=== PATIENT | female | born 1985 | race Caucasian/White ===

== ENCOUNTER 2020-03-10 11:09 | Outpatient (REF) | payer MEDICAID, SELFPAY | END 2020-03-10 11:10 | disposition home or self-care (01) | LOC: HO.LAB 11:09 | PROVIDERS: Visit Provider Internal Medicine | DX: Z20.828 Contact with and (suspected) exposure to other viral communicable diseases (principal) | CPT/HCPCS: C9803; U0003 ==

== ENCOUNTER 2020-05-14 11:50 | Outpatient (REF) | payer MEDICAID, SELFPAY | END 2020-05-14 11:51 | disposition home or self-care (01) | LOC: HO.LAB 11:50 | PROVIDERS: Visit Provider Internal Medicine | DX: Z20.822 Contact with and (suspected) exposure to COVID-19 (principal) | CPT/HCPCS: 36415; C9803; U0003 ==

== ENCOUNTER 2020-07-25 11:51 | Outpatient (REF) | payer MEDICAID, SELFPAY ==
--- NOTE | ~2020-07-25 | XR_ITS ---
EXAMINATION: XR KNEE, LEFT CLINICAL INFORMATION: Left knee pain COMPARISON: None TECHNIQUE: Four views of the left knee. FINDINGS: There is no effusion or degenerative change. There is an area of ill-defined increased sclerosis in the distal diametaphysis of the femur. This measures 2 x 1.7 cm. This is eccentric abutting the endosteal cortex posteriorly. XR/XR knee LT 4V IMPRESSION: No abnormality of the knee joint. Sclerotic density in the distal femur indeterminate. Likely benign. This likely reflects a bone infarct, cartilage lesion or maturing nonossifying fibroma.
--- NOTE | ~2020-07-25 | XR_ITS ---
EXAMINATION: XR HIP, LEFT CLINICAL INFORMATION: Left hip pain COMPARISON: None TECHNIQUE: Two views of the left hip. FINDINGS: Bones and soft tissues are normal. No fracture. Alignment is anatomic. Hip joint space is maintained. XR/XR hip LT min 2V IMPRESSION: Normal left hip.
== END 2020-07-25 11:52 | disposition home or self-care (01) ==
LOC: HO.XRAY 11:51
PROVIDERS: PCP Student in an Organized Health Care Education/Training Program; Visit Provider Student in an Organized Health Care Education/Training Program
DX: M25.562 Pain in left knee (principal); M25.552 Pain in left hip
CPT/HCPCS: 73502; 73564

== ENCOUNTER 2020-07-31 13:32 | Outpatient (REF) | payer MEDICAID, SELFPAY ==
--- NOTE | ~2020-07-31 | US_ITS ---
EXAMINATION:US pelvic and transvaginal CLINICAL INFORMATION: Reason for Exam EXCESSIVE AND FREQ. MENSES COMPARISON: No priors available. LMP: Unknown FINDINGS: UTERUS: The uterus is anteverted. Size: 14.3 x 5.7 x 6.6 cm. Uterine mass: There is no uterine mass. Cervix: Grossly unremarkable. Endometrium: No ultrasound evidence of endometrial lesion. endometrial thickness measures 0.25 cm ADNEXA: Normal Right ovary: Normal in size. Left ovary: Normal in size. Doppler exam: Normal Doppler flow identified in both ovaries. FREE FLUID: Trace amount of free fluid. OTHER FINDINGS: None US/US pelvic and transvaginal IMPRESSION: Normal pelvic ultrasound.
== END 2020-07-31 13:33 | disposition home or self-care (01) ==
LOC: HO.US 13:32
PROVIDERS: Visit Provider Advanced Practice Midwife
DX: N92.0 Excessive and frequent menstruation with regular cycle (principal)
CPT/HCPCS: 76830; 76856

== ENCOUNTER 2022-02-18 11:48 | Outpatient (REF) | payer MEDICAID, SELFPAY ==
--- NOTE | 2022-02-18 09:00 | EMG_ITS ---
Bilateral median and ulnar motor and sensory studies were performed. Bilateral radial sensory studies were performed and paraspinal muscles were tested with a needle. IMPRESSION: 1. Mild to moderate bilateral median neuropathy across carpal tunnel. 2. Mild bilateral ulnar neuropathy across cubital tunnel. MD DENISSE Mcwilliams/ARIANA / [id number]
== END 2022-02-18 11:49 | disposition home or self-care (01) ==
LOC: HO.NEURO 11:48
PROVIDERS: PCP Student in an Organized Health Care Education/Training Program; Visit Provider Emergency Medicine
DX: R20.0 Anesthesia of skin (principal)
CPT/HCPCS: 95886; 95911

== ENCOUNTER 2022-03-10 15:17 | Emergency (ER) | payer MEDICAID, SELFPAY ==
[2022-03-10 15:21] VITALS: BP 140/70; PULSE 94; RESP 20; TEMP 36.1; O2SAT 100; BMI 43.1
--- NOTE | 2022-03-10 15:47 | ED_ITS ---
HPI - Female Genitourinary General Chief complaint: Vaginal Bleeding <Pedro Luis Pena MD - Last Filed: 03/10/22 16:41> Stated complaint: Menstrual Cycle 42 Days <Pedro Luis Pena MD - Last Filed: 03/10/22 16:41> Time Seen by Provider: 03/10/22 15:38 <Pedro Luis Pena MD - Last Filed: 03/10/22 16:41> Source: patient <Pedro Luis Pena MD - Last Filed: 03/10/22 16:41> Mode of arrival: ambulatory <Pedro Luis Pena MD - Last Filed: 03/10/22 16:41> Limitations: language barrier <Pedro Luis Pena MD - Last Filed: 03/10/22 16:41> History of Present Illness HPI Narrative: Family acting as air quality consultant. Patient has had her period for 42 days. Initially the period was heavy but now it is light. Patient with low abdominal/pelvic pain. patient has had a tubal ligation. . <Pedro Luis Pena MD - Last Filed: 03/10/22 16:41> MD elicited complaint: vaginal bleeding <Pedro Luis Pena MD - Last Filed: 03/10/22 16:41> Onset (ago): month(s) <Pedro Luis Pena MD - Last Filed: 03/10/22 16:41> Severity: moderate <Pedro Luis Pena MD - Last Filed: 03/10/22 16:41> Consistency: constant <Pedro Luis Pena MD - Last Filed: 03/10/22 16:41> Vaginal bleeding: moderate <Pedro Luis Pena MD - Last Filed: 03/10/22 16:41> Exacerbating factors: none <Pedro Luis Pena MD - Last Filed: 03/10/22 16:41> Relieving factors: none <Pedro Luis Pena MD - Last Filed: 03/10/22 16:41> Related Data Allergies/Adverse reactions: Allergies Allergy/AdvReac Type Severity Reaction Status Date / Time No Known Allergies Allergy Unverified 01/03/20 19:52 [No Known Allergies*] <Pedro Luis Pena MD - Last Filed: 03/10/22 16:41> Review of Systems Review of Systems: Yes all other systems are reviewed and are negative <Pedro Luis Pena MD - Last Filed: 03/10/22 16:41> Neurologic: Denies Sensory deficit (Neuro) <Pedro Luis Pena MD - Last Filed: 03/10/22 16:41> FORMERLY [facility], 1928–1983 Social History Social History: Social History Advance Directives: No Advance Directives Information Provided: Yes <Pedro Luis Pena MD - Last Filed: 03/10/22 16:41> Physical Exam Vital Signs: Vital Signs: Last Vital Signs Temp 98.7 F 03/10/22 19:10 Pulse 91 03/10/22 19:10 Resp 18 03/10/22 19:10 BP 135/74 03/10/22 19:10 Pulse Ox 98 03/10/22 19:10 O2 Del Method 03/10/22 19:10 BMI result Body Mass Index 43.1 <Pedro Luis Pena MD - Last Filed: 03/10/22 16:41> Vital Signs: Last Vital Signs Temp 98.7 F 03/10/22 19:10 Pulse 91 03/10/22 19:10 Resp 18 03/10/22 19:10 BP 135/74 03/10/22 19:10 Pulse Ox 98 03/10/22 19:10 O2 Del Method 03/10/22 19:10 BMI result Body Mass Index 43.1 <Colin Crawford MD - Last Filed: 03/10/22 19:36> Const: General: healthy appearing <Pedro Luis Pena MD - Last Filed: 03/10/22 16:41> Nutritional Appearance: obese <Pedro Luis Pena MD - Last Filed: 03/10/22 16:41> Orientation/consciousness: oriented to person and patient oriented x3 <Pedro Luis Pena MD - Last Filed: 03/10/22 16:41> Limitations: no limitations <Pedro Luis Pena MD - Last Filed: 03/10/22 16:41> HEENT: Head: Yes normal to inspection <Pedro Luis Pena MD - Last Filed: 03/10/22 16:41> Ears: external ears normal <Pedro Luis Pena MD - Last Filed: 03/10/22 16:41> General nose exam: Normal external nose present <Pedro Luis Pena MD - Last Filed: 03/10/22 16:41> Mouth: Normal oral and palatal mucosa present and oropharynx normal <Pedro Luis Pena MD - Last Filed: 03/10/22 16:41> Throat: Yes posterior oropharynx normal <Pedro Luis Pena MD - Last Filed: 03/10/22 16:41> Eyes: General: appearance normal, both eyes and all related structures <Pedro Lusi Pena MD - Last Filed: 03/10/22 16:41> Neck: Other: supple <Pedro Luis Pena MD - Last Filed: 03/10/22 16:41> Neck: Yes normal visual inspection <Pedro Luis Pena MD - Last Filed: 03/10/22 16:41> Chest: Chest palpation & inspection: normal inspection of the chest <Pedro Luis Pena MD - Last Filed: 03/10/22 16:41> Resp: Auscultation: clear to auscultation bilaterally <Pedro Luis Pena MD - Last Filed: 03/10/22 16:41> Cardio: Jugular venous distension: no JVD <Pedro Luis Pena MD - Last Filed: 03/10/22 16:41> Rate: regular rate <Pedro Luis Pena MD - Last Filed: 03/10/22 16:41> Rhythm: regular rhythm <Pedro Luis Pena MD - Last Filed: 03/10/22 16:41> Heart sounds: S1 normal heart sound present and S2 normal heart sound present <Pedro Luis Pena MD - Last Filed: 03/10/22 16:41> GI: Inspection: Yes normal to inspection <Pedro Luis Pena MD - Last Filed: 03/10/22 16:41> Palpation (GI): Soft to palpation, nontender and No hepatosplenomegaly present <Pedro Luis Pena MD - Last Filed: 03/10/22 16:41> Auscultation: normal bowel sounds <Pedro Luis Pena MD - Last Filed: 03/10/22 16:41> : Other: normal vagina, slight blood in vaginal canal, no hemorrhage <Pedro Luis Pena MD - Last Filed: 03/10/22 16:41> Skin: General skin exam: no rashes or lesions noted <Pedro Luis Pena MD - Last Filed: 03/10/22 16:41> Neuro: General: oriented to person and patient oriented x3 <Pedro Luis Pena MD - Last Filed: 03/10/22 16:41> Cranial nerves: Yes CN's II-XII intact bilaterally <Pedro Luis Pena MD - Last Filed: 03/10/22 16:41> Motor exam (neuro): 5/5 motor strength present throughout <Pedro Luis Pena MD - Last Filed: 03/10/22 16:41> Sensory Exam: No Sensory deficit (Neuro) <Pedro Luis Pena MD - Last Filed: 03/10/22 16:41> Extrem: General: Yes normal to inspection <Pedro Luis Pena MD - Last Filed: 03/10/22 16:41> Psych: Appearance: grossly normal <Pedro Luis Pena MD - Last Filed: 03/10/22 16:41> Course Reevaluation(s) Reevaluation #1: stable HCT, minimal bleeding will have patient follow up with Dr. Jordan <Pedro Luis Pena MD - Last Filed: 03/10/22 16:41> Time: 16:40 <Pedro Luis Pena MD - Last Filed: 03/10/22 16:41> Reevaluation #2: Signed out ready for discharge but check UA and status, patient has negative testing, UA with small LE patient is complaining of increased urinary frequency, patient was instructed to drink plenty of fluid will start the patient on 7 days of Macrobid. Patient also was instructed to follow-up with her OB. <Colin Crawford MD - Last Filed: 03/10/22 19:36> Time: 19:35 <Colin Crawford MD - Last Filed: 03/10/22 19:36> MDM - Female Genitourinary Lab Data Result diagrams: : 03/10/22 16:07 03/10/22 16:07 <Pedro Luis Pena MD - Last Filed: 03/10/22 16:41> Labs: Lab Results 03/10/22 03/10/22 03/10/22 Range/Units 16:07 16:07 18:44 WBC 11.7 H (4.8-10.8) X10*3/uL RBC 5.19 (4.20-5.50) X10*6/uL Hgb 12.6 (12.0-16.0) g/dl Hct 40.2 (37.0-47.0) % MCV 77.5 L (80.0-98.0) fL MCH 24.3 L (27.0-33.0) pg MCHC 31.3 (31.0-35.0) g/dl RDW 15.9 (11.0-16.0) % Plt Count 354 (160-400) X10*3/uL MPV 10.7 (9.4-12.3) fL Immature Gran % (Auto) 0.3 (0.0-0.4) % Neut % (Auto) 66.3 (45-73) % Lymph % (Auto) 25.3 (20-40) % [place] % (Auto) 6.9 (2-11) % Eos % (Auto) 0.8 (0-4) % Baso % (Auto) 0.4 (0-2) % Lymph # (Auto) 3.0 (1.2-4.9) X10*3/uL [place] # (Auto) 0.8 (0.1-1.2) X10*3/uL Eos # (Auto) 0.1 (0.0-0.4) X10*3/uL Baso # (Auto) 0.1 (0.0-0.2) X10*3/uL Abs Immat Gran (auto) 0.04 H (0.00-0.03) X10*3/uL Absolute Neuts (auto) 7.7 (2.0-8.3) x10*3/uL Absolute Nucleated RBC 0.000 (0.0-0.012) X10*3/uL Nucleated RBC % (auto) 0.0 (0.0-0.2) /100WBC Sodium 140 (135-145) mmol/L Potassium 3.5 (3.3-5.1) mmol/L Chloride 100 (96-108) mmol/L Carbon Dioxide 30 H (22-29) mmol/L Anion Gap 14 (12-20) BUN 11 (9-16) mg/dL Creatinine 0.97 (0.5-1.4) mg/dL Estim Creat Clear Calc 91.3 Estimated GFR > 60 Random Glucose 94 (60-115) mg/dL Calcium 9.9 (8.4-10.2) mg/dL Urine Color Yellow Urine Appearance Clear Urine pH 6.5 (5.0-9.0) Ur Specific [place] 1.015 (1.005-1.025) Urine Protein Negative (Neg-Trace) mg/dL Urine Glucose (UA) Negative (Negative) mg/dL Urine Ketones Negative (Negative) mg/dL Urine Blood Large (3+) H (Negative) Urine Nitrite Negative (Negative) Ur Leukocyte Esterase Trace H (Negative) Urine RBC >20 H (0-2) /HPF Urine WBC 0-5 (0-5) /HPF Ur Squamous Epith Cells 0-2 (0-2) /HPF Urine Bacteria None Seen (None Seen) Hyaline Casts 0-2 (0-2) /LPF Urine Test (NEGATIVE) 03/10/22 Range/Units 18:44 WBC (4.8-10.8) X10*3/uL RBC (4.20-5.50) X10*6/uL Hgb (12.0-16.0) g/dl Hct (37.0-47.0) % MCV (80.0-98.0) fL MCH (27.0-33.0) pg MCHC (31.0-35.0) g/dl RDW (11.0-16.0) % Plt Count (160-400) X10*3/uL MPV (9.4-12.3) fL Immature Gran % (Auto) (0.0-0.4) % Neut % (Auto) (45-73) % Lymph % (Auto) (20-40) % [place] % (Auto) (2-11) % Eos % (Auto) (0-4) % Baso % (Auto) (0-2) % Lymph # (Auto) (1.2-4.9) X10*3/uL [place] # (Auto) (0.1-1.2) X10*3/uL Eos # (Auto) (0.0-0.4) X10*3/uL Baso # (Auto) (0.0-0.2) X10*3/uL Abs Immat Gran (auto) (0.00-0.03) X10*3/uL Absolute Neuts (auto) (2.0-8.3) x10*3/uL Absolute Nucleated RBC (0.0-0.012) X10*3/uL Nucleated RBC % (auto) (0.0-0.2) /100WBC Sodium (135-145) mmol/L Potassium (3.3-5.1) mmol/L Chloride (96-108) mmol/L Carbon Dioxide (22-29) mmol/L Anion Gap (12-20) BUN (9-16) mg/dL Creatinine (0.5-1.4) mg/dL Estim Creat Clear Calc Estimated GFR Random Glucose (60-115) mg/dL Calcium (8.4-10.2) mg/dL Urine Color Urine Appearance Urine pH (5.0-9.0) Ur Specific [place] (1.005-1.025) Urine Protein (Neg-Trace) mg/dL Urine Glucose (UA) (Negative) mg/dL Urine Ketones (Negative) mg/dL Urine Blood (Negative) Urine Nitrite (Negative) Ur Leukocyte Esterase (Negative) Urine RBC (0-2) /HPF Urine WBC (0-5) /HPF Ur Squamous Epith Cells (0-2) /HPF Urine Bacteria (None Seen) Hyaline Casts (0-2) /LPF Urine Test NEGATIVE (NEGATIVE) <Pedro Luis Pena MD - Last Filed: 03/10/22 16:41> Lab Results 03/10/22 03/10/22 03/10/22 Range/Units 16:07 16:07 18:44 WBC 11.7 H (4.8-10.8) X10*3/uL RBC 5.19 (4.20-5.50) X10*6/uL Hgb 12.6 (12.0-16.0) g/dl Hct 40.2 (37.0-47.0) % MCV 77.5 L (80.0-98.0) fL MCH 24.3 L (27.0-33.0) pg MCHC 31.3 (31.0-35.0) g/dl RDW 15.9 (11.0-16.0) % Plt Count 354 (160-400) X10*3/uL MPV 10.7 (9.4-12.3) fL Immature Gran % (Auto) 0.3 (0.0-0.4) % Neut % (Auto) 66.3 (45-73) % Lymph % (Auto) 25.3 (20-40) % [place] % (Auto) 6.9 (2-11) % Eos % (Auto) 0.8 (0-4) % Baso % (Auto) 0.4 (0-2) % Lymph # (Auto) 3.0 (1.2-4.9) X10*3/uL [place] # (Auto) 0.8 (0.1-1.2) X10*3/uL Eos # (Auto) 0.1 (0.0-0.4) X10*3/uL Baso # (Auto) 0.1 (0.0-0.2) X10*3/uL Abs Immat Gran (auto) 0.04 H (0.00-0.03) X10*3/uL Absolute Neuts (auto) 7.7 (2.0-8.3) x10*3/uL Absolute Nucleated RBC 0.000 (0.0-0.012) X10*3/uL Nucleated RBC % (auto) 0.0 (0.0-0.2) /100WBC Sodium 140 (135-145) mmol/L Potassium 3.5 (3.3-5.1) mmol/L Chloride 100 (96-108) mmol/L Carbon Dioxide 30 H (22-29) mmol/L Anion Gap 14 (12-20) BUN 11 (9-16) mg/dL Creatinine 0.97 (0.5-1.4) mg/dL Estim Creat Clear Calc 91.3 Estimated GFR > 60 Random Glucose 94 (60-115) mg/dL Calcium 9.9 (8.4-10.2) mg/dL Urine Color Yellow Urine Appearance Clear Urine pH 6.5 (5.0-9.0) Ur Specific [place] 1.015 (1.005-1.025) Urine Protein Negative (Neg-Trace) mg/dL Urine Glucose (UA) Negative (Negative) mg/dL Urine Ketones Negative (Negative) mg/dL Urine Blood Large (3+) H (Negative) Urine Nitrite Negative (Negative) Ur Leukocyte Esterase Trace H (Negative) Urine RBC >20 H (0-2) /HPF Urine WBC 0-5 (0-5) /HPF Ur Squamous Epith Cells 0-2 (0-2) /HPF Urine Bacteria None Seen (None Seen) Hyaline Casts 0-2 (0-2) /LPF Urine Test (NEGATIVE) 03/10/22 Range/Units 18:44 WBC (4.8-10.8) X10*3/uL RBC (4.20-5.50) X10*6/uL Hgb (12.0-16.0) g/dl Hct (37.0-47.0) % MCV (80.0-98.0) fL MCH (27.0-33.0) pg MCHC (31.0-35.0) g/dl RDW (11.0-16.0) % Plt Count (160-400) X10*3/uL MPV (9.4-12.3) fL Immature Gran % (Auto) (0.0-0.4) % Neut % (Auto) (45-73) % Lymph % (Auto) (20-40) % [place] % (Auto) (2-11) % Eos % (Auto) (0-4) % Baso % (Auto) (0-2) % Lymph # (Auto) (1.2-4.9) X10*3/uL [place] # (Auto) (0.1-1.2) X10*3/uL Eos # (Auto) (0.0-0.4) X10*3/uL Baso # (Auto) (0.0-0.2) X10*3/uL Abs Immat Gran (auto) (0.00-0.03) X10*3/uL Absolute Neuts (auto) (2.0-8.3) x10*3/uL Absolute Nucleated RBC (0.0-0.012) X10*3/uL Nucleated RBC % (auto) (0.0-0.2) /100WBC Sodium (135-145) mmol/L Potassium (3.3-5.1) mmol/L Chloride (96-108) mmol/L Carbon Dioxide (22-29) mmol/L Anion Gap (12-20) BUN (9-16) mg/dL Creatinine (0.5-1.4) mg/dL Estim Creat Clear Calc Estimated GFR Random Glucose (60-115) mg/dL Calcium (8.4-10.2) mg/dL Urine Color Urine Appearance Urine pH (5.0-9.0) Ur Specific [place] (1.005-1.025) Urine Protein (Neg-Trace) mg/dL Urine Glucose (UA) (Negative) mg/dL Urine Ketones (Negative) mg/dL Urine Blood (Negative) Urine Nitrite (Negative) Ur Leukocyte Esterase (Negative) Urine RBC (0-2) /HPF Urine WBC (0-5) /HPF Ur Squamous Epith Cells (0-2) /HPF Urine Bacteria (None Seen) Hyaline Casts (0-2) /LPF Urine Test NEGATIVE (NEGATIVE) <Colin Crawford MD - Last Filed: 03/10/22 19:36> Discharge Plan Discharge Clinical Impression: Vaginal bleeding, Dysfunctional uterine bleeding <Pedro Luis Pena MD - Last Filed: 03/10/22 16:41> Patient Disposition: Home, Self-Care <Pedro Luis Pena MD - Last Filed: 03/10/22 16:41> Instructions: Dysfunctional Uterine Bleeding (ED) <Pedro Luis Pena MD - Last Filed: 03/10/22 16:41> Referrals: Evelio Jordan MD [Physician] - 5 days <Pedro Luis Pena MD - Last Filed: 03/10/22 16:41>
[2022-03-10 16:11] LABS: MANUAL DIFF FLAG NO
[2022-03-10 16:16] LABS: Basophils Absolute Auto 0.1 X10*3/uL (0.0-0.2); Basophils Percent Auto 0.4 % (0-2); Eosinophils Absolute Auto 0.1 X10*3/uL (0.0-0.4); Eosinophils Percent Auto 0.8 % (0-4); Hematocrit 40.2 % (37.0-47.0); Hemoglobin 12.6 g/dl (12.0-16.0); Imm Gran Abs Auto 0.04 X10*3/uL (0.00-0.03); Imm Gran Pct Auto 0.3 % (0.0-0.4); Lymphocytes Percent Auto 25.3 % (20-40); Mean Corpuscular HGB Conc 31.3 g/dl (31.0-35.0); Mean Corpuscular Hemoglobin 24.3 pg (27.0-33.0); Mean Corpuscular Volume 77.5 fL (80.0-98.0); Mean Platelet Volume 10.7 fL (9.4-12.3); Monocytes Absolute Auto 0.8 X10*3/uL (0.1-1.2); Monocytes Percent Auto 6.9 % (2-11); Neutrophils Absolute Auto 7.7 x10*3/uL (2.0-8.3); Neutrophils Percent Auto 66.3 % (45-73); Platelet Count 354 X10*3/uL (160-400); Red Blood Count 5.19 X10*6/uL (4.20-5.50); Red Cell Distribution Width 15.9 % (11.0-16.0); White Blood Count 11.7 X10*3/uL (4.8-10.8)
[2022-03-10 16:41] LABS: Anion Gap 14 (12-20); Blood Urea Nitrogen 11 mg/dL (9-16); Calcium 9.9 mg/dL (8.4-10.2); Carbon Dioxide 30 mmol/L (22-29); Chloride 100 mmol/L (96-108); Creatinine Clr Calc Pharmacy 91.3; Estimated Glomerular Filt Rate > 60; Glucose Random 94 mg/dL (60-115); Potassium 3.5 mmol/L (3.3-5.1); Sodium 140 mmol/L (135-145)
[2022-03-10 18:59] LABS: Appearance Urine Clear; Color Urine Yellow; Glucose Urine UA Negative (Negative); Leukocyte Esterase Urine Trace (Negative); Nitrite Urine Negative (Negative); PH 6.5 (5.0-9.0); Specific Gravity - Urine 1.015 (1.005-1.025); UMIC TRIGGER UACC YES; UPreg QC Valid YES; Urine Blood Large (3+) (Negative); Urine Ketones Negative (Negative); Urine Pregnancy NEGATIVE (NEGATIVE); Urine Protein Negative (Neg-Trace)
[2022-03-10 19:04] LABS: Bacteria Urine None Seen (None Seen); Hyaline Casts Urine 0-2 /LPF (0-2); RBC Urine >20 /HPF (0-2); Squamous Epithelial Cell Urine 0-2 /HPF (0-2); WBC Urine 0-5 /HPF (0-5)
[2022-03-10 19:10] VITALS: BP 135/74; PULSE 91; RESP 18; TEMP 37.1; O2SAT 98
== END 2022-03-10 19:58 | disposition home or self-care (01) ==
PROVIDERS: Emergency Medicine; Emergency Provider Emergency Medicine; PCP Student in an Organized Health Care Education/Training Program
DX: N93.8 Other specified abnormal uterine and vaginal bleeding (principal); Z79.899 Other long term (current) drug therapy
CPT/HCPCS: 36415; 80048; 81001; 81025; 85025; 99283

== ENCOUNTER → 2022-03-30 11:12 | Outpatient (BNVA) | payer MEDICAID, SELFPAY | PROVIDERS: PCP Student in an Organized Health Care Education/Training Program; Visit Provider Orthopaedic Surgery | DX: G56.03 Carpal tunnel syndrome, bilateral upper limbs (principal); G56.23 Lesion of ulnar nerve, bilateral upper limbs; I10 Essential (primary) hypertension; J45.909 Unspecified asthma, uncomplicated; G43.909 Migraine, unspecified, not intractable, without status migrainosus | CPT/HCPCS: 99202 ==

== ENCOUNTER → 2022-04-22 09:59 | Outpatient (BNVA) | payer MEDICAID, SELFPAY | PROVIDERS: PCP Student in an Organized Health Care Education/Training Program; Visit Provider Nurse Practitioner Family | DX: G43.109 Migraine with aura, not intractable, without status migrainosus (principal); M54.81 Occipital neuralgia; M54.2 Cervicalgia; R20.0 Anesthesia of skin | CPT/HCPCS: 99202 ==

== ENCOUNTER 2022-05-11 10:21 | Outpatient (REF) | payer MEDICAID, SELFPAY ==
--- NOTE | ~2022-05-11 | MR_ITS ---
EXAMINATION: MR BRAIN WITHOUT AND WITH CONTRAST CLINICAL INFORMATION: Migraine. COMPARISON: None available. TECHNIQUE: MRI of the brain was obtained using routine sequences without and following the administration of 10 mL of Gadavist intravenous contrast. FINDINGS: No focal restricted diffusion is demonstrated to suggest acute or subacute cerebral ischemia. No evidence of acute or chronic hemorrhagic products on heme-sensitive imaging. Normal parenchymal signal characteristics. The ventricles are normal in morphology and size. No abnormal mass effect. No midline shift. Normal appearance of the pituitary gland. Normal positioning of the cerebellar tonsils. Normal arterial and venous vascular flow voids are present. No abnormal contrast enhancement. Normal, homogeneous marrow signal. Mild mucosal thickening of the paranasal sinuses. No signal abnormalities within the mastoids. MR/MR head/brain wo/w con IMPRESSION: 1. No acute intracranial abnormalities. No abnormal intracranial enhancement. 2. No MRI abnormalities to explain the patient's symptoms.
== END 2022-05-11 10:22 | disposition home or self-care (01) ==
LOC: HO.MRI 10:21
PROVIDERS: PCP Student in an Organized Health Care Education/Training Program; Visit Provider Nurse Practitioner Family
DX: G43.109 Migraine with aura, not intractable, without status migrainosus (principal); R20.0 Anesthesia of skin
CPT/HCPCS: 70553; A9585

== ENCOUNTER 2022-05-13 11:00 | Day surgery (SDC) | payer MEDICAID, SELFPAY ==
[2022-05-13 11:55] VITALS: BP 115/58; PULSE 99; RESP 18; TEMP 36.4; O2SAT 96; BMI 50.3
--- NOTE | 2022-05-13 13:30 | MHC.SHP ---
Pre-Procedural Eval Section A Date of Service: 05/13/22 The patient is an INPATIENT: No Changes since office visit: No Cold of Flu in the past 2 weeks, No New Medical Problems, No Changes in Medication and No Patient answered all questions The History & Physical has been completed within 30 days and I have reviewed it.: Yes Section B Chief Complaint: Carpal tunnel syndrome, left upper limb Allergies: Allergies Allergy/AdvReac Type Severity Reaction Status Date / Time No Known Allergies Allergy Unverified 04/22/22 10:11 [No Known Allergies*] Plan I have reviewed the history and physical and performed a pertinent physical examination on my patient. No changes have occurred unless specified. Time Spent With Patient Time: Total time managing care of this patient today ____ minutes.
--- NOTE | 2022-05-13 13:31 | W.PM.OPN ---
Operative Note Operative Note Date of Service: 05/13/22 Narrative: Preop diagnosis: 1. Left Carpal tunnel syndrome Postop diagnosis: same Procedure: 1. Left Carpal tunnel release Surgeon: Jacquelyn Farah MD Anesthesia: local block using 1% lidocaine with epinephrine Findings: Thickened transverse carpal ligament. EBL: Less than 5 mL Specimens: None Complications: None Disposition: Brought to recovery room in stable condition Plan: Follow-up for 10-14 days for wound check and suture removal Indications: The patient is 37 years old, with left carpal tunnel syndrome that has been unresponsive to nonoperative management. The risks and benefits of operative treatment including but not limited to risk of damage to blood vessels, nerves, tendons, infection, persistent pain, persistent symptoms, or possible need for additional surgery were discussed with the patient and the patient wishes to proceed with surgery. Procedure: Once consent was obtained a local block was performed using a combination of 1% lidocaine with epinephrine. The patient was then brought back to the operating suite and placed on the operative table in supine position. The left upper extremity was prepped and draped in a standard surgical fashion. Once assured that we had a good block, a 2.0 cm longitudinal incision was made centered over the carpal tunnel. The incision was made through the skin to the subcutaneous tissues using a #15 blade. Dissection was made down to the level of the transverse carpal ligament with care being taken to protect the palmar cutaneous nerve. Once the transverse carpal ligament was clearly visualized, a longitudinal incision was made in the transverse carpal ligament 1st using a #15 blade, then using tenotomy scissors under direct visualization. Care was taken to look for and protect the motor branch of the median nerve when seen in this area. Once satisfied with our carpal tunnel release the wound was copiously irrigated with normal saline and hemostasis was obtained with a brief period of local pressure. The skin edges were reapproximated with some 5.0 nylon suture material and a sterile dressing was applied. The patient appears to have tolerated the procedure well and with no complications. All digits were well vascularized at the conclusion of the case.
[2022-05-13 13:40] VITALS: BP 145/92; PULSE 83; RESP 18; O2SAT 98
== END 2022-05-13 13:40 | disposition home or self-care (01) ==
PROVIDERS: PCP Student in an Organized Health Care Education/Training Program; Visit Provider Orthopaedic Surgery
PROC: (CPT 64721; principal; 2022-05-13 12:30)
DX: G56.02 Carpal tunnel syndrome, left upper limb (principal); G56.22 Lesion of ulnar nerve, left upper limb; J45.909 Unspecified asthma, uncomplicated; I10 Essential (primary) hypertension; G43.909 Migraine, unspecified, not intractable, without status migrainosus; Z79.899 Other long term (current) drug therapy; Z79.51 Long term (current) use of inhaled steroids; Z86.16 Personal history of COVID-19
CPT/HCPCS: 64721; J0171

== ENCOUNTER 2022-05-26 12:16 | Emergency (ER) | payer MEDICAID, SELFPAY ==
[2022-05-26 12:26] VITALS: BP 153/94; PULSE 92; RESP 18; TEMP 36.6; O2SAT 99; BMI 40.7
--- NOTE | 2022-05-26 12:27 | ED_ITS ---
HPI - General Adult General Chief complaint: General Medical Stated complaint: stitch removal Time Seen by Provider: 05/26/22 12:26 Source: patient and certified court/medical interpreter Mode of arrival: ambulatory Limitations: language barrier History of Present Illness HPI narrative: 37-year-old female here seeking suture removal. Patient had carpal tunnel surgery on May [address] Farah and is here seeking to have the sutures removed from her left hand. No complaints. Related Data Home Medications Medication Instructions Recorded Confirmed albuterol sulfate 90 mcg/actuation 2 puff inhalation Q4-6H PRN 03/30/22 05/13/22 aerosol inhaler (ProAir HFA) Shortness Of Breath amlodipine 10 mg tablet 10 mg PO DAILY 03/30/22 05/13/22 diclofenac potassium 50 mg tablet 50 mg PO BID 03/30/22 05/13/22 fluticasone propionate 110 2 puff inhalation BID 03/30/22 05/13/22 mcg/actuation HFA aerosol inhaler (Flovent HFA) hydrochlorothiazide 25 mg tablet 25 mg PO ONCE 03/30/22 05/13/22 albuterol sulfate 2.5 mg/3 mL 2.5 mg inhalation Q6H PRN 04/22/22 05/13/22 (0.083 %) solution for nebulization shortness of breath ibuprofen 600 mg tablet 600 mg PO TID PRN pain 04/22/22 05/13/22 polyethylene glycol 3350 17 17 g PO DAILY PRN constipation 04/22/22 05/13/22 gram/dose oral powder sumatriptan succinate 50 mg tablet 0 mg PO 04/22/22 04/22/22 Previous Rx's Medication Instructions Recorded magnesium oxide 400 mg (241.3 mg 400 mg PO BEDTIME 30 days #30 tabs 04/22/22 magnesium) tablet naproxen 500 mg tablet 500 mg PO BID PRN migraine 04/22/22 headache 30 days #30 tabs riboflavin (vitamin B2) 400 mg 400 mg PO DAILY 30 days #30 tabs 04/22/22 tablet sumatriptan succinate 100 mg tablet 100 mg PO .COMPLEX PRN migraine 04/22/22 headache 30 days #12 tabs topiramate 25 mg tablet 25 - 50 mg PO BEDTIME 30 days #60 04/22/22 tabs hydrocodone 5 mg-acetaminophen 325 1 tab PO Q4-6H PRN pain #5 tabs 05/13/22 mg tablet Allergies Allergy/AdvReac Type Severity Reaction Status Date / Time No Known Allergies Allergy Unverified 04/22/22 10:11 [No Known Allergies*] Review of Systems Review of Systems: Yes all other systems are reviewed and are negative Constitutional: Constitutional: Reports no additional constitutional complaints, Denies body ache(s), Denies chills, Denies fever(s), Denies headache(s) and Denies weakness Eyes: Eyes: Reports no additional eye complaints and Denies change in vision ENT: Reports system reviewed and no additional complaints, except as documented, Denies dizziness, Denies headache(s), Denies nasal congestion, Denies nasal discharge and Denies neck pain Cardiovascular: Cardiovascular: Reports no additional cardiovascular complaints, Denies chest pain, Denies leg edema and Denies dyspnea Respiratory: Respiratory: Reports no additional respiratory complaints, Denies cough and Denies dyspnea Gastrointestinal: Gastrointestinal: Reports no additional gastrointestinal complaints, Denies abdominal pain, Denies diarrhea, Denies nausea and Denies vomiting Genitourinary: Genitourinary: Reports no additional female genitourinary complaints and Denies urinary incontinence Musculoskeletal: Musculoskeletal: Reports no additional musculoskeletal complaints, Denies back pain, Denies arthralgias, Denies joint swelling, Denies neck pain, Denies numbness and Denies tingling Integumentary/Breasts: Skin/Breast: Reports system reviewed and no additional complaints, except as docu and Denies rash Neurologic: Reports system reviewed and no additional complaints, except as documented, Denies dizziness, Denies headache(s), Denies numbness, Denies tingling and Denies weakness [facility] Past Medical History Attestation statement: The following information was validated with the patient. 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 Medical Decision Making Medical Decision Making MDM Narrative: Patient seeking suture removal from orthopedic Hand surgery done on May 13 (carpal tunnel). No signs of infection Recommend patient follow-up with the surgical office. This was explained with a certified court/medical interpreter. Patient is aware. Discharge Plan Discharge Clinical Impression: Visit for wound check Patient Disposition: Home, Self-Care Instructions: Wound Healing and Your Diet (ED) Additional Instructions: Un cirujano de mano le coloc? suturas para la cirug?a del t?honorio carpiano. Debe hacer un seguimiento con el cirujano para que los extraiga. Prescriptions: No Action hydrocodone-acetaminophen 5-325 mg tablet 1 tab PO Q4-6H PRN (Reason: pain) Qty: 5 0RF Rx Instructions: Partial Fill upon patient request. polyethylene glycol 3350 17 gram/dose powder 17 g PO DAILY PRN (Reason: constipation) ibuprofen 600 mg tablet 600 mg PO TID PRN (Reason: pain) sumatriptan succinate 50 mg tablet 0 mg PO albuterol sulfate 2.5 mg /3 mL (0.083 %) solution for nebulization 2.5 mg inhalation Q6H PRN (Reason: shortness of breath) topiramate 25 mg tablet 25 - 50 mg PO BEDTIME 30 Days Qty: 60 3RF riboflavin (vitamin B2) 400 mg tablet 400 mg PO DAILY 30 Days Qty: 30 6RF magnesium oxide 400 mg (241.3 mg magnesium) tablet 400 mg PO BEDTIME 30 Days Qty: 30 6RF Rx Instructions: may hold for loose stools sumatriptan succinate 100 mg tablet 100 mg PO .COMPLEX PRN (Reason: migraine headache) 30 Days Qty: 12 6RF Rx Instructions: 50-100 mg orally at onset of headache, may repeat in 2 hrs PRN; max 2 tabs per day or 4 tabs/week (may take with Ibuprofen or Naproxen) naproxen 500 mg tablet 500 mg PO BID PRN (Reason: migraine headache) 30 Days Qty: 30 3RF Rx Instructions: take w/ food fluticasone propionate [Flovent HFA] 110 mcg/actuation HFA aerosol inhaler 2 puff inhalation BID hydrochlorothiazide 25 mg tablet 25 mg PO ONCE amlodipine 10 mg tablet 10 mg PO DAILY diclofenac potassium 50 mg tablet 50 mg PO BID albuterol sulfate [ProAir HFA] 90 mcg/actuation HFA aerosol inhaler 2 puff inhalation Q4-6H PRN (Reason: Shortness Of Breath) Referrals: Jacquelyn Farah MD [Physician] - 2 days Interventions: ED Discharge Assessment Last Done: 05/26/22 12:41 Discharge Date/Time: 05/26/22 12:41 Print Language: Yakut
== END 2022-05-26 12:41 | disposition home or self-care (01) ==
PROVIDERS: Emergency Provider Emergency Medicine; PCP Student in an Organized Health Care Education/Training Program
DX: Z48.02 Encounter for removal of sutures (principal); Z98.890 Other specified postprocedural states; G56.02 Carpal tunnel syndrome, left upper limb
CPT/HCPCS: 99282

== ENCOUNTER → 2022-05-31 13:10 | Outpatient (BNVA) | payer MEDICAID, SELFPAY | PROVIDERS: PCP Student in an Organized Health Care Education/Training Program; Visit Provider Internal Medicine | DX: M54.81 Occipital neuralgia (principal); G43.809 Other migraine, not intractable, without status migrainosus; Z79.899 Other long term (current) drug therapy | CPT/HCPCS: 64405; 64450; 99202 ==

== ENCOUNTER 2023-08-22 08:55 | Outpatient (REF) | payer MEDICAID, SELFPAY ==
[2023-08-22 14:48] LABS: Alanine Aminotransferase 22 U/L (0-31); Albumin Level 4.1 g/dL (3.5-5.0); Alkaline Phosphatase 68 U/L (39-117); Anion Gap 13 (12-20); Aspartate Amino Transferase 18 U/L (5-31); Bilirubin Direct 0.1 mg/dL (0.0-0.5); Bilirubin Total 0.4 mg/dL (0.0-1.0); Blood Urea Nitrogen 9 mg/dL (9-16); Calcium 9.5 mg/dL (8.4-10.2); Carbon Dioxide 25 mmol/L (22-29); Chloride 105 mmol/L (96-108); Cholesterol 153 mg/dL (<200); Estimated Glomerular Filt Rate > 60; Glucose Random 89 mg/dL (60-115); HDL Cholesterol 35 mg/dL (>40); LDL Cholesterol Calculated 98 mg/dL (<100); Potassium 3.6 mmol/L (3.3-5.1); Sodium 139 mmol/L (135-145); Total Protein 7.6 g/dL (6.5-8.0); Triglycerides 103 mg/dL (<150)
== END 2023-08-22 08:56 | disposition home or self-care (01) ==
LOC: HO.CHCLDS 08:55
PROVIDERS: Visit Provider Student in an Organized Health Care Education/Training Program
DX: I10 Essential (primary) hypertension (principal)
CPT/HCPCS: 36415; 80048; 80061; 80076

== ENCOUNTER 2023-08-23 11:39 | Outpatient (REF) | payer MEDICAID, SELFPAY ==
[2023-08-24 03:40] LABS: Syphilis Screen Reactive (Nonreactive)
[2023-08-24 04:32] LABS: HBS Num1 > 1000.00 mIU/mL (0-7.99); HBc Num1 0.06 S/CO (0.00-0.79); HBsAGNum1 0.25 S/CO (0.00-0.99); HIV AB/AG Nonreactive (Nonreactive); HIV Num 1 0.05 S/CO (0.00-0.99); Hepatitis B Core Antibody Nonreactive (Nonreactive); Hepatitis B Surface Antigen Negative (Negative); ~Hepatitis B Surface Antibody REACTIVE (Nonreactive)
[2023-08-24 18:07] LABS: C. trachomatis RNA TMA NOT DETECTED (NOT DETECTED); Candida glabrata RNA NOT DETECTED (NOT DETECTED); Candida species RNA NOT DETECTED (NOT DETECTED); N. gonorrhoeae RNA TMA NOT DETECTED (NOT DETECTED); Trichomonas vaginalis RNA NOT DETECTED (NOT DETECTED)
[2023-08-28 17:50] LABS: RPR Quantitative Reactive 1:32 (Nonreactive)
[2023-08-28 17:51] LABS: T.Pallidum Particle Agg Test Reactive (Nonreactive)
[2023-08-31 03:53] LABS: HPV 16 RNA NOT DETECTED (NOT DETECTED); HPV mRNA E6/E7 rflx Detected (Not Detected)
== END 2023-08-23 11:40 | disposition home or self-care (01) ==
LOC: HO.CHCLDS 11:39
PROVIDERS: Visit Provider Advanced Practice Midwife
DX: Z12.4 Encounter for screening for malignant neoplasm of cervix (principal); Z11.51 Encounter for screening for human papillomavirus (HPV); Z11.4 Encounter for screening for human immunodeficiency virus [HIV]; Z11.3 Encounter for screening for infections with a predominantly sexual mode of transmission; N89.8 Other specified noninflammatory disorders of vagina
CPT/HCPCS: 36415; 81513; 86592; 86704; 86706; 86780; 87340; 87389; 87481; 87491; 87591; 87624; 87625; 87661; 88142

== ENCOUNTER 2024-01-04 10:51 | Outpatient (REF) | payer MEDICAID, SELFPAY ==
[2024-01-05 07:41] LABS: Syphilis Screen Reactive (Nonreactive)
[2024-01-13 11:54] LABS: RPR Quantitative Reactive 1:4 (Nonreactive); T.Pallidum Particle Agg Test Reactive (Nonreactive)
== END 2024-01-04 10:52 | disposition home or self-care (01) ==
LOC: HO.CHCLDS 10:51
PROVIDERS: Visit Provider Advanced Practice Midwife
DX: A53.9 Syphilis, unspecified (principal)
CPT/HCPCS: 36415; 86592; 86780

== ENCOUNTER 2024-04-23 09:41 | Outpatient (REF) | payer MEDICAID, SELFPAY ==
[2024-04-23 11:25] LABS: Appearance Urine Clear; Color Urine Yellow; Glucose Urine UA Negative (Negative); Leukocyte Esterase Urine Small (1+) (Negative); Nitrite Urine Negative (Negative); PH 5.5 (5.0-9.0); UMIC TRIGGER UA YES; Urine Blood Small (1+) (Negative); Urine Ketones Negative (Negative); Urine Protein Negative (Neg-Trace)
[2024-04-23 11:37] LABS: Bacteria Urine None Seen (None Seen); Hyaline Casts Urine 0-2 /LPF (0-2); RBC Urine 0-2 /HPF (0-2); WBC Urine 0-5 /HPF (0-5)
[2024-04-23 12:31] LABS: Syphilis Screen Reactive (Nonreactive)
[2024-04-25 09:29] LABS: RPR Rapid Plasma Reagin REACTIVE (NON-REACTIVE)
== END 2024-04-23 09:42 | disposition home or self-care (01) ==
LOC: HO.HHCL 09:41
PROVIDERS: Visit Provider Advanced Practice Midwife
DX: Z86.19 Personal history of other infectious and parasitic diseases (principal); Z11.3 Encounter for screening for infections with a predominantly sexual mode of transmission; R35.0 Frequency of micturition
CPT/HCPCS: 36415; 81001; 86592; 86593; 86780

== ENCOUNTER 2024-08-21 14:25 | Outpatient (REF) | payer MEDICAID, SELFPAY ==
--- OUTSIDE RECORDS SUMMARY | 2024-08-21 15:42 | XMS_ITS | Encounter Summary ---
Author Organization [employer] Address [address] [place] [address] Care Team Providers Care Navy Seal Name Role Phone Monique Zaman MD Primary Care Provider [phone] Reason for Visit * Reason Comments Cervical Cancer Screening Encounter Details Date Type Department Care Team (Latest Contact Info) Description 08/21/2024 11:20 AM EDT Procedure Visit [facility] [address], [place] [phone] Rossana Mac MD [address] [place] [address] Encounter for immunization (Primary Dx); Cervical cancer screening; Cervical polyp Social History Tobacco Use Types Packs/Day Years Used Date Smoking Tobacco: Never Passive Smoke Exposure: Never Smokeless Tobacco: Never Alcohol Use Standard Drinks/Week Comments Never 0 (1 standard drink = 0.6 oz pur e alcohol) Depression Answer Date Recorded Patient Health Questionnaire-9 Score 0 10/22/2022 Housing Stability Answer Date Recorded What is your housing situation today? I have chavo trevizo 11/11/[address] you li ve. Do you have problems with any of the following? None of the above 11/11/2023 Food Insecurity Answer Date Recorded Within the past 12 months, y ou worried that your food would run out before you got money to buy more: Never True 11/11/2023 Within the past 12 months,th e food you bought just didn't last and you didn't have enough money to get more: Never True Transportation Answer Date Recorded In the past 12 months, has l ack of transportation kept you from medical appts, meetings, work or from getting things needed for daily living? No 11/11/2023 Utilities Answer Date Recorded In the past 12 months, has t he electric, gas, oil or water company threatened to shut off services in your home? No 11/11/2023 Depression Answer Date Recorded Patient Health Questionnaire-2 Score 0 10/22/2022 Internet Access Answer Date Recorded Internet Access Q1 Yes 12/19/2023 Internet Access Q2 Not on file 12/19/2023 Comments No Sex and Gender Information Value Date Recorded Sex Assigned at Female 02/15/2022 10:37 AM EDT Legal Sex Female 10:37 AM EDT Gender Identity Female 02/15/2022 10:37 AM EDT Sexual Orientation Choose not to disclose 2021 10:37 AM EDT documented as of this encounter Last Filed Vital Signs Vital Sign Reading Time Taken Comments Blood Pressure 129/74 08/21/2024 11:26 AM EDT Pulse 88 08/21/2024 11:26 AM EDT Temperature 37 ??C (98.6 ??F) 08/21/2024 11:26 AM EDT Respiratory Rate 20 08/21/2024 11:26 AM EDT Oxygen Saturation 98% 08/21/2024 11:26 AM EDT Inhaled Oxygen Concentration - - Weight 113 kg (249 lb 12.8 oz) 08/21/2024 11:26 AM EDT Height 156 cm (5' 1.42 ) 08/21/2024 11:26 AM EDT Body Mass Index 46.56 08/21/2024 11:26 AM EDT documented in this encounter Progress Notes * Rossana Mac MD - 08/21/2024 11:20 AM EDT Images from the original note were not included. Subjective Patient ID: Wale Olson is a 39 y.o. female who presents for Cervical Cancer Screening. 39 y.o. female here for annual well woman preventive exam. LMP: Patient's last menstrual period was 07/31/2024 (approximate). Sexual activity: Social History Substance and Sexual Activity Sexual activity: Yes Partners: Male control/protection: Female Sterilization intention: BC method: Smoking hx: Tobacco Use: Low Risk (08/21/2024) Tobacco Smoking Tobacco Use: Never Smokeless Tobacco Use: Never Passive Exposure: Never Alcohol use hx: Social History Substance and Sexual Activity Alcohol use: Never OBHx: # 1 - Date: None, Sex: None, Weight: None, GA: None, Type: None, Apgar1: None, Apgar5: None, Living: None, Comments: None # 2 - Date: None, Sex: None, Weight: None, GA: None, Type: None, Apgar1: None, Apgar5: None, Living: None, Comments: None IPV: Denies IPV Reviewed family hx Review of patient's family history indicates: Problem: Breast cancer Relation: Mother Name: Age of Onset: (Not Specified) Problem: Ovarian cancer Relation: Mother's Sister Name: Age of Onset: 45 Problem: Colon cancer Relation: Mother's Brother Name: Age of Onset: (Not Specified) Problem: Breast cancer Relation: Other Name: Age of Onset: (Not Specified) Comment: maternal great aunt Health Maintenance: No results found for: HMPAP , HMMAMMO , HMCOLON Review of Systems Constitutional: Negative for appetite change, fatigue and fever. HENT: Negative for congestion, postnasal drip and rhinorrhea. Eyes: Negative for discharge and redness. Respiratory: Negative for apnea, cough, chest tightness and shortness of breath. Cardiovascular: Negative for chest pain. Gastrointestinal: Negative for abdominal pain. Endocrine: Negative for polyphagia. Genitourinary: Negative for difficulty urinating, dysuria and urgency. Musculoskeletal: Negative for arthralgias. Neurological: Negative for dizziness, light-headedness, numbness and headaches. Hematological: Negative for adenopathy. Does not bruise/bleed easily. Objective Visit Vitals BP 129/74 (BP Location: Right arm, Patient Position: Sitting, BP Cuff Size: Large adult) Pulse 88 Temp 98.6 ??F (37 ??C) (Oral) Resp 20 Ht 5' 1.42 (1.56 m) Wt 249 lb 12.8 oz (113 kg) LMP 07/31/2024 (Approximate) SpO2 98% BMI 46.56 kg/m?? OB Status Having periods Smoking Status Never BSA 2.21 m?? Physical Exam Vitals reviewed. Exam conducted with a sales service rep present. Constitutional: Appearance: She is obese. HENT: Head: Normocephalic and atraumatic. Pulmonary: Effort: Pulmonary effort is normal. Chest: Chest wall: No deformity, tenderness or crepitus. Breasts: Breasts are symmetrical. Right: Normal. No inverted nipple, mass, nipple discharge, skin change or tenderness. Left: Normal. No inverted nipple, mass, nipple discharge, skin change or tenderness. Genitourinary: Urethra: No prolapse. Vagina: Normal. Cervix: Normal. Rectum: Normal. Comments: Polyp Musculoskeletal: Cervical back: Normal range of motion. Lymphadenopathy: Upper Body: Right upper body: No supraclavicular, axillary or pectoral adenopathy. Left upper body: No supraclavicular, axillary or pectoral adenopathy. Psychiatric: Mood and Affect: Mood normal. Assessment/Plan Problem List Items Addressed This Visit Cervical cancer screening 39 y.o. here for cervical cancer screening. Will continue monitoring following ASCCP guidelines. Relevant Orders Pap Smear HPV High Risk with Reflex to Subtypes Cervical polyp Patient aware reports she has followed with [facility] for this but unclear why it has not been bx'ed or removed. Has f/up w/ PCP Future Appointments Date Time Provider Department Center 09/11/2024 9:15 AM Monique Zaman MD [facility] Other Visit Diagnoses Encounter for immunization - Primary Relevant Orders PCV-20 VACCINE 6 wks + documented in this encounter Miscellaneous Notes * Assessment & Plan Note - Rossana Mac MD - 08/21/2024 11:54 AM EDT Associated Problem(s): Cervical cancer screening 39 y.o. here for cervical cancer screening. Will continue monitoring following ASCCP guidelines. * Assessment & Plan Note - Rossana Mac MD - 08/21/2024 11:54 AM EDT Associated Problem(s): Cervical polyp Patient aware reports she has followed with [facility] for this but unclear why it has not been bx'ed or removed. Has f/up w/ PCP Future Appointments Date Time Provider Department Center 09/11/2024 9:15 AM Monique Zaman MD [facility] documented in this encounter Plan of Treatment Upcoming Encounters Date Type Department Care Team (Late st Contact Info) Description 09/11/2024 9:15 AM EDT Office Visit [facility] [address] [place] [address] Monique Zaman MD [address] [place] [address] Scheduled Orders Name Type Priority Associated Diagnoses Orde r Schedule Pap Smear Pathology and Cytology Routine Cervical cancer screening Ordered: 08/21/2024 HPV High Risk with Reflex to Subtypes Lab Routine Cervical cancer screening Ordered: 08/21/2024 documented as of this encounter Visit Diagnoses Diagnosis Encounter for immunization- Primary Cervical cancer screening Screening for malignant neoplasm of the cervix Cervical polyp Mucous polyp of cervix documented in this encounter Additional Health Concerns Assessment Noted Time PHQ-9 Depression Total Score: 0 10/23/19 23 10:29 AM EDT documented as of this encounter Care Teams [employer] Seal Relationship Specialty Start Date End Date Monique Zaman MD [address] [place] [id number] PCP - General Family Medicine 04/07/20 documented as of this encounter
--- OUTSIDE RECORDS SUMMARY | 2024-08-21 15:42 | XMS_ITS | Encounter Summary ---
Author Organization [employer] Address [address] [place] [address] Care Team Providers Care Athletics Teacher Name Role Phone Monique Zaman MD Primary Care Provider Encounter Details Date Type Department Care Team (Late st Contact Info) Description 08/15/2024 Orders Only [facility] CHC MED & PEDS [address] [place], [place] [id number] Arlette Ghosh Social History Tobacco Use Types Packs/Day Years [...] AM EDT documented as of this encounter Plan of Treatment Upcoming Encounters Date Type Department Care Team (Late st Contact Info) Description 09/11/2024 9:15 AM EDT Office Visit [facility] CHC MED & PEDS [address] [place] [address] Monique Zaman MD [address] [place] [address] documented as of this encounter Procedures Procedure Name Priority Date/Time Associated Diagnosis Comments HM PAP/HPV Routine 04/30/2024 12:00 AM EST documented in this encounter Results * HM PAP/HPV (04/30/2024 12:00 AM EST) us Historical Provider HEALTH MAINTENANCE Final Result documented in this encounter Visit Diagnoses Not on filedocumented in this encounter Additional Health Concerns Assessment Noted Time PHQ-9 Depression Total Score: 0 10/23/19 23 10:29 AM EDT documented as of this encounter Care Teams Athletics Teacher Relationship Specialty Start Date End Date Monique Zaman MD [address] [place] [phone] PCP - General Family Medicine 04/07/20 documented as of this encounter
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
--- OUTSIDE RECORDS SUMMARY | 2024-08-21 15:42 | XMS_ITS | Encounter Summary ---
Author Organization [employer] Address [address] [facility] [address] [place] [address] Care Team Providers Care Curriculum Developer Name Role Phone Monique Zaman MD Primary Care Provider [phone] Reason for Visit * Reason Onset Date Comments Referral 02/06/2024 Encounter Details Date Type Department Care Team ([facility] st Contact Info) Description 02/06/2024 Telephone [facility] MEDICINE [address] [place] [address] Monique Zaman MD [address] [place] [address] Referral Social History Tobacco Use Types Packs/Day Years [...] encounter Miscellaneous Notes * Telephone Encounter - Mane Oseguera - 02/06/2024 10:55 AM EDT TC from pt requesting new referral : DATE: 02/08/24 TIME: 1:00 PM Address: [address] [place] [address] Facility Name: [facility] Type of Specialist: Car Salter documented in this encounter Plan of Treatment Upcoming Encounters Date Type Department Care Team ([facility] st Contact Info) Description 09/11/2024 9:15 AM EDT Office Visit [facility] MED & PEDS [address] [place] [address] Monique Zaman MD [address] [place] [address] documented as of this encounter Visit Diagnoses Not on filedocumented in this encounter Additional Health Concerns Assessment Noted Time PHQ-9 Depression Total Score: 0 10/23/19 23 10:29 AM EDT documented as of this encounter Care Teams Curriculum Developer Relationship Specialty Start Date End Date Monique Zaman MD [address] [place] [phone] PCP - General Family Medicine 04/07/20 documented as of this encounter
--- OUTSIDE RECORDS SUMMARY | 2024-08-21 15:42 | XMS_ITS | Encounter Summary ---
Author Organization [employer] Address [address] [facility] [address] [place] [address] Care Team Providers Care Pressure Supervisor Name Role Phone Monique Zaman MD Primary Care Provider [phone] Encounter Details Date Type Department Care Team (Latest Contact Info) Description 08/21/2024 Travel Social History Tobacco Use Types Packs/Day Years [...] Description 09/11/2024 9:15 AM EDT Office Visit [facility] MED & PEDS [address] [place] [address] Monique Zaman MD [address] [place] [address] documented as of this encounter Visit Diagnoses Not on filedocumented in this encounter Additional Health Concerns Assessment Noted Time PHQ-9 Depression Total Score: 0 10/23/19 23 10:29 AM EDT documented as of this encounter Care Teams Pressure Supervisor Relationship Specialty Start Date End Date Monique Zaman MD [address] [place] [phone] PCP - General Family Medicine 04/07/20 documented as of this encounter
--- OUTSIDE RECORDS SUMMARY | 2024-08-21 15:42 | XMS_ITS | Encounter Summary ---
Author Organization [employer] Address [address] 7[address] [place] [address] Care Team Providers Care Meter Shop Supervisor Name Role Phone Monique Zaman MD Primary Care Provider [phone] Encounter Details Date Type Department Care Team (Late st Contact Info) Description 08/23/2023 Orders Only [facility] CHC MED & PEDS [address] [place] [address] ProviderBatsheva MD Social History Tobacco Use Types Packs/Day Years Used Date Smoking Tobacco: Never Smokeless Tobacco: Never Alcohol Use Standard Drinks/Week Comments Never 0 (1 standard drink = 0.6 oz pur e alcohol) Depression Answer Date Recorded Patient Health Questionnaire-9 Score 0 10/22/2022 Housing Stability Answer Date Recorded What is your housing situation today? I have chavo trevizo 01/23/[address] you li ve. Do you have problems with any of the following? Pests such as bugs, ants, or mice 01/23/2023 Food Insecurity Answer Date Recorded Within the past 12 months, y ou worried that your food would run out before you got money to buy more: Never True 02/14/2023 Within the past 12 months,th e food you bought just didn't last and you didn't have enough money to get more: Never True Transportation Answer Date Recorded In the past 12 months, has l ack of transportation kept you from medical appts, meetings, work or from getting things needed for daily living? No 02/14/2023 Utilities Answer Date Recorded In the past 12 months, has t he electric, gas, oil or water company threatened to shut off services in your home? No 02/14/2023 Depression Answer Date Recorded Patient Health Questionnaire-2 Score 0 10/22/2022 Comments No Sex and Gender Information Value Date Recorded Sex Assigned at Female 02/15/2022 10:37 AM EDT Legal Sex Female 10:37 AM EDT Gender Identity Female 02/15/2022 10:37 AM EDT Sexual Orientation Choose not to disclose 2021 10:37 AM EDT documented as of this encounter Miscellaneous Notes * Result Encounter Note - Rashmi Espino CNM - 08/23/2023 4:08 PM EDT Please call Wale and let her know her test for syphilis was positive. Syphilis is a bacterial infection passed through sex. It can be cured with antibiotics. Based on results and no previous testing in [facility], 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 I can't say how long she has had this. Please confirm with Sharri or Ashley at [facility]. Depending on [facility] findings, she will need an appointment for Bicillin 2.4 million units once or weekly x 3 weeks. Any partners in the past 60 days should be evaluated and may need treatment. They should abstain from sex until 7 days after treatment for everyone. They will need repeat testing in 3 months. Please offerHIV PrEP. documented in this encounter Plan of Treatment Upcoming Encounters Date Type Department Care Team (Late st Contact Info) Description 09/11/2024 9:15 AM EDT Office Visit [facility] MED & PEDS [address] [place] [address] Monique Zaman MD [address] [place] [address] documented as of this encounter Procedures Procedure Name Priority Date/Time Associated Diagnosis Comments CONFIRMATORY SYPHILIS PROFILE Routine 08/23/2023 11:41 AM EDT HPV MRNA E6/E7 REFLEX TO HPV 16, 18/45 Routine 08/23/2023 11:36 AM EDT BI MAMMOGRAM DIAGNOSTIC RIGHT Routine 08/11/2023 4:08 PM EDT documented in this encounter Results * (ABNORMAL) Confirmatory Syphilis Profile (08/23/2023 11:41 AM EDT) Rapid Plasma Reagin, Quant Reactive 1:32(A) Nonreactive [facility] Treponema pallidum Antibody, Particle Agglutination Reactive(A) Nonreactive [facility] Comment:These results must b e reported by the ordering clinician orclinical facility to the [facility] required by state law.Testing performed at: [address] [id number] 08/23/2023 11:4 1 AM EDT 08/24/2023 3:39 AM EDT us Rashmi Espino [facility] BLOOD ORDERABLES Irene taylor Result [facility] [address] [place] [phone] * (ABNORMAL) HPV mRNA E6/E7 w/Reflex to HPV Genotypes 16, 18/45 (08/23/2023 11:36 AM EDT) Pathologist [facility] HPV nRNA E6/E7 Detected(A ) Not Detected [facility] Comment:Methodology: Transcr iption-Mediated AmplificationThis assay detects E6/E7 viral messenger RNA (mRNA) from 14high-risk HPV types (16,18,31,33,35,39,45,51,52,56,58,59,66,68).Cervical sources are required for HPV testing.If a vaginal source from a patient who has had atotal hysterectomy with removal of cervix wassubmitted, please contact the testing laboratoryfor alternative testing options.For additional information, please refer tohttp://education.medidametrics/faq/UZK030l5(This link if provided for information/educational purposes only.)THIS TEST WAS PERFORMED AT:[facility] [place] [phone] MEADE MD HPV 16 RNA NOT DETECTED NOT DETECTED [facility] HPV 18/45 RNA NOT DETECTED NOT DETECTED [facility] Comment:Methodology: Transcr iption Mediated AmplificationCervical sources are required for HPV testing.If a vaginal source from a patient who has had atotal hysterectomy with removal of cervix wassubmitted, please contact the testing laboratoryfor alternative testing options.THIS TEST WAS PERFORMED AT:[facility] [place] [phone] MEADE MD 08/23/2023 11:3 6 AM EDT 08/24/2023 8:20 AM EDT Rashmi Espino [facility] CYTOLOGY ORDERABLES F inal Result [facility] [address] [place] [phone] * Mammogram Diagnostic Right (08/11/2023 4:08 PM EDT) Anatomical Region Laterality Modality Breast Right Mammography Historical Provider MD CEDENO BI PROCEDURES Final R esult documented in this encounter Visit Diagnoses Not on filedocumented in this encounter Additional Health Concerns Assessment Noted Time PHQ-9 Depression Total Score: 0 10/23/19 23 10:29 AM EDT documented as of this encounter Care Teams Meter Shop Supervisor Relationship Specialty Start Date End Date Monique Zaman MD [address] [place] [phone] PCP - General Family Medicine 04/07/20 documented as of this encounter
--- OUTSIDE RECORDS SUMMARY | 2024-08-21 15:42 | XMS_ITS | Encounter Summary ---
Author Organization [employer] Address [address] [place] [address] Care Team Providers Care Manager Metrology Name Role Phone Monique Zaman MD Primary Care Provider [phone] Reason for Visit * Reason Onset Date Comments Medication Question 01/20/2024 Encounter Details Date Type Department Care Team ([facility] Contact Info) Description 01/20/2024 Telephone [facility] CHC MED & PEDS [address] [place] [address] Monique Zaman MD [address] [place] [address] Medication Question Social History Tobacco Use Types Packs/Day Years [...] encounter Miscellaneous Notes * Telephone Encounter - Monique Zaman MD - 01/24/2024 11:46 AM EDT Meloxicam sent to the pharmacy * Telephone Encounter - Sharmin Gerard RN - 01/23/2024 1:55 PM EDT TC placed to pt [phone] via [employer] in regards to below message. Pt reports she had carpal tunnel surgery on 01/20/24 and was advised for pain control to use tylenol and ibuprofen. Pt reports the medication is not effective as her pain is 8/10 during the day and 9-10/10 at nighttime. Pt reports she is taking tylenol q4-6 hours however does not want to take too many because it upsets her stomach. Pt reports she spoke to the surgical provider on Saturday 01/20 over the phone andinformed the doctor of the pain she is experiencing. Pt reports the surgeon advised her that they cannot prescribe anything stronger and she would need to discuss w/ PCP. RN advised pt, a message would be sent to the provider however RN cannot guarantee provide will send stronger medication. Pt verbalized understanding. Please review and advise regarding medication for pain control s/p carpal tunnel surgery. Thank you! * Telephone Encounter - Diamond Hernandez - 01/20/2024 12:07 PM EDT Tc from pt calling to inform had surgery today at [facility] for Carpal Tunnel on right wrist. Pt stateswas prescribed tylenol and ibuprofen but informs that those medication does not help with the pain and would like a stronger medication. Please call pt to clarify. documented in this encounter Plan of Treatment Upcoming Encounters Date Type Department Care Team (Late st Contact Info) Description 09/11/2024 9:15 AM EDT Office Visit [facility] MED & PEDS [address] [place] [address] Monique Zaman MD [address] [place] [address] documented as of this encounter Visit Diagnoses Not on filedocumented in this encounter Additional Health Concerns Assessment Noted Time PHQ-9 Depression Total Score: 0 10/23/19 23 10:29 AM EDT documented as of this encounter Care Teams Manager Metrology Relationship Specialty Start Date End Date Monique Zaman MD [address] [place] [phone] PCP - General Family Medicine 04/07/20 documented as of this encounter
--- OUTSIDE RECORDS SUMMARY | 2024-08-21 15:42 | XMS_ITS | Encounter Summary ---
Author Organization [employer] Address [address] [facility] 7t [place] [address] Care Team Providers Care Certified Travel Counselor Name Role Phone Monique Zaman MD Primary Care Provider [phone] Encounter Details Date Type Department Care Team (Late st Contact Info) Description 06/19/2024 Orders Only [facility] [address] [place] [address] Provider, MD Batsheva Social History Tobacco Use Types Packs/Day Years [...] Description 09/11/2024 9:15 AM EDT Office Visit [facility] CHC MED & PEDS [address] [place] [address] Monique Zaman MD [address] [place] [address] documented as of this encounter Procedures Procedure Name Priority Date/Time Associated Diagnosis Comments ECG 12-LEAD Routine 06/18/2024 9:34 AM EST ECG 12-LEAD Routine 06/18/2024 9:[address] ABDOMEN PELVIS W CONTRAST Routine 06/18/2024 9:28 AM EST documented in this encounter Results * ECG 12 lead (06/18/2024 9:34 AM EST) Historical Provider ECG ORDERABLES Final Res ult * ECG 12 lead (06/18/2024 9:32 AM EST) Historical Provider ECG ORDERABLES Final Res ult * CT Abdomen Pelvis w/ Contrast (06/18/2024 9:28 AM EST) Anatomical Region Laterality Modality Body, Pelvis, Abdomen Computed T omography Historical Provider IMG CT PROCEDURES Final R esult documented in this encounter Visit Diagnoses Not on filedocumented in this encounter Additional Health Concerns Assessment Noted Time PHQ-9 Depression Total Score: 0 10/23/19 23 10:29 AM EDT documented as of this encounter Care Teams Certified Travel Counselor Relationship Specialty Start Date End Date Monique Zaman MD [address] [place] [address] PCP - General Family Medicine 04/07/20 documented as of this encounter
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
--- OUTSIDE RECORDS SUMMARY | 2024-08-21 15:42 | XMS_ITS | Encounter Summary ---
Author Organization [facility] Address [id number] [place] [phone] Care Team Providers Care Resident Care Provider Name Role Phone Lyudmila Holbrook MD Primary Care Provider [phone] Encounter Details Date Type Department Care Team (Late st Contact Info) Description 01/20/2024 9:19 AM EDT Hospital Encounter TH HISTORIC ENCOUNTERS EASTERN CONVERSION ONLY Kinza Schaefer MD [address] [id number] Social History Tobacco Use Types Packs/Day Years [...] Diagnosis: Right open carpal tunnel release CPT 79323 PRIMARY SURGEON: Kinza Schaefer MD FORK TRUCK DRIVER SURGEON: none FORK TRUCK DRIVER(S): Don Laws RN circulating, Yuridia Godwin RN [...] risks and wished to proceed. Operative Note Hobbing Press Operator Charly #[id number] used through the case. Operative Details Position: [...] on filedocumented in this encounter Care Teams Resident Care Provider Relationship Specialty Start Date End Date Lyudmila Holbrook MD [address] [place] [phone] PCP - General 09/13/23 documented as of this encounter
--- OUTSIDE RECORDS SUMMARY | 2024-08-21 15:42 | XMS_ITS | Encounter Summary ---
Author Organization [facility] Address [address] [place] [address] Care Team Providers Care Wrecker Operator Name Role Phone Lyudmila Holbrook MD Primary Care Provider [phone] Encounter Details Date Type Department Care Team (Late st Contact Info) Description 05/01/2024 Lab Requisition [facility] - [facility] Lab [address] [facility] [place] [phone] Javier Powell MD 299 [facility] [address] [place] [phone] Other specified abnormal uterine and vaginal bleeding Social History Tobacco Use Types Packs/Day Years Used Date Smoking Tobacco: Never Smokeless Tobacco: Never Alcohol Use Standard Drinks/Week Comments Never 0 (1 standard drink = 0.6 oz pur e alcohol) Comments Unknown Sex and Gender Information Value Date Recorded Sex Assigned at Female 06/18/2024 9:39 PM EST Legal Sex Female 11:03 PM EST Gender Identity Female 06/18/2024 9:39 PM EST Sexual Orientation Straight 06/18/2024 9: 39 PM EST documented as of this encounter Plan of Treatment Not on file documented as of this encounter Procedures Procedure Name Priority Date/Time Associated Diagnosis Comments TISSUE EXAM Routine 04/30/2024 Other specified abnormal uterine and vaginal bleeding documented in this encounter Results * Tissue Exam (04/30/2024) Final Diagnosis Endometrial biopsy: Secretory endometrium No endometrial polyp, hyperplasia or neoplasm identified 05/02/2024 11:13 AM [facility] Clinical Information Dysfunctional uterine bleeding 05/02/2024 11:13 AM [facility] Gross Description A. Endometrium, biopsy: Labeled with the patient's name and information. Received in formalin is a 1.2 cm aggregate of irregular manzano-red soft tissue fragments which is submitted in toto in a mesh bag in one cassette, multiple pieces, x 2. [place] 05/02/2024 11:13 AM [facility] Disclaimer Unless otherwise specified, all tissue is 10% NB formalin fixed and paraffin embedded. 05/02/2024 11:13 AM [facility] Tissue Endometrial structure / Unknown 04/30/2024 05/01/2024 8:05 AM EST us Javier Powell MD LAB PATHOLOGY ORDERABLES Final Result [facility] [address] [place] [address], documented in this encounter Visit Diagnoses Diagnosis Other specified abnormal uterine and vaginal bleeding documented in this encounter Care Teams Wrecker Operator Relationship Specialty Start Date End Date Lyudmila Holbrook MD [address] [place] [phone] PCP - General 09/13/23 documented as of this encounter
--- OUTSIDE RECORDS SUMMARY | 2024-08-21 15:42 | XMS_ITS | Encounter Summary ---
Author Organization [facility] Address [address] [place] [address] Care Team Providers Care Rock Duster Name Role Phone Lyudmila Holbrook MD Primary Care Provider [phone] Encounter Details Date Type Department Care Team (Late st Contact Info) Description 04/30/[address] [facility] - Main Lab [address] [facility] [place] [phone] Javier Powell MD [address] [phone] Unspecified abnormal cytological findings in specimens from cervix uteri Social History Tobacco Use Types Packs/Day Years [...] Procedure Name Priority Date/Time Associated Diagnosis Comments PAP SMEAR Routine 04/30/2024 12:00 PM EST Unspecified abnormal cytological findings in specimens from cervix uteri documented in this encounter Results * Pap smear (04/30/2024 12:00 PM EST) Interpretation Negative for intraepithelial lesion or malignancy 05/03/2024 3:[address] [facility] General Categorization Negative 05/03/2024 3:[address] [facility] Specimen Adequacy Satisfactory for evaluation, endocervical/avalos sformation zone component present 05/03/2024 3:[address] [facility] Pap Methodology Liquid Based Pap Test 05/03/2024 3:[address] [facility] Disclaimer The Pap test is a screening test which carries an inherent false negative rate. These test results should be correlated with the patient's clinical findings and history. This Pap test was processed using an automated screening system. Technical cytopathology services provided by [facility], at [address] [place] [address] (CLIA # [id number]/Grace Ospina MD, Manager System.) 05/03/2024 3:[address] [facility] Console Pap Interpretation Reported 05/03/2024 3:[address] [facility] Brushing/Spatula Cervix uteri structure / Unknown 04/30/2024 12:00 PM EST 04/30/2024 2:55 PM EST us Javier Powell MD LAB CYTOLOGY ORDERABLES Final Result [facility] [address] [place] [address], documented in this encounter Visit Diagnoses Diagnosis Unspecified abnormal cytological findings in specimens from cervix uteri documented in this encounter Care Teams Rock Duster Relationship Specialty Start Date End Date Lyudmila Holbrook MD [address] [place] [phone] PCP - General 09/13/23 documented as of this encounter
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
== END 2024-08-21 14:26 | disposition home or self-care (01) ==
LOC: HO.CHCLNP 14:25
PROVIDERS: Visit Provider Family Medicine
DX: Z12.4 Encounter for screening for malignant neoplasm of cervix (principal)
CPT/HCPCS: 87626; 88175

== ENCOUNTER 2024-11-13 10:43 | Outpatient (AMB) | payer MEDICAID, SELFPAY ==
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
[2024-11-13 10:56] VITALS: BMI 46.8
--- OUTSIDE RECORDS SUMMARY | 2024-11-13 11:51 | XMS_ITS | Clinical Summary ---
Author Organization [address] [facility] Address [address] [place] [address] Phone Care Team Providers Care Lawyer Name Role Phone Lyudmila Holbrook MD Primary Care Provider [phone] Allergies No known active allergies Medical History Medical History Date Comments Hypertension [...] 85 06/19/2024 2:31 AM EST Temperature 36.7 C (98 F) 06/18/2024 9:47 PM EST Respiratory Rate 17 [...] 5 Years) and At-Risk Patients (6 to 49 Years) (1 of 2 - PCV) 2003 Social Influencers of Health Screening 03/21/2022 COVID-19 Vaccine (3 - 2023-2 5 season) 2023 08/20/2020, 07/30/2020 Depression Screening 04/18/2024 Influenza Vaccine (#1) 2024 2, 03/25/2020 Hypertension/CHF/CAD Annual BMP Blood Test 06/18/2025 [...] Procedure Name Priority Date/Time Associated Diagnosis Comments COMPREHENSIVE METABOLIC PANEL STAT 06/18/2024 3:35 PM EST PAP SMEAR Routine 04/30/2024 12:00 PM EST Unspecified abnormal cytological findings in specimens from cervix uteri from Last 3 Months or Most Recently Relevant to Health Maintenance Results * (ABNORMAL) Comprehensive metabolic panel (06/18/2024 3:35 PM EST) Sodium 140 133 - 145 mmol/L LAB CHEMISTRY METHOD 06/18/2024 4:22 PM [facility] Potassium 3.8 3.5 - 5.5 mmol/L LAB CHEMISTRY METHOD 06/18/2024 4:22 PM [facility] Chloride 105 96 - 110 mmol/L LAB CHEMISTRY METHOD 06/18/2024 4:22 PM [facility] CO2 30 21 - 32 mmol/L LAB CHEMISTRY METHOD 06/18/2024 4:22 PM [facility] Anion Gap 5 3 - 11 LAB CHEMISTRY METHOD 06/18/2024 4:22 PM [facility] Glucose 119(H) 70 - 100 mg/dL LAB CHEMISTRY METHOD 06/18/2024 4:22 PM [facility] BUN 7 5 - 25 mg/dL LAB CHEMISTRY METHOD 06/18/2024 4:22 PM [facility] Creatinine 0.85 0.50 - 1.10 mg/dL LAB CHEMISTRY METHOD 06/18/2024 4:22 PM [facility] eGFR 89 >=60 mL/min/1. 73m2 LAB CHEMISTRY METHOD 06/18/2024 4:22 PM [facility] Comment:Calculation based on the Chronic Kidney Disease Epidemiology Collaboration (CKD-EPI) equation refit without adjustment for race. BUN/Creatinine Ratio 8.2 LAB CHEMISTRY METHOD 06/18/2024 4:22 PM [facility] Calcium 9.4 8.5 - 10.5 mg/dL LAB CHEMISTRY METHOD 06/18/2024 4:22 PM [facility] AST (SGOT) 25 10 - 42 unit/L LAB CHEMISTRY METHOD 06/18/2024 4:22 PM [facility] ALT (SGPT) 38 10 - 60 unit/L LAB CHEMISTRY METHOD 06/18/2024 4:22 PM EST [facility] Alkaline Phosphatase 80 42 - 121 unit/L LAB CHEMISTRY METHOD 06/18/2024 4:22 PM [facility] Total Protein 7.3 6.0 - 8.0 g/dL LAB CHEMISTRY METHOD 06/18/2024 4:22 PM [facility] Albumin 3.6 3.2 - 5.0 g/dL LAB CHEMISTRY METHOD 06/18/2024 4:22 PM [facility] Total Bilirubin 0.2 0.0 - 1.4 mg/dL LAB CHEMISTRY METHOD 06/18/2024 4:22 PM [facility] Blood Venous blood specimen / Unknown Venipuncture / Unknown 06/18/2024 3:35 PM EST 06/18/2024 3:50 PM EST us [facility] Ryan Rosas DO LAB BLOOD ORDERABLES Irene l Result [facility] [address] [place] [address], * Pap smear (04/30/2024 12:00 PM EST) Interpretation Negative for intraepithelial lesion or malignancy 05/03/2024 3:15 PM [facility] General Categorization Negative 05/03/2024 3:15 PM [facility] Specimen Adequacy Satisfactory for evaluation, endocervical/avalos sformation zone component present 05/03/2024 3:15 PM [facility] Pap Methodology Liquid Based Pap Test 05/03/2024 3:15 PM [facility] Disclaimer The Pap test is a screening test which carries an inherent false negative rate. These test results should be correlated with the patient's clinical findings and history. This Pap test was processed using an automated screening system. Technical cytopathology services provided by [facility], at [address] [place] [address] ([facility] # [id number]/Grace Ospina MD, Sider Mechanic.) 05/03/2024 3:15 PM EST [facility] Console Pap Interpretation Reported 05/03/2024 3:15 PM EST [facility] Brushing/Spatula Cervix uteri structure / Unknown 04/30/2024 12:00 PM EST 04/30/2024 2:55 PM EST us Javier Powell MD LAB CYTOLOGY ORDERABLES Final Result [facility] ([facility] [address] [place] [address], [place] [phone] from Last 3 Months or Most Recently Relevant to Health Maintenance Insurance [place] - [place] [employer] Care Teams Lawyer Relationship Specialty Start Date End Date Lyudmila Holbrook MD [address] [place], [place] [address] [id number] PCP - General 09/13/23
--- OUTSIDE RECORDS SUMMARY | 2024-11-13 11:51 | XMS_ITS | Encounter Summary ---
Author Organization [employer] Address [address] [facility] [address] [place] [address] Care Team Providers Care Office Helper Name Role Phone Monique Zaman MD Primary Care Provider [phone] Reason for Visit * Reason Comments Med Change Request Encounter Details Date Type Department Care Team ([facility] st Contact Info) Description 09/12/2024 Refill [facility] [address] [place] [address] Monique Zaman MD [address] [place] [address] Hypertension, unspecified type Social History Tobacco Use Types Packs/Day Years [...] from getting things needed for daily living? Yes, it has kept me from medical appointments or getting medications. 08/30/2024 Utilities Answer Date Recorded In the past 12 months, has t he electric, gas, oil or water company threatened to shut off services in your home? Yes 08/30/2024 Depression Answer Date Recorded Patient Health Questionnaire-2 [...] as of this encounter Visit Diagnoses Diagnosis Hypertension, unspecified type documented in this encounter Additional Health Concerns Assessment Noted Time PHQ-9 Depression Total Score: 0 10/23/19 23 10:29 AM EDT documented as of this encounter Care Teams Office Helper Relationship Specialty Start Date End Date Monique Zaman MD [address] [place] [id number] PCP - General Family Medicine 04/07/20 documented as of this encounter
== END 2024-11-13 11:30 | disposition home or self-care (01) ==
LOC: HO.HOS 10:44
PROVIDERS: PCP Student in an Organized Health Care Education/Training Program; Visit Provider Orthopaedic Surgery
DX: M65.311 Trigger thumb, right thumb (principal); M65.312 Trigger thumb, left thumb; G56.01 Carpal tunnel syndrome, right upper limb; G56.23 Lesion of ulnar nerve, bilateral upper limbs
CPT/HCPCS: 20550; 99214

== ENCOUNTER → 2024-11-13 10:43 | Outpatient (BNVA) | payer MEDICAID, SELFPAY | PROVIDERS: PCP Student in an Organized Health Care Education/Training Program; Visit Provider Orthopaedic Surgery | DX: M65.312 Trigger thumb, left thumb (principal); M65.311 Trigger thumb, right thumb; G56.01 Carpal tunnel syndrome, right upper limb; G56.21 Lesion of ulnar nerve, right upper limb; G56.22 Lesion of ulnar nerve, left upper limb | CPT/HCPCS: 20550; 99212; J1100; J2003 ==

== ENCOUNTER 2024-12-24 10:30 | Outpatient (REF) | payer MEDICAID, SELFPAY ==
--- OUTSIDE RECORDS SUMMARY | 2024-01-20 09:19 | XMS_ITS | Encounter Summary ---
Author Organization [facility] Address [address] [place] [phone] Care Team Providers Care Inventory And Pricing Associate Name Role Phone Lyudmila Holbrook MD Primary Care Provider [phone] Encounter Details Date Type Department Care Team (Late st Contact Info) Description 01/20/2024 9:19 AM EDT Hospital Encounter TH HISTORIC ENCOUNTERS EASTERN CONVERSION ONLY Kinza Schaefer MD [address] [place] [id number] Social History Tobacco Use Types Packs/Day Years [...] PM EST documented as of this encounter Procedure Notes * Kinza Schaefer MD - 01/20/2024 10:38 AM EDT Operative Note Encounter Date & Time 01/20/24 10:32 Operative Note Operative Details PATIENT NAME: Wale Lyons Patient Date of Procedure: 01/21/24 PRE-OP DIAGNOSIS: Right carpal tunnel syndrome POST-OP DIAGNOSIS: right carpal tunnel syndrome Procedure and Diagnosis: Right open carpal tunnel release CPT 08055 PRIMARY SURGEON: Kinza Schaefer MD MICA WASHER GLUER SURGEON: none MICA WASHER GLUER(S): Don Laws RN circulating, Yuridia Godwin RN [...] risks and wished to proceed. Operative Note Process Control Technician Charly #[id number] used through the case. Operative Details Position: [...] on filedocumented in this encounter Care Teams Inventory And Pricing Associate Relationship Specialty Start Date End Date Lyudmila Holbrook MD [address] [place] [phone] PCP - General 09/13/23 documented as of this encounter
--- OUTSIDE RECORDS SUMMARY | 2024-12-24 10:00 | XMS_ITS | Encounter Summary ---
Author Organization [employer] Address [address] [facility] [address] [place] [address] Care Team Providers Care District Or District Office Director Name Role Phone Monique Zaman MD Primary Care Provider [phone] Reason for Visit * Reason Comments Hypertension Weight Check Encounter Details Date Type Department Care Team ([facility] st Contact Info) Description 12/24/2024 10:00 AM EDT Office Visit [facility] [address] [place] [address] Monique Zaman MD [address] [place] [address] Primary hypertension (Primary Dx); Sleep apnea, unspecified type; Class 3 severe obesity with serious comorbidity and body mass index (BMI) of 40.0 to 44.9 in adult, unspecified obesity type Social History Tobacco Use Types Packs/Day Years Used Date Smoking Tobacco: Never Passive Smoke Exposure: Never Smokeless Tobacco: Never Tobacco Cessation:Counseling Given: Not Answered Alcohol Use Standard Drinks/Week Comments Never 0 (1 standard drink = 0.6 oz pur e alcohol) Depression Answer Date Recorded Patient Health Questionnaire-9 Score 2 12/24/2024 Patient Health Questionnaire-9 Score 2 12/24/2024 Last PHQ-9: Questionnaire Data Not on file 0 12/24/2024 Housing Stability Answer Date Recorded What is [...] Answer Date Recorded Patient Health Questionnaire-2 Score 1 12/24/2024 Internet Access Answer Date Recorded Internet Access [...] Sign Reading Time Taken Comments Blood Pressure 137/82 12/24/2024 10:07 AM EDT Pulse 87 12/24/2024 10:07 AM EDT Temperature 36.4 C (97.5 F) 12/24/2024 10:07 AM EDT Respiratory Rate 18 12/24/2024 10:07 AM EDT Oxygen Saturation - - Inhaled Oxygen Concentration - - Weight 107 kg (236 lb) 12/24/2024 10:07 AM EDT Height 155.6 cm (5' 1.25 ) 12/24/2024 10:07 AM E DT Body Mass Index 44.23 12/24/2024 10:07 AM EDT documented in this encounter Functional Status * Over the past 2 weeks, how often have you been bothered by any of the following problems? Question Answer Date of Assessment Author Patient Health Questionnaire -2 Score 1 12/24/2024 10:08 AM EDT Della Carlin MA * Little interest or pleasure in doing things Answer Date of Assessment Author Several days 12/24/2024 10:08 AM Emy Wall [place] * Feeling down, depressed, or hopeless Answer Date of Assessment Author Not at all 12/24/2024 10:08 AM Emy Wall [place] * Trouble falling or staying asleep, or sleeping too much Answer Date of Assessment Author Not at all 12/24/2024 10:08 AM Emy Wall [place] * Feeling tired or having little energy Answer Date of Assessment Author Several days 12/24/2024 10:08 AM Emy Wall [place] * Poor appetite or overeating Answer Date of Assessment Author Not at all 12/24/2024 10:08 AM Emy Wall [place] * Feeling bad about yourself - or that you are a failure or have let yourself or your family down Answer Date of Assessment Author Not at all 12/24/2024 10:08 AM Emy Wall [place] * Trouble concentrating on things, such as reading the newspaper or watching television Answer Date of Assessment Author Not at all 12/24/2024 10:08 AM Emy Wall MA * Moving or speaking so slowly that other people could have noticed? Or the opposite - being so fidgety or restless that you have been moving around a lot more than usual. Answer Date of Assessment Author Not at all 12/24/2024 10:08 AM Emy Wall MA * Thoughts that you would be better off or hurting yourself in some way Answer Date of Assessment Author Not at all 12/24/2024 10:08 AM Emy Wall [place] * Patient Health Questionnaire-9 Score Answer Date of Assessment Author 2 12/24/2024 10:08 AM Emy Wall MA * How difficult have these problems made it for you to do your work, take care of things at home, or get along with other people? Answer Date of Assessment Author Not difficult at all 12/24/2024 10:08 AM Della Nicole MA documented as of this encounter Progress Notes * Monique Zaman MD - 12/24/2024 10:00 AM EDT Subjective Patient ID: Wale Olson is a 39 y.o. female who presents for No chief complaint on file.. Hypertension This is a chronic problem. The current episode started more than 1 year ago. The problem is unchanged. The problem is controlled. Pertinent negatives include no chest pain, headaches, neck pain, palpitations or shortness of breath. Risk factors for coronary artery disease include family history, obesity and sedentary lifestyle. Review of Systems Constitutional: Negative. Respiratory: Negative. Negative for shortness of breath. Cardiovascular: Negative for chest pain and palpitations. Gastrointestinal: Negative. Genitourinary: Negative. Musculoskeletal: Negative for neck pain. Neurological: Negative for headaches. Objective Physical Exam Constitutional: Appearance: Normal appearance. Cardiovascular: Rate and Rhythm: Normal rate and regular rhythm. Pulses: Normal pulses. Heart sounds: Normal heart sounds. Pulmonary: Effort: Pulmonary effort is normal. Abdominal: General: Abdomen is flat. Neurological: Mental Status: She is alert. Assessment/Plan Diagnoses and all orders for this visit: Primary hypertension Comments: Much improved with weight loss Cont Same meds Maintain a low-sodium diet (less than 2 grams per day). Maintain a regular cardiovascular exercise program. Advised to maintain a low-fat, low-cholesterol diet. Counseled regarding importance of weight loss. Counseled re: potential co-morbidities including cardiovascular disease. Orders: - Basic Metabolic Panel; Future - Lipid Panel, Standard; Future - Hepatic Function Panel; Future Sleep apnea, unspecified type Comments: Cont CPAP Zepbound increased to 5mg Class 3 severe obesity with serious comorbidity and body mass index (BMI) of 40.0 to 44.9 in adult,unspecified obesity type Other orders Patient currently on pharmacotherapy to assist with management of her weight. Starting weight:246 lb Current weight: 236lb Review continue lifestyle modifications. Patient was titrated up to treatment dose. Tolerated titration well. Patient was transitioned to Zepbound given change in preferred agent by patient???s insurance and medication efficacy. Reviewed mechanism of action with patient. Discussed side effects with patient: nausea, vomiting, diarrhea & risk of pancreatitis. No contraindications identified: , hx of pancreatitis, hx of medullary thyroid cancer or MEN 2. Discussed calorie deficit, recommended reduction of 20-30% of maintenance calories; transmissions systems operator referral offered. Recommended to decrease soda and sugary beverage consumption. Recommended at least 20 g per meal of protein to assist with satiety. Recommended at least 150 min/week of moderate intensity exercise. - Tirzepatide-Weight Management (Zepbound) 5 MG/0.5ML solution auto-injector; Inject 0.5 mL (5 mg) under the skin 1 (one) time per week. documented in this encounter Plan of Treatment Upcoming Encounters Date Type Department Care Team (Late st Contact Info) Description 04/01/2025 2:30 PM EST Office Visit [facility] [address] [place], [place] [id number] TarCorry haley, OD [address] [place] [address] Scheduled Orders Name Type Priority Associated Diagnoses Orde r Schedule Basic Metabolic Panel Lab Routine Primary hypertension Expected: 12/24/2024 (Approximate), Expires: 12/24/2025 Lipid Panel, Standard Lab Routine Primary hypertension Expected: 12/24/2024 (Approximate), Expires: 12/24/2025 Hepatic Function Panel Lab Routine Primary hypertension Expected: 12/24/2024 (Approximate), Expires: 12/24/2025 documented as of this encounter Visit Diagnoses Diagnosis Primary hypertension- Primary Unspecified essential hypertension Sleep apnea, unspecified type Class 3 severe obesity with serious comorbidity and body mass index (BMI) of 40.0 to 44.9 in adult, unspecified obesity type documented in this encounter Additional Health Concerns Assessment Noted Time PHQ-9 Depression Total Score: 2 12/25/19 25 10:08 AM EDT documented as of this encounter Care Teams District Or District Office Director Relationship Specialty Start Date End Date Monique Zaman MD [address] [place] [id number] PCP - General Family Medicine 04/07/20 documented as of this encounter
--- OUTSIDE RECORDS SUMMARY | 2024-12-24 12:40 | XMS_ITS | Clinical Summary ---
Author Organization [address] [facility] Address [address] [place] [address] Phone Care Team Providers Care Humid System Operator Name Role Phone Lyudmila Holbrook MD Primary Care Provider Allergies No known active allergies Medical History [...] Influencers of Health Screening 03/21/2022 Depression Screening 04/18/2024 COVID-19 Vaccine (3 - 2024-2 6 season) 2024 08/20/2020, 07/30/2020 Influenza Vaccine (#1) 2024 2, 03/25/2020 Hypertension/CHF/CAD [...] mmol/L LAB CHEMISTRY METHOD 06/18/2024 4:22 PM [facility] Potassium 3.8 3.5 - 5.5 mmol/L LAB CHEMISTRY METHOD 06/18/2024 4:22 PM [facility] Chloride 105 96 - 110 mmol/L LAB CHEMISTRY METHOD 06/18/2024 4:22 PM [facility] CO2 30 21 - 32 mmol/L LAB CHEMISTRY METHOD 06/18/2024 4:22 PM [facility] Anion Gap 5 3 - 11 LAB CHEMISTRY METHOD 06/18/2024 4:22 PM [facility] Glucose 119(H) 70 - 100 mg/dL LAB CHEMISTRY METHOD 06/18/2024 4:22 PM [facility] BUN 7 5 - 25 mg/dL LAB CHEMISTRY METHOD 06/18/2024 4:22 PM [facility] Creatinine 0.85 0.50 - 1.10 mg/dL LAB CHEMISTRY METHOD 06/18/2024 4:22 PM [facility] eGFR 89 >=60 mL/min/1. 73m2 LAB CHEMISTRY METHOD 06/18/2024 4:22 PM [facility] Comment:Calculation based on the Chronic Kidney Disease Epidemiology Collaboration (CKD-EPI) equation refit without adjustment for race. BUN/Creatinine Ratio 8.2 LAB CHEMISTRY METHOD 06/18/2024 4:22 PM [facility] Calcium 9.4 8.5 - 10.5 mg/dL LAB CHEMISTRY METHOD 06/18/2024 4:22 PM [facility] AST (SGOT) 25 10 - 42 unit/L LAB CHEMISTRY METHOD 06/18/2024 4:22 PM [facility] ALT (SGPT) 38 10 - 60 unit/L LAB CHEMISTRY METHOD 06/18/2024 4:22 PM EST [facility] Alkaline Phosphatase 80 42 - 121 unit/L LAB CHEMISTRY METHOD 06/18/2024 4:22 PM [facility] Total Protein 7.3 6.0 - 8.0 g/dL LAB CHEMISTRY METHOD 06/18/2024 4:22 PM [facility] Albumin 3.6 3.2 - 5.0 g/dL LAB CHEMISTRY METHOD 06/18/2024 4:22 PM [facility] Total Bilirubin 0.2 0.0 - 1.4 mg/dL LAB CHEMISTRY METHOD 06/18/2024 4:22 PM [facility] Blood Venous blood specimen / Unknown Venipuncture / Unknown 06/18/2024 3:35 PM EST 06/18/2024 3:50 PM EST us [facility] Ryan Rosas DO LAB BLOOD ORDERABLES Irene l Result [facility] [address] [place] [address], * Pap smear (04/30/2024 12:00 PM EST) Interpretation Negative for intraepithelial lesion or malignancy 05/03/2024 3:15 PM [facility] General Categorization Negative 05/03/2024 3:15 PM [facility] Specimen Adequacy Satisfactory for evaluation, endocervical/avalos sformation zone component present 05/03/2024 3:15 PM [facility] Pap Methodology Liquid Based Pap Test 05/03/2024 3:15 PM [facility] Disclaimer The Pap test is a screening test which carries an inherent false negative rate. These test results should be correlated with the patient's clinical findings and history. This Pap test was processed using an automated screening system. Technical cytopathology services provided by [facility], at [address] [place] [address] ([facility] # [id number]/Grace Ospina MD, Mason Liner.) 05/03/2024 3:15 PM EST [facility] Console Pap Interpretation Reported 05/03/2024 3:15 PM EST [facility] Brushing/Spatula Cervix uteri structure / Unknown 04/30/2024 12:00 PM EST 04/30/2024 2:55 PM EST us Javier Powell MD LAB CYTOLOGY ORDERABLES Final Result [facility] [address] [place] [address], [place] [phone] from Last 3 Months or Most Recently Relevant to Health Maintenance Insurance [place] - [place] [employer] GENER[place] [employer] Care Teams Humid System Operator Relationship Specialty Start Date End Date Lyudmila Holbrook MD [address] [place] [phone] PCP - General 09/13/23
--- OUTSIDE RECORDS SUMMARY | 2024-12-24 12:40 | XMS_ITS | Encounter Summary ---
Author Organization [employer] Address [address] [place] [address] Care Team Providers Care Engine Lathe Operator Name Role Phone Monique Zaman MD Primary Care Provider [phone] Encounter Details Date Type Department Care Team (Latest Contact Info) Description 12/24/2024 Travel Social History Tobacco Use Types Packs/Day [...] is your housing situation today? I have chavobritni trevizo 11/11/[address] you [...] t he electric, gas, oil or water [employer] threatened to shut off services in your [...] AM EDT documented as of this encounter Functional Status * Over the past 2 weeks, how often have you been bothered by any of the following problems? Question Answer Date of Assessment Author Patient Health Questionnaire -2 Score 1 12/24/2024 10:08 AM Della Wall MA * Little interest or pleasure in [...] Author Not at all 12/24/2024 10:08 AM ANGELOT Emy Carlin MA * Thoughts that you would be better off or hurting yourself in some way Answer Date of Assessment Author Not at all 12/24/2024 10:08 AM EDT Emy Carlin MA * Patient Health Questionnaire-9 Score Answer Date of Assessment Author 2 12/24/2024 10:08 AM EDT Emy Carlin MA * How difficult have these problems made it for you to do your work, take care of things at home, or get along with other people? Answer Date of Assessment Author Not difficult at all 12/24/2024 10:08 AM EDT Della Awad MA documented as of this encounter Plan of Treatment Upcoming Encounters Date Type Department Care Team (Late st Contact Info) Description 04/01/2025 2:30 PM EST Office Visit [facility] [address] [place] [address] TarCorry haley, OD [address] [place] [address] documented as of this encounter Visit Diagnoses Not on filedocumented in this encounter Additional Health Concerns Assessment Noted Time PHQ-9 Depression Total Score: 2 12/25/19 25 10:08 AM EDT documented as of this encounter Care Teams Engine Lathe Operator Relationship Specialty Start Date End Date Monique Zaman MD [address] [place] [address] PCP - General Family Medicine 04/07/20 documented as of this encounter
--- OUTSIDE RECORDS SUMMARY | 2024-12-24 12:40 | XMS_ITS | Encounter Summary ---
Author Organization [employer] Address [address] [facility] 7 [place] [address] Care Team Providers Care Primary School Teacher Librarian Name Role Phone Monique Zaman MD Primary Care Provider [phone] Reason for Visit * Reason Onset Date Comments Appointment Request 12/06/2024 Encounter Details Date Type Department Care Team ([facility] st Contact Info) Description 12/06/2024 Telephone [facility] [address] [place] [address] Monique Zaman MD [address] [place] [address] Appointment Request Social History Tobacco Use Types Packs/Day Years [...] encounter Miscellaneous Notes * Telephone Encounter - Kelly Dupree - 12/06/2024 8:20 AM EDT Tc from pt requesting to reschedule appt from 12/06 Contact pt at [phone] documented in this encounter Plan of Treatment Upcoming Encounters Date Type Department Care Team (Late st Contact Info) Description 04/01/2025 2:30 PM EST Office Visit [facility] [address] [place] [address] Corry Page, OD [address] [place] [address] documented as of this encounter Visit Diagnoses Not on filedocumented in this encounter Additional Health Concerns Assessment Noted Time PHQ-9 Depression Total Score: 0 10/23/19 23 10:29 AM EDT documented as of this encounter Care Teams Primary School Teacher Librarian Relationship Specialty Start Date End Date Monique Zaman MD [address] [place] [address] PCP - General Family Medicine 04/07/20 documented as of this encounter
--- OUTSIDE RECORDS SUMMARY | 2024-12-24 12:40 | XMS_ITS | Encounter Summary ---
Author Organization [employer] Address [address] [facility] 7t [place] [address] Care Team Providers Care Backer Up Name Role Phone Monique Zaman MD Primary Care Provider [phone] Reason for Visit * Reason Onset Date Comments Referral 02/06/2024 Encounter Details Date Type Department Care Team ([facility] st Contact Info) Description 02/06/2024 Telephone [facility] [address] [place] [address] Monique Zaman MD [address] [place] [address] Referral Social History Tobacco Use Types Packs/Day [...] : DATE: 02/08/24 TIME: 1:00 PM Address: [address] [place] [address] Facility Name: [facility] Type of Specialist: Business Administrator documented in this encounter Plan of Treatment Upcoming Encounters Date Type Department Care Team (Late st Contact Info) Description 04/01/2025 2:30 PM EST Office Visit [facility] [address] [place] [address] Corry Page, OD [address] [place] [address] documented as of this encounter Visit Diagnoses Not on filedocumented in this encounter Additional Health Concerns Assessment Noted Time PHQ-9 Depression Total Score: 0 10/23/19 23 10:29 AM EDT documented as of this encounter Care Teams Backer Up Relationship Specialty Start Date End Date Monique Zaman MD [address] [place] [address] PCP - General Family Medicine 04/07/20 documented as of this encounter
--- OUTSIDE RECORDS SUMMARY | 2024-12-24 12:40 | XMS_ITS | Clinical Summary ---
Author Organization [employer] Address [address] [facility] 7[address] [place] [address] Care Team Providers Care Certified Substance Abuse Counselor Name Role Phone Monique Zaman MD Primary Care Provider [phone] Allergies No known active allergies Medications SUMAtriptan [...] MORNING 90 tablet 1 03/16/20 23 Active fluticasone (Flonase) 50 MCG/ACT nasal spray Administer 1 spray into each nostril Once per day. 16 g 2 07/24/19 25 Active Acetaminophen 500 MG capsule Take 1 capsule orally tid prn pain 90 capsule 07/24/19 25 Active ibuprofen 400 MG tablet Take 1 tablet (400 mg) by mouth every 8 (eight) hours if needed for moderate pain, mild pain, fever or headaches. 60 tablet 07/24/19 25 Active hydrALAZINE (Apresoline) 10 MG tablet Take 1 tablet (10 mg) by mouth Once per day. 30 tablet 09/12/19 25 Active ferrous gluconate (Fergon) 324 (38 Fe) MG tablet Take 1 tablet (324 mg) by mouth with breakfast. 30 tablet 11 09/12/19 25 026 Active Tirzepatide-We ight Management (Zepbound) 2.5 MG/0.5ML solution auto-injector Inject 0.5 mL (2.5 mg) under the skin 1 (one) time per week. 2 mL 09/12/19 25 Active meloxicam (Mobic) 7.5 MG tablet TAKE 1 TABLET BY MOUTH 2 TIMES DAILY. 60 tablet 3 11/15/19 25 Active omeprazole (PriLOSEC) [address] capsule TAKE 1 CAPSULE (20 MG) BY MOUTH BEFORE BREAKFAST 90 capsule 3 12/08/19 25 Active amLODIPine (Norvasc) 5 MG tabletIndicati ons:Hypertensi on, unspecified type TAKE 1 TABLET BY MOUTH EVERY DAY 90 tablet 12/12/19 25 Active Tirzepatide-We ight Management (Zepbound) 5 MG/0.5ML solution auto-injector Inject 0.5 mL (5 mg) under the skin 1 (one) time per week. 2 mL 12/25/19 25 025 Active omeprazole (PriLOSEC) [address] capsule TAKE 1 CAPSULE (20 MG) BY MOUTH BEFORE BREAKFAST 90 capsule 3 10/19/19 24 025 Discontinued cyclobenzaprin e (Flexeril) 10 MG tablet Take 1 tablet (10 mg) by mouth at bedtime for 10 days. 10 tablet 07/12/19 25 025 Discontinued amLODIPine (Norvasc) 5 MG tabletIndicati ons:Hypertensi on, unspecified type TAKE 1 TABLET BY MOUTH EVERY DAY 30 tablet 2 09/12/19 25 025 Discontinued Active Problems Problem Noted Date Diagnosed Date Cervical cancer screening 08/21/2024 Assessment & Plan (08/21/2024 11:54 AM EDT): 39 y.o. here for cervical cancer screening. Will continue monitoring following ASCCP guidelines. Cervical polyp 08/21/2024 Assessment & Plan (08/21/2024 11:54 AM EDT): Patient aware reports she has followed with [facility] for this but unclear why it has not been bx'ed or removed. Has f/up w/ PCP Future Appointments Date Time Provider Department Center 09/11/2024 9:15 AM Monique Zaman MD [facility] Sleep apnea 09/20/2023 Intractable migraine with aura [...] loosen mucus + Flonase nasal Take Acetaminophen (Tylenol )/Ibuprofen as needed to reduce fever, headache, body [...] 72 hours (temperature should be less than 100 F without medication). Encounters Date Type Department Care Team Description 12/24/2024 10:00 AM EDT Office Visit [facility] [address] [place] [address] Monique Zaman MD Primary hypertension (Primary Dx); Sleep apnea, unspecified type; Class 3 severe obesity with serious comorbidity and body mass index (BMI) of 40.0 to 44.9 in adult, unspecified obesity type 12/24/2024 Travel 12/21/2024 Telephone [facility] [address] [facility] [place] [address] Monique Zaman MD chart prep 12/13/2024 Telephone [facility] [address] [place] [address] Monique Zaman MD Appointment Confirmation 12/10/2024 Refill [facility] [address] [facility] [place] [address] Monique Zaman MD Hypertension, unspecified type 12/06/2024 Telephone [facility] [address] [place] [address] Monique Zaman MD Appointment Request 12/05/2024 Refill [facility] [address] [place] [address] Elieser Vieira MD 11/29/2024 2:30 PM EDT Clinical Support [facility] [address] [place] [address] Class 3 severe obesity with serious comorbidity and body mass index (BMI) of 45.0 to 49.9 in adult (Primary Dx) 11/29/2024 Travel 11/27/2024 Telephone [facility] [address] [place] [address] Monique Zaman MD Referral 11/19/2024 Telephone [facility] [address] [facility] [place] [address] Monique Zaman MD Appointment Request 11/13/2024 Refill [facility] [address] [facility] [place] [address] Monique Zaman MD 10/16/2024 Telephone [facility] [address] [place] [address] Monique Zaman MD No Show 09/27/2024 1:00 PM EDT Nutrition [facility] [address] [facility] [place] [address] Class 3 severe obesity with serious comorbidity and body mass index (BMI) of 45.0 to 49.9 in adult, unspecified obesity type 09/27/2024 Travel 09/24/2024 Telephone [facility] [address] [place], [place] [phone] Monique Zaman MD Referral from Last 3 Months Immunizations Immunization Administration Dates Next Due Influenza injectable quadrivalent preservative f ree 02/23/2022,03/25/2020 Influenza, IIV3, injectable 02/23/2022 Pfizer Covid-19 Vaccine 12+ 08/20/2020, 1 Pneumococcal Conjugate PCV 20 08/21/2024 Tdap 10/22/2022 [...] 18 12/24/2024 10:07 AM EDT Oxygen Saturation 98% 08/21/2024 11:26 AM EDT Inhaled Oxygen Concentration - - Weight 107 kg (236 lb) 12/24/2024 10:07 AM EDT Height 155.6 cm (5' 1.25 ) 12/24/2024 10:07 AM E DT Body Mass Index 44.23 12/24/2024 10:07 AM EDT Plan of Treatment Upcoming Encounters Date Type Department Care Team (Late st Contact Info) Description 04/01/2025 2:30 PM EST Office Visit [facility] [address] [place] [address] Corry Page, OD [address] [place] [address] Health Maintenance Due Date Last Done Comments Dental Oral Exam 1985 Dental Prophylaxis 1985 Dental X-Ray: Bitewings 1985 Dental X-Ray: Full Mouth 1985 Family Planning (PISQ) 1999 HPV Vaccines (1 - 3-dose series) 1999 Hepatitis B Vaccines (1 of 3 - 19+ 3-dose series) 2003 COVID-19 Vaccine ( season) 2024 08/20/2020, 07/30/2020 Influenza Vaccine (#1) 2024 2, 02/23/2022, 03/25/2020 Mammogram 08/10/2025 08/11/2023 SDOH Screening 08/30/2025 08/30/2024 Alcohol/Substance Use Screening 12/24/2025 12/24/2024 Depression Screening 12/24/2025 12/24/2024, 12/25/19 Disability Screening 12/24/2025 12/24/2024 Tobacco Screening 12/24/2025 12/24/2024 Cervical Cancer Screening 08/22/2027 HPV/Cotest 08/22/2027 08/21/2024, 05/10/2023, 08/23/2023, Additional history exists Pap Smear 08/22/2027 08/21/2024, 04/18, 08/23/2023, Additional history exists Lipid Panel 08/21/2028 [...] Years) and At-Risk Patients (6 to 49) Years Completed 08/21/2024 HIB Vaccines Aged Out No [...] Procedure Name Priority Date/Time Associated Diagnosis Comments HPV DNA, LOW/HIGH RISK Routine 08/21/2024 11:55 AM EDT Cervical cancer screening PAP SMEAR Routine 08/21/2024 11:55 AM EDT Cervical cancer screening HIV 1/2 ANTIGEN/ANTIBODY, FOURTH GENERATION W/RFL Routine 08/23/2023 11:41 AM EDT Screening examination for venereal disease LIPID PANEL, STANDARD Routine 08/22/2023 8:56 AM EDT Primary hypertension BI MAMMOGRAM DIAGNOSTIC RIGHT Routine 08/11/2023 4:08 PM EDT HEPATITIS C AB W/REFL TO HCV RNA, QN, PCR Routine 10/22/2022 11:13 AM EDT PE (physical exam), annual from Last 3 Months or Most Recently Relevant to Health Maintenance Results * HPV High Risk with Reflex to Subtypes (08/21/2024 11:55 AM EDT) HPV High Risk Negative Negative [facility] HPV Genotype 16 Negative Negative [facility] HPV Genotype 18 Negative Negative [facility] Comment:HPV testing performe d at [facility] (CLIA#[id number]), [address] [place] [address].Testing for HPV was performed using the Isabel CHINMAY 6800system. The presence of HPV in the female genital tract isassociated with a number of diseases, including cervicalcarcinoma. The HPV DNA high risk pool tests for HPV 31, 33,35, 39, 45, 51, 52, 56, 58, 59, 66 and 68. The testing forHPV 16 and 18 genotypes has also been performed. A positiveresult indicates detection of nucleic acid sequences fromone or more subtypes, whereas a negative result indicatessuch sequences were not detected. Pap Vial 08/21/2024 11:5 5 AM EDT 08/22/2024 6:00 AM EDT us Rossana Mac MD LAB BLOOD ORDERABLES Final Re sult [facility] [address] [place] [phone] * Pap Smear (08/21/2024 11:55 AM EDT) Swab 08/21/2024 11:5 5 AM EDT 08/22/2024 6:00 AM EDT Narrative [facility] - 09/12/2024 6:35 AM EDT ----- ------- Name: Wale Montague Age/Sex: 39/F : 1985 Unit#: [id number] Attend Dr: Rossana Mac MD Re08/21/24 Status: DEP REF Location: HO.CHCLNP Disch: ----- ------- SPEC : [id number] RECD: 08/22/24 STATUS: SOUT REQ NUM: [id number] AMY: 08/21/24-11[address] [facility] [address]: Rossana Mac MD ENTERED: 08/22/24 SP TYPE: Pap Smr OTHR DR: ORDERED: Pap Smear Addendum Addendum 1 Entered: 09/12/24 HPV High Risk: Negative HPV Genotyping 16: Negative HPV Genotyping 18: Negative Addendum Signed (signature on file) Bo Philippe CT ([facility]) 09/12/24 0635 ----- ------- Interpretation Satisfactory for evaluation. Negative for intraepithelial lesion or malignancy. Moderate inflammation. Clinical Information LMP:07/31/24 Previous PAP test:Unknown date/findings Material Received ThinPrep-Cervical ----- ------- Signed (signature on file) Bo Philippe CT ([facility]) 08/24/24 1234 ----- ------- END OF REPORT us Rossana Mac MD LAB CYTOLOGY ORDERABLES Final Result [facility] [address] [place] [phone] * HIV-1/2 Antigen and Antibodies, Fourth Generation, with Reflexes (08/23/2023 11:41 AM EDT) HIV AB/AG Nonreactive Nonreactive [facility] Comment:HIV-1 p24 Ag and/or HIV-1/HIV-2 Ab not detected.A test result that is nonreactive does not exclude thepossibility of exposure to or infection with HIV-1 and/orHIV-2. Nonreactive results in this assay for individualswith prior exposure to HIV-1 and/or HIV-2 may be due toantigen and antibody levels that are below the limit ofdetection of this assay.The [employer] HIV Ag/Ab Combo assay result andsupplemental assay results should be interpreted inconjunction with the patient's clinical presentation,history and other laboratory results. If the results areinconsistent with clinical evidence, additional testing issuggested to confirm the result. Blood Venous blood specimen / Unknown 08/23/2023 11:41 AM EDT 08/23/2023 2:19 PM EDT us Rashmi Espino [facility] BLOOD ORDERABLES Irene vazquez Result [facility] [address] [place] [phone] * (ABNORMAL) Lipid Panel, Standard (08/22/2023 8:56 AM EDT) Triglycerides 103 <150 mg/dL [facility] Comment:Desirable Triglyceri de: less than 150 mg/dLBorderline High Triglyceride 150-199 mg/dLHigh Triglyceride: 200-499 mg/dLVery High Triglyceride: greater than or equal to 5OO mg/dL Cholesterol 153 <200 mg/dL [facility] Comment:Desirable Cholestero l: less than 200 mg/dLBorderline High Cholesterol: 200-239 mg/dLHigh Cholesterol: greater than 239 mg/dL LDL Cholesterol Calculated 98 <100 mg/dL [facility] Comment:Desirable LDL: less than 100 mg/dLNear Optimal/Above Optimal LDL: 110- 129 mg/dLBorderline High LDL: 130-159 mg/dLHigh LDL: 160-189 mg/dLVery High LDL: greater than or equal to 190 mg/dL HDL Cholesterol 35(L) >40 mg/dL [facility] Comment:Desirable HDL: great er than 40 mg/dL Note: This HDL assay may give artificially low results in patients with liver disease. Blood Venous blood specimen / Unknown 08/22/2023 8:56 AM EDT 08/22/2023 2:07 PM EDT Monique Zaman MD LAB BLOOD ORDERABLES Final Resul t [facility] [address] [place] [phone] * Mammogram Diagnostic Right (08/11/2023 4:08 PM EDT) Anatomical Region Laterality Modality Breast Right Mammography Historical Provider IMG BI PROCEDURES Final R esult * Hepatitis C Antibody with Reflex to HCV, RNA, Quantitative, Real-Time PCR (10/22/2022 11:13 AM EDT) Hepatitis C Antibody NON-REACT ARACELY NON-REACT ARACELY [facility] Comment: HCV antibody was non-reactive. There is no laboratory evidence of HCV infection. In most cases, no further action is required. However, if recent HCV exposure is suspected, a test for HCV RNA (test code 12162) is suggested. For additional information please refer to http://education.[employer]/faq/DYC16i1 (This link is being provided for informational/ educational purposes only.) Blood Venous blood specimen / Unknown 10/22/2022 11:13 AM EDT 10/22/2022 11:13 AM EDT Monique Zaman MD LAB BLOOD ORDERABLES Final Resul t [facility] [address] [place] [address] [facility] [address] [place] [phone] from Last 3 Months or Most Recently Relevant to Health Maintenance Insurance [facility] [address] [place] [id number] [facility] MEDICAID STAND ADULT PROGRESSIVE [employer] INSURANCE Care Teams Certified Substance Abuse Counselor Relationship Specialty Start Date End Date Monique Zaman MD [address] [place] [phone] PCP - General Family Medicine 04/07/20
--- OUTSIDE RECORDS SUMMARY | 2024-12-24 12:40 | XMS_ITS | Encounter Summary ---
Author Organization [employer] Address 75 [facility] 7 [place] [address] Care Team Providers Care Riverine Assault Craft Crewman Name Role Phone Monique Zaman MD Primary Care Provider [phone] Reason for Visit * Reason Onset Date Comments Appointment Request 11/19/2024 Encounter Details Date Type Department Care Team ([facility] st Contact Info) Description 11/19/2024 Telephone [facility] MED & PEDS [address] [place] [address] Monique Zaman MD [address] [place] [address] Appointment Request Social History Tobacco Use Types [...] encounter Miscellaneous Notes * Telephone Encounter - Jordan Villalta - 11/19/2024 9:59 AM EDT Tc from pt requesting a call back to book an apt with intravenous therapy nurse. Contact pt at [phone] documented in this encounter Plan of Treatment Upcoming Encounters Date Type Department Care Team (Late st Contact Info) Description 04/01/2025 2:30 PM EST Office Visit [facility] OPTOMETRY [address] [place] [address] Corry Page, OD [address] [place] [address] documented as of this encounter Visit Diagnoses Not on filedocumented in this encounter Additional Health Concerns Assessment Noted Time PHQ-9 Depression Total Score: 0 10/23/19 23 10:29 AM EDT documented as of this encounter Care Teams Riverine Assault Craft Crewman Relationship Specialty Start Date End Date Monique Zaman MD [address] [place] [address] PCP - General Family Medicine 04/07/20 documented as of this encounter
--- OUTSIDE RECORDS SUMMARY | 2024-12-24 12:40 | XMS_ITS | Encounter Summary ---
Author Organization [employer] Address 75 [facility] 7 [place] [address] Care Team Providers Care Cook Fishing Vessel Name Role Phone Monique Zaman MD Primary Care Provider [phone] Reason for Visit * Reason Onset Date Comments chart prep 12/21/2024 Encounter Details Date Type Department Care Team ([facility] st Contact Info) Description 12/21/2024 Telephone [facility] MED & PEDS [address] [place] [address] Monique Zaman MD [address] [place] [address] chart prep Social History Tobacco Use Types Packs/Day Years [...] encounter Miscellaneous Notes * Telephone Encounter - Belgica Cutler [place] - 12/21/2024 2:14 PM EDT Chart Prep Labs: done Images: done Referrals: complete Vaccines due: Covid, Flu, Hep B, and HPV Screenings: not applicable Overdue care gaps: SBIRT, PHQ-9, and Disability screen documented in this encounter Plan of Treatment Upcoming Encounters Date Type Department Care Team (Late st Contact Info) Description 04/01/2025 2:30 PM EST Office Visit [facility] OPTOMETRY [address] [place] [address] Corry Page, OD [address] [place] [address] documented as of this encounter Visit Diagnoses Not on filedocumented in this encounter Additional Health Concerns Assessment Noted Time PHQ-9 Depression Total Score: 0 10/23/19 23 10:29 AM EDT documented as of this encounter Care Teams Cook Fishing Vessel Relationship Specialty Start Date End Date Monique Zaman MD [address] [place] [address] PCP - General Family Medicine 04/07/20 documented as of this encounter
--- OUTSIDE RECORDS SUMMARY | 2024-12-24 12:40 | XMS_ITS | Encounter Summary ---
Author Organization [employer] Address 75 [facility] 7t [place] [address] Care Team Providers Care Senior Account Director Name Role Phone Monique Zaman MD Primary Care Provider Reason for Visit * Reason Onset Date Comments Medication Question 01/20/2024 Encounter Details Date Type Department Care Team ([facility] st Contact Info) Description 01/20/2024 Telephone [facility] MED & PEDS [address] [place] [address] Monique Zaman MD [address] [place] [address] Medication Question Social History Tobacco Use Types [...] 1:55 PM EDT TC placed to pt [phone] via [employer] in regards to below message. Pt reports [...] calling to inform had surgery today at [facility] for Carpal Tunnel on right wrist. Pt stateswas prescribed tylenol and ibuprofen but informs that those medication does not help with the pain and would like a stronger medication. Please call pt to clarify. documented in this encounter Plan of Treatment Upcoming Encounters Date Type Department Care Team (Late st Contact Info) Description 04/01/2025 2:30 PM EST Office Visit [facility] OPTOMETRY [address] [place], [place] [phone] Corry Page, OD [address] [place] [address] documented as of this encounter Visit Diagnoses Not on filedocumented in this encounter Additional Health Concerns Assessment Noted Time PHQ-9 Depression Total Score: 0 10/23/19 23 10:29 AM EDT documented as of this encounter Care Teams Senior Account Director Relationship Specialty Start Date End Date Monique Zaman MD [address] [place], [place] [phone] PCP - General Family Medicine 04/07/20 documented as of this encounter
--- OUTSIDE RECORDS SUMMARY | 2024-12-24 12:40 | XMS_ITS | Encounter Summary ---
Author Organization [employer] Address [address] [facility] [address] 7[address] [place] [address] Care Team Providers Care Posting Specialist Name Role Phone Monique Zaman MD Primary Care Provider [phone] Encounter Details Date Type Department Care Team ([facility] st Contact Info) Description 08/15/[address] [facility] MED & PEDS [address] [place] [address] Arlette Ghohs Social History Tobacco Use Types Packs/Day Years [...] Description 04/01/2025 2:30 PM EST Office Visit [facility] OPTOMETRY [address] [place], [place] [phone] TarCorry haley, OD [address] [place] [address] documented as of this encounter Procedures Procedure [...] documented as of this encounter Care Teams Posting Specialist Relationship Specialty Start Date End Date Monique Zaman MD [address] [place] [address] PCP - General Family Medicine 04/07/20 documented as of this encounter
--- OUTSIDE RECORDS SUMMARY | 2024-12-24 12:40 | XMS_ITS | Encounter Summary ---
Author Organization [employer] Address 75 [facility] 7t [place] [address] Care Team Providers Care Wire Weaver Cloth Name Role Phone Monique Zaman MD Primary Care Provider [phone] Reason for Visit * Reason Comments Med Change Request Encounter Details Date Type Department Care Team ([facility] st Contact Info) Description 09/12/2024 Refill [facility] MED & PEDS [address] [place] [address] Monique Zaman MD [address] [place] [address] Hypertension, unspecified type Social History Tobacco Use [...] Description 04/01/2025 2:30 PM EST Office Visit [facility] OPTOMETRY [address] [place] [address] Corry Page, OD [address] [place] [address] documented as of this encounter Visit Diagnoses Diagnosis Hypertension, unspecified type documented in this encounter Additional Health Concerns Assessment Noted Time PHQ-9 Depression Total Score: 0 10/23/19 23 10:29 AM EDT documented as of this encounter Care Teams Wire Weaver Cloth Relationship Specialty Start Date End Date Monique Zaman MD [address] [place] [address] PCP - General Family Medicine 04/07/20 documented as of this encounter
--- OUTSIDE RECORDS SUMMARY | 2024-12-24 12:40 | XMS_ITS | Encounter Summary ---
Author Organization [email or web address] Address 75 [facility] 7 [place] [address] Care Team Providers Care Flat Drier Name Role Phone Monique Zaman MD Primary Care Provider [phone] Encounter Details Date Type Department Care Team (Late st Contact Info) Description 06/19/2024 Orders Only [facility] [address] [place] [address] Provider, MD Batsheva Social History Tobacco Use [...] Description 04/01/2025 2:30 PM EST Office Visit [facility] OPTOMETRY [address] [place], [place] [phone] TarCorry haley, OD [address] [place] [address] documented as of this encounter Procedures Procedure [...] documented as of this encounter Care Teams Flat Drier Relationship Specialty Start Date End Date Monique Zaman MD [address] [place] [address] PCP - General Family Medicine 04/07/20 documented as of this encounter
--- OUTSIDE RECORDS SUMMARY | 2024-12-24 12:41 | XMS_ITS | Encounter Summary ---
Author Organization [employer] Address [address] [facility] [address] 7t [place] [address] Care Team Providers Care Passenger Service Manager Name Role Phone Monique Zaman MD Primary Care Provider Encounter Details Date Type Department Care Team ([facility] st Contact Info) Description 08/23/2023 Orders Only [facility] MED & PEDS [address] [place] [address] ProviderBatsheva MD Social History Tobacco Use Types Packs/Day Years Used Date Smoking Tobacco: Never Smokeless Tobacco: Never Alcohol Use Standard Drinks/Week Comments Never 0 (1 standard drink = 0.6 oz pur e alcohol) Depression Answer Date Recorded Patient Health Questionnaire-9 Score 0 10/22/2022 Housing Stability Answer Date Recorded What is your housing situation today? 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 I can't say how long she has had this. Please confirm with Sharri or Ashley at [facility]. Depending on [facility] findings, she will need an appointment for [...] Description 04/01/2025 2:30 PM EST Office Visit [facility] OPTOMETRY [address] [place] [address] Tarka [place], OD [address] [place] [address] documented as of this encounter Procedures Procedure Name Priority Date/Time Associated Diagnosis Comments CONFIRMATORY SYPHILIS PROFILE Routine 08/23/2023 11:41 AM EDT HPV MRNA E6/E7 REFLEX TO HPV 16, 18/45 Routine 08/23/2023 11:36 AM EDT BI MAMMOGRAM DIAGNOSTIC RIGHT Routine 08/11/2023 4:08 PM EDT documented in this encounter Results * (ABNORMAL) Confirmatory Syphilis Profile (08/23/2023 11:41 AM EDT) Pathologist [facility] Rapid Plasma Reagin, Quant Reactive 1:32(A) Nonreactive [facility] Treponema pallidum Antibody, Particle Agglutination Reactive(A) Nonreactive [facility] Comment:These results must b e reported by the ordering clinician orclinical facility to the [facility] required by state law.Testing performed at: [address] [address] 08/23/2023 11:4 1 AM EDT 08/24/2023 3:39 AM EDT Rashmi Espino [facility] BLOOD ORDERABLES Irene l Result [facility] [address] [place] [phone] * (ABNORMAL) HPV mRNA E6/E7 w/Reflex to HPV Genotypes 16, 18/45 (08/23/2023 11:36 AM EDT) [facility] HPV nRNA E6/E7 Detected(A ) Not Detected [facility] Comment:Methodology: Transcr iption-Mediated AmplificationThis assay detects E6/E7 viral messenger RNA (mRNA) from 14high-risk HPV types (16,18,31,33,35,39,45,51,52,56,58,59,66,68).Cervical sources are required for HPV testing.If a vaginal source from a patient who has had atotal hysterectomy with removal of cervix wassubmitted, please contact the testing laboratoryfor alternative testing options.For additional information, please refer [email or web address]/faq/[email or web address](This link if provided for information/educational purposes only.)THIS TEST WAS PERFORMED AT:[facility] [place] [phone] MEADE MD HPV 16 RNA NOT DETECTED NOT DETECTED [facility] HPV 18/45 RNA NOT DETECTED NOT DETECTED [facility] Comment:Methodology: Transcr iption Mediated AmplificationCervical sources are required for HPV testing.If a vaginal source from a patient who has had atotal hysterectomy with removal of cervix wassubmitted, please contact the testing laboratoryfor alternative testing options.THIS TEST WAS PERFORMED AT:[facility] [place] [phone] MEADE MD 08/23/2023 11:3 6 AM EDT 08/24/2023 8:20 AM EDT Rashmi [facility] CYTOLOGY ORDERABLES F inal Result [facility] [address] [place] [phone] [phone] * Mammogram Diagnostic Right (08/11/2023 4:08 PM EDT) Anatomical Region Laterality Modality Breast Right Mammography Historical Provider MD CEDENO BI PROCEDURES Final R esult documented in this encounter Visit Diagnoses Not on filedocumented in this encounter Additional Health Concerns Assessment Noted Time PHQ-9 Depression Total Score: 0 10/23/19 23 10:29 AM EDT documented as of this encounter Care Teams Passenger Service Manager Relationship Specialty Start Date End Date Monique Zaman MD [address] [place] [address] PCP - General Family Medicine 04/07/20 documented as of this encounter
--- OUTSIDE RECORDS SUMMARY | 2024-12-24 12:41 | XMS_ITS | Encounter Summary ---
Author Organization [facility] Address [address] [place] [address] Care Team Providers Care Database Designer Name Role Phone Lyudmila Holbrook MD Primary Care Provider [phone] Encounter Details Date Type Department Care Team (Late st Contact Info) Description 05/01/2024 Lab Requisition [facility] - Main Lab 299 [facility] [place] [phone] Javier Powell MD 299 [facility] [address] [place] [phone] Other specified abnormal uterine and vaginal bleeding [...] hyperplasia or neoplasm identified 05/02/2024 11:13 AM [facility] Clinical Information Dysfunctional uterine bleeding 05/02/2024 11:13 AM [facility] Gross Description A. Endometrium, biopsy: Labeled with the patient's name and information. Received in formalin is a 1.2 cm aggregate of irregular manzano-red soft tissue fragments which is submitted in toto in a mesh bag in one cassette, multiple pieces, x 2. MAYCOL 05/02/2024 11:13 AM [facility] Disclaimer Unless otherwise specified, all tissue is 10% NB formalin fixed and paraffin embedded. 05/02/2024 11:13 AM [facility] Tissue Endometrial structure / Unknown 04/30/2024 05/01/2024 8:05 AM EST us Javier Powell MD LAB PATHOLOGY ORDERABLES Final Result [facility] [address] [place] [address], documented in this encounter Visit Diagnoses Diagnosis Other specified abnormal uterine and vaginal bleeding documented in this encounter Care Teams Database Designer Relationship Specialty Start Date End Date Lyudmila Holbrook MD [address] [place] [phone] PCP - General 09/13/23 documented as of this encounter
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
--- OUTSIDE RECORDS SUMMARY | 2024-12-24 12:41 | XMS_ITS | Encounter Summary ---
Author Organization [facility] Address [address] [place] [address] Care Team Providers Care Motorcycle Delivery Driver Name Role Phone Lyudmila Holbrook MD Primary Care Provider [phone] Encounter Details Date Type Department Care Team (Late st Contact Info) Description 04/30/[address] [facility] - Main Lab 299 [facility] [place] [phone] Javier Powell MD [address] [phone] Unspecified abnormal cytological findings in specimens from [...] intraepithelial lesion or malignancy 05/03/2024 3:15 PM [facility] General Categorization Negative 05/03/2024 3:15 PM [facility] Specimen Adequacy Satisfactory for evaluation, endocervical/avalos sformation zone component present 05/03/2024 3:15 PM [facility] Pap Methodology Liquid Based Pap Test 05/03/2024 3:15 PM [facility] Disclaimer The Pap test is a screening test which carries an inherent false negative rate. These test results should be correlated with the patient's clinical findings and history. This Pap test was processed using an automated screening system. Technical cytopathology services provided by [facility], at [address] [place] [address] (CLIA # [id number]/Grace Ospina MD, Immunochemist.) 05/03/2024 3:15 PM [facility] Console Pap Interpretation Reported 05/03/2024 3:15 PM [facility] Brushing/Spatula Cervix uteri structure / Unknown 04/30/2024 12:00 PM EST 04/30/2024 2:55 PM EST us Javier Powell MD LAB CYTOLOGY ORDERABLES Final Result [facility] [address] [place] [address], documented in this encounter Visit Diagnoses Diagnosis Unspecified abnormal cytological findings in specimens from cervix uteri documented in this encounter Care Teams Motorcycle Delivery Driver Relationship Specialty Start Date End Date Lyudmila Holbrook MD [address] [place] [phone] PCP - General 09/13/23 documented as of this encounter
[2024-12-24 15:53] LABS: Alanine Aminotransferase 28 U/L (0-31); Albumin Level 4.4 g/dL (3.5-5.0); Alkaline Phosphatase 73 U/L (39-117); Anion Gap 10 (12-20); Aspartate Amino Transferase 31 U/L (5-31); Blood Urea Nitrogen 11 mg/dL (9-16); Calcium 9.2 mg/dL (8.4-10.2); Carbon Dioxide 28 mmol/L (22-29); Chloride 107 mmol/L (96-108); Cholesterol 153 mg/dL (<200); Estimated Glomerular Filt Rate > 60; HDL Cholesterol 31 mg/dL (>40); Potassium 3.8 mmol/L (3.3-5.1); Sodium 141 mmol/L (135-145); Total Protein 7.3 g/dL (6.5-8.0); Triglycerides 147 mg/dL (<150)
== END 2024-12-24 10:31 | disposition home or self-care (01) ==
LOC: HO.CHCLDS 10:30
PROVIDERS: Visit Provider Student in an Organized Health Care Education/Training Program
DX: I10 Essential (primary) hypertension (principal)
CPT/HCPCS: 36415; 80048; 80061; 80076

== ENCOUNTER 2025-01-03 07:43 | Day surgery (SDC) | payer MEDICAID, SELFPAY ==
[2025-01-03 08:28] VITALS: BP 146/94; PULSE 83; RESP 15; TEMP 36.5; O2SAT 96; BMI 44.6
--- NOTE | 2025-01-03 08:29 | MHC.SHP ---
Pre-Procedural Eval Section A - 24 Hr Update-Section A only Date of Service: 01/03/25 The patient is an INPATIENT: No Changes since office visit: No Cold of Flu in the past 2 weeks, No New Medical Problems, No Changes in Medication and No Patient answered all questions The patient has been examined within 24 hours of the surgical procedure. The History & Physical has been completed within 30 days and I have reviewed it.: Yes Section B - Complete if H&P > 30 days Chief Complaint: Trigger thumb, right thumb Allergies: Allergies Allergy/AdvReac Type Severity Reaction Status Date / Time No Known Allergies (No Known Allergy Verified 11/13/24 10:56 Allergies*) Plan Diagnosis/Plan: Unchanged I have reviewed the history and physical and performed a pertinent physical examination on my patient. No changes have occurred unless specified. Time Spent With Patient Time: Total time managing care of this patient today ____ minutes.
--- NOTE | 2025-01-03 08:29 | W.PM.OPN ---
Operative Note Operative Note Date of Service: 01/03/25 Narrative: Operative Note Preop diagnosis: 1. Right thumb Trigger finger Postop diagnosis: Same Procedure: 1. Right thumb A1 hector release Surgeon: Jacquelyn Farah MD Genetic Engineer: Don PATEL Anesthesia: local block using 1% lidocaine with epinephrine Findings: No locking or catching after A1 hector release EBL: Less than 5 mL Tourniquet time: None Specimens: None Complications: None Disposition: Brought to recovery room in stable condition Plan: Follow-up for 10-14 days for wound check and suture removal Indications: The patient is 39 years old, with a right thumb trigger finger that has been unresponsive to nonoperative management. The risks and benefits of operative treatment including but not limited to risk of damage to blood vessels, nerves, tendons, infection, persistent pain, persistent symptoms, recurrence or possible need for additional surgery were discussed with the patient and the patient wishes to proceed with surgery. Procedure: Once consent was obtained a local block was performed in the preop area using a combination of 1% lidocaine with epinephrine. The patient was then brought back to the operating suite and placed on the operative table in supine position. The right upper extremity was prepped and draped in a standard surgical fashion. Once assured that we had a good block, a 1.5 cm oblique incision was made centered over the A1 hector of the right thumb . The incision was made through the skin to the subcutaneous tissues using a #15 blade. Careful dissection was made down to the level of the A1 hector using tenotomy scissors, with care being taken to protect the nearby neurovascular structures. A longitudinal incision was made in the A1 hector 1st using a #15 blade, then using tenotomy scissors under direct visualization. The A1 hector was noted to be thickened. Following our A1 hector release, we no longer saw any locking or catching of the digit with flexion and extension. Once satisfied with our A1 hector release the wound was copiously irrigated with normal saline and hemostasis was obtained with a brief period of local pressure. The skin edges were reapproximated with some 5.0 nylon suture material and a sterile dressing was applied. The patient appears to have tolerated the procedure well and with no complications. All digits were well vascularized at the conclusion of the case.
[2025-01-03 10:42] VITALS: BP 134/81; PULSE 78; RESP 15; O2SAT 99
== END 2025-01-03 10:44 | disposition home or self-care (01) ==
PROVIDERS: PCP Student in an Organized Health Care Education/Training Program; Visit Provider Orthopaedic Surgery
PROC: (CPT 26055; principal; 2025-01-03 09:30)
DX: M65.311 Trigger thumb, right thumb (principal); R20.0 Anesthesia of skin; M79.644 Pain in right finger(s); M25.541 Pain in joints of right hand; Z87.828 Personal history of other (healed) physical injury and trauma; Z98.890 Other specified postprocedural states
CPT/HCPCS: 26055; J0165; J2003

== ENCOUNTER → 2025-01-03 07:43 | Outpatient (BNV) | payer MEDICAID, SELFPAY | PROVIDERS: PCP Student in an Organized Health Care Education/Training Program; Visit Provider Orthopaedic Surgery | DX: M65.311 Trigger thumb, right thumb (principal) | CPT/HCPCS: 26055 ==

== ENCOUNTER 2025-01-16 10:46 | Outpatient (AMB) | payer MEDICAID, SELFPAY ==
--- OUTSIDE RECORDS SUMMARY | 2024-01-20 09:19 | XMS_ITS | Encounter Summary ---
Author Organization [facility] Address [address] [place] [address] Care Team Providers Care Registered Public Health Nurse Name Role Phone Lyudmila Holbrook MD Primary Care Provider [phone] Encounter Details Date Type Department Care Team (Late st Contact Info) Description 01/20/2024 9:19 AM EDT Hospital Encounter TH HISTORIC ENCOUNTERS EASTERN CONVERSION ONLY Kinza Schaefer MD [address] [place] [address] Social History Tobacco Use Types Packs/Day Years Used Date Smoking Tobacco: Never Smokeless Tobacco: Never Alcohol Use Standard Drinks/Week Comments Never 0 (1 standard drink = 0.6 oz pur e alcohol) Comments No Sex and Gender Information Value Date Recorded Sex Assigned at Female 06/18/2024 9:39 PM EST Legal Sex Female 11:03 PM EST Gender Identity Female 06/18/2024 9:39 PM EST Sexual Orientation Straight 06/18/2024 9: 39 PM EST documented as of this encounter Functional Status * Calculated C-SSRS Risk Score (Lifetime/Recent) Answer Date of Assessment Author No Risk Indicated 06/18/2024 3:27 PM Isabelle Blackwood RN * [place] Suicide Severity Rating Scale (Screener/Recent Self-Report) Question Answer Date of Assessment Author 1. Wish to be (Past 1 Month) No 025 3:27 PM Isabelle Blackwood RN 2. Non-Specific Active Suici varun Thoughts (Past 1 Month) No 06/18/2024 3:27 PM Greta Blackwood RN 6. Suicidal Behavior (Lifetime) No 3:27 PM Isabelle Blackwood RN documented as of this encounter Procedure Notes * Kinza Schaefer MD - 01/20/2024 10:38 AM EDT Operative Note Encounter Date & Time 01/20/24 10:32 Operative Note Operative Details PATIENT NAME: Wale Lyons Patient Date of Procedure: 01/21/24 PRE-OP DIAGNOSIS: Right carpal tunnel syndrome POST-OP DIAGNOSIS: right carpal tunnel syndrome Procedure and Diagnosis: Right open carpal tunnel release CPT 18912 PRIMARY SURGEON: Kinza Schaefer MD SWITCH CLEANER SURGEON: none SWITCH CLEANER(S): Don Laws RN circulating, Yuridia Godwin RN scrub PROCEDURE: right open carpal tunnel release ANESTHESIA: Lidocaine 1% with 1:100,000 Epi buffered with 1 cc bicarb per 10 cc lidocaine, 15 mL administered SPECIMENS: none TUBES AND DRAINS: None TOURNIQUET TIME: n/a Implants: none Preoperative Information and Indication: 38-year-old female seen in clinic and was diagnosed with carpal tunnel syndrome. She has failed nonoperative treatment including use of a brace. Her symptoms have persisted for over 6 months. It affects her sleep. She was counseled on the treatment options and the risk and benefits of operative treatment as well as continued nonoperative treatment. After worse understanding with use of inte rpreter she would like to undergo a right carpal tunnel release with local anesthesia. Intraoperative Findings: Consistent with carpal tunnel syndrome Consent:I explained the procedure and postoperative protocol. I discussed the recovery period. I explained to the patient the risks and benefits of operative intervention to include but not be limited to the risk of anesthesia, bleeding, infection, damage to arteries tendons and nerves, persistent symptoms, recurrent symptoms, scar sensitivity, need for further surgery, and need for extensive postoperative therapy and immobilization, or even . We also talked about the possible need of other surgery. The patient understood these risks and wished to proceed. Operative Note Transformation Specialist Charly #[id number] used through the case. Operative Details Position: Supine Findings: Consistent with carpal tunnel syndrome Description of Procedure: Patient was brought to the operating room and positioned supine. right upper extremity was prepped and draped in routine sterile fashion. Surgical timeout was performed. Patient was anesthetized using 1% lidocaine with 100,000 epinephrine. A 4 cm incision longitudinal incision was made in line with the radial aspect of the ring finger distal to the wrist crease and proximal to kaplans cardinal line. Sharp dissection was carried down through the superficial palmar fascia until the transverse fibers of the transvese carpal ligament was identified and visualized. The transverse carpal ligament was divided sharply using a 15 blade, the nerve was identified and protected. The ligament was released completely to the level of the fat pad. Scissors were then used to spread above and below the ligament proximally before it was completely released. The median nerve was protected throughout the case. There was no site of compression proximally or distally and a complete release was confirmed by direct visual inspection. The wound was well irrigated and closed using 4-0 nylon. Dry sterile dressing was applied. The patient tolerated the procedure well and was taken to the recovery room Postoperative Information Closure: 4-0 Nylon Estimated Blood Loss: 2 mL Complications: none Post-Operative Condition: Good condition Sponge/Needle Count: Correct Postoperative plan: Dressing: dry sterile of xeroform, 4x4 gauze, cling and severino wrap dressing to remain in place Wound care: maintain dressing until follow Immobilization: active finger flexion extension Weight Bearing Status: no lifting with operative hand Follow-up 01/29 Imaging at follow-up none Professional Services Attending Attestation: I was present for the peña portions and immediately available for the non-peña portions. Credentials and Title of Author Kinza Schaefer Credentials: . Title: Attending. KINZA SCHAEFER MD Jan 20, 2024 10:38 documented in this encounter Plan of Treatment Not on file documented as of this encounter Visit Diagnoses Not on filedocumented in this encounter Care Teams Registered Public Health Nurse Relationship Specialty Start Date End Date Lyudmila Holbrook MD [address] [place] [address] PCP - General 09/13/23 documented as of this encounter
[2025-01-16 11:00] VITALS: BMI 44.4
--- NOTE | 2025-01-16 11:00 | A.OFFVIS_ITS ---
Vital Signs 01/16/25 11:00 Height 5 ft 2 in Weight 243 lb BMI 44.4 Intake Visit Reasons: PO RT trigger thumb 01/03/25 AR Intake Note: Wale is a 39 year old right hand dominant female who presents today for her post operative appointment s/p Right Trigger Thumb release 01/03/25. STates locking has resolved and is doing well. States she has mild discomfort. Allergies No Known Allergies (No Known Allergies*) Allergy (Verified 01/16/25 11:14) HPI HPI PO RT trigger thumb 01/03/25 AR: Details: Wlae is a 39 year old right hand dominant Sami speaking woman who returns S/P right trigger thumb release, DOS: 01/03/25 She says she is doing better, with some mild pain, but her thumb is no longer locked in flexion which she is happy about. She received a left trigger thumb injection on 11/13/24, with limited relief. She still has locking & catching of that thumb and would like to discuss surgery. She has a Hx of bilateral carpal & cubital tunnel syndrome. She has a Hx of a left carpal tunnel release, DOS: 05/13/22. She says she is doing well in regards to her sensation. 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 Sutures removed and Steri-Strips applied Good active flexion and extension of the right thumb with no locking or catching She can make a fist and extend all her digits Visible & palpable locking & catching of the Left thumb Tender over the left thumb a1 pulleys Sensation is intact Cap refill is brisk Psych Appearance: grossly normal Affect: normal affect Attitude: cooperative Assessment & Plan Assessment & Plan (1) Trigger thumb, left thumb: Code(s): M65.312 - Trigger thumb, left thumb Category: Medical (2) Trigger thumb, right thumb: Code(s): M65.311 - Trigger thumb, right thumb Category: Medical (3) Carpal tunnel syndrome of right wrist: Code(s): G56.01 - Carpal tunnel syndrome, right upper limb Category: Medical (4) Cubital tunnel syndrome on right: Code(s): G56.21 - Lesion of ulnar nerve, right upper limb Category: Medical (5) Cubital tunnel syndrome on left: Code(s): G56.22 - Lesion of ulnar nerve, left upper limb Category: Medical Plan Assessment & Plan: 1. Right trigger thumb, S/P release DOS; 01/02/25 The patient appears to be doing well post-operatively I educated her about the post-operative course I explained the signs and symptoms of infection, if the patient develops any new or worsening erythema, drainage, pain, or warmth they should contact the clinic or attend the ED. I discussed activity modifications, she is to lift nothing heavier than a cellphone for the next 2 weeks. She will perform gentle ROM exercises at home She should avoid any underwater activities for the next 5 days She should gently massage about the incision site to reduce the risk of hypersensitivity 2. Left trigger thumb, S/P injection Date of injection: 11/13/24 I educated her about this condition I discussed operative and non-operative treatment options The patient would like to proceed with surgery & an injection The risks and benefits of operative treatment were discussed with the patient and the patient wishes to proceed with surgery. These risks include, but are not limited to risk of damage to blood vessels, nerves, tendons, infection, recurrence, incomplete relief of preoperative symptoms, persistent pain, possible need for further surgery and the risks associated with regional blocks and anesthesia. The plan is to take the patient to the operating room sometime in the next few weeks for the following procedures: 1. Left trigger thumb release, under local All of the preoperative paperwork including the consent was reviewed today. All the patient's questions were answered. The patient understands that they will be contacted by our medical office scheduler soon to schedule this procedure She denies Diabetes, blood thinners, heart, lung, kidney issues She has asthma 3. Left Carpal tunnel syndrome, S/P release DOS: 05/13/22 Doing well, no complaints 4. Right Carpal tunnel syndrome, mild-moderate Symptoms intermittent, but daily, worse at night 5. Left Cubital tunnel syndrome, mild 6. Right Cubital tunnel syndrome, mild No complaints of numbness today in clinic I educated her on the symptoms of carpal & Cubital tunnel syndrome, and the risks of delaying treatment We will manage this conservatively Scribed for Jacquelyn Farah MD by Miguel A Sherman, pesticide use medical coordinator, on 01/16/25 at 11:05 AM, EST. Scribe Plan - Not visible on output: Scribed for Jacquelyn Farah MD by Miguel A Sherman, pesticide use medical coordinator, on [ ] at [ ], EST. Coding Level of Care Code Est Pt Level 4 (78386) Diagnoses Trigger thumb, left thumb M65.312 Trigger thumb, right thumb M65.311 Carpal tunnel syndrome of right wrist G56.01 Cubital tunnel syndrome on right G56.21 Cubital tunnel syndrome on left G56.22
--- OUTSIDE RECORDS SUMMARY | 2025-01-16 12:21 | XMS_ITS | Encounter Summary ---
Author Organization [employer] Address 75 [facility] 7 [place] [address] Care Team Providers Care Poultry Scientist Name Role Phone Monique Zaamn MD Primary Care Provider [phone] Encounter Details Date Type Department Care Team (Late st Contact Info) Description 06/19/2024 Orders Only [facility] [address] [place] [address] Provider, MD Batsheva Social History Tobacco Use [...] Office Visit [facility] OPTOM[facility]RY [address] [place], [place] [id number] TarCorry haley, OD [address] [place] [address] documented as of this encounter Procedures Procedure [...] documented as of this encounter Care Teams Poultry Scientist Relationship Specialty Start Date End Date Monique Zaman MD [address] [place] [address] PCP - General Family Medicine 04/07/20 documented as of this encounter
--- OUTSIDE RECORDS SUMMARY | 2025-01-16 12:21 | XMS_ITS | Encounter Summary ---
Author Organization [facility] Address [address] [place] [address] Care Team Providers Care Pole Peeling Machine Operator Name Role Phone Lyudmila Holbrook MD Primary Care Provider [phone] Encounter Details Date Type Department Care Team (Late st Contact Info) Description 04/30/2024 Lab Requisition [facility] - Main Lab [address] [facility] [place] [phone] Javier Powell MD [address] [phone] Unspecified abnormal cytological findings in specimens from [...] intraepithelial lesion or malignancy 05/03/2024 3:15 PM [facility] General Categorization Negative 05/03/2024 3:15 PM [facility] Specimen Adequacy Satisfactory for evaluation, endocervical/avalos sformation zone component present 05/03/2024 3:15 PM [facility] Pap Methodology Liquid Based Pap Test 05/03/2024 3:15 PM [facility] Disclaimer The Pap test is a screening test which carries an inherent false negative rate. These test results should be correlated with the patient's clinical findings and history. This Pap test was processed using an automated screening system. Technical cytopathology services provided by [facility], at [address] [place] [address] (CLIA # [id number]/Grace Ospina MD, Enterprise Resource Analyst.) 05/03/2024 3:15 PM [facility] Console Pap Interpretation Reported 05/03/2024 3:15 PM [facility] Brushing/Spatula Cervix uteri structure / Unknown 04/30/2024 12:00 PM EST 04/30/2024 2:55 PM EST us Javier Powell MD LAB CYTOLOGY ORDERABLES Final Result [facility] [address] [place] [address], documented in this encounter Visit Diagnoses Diagnosis Unspecified abnormal cytological findings in specimens from cervix uteri documented in this encounter Care Teams Pole Peeling Machine Operator Relationship Specialty Start Date End Date Lyudmila Holbrook MD [address] [place] [phone] PCP - General 09/13/23 documented as of this encounter
--- OUTSIDE RECORDS SUMMARY | 2025-01-16 12:21 | XMS_ITS | Encounter Summary ---
Author Organization [employer] Address [address] [facility] [address] 7[address] [place] [address] Care Team Providers Care Small Animal Veterinarian Name Role Phone Monique Zaman MD Primary Care Provider [phone] Encounter Details Date Type Department Care Team ([facility] st Contact Info) Description 01/04/2025 Orders Only [facility] CHC MED & PEDS [address] [place] [address] Provider, MD Batsheva Social History Tobacco Use [...] Description 04/01/2025 2:30 PM EST Office Visit [facility] OPTOMETRY [address] [place] [address] Corry Page, OD [address] [place] [address] documented as of this encounter Procedures Procedure Name Priority Date/Time Associated Diagnosis Comments HM MAMMOGRAPHY Routine 01/02/2025 1:11 PM EDT documented in this encounter Results * Hm Mammography (01/02/2025 1:11 PM EDT) Anatomical Region Laterality Modality Other us Historical Provider HEALTH MAINTENANCE Final Result documented in this encounter Visit Diagnoses Not on filedocumented in this encounter Additional Health Concerns Assessment Noted Time PHQ-9 Depression Total Score: 2 12/25/19 25 10:08 AM EDT documented as of this encounter Care Teams Small Animal Veterinarian Relationship Specialty Start Date End Date Monique Zaman MD [address] [place] [address] PCP - General Family Medicine 04/07/20 documented as of this encounter
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
--- OUTSIDE RECORDS SUMMARY | 2025-01-16 12:21 | XMS_ITS | Encounter Summary ---
Author Organization [employer] Address 75 [facility] 7 [place] [address] Care Team Providers Care Social Worker Palliative Care Name Role Phone Monique Zaman MD Primary Care Provider [phone] Reason for Visit * Reason Onset Date Comments Appointment Request 11/19/2024 Encounter Details Date Type Department Care Team ([facility] st Contact Info) Description 11/19/2024 Telephone [facility] MED & PEDS [address] [place] [address] Monique Zaman MD [address] [place] [address] Appointment Request Social History Tobacco Use Types [...] call back to book an apt with packing machine feeder. Contact pt at [phone] documented in this encounter Plan of Treatment Upcoming Encounters Date Type Department Care Team (Late st Contact Info) Description 04/01/2025 2:30 PM EST Office Visit [facility] OPTOMETRY [address] [place] [address] Corry Page, OD [address] [place] [address] documented as of this encounter Visit Diagnoses Not on filedocumented in this encounter Additional Health Concerns Assessment Noted Time PHQ-9 Depression Total Score: 0 10/23/19 23 10:29 AM EDT documented as of this encounter Care Teams Social Worker Palliative Care Relationship Specialty Start Date End Date Monique Zaman MD [address] [place] [address] PCP - General Family Medicine 04/07/20 documented as of this encounter
--- OUTSIDE RECORDS SUMMARY | 2025-01-16 12:21 | XMS_ITS | Encounter Summary ---
Author Organization [employer] Address 75 [facility] 7t [place] [address] Care Team Providers Care Textile Scrap Salvager Name Role Phone Monique Zaman MD Primary Care Provider [phone] Reason for Visit * Reason Comments Med Refill Encounter Details Date Type Department Care Team ([facility] st Contact Info) Description 01/13/2025 Refill [facility] CHC MED & PEDS [address] [place] [address] Monique Zaman MD [address] [place] [address] Social History Tobacco Use Types Packs/Day Years [...] Description 04/01/2025 2:30 PM EST Office Visit [facility] OPTOMETRY [address] [place] [address] Corry Paeg, OD [address] [place] [address] documented as of this encounter Visit Diagnoses Not on filedocumented in this encounter Additional Health Concerns Assessment Noted Time PHQ-9 Depression Total Score: 2 12/25/19 25 10:08 AM EDT documented as of this encounter Care Teams Textile Scrap Salvager Relationship Specialty Start Date End Date Monique Zaman MD [address] [place] [address] PCP - General Family Medicine 04/07/20 documented as of this encounter
--- OUTSIDE RECORDS SUMMARY | 2025-01-16 12:21 | XMS_ITS | Clinical Summary ---
Author Organization 299 [facility] Address [address] [place] [address] Phone Care Team Providers Care Attendant Child Activity Name Role Phone Lyudmila Holbrook MD Primary Care Provider [phone] Allergies No known active allergies Medical History [...] Years) (1 of 2 - PCV) 2003 HPV Vaccines (1 - 3-dose SCD M series) 2011 Social Influencers of Health Screening 03/21/2022 Depression Screening 04/18/2024 COVID-19 Vaccine (3 - 2024-2 6 season) 2024 08/20/2020, 07/30/2020 Influenza Vaccine (#1) 2024 2, 03/25/2020 Hypertension/CHF/CAD Annual BMP Blood Test 06/18/2025 06/18/2024 Cervical Cancer Screening: P ap Smear 04/30/2027 04/30/2024 Cholesterol Screening (Lipid Panel) 08/21/2028 08/22/2023 DTaP,Tdap,and Td Vaccines (2 - Td or Tdap) 10/22/2032 10/22/2022 RSV Immunization Adult Patients (1 - 1-dose 75+ series) 2059 Hepatitis [...] mmol/L LAB CHEMISTRY METHOD 06/18/2024 4:[address] [facility] Potassium 3.8 3.5 - 5.5 mmol/L LAB CHEMISTRY METHOD 06/18/2024 4:[address] [facility] Chloride 105 96 - 110 mmol/L LAB CHEMISTRY METHOD 06/18/2024 4:[address] [facility] CO2 30 21 - 32 mmol/L LAB CHEMISTRY METHOD 06/18/2024 4:[address] [facility] Anion Gap 5 3 - 11 LAB CHEMISTRY METHOD 06/18/2024 4:[address] [facility] Glucose 119(H) 70 - 100 mg/dL LAB CHEMISTRY METHOD 06/18/2024 4:[address] [facility] BUN 7 5 - 25 mg/dL LAB CHEMISTRY METHOD 06/18/2024 4:[address] [facility] Creatinine 0.85 0.50 - 1.10 mg/dL LAB CHEMISTRY METHOD 06/18/2024 4:[address] [facility] eGFR 89 >=60 mL/min/1. 73m2 LAB CHEMISTRY METHOD 06/18/2024 4:[address] [facility] Comment:Calculation based on the Chronic Kidney Disease Epidemiology Collaboration (CKD-EPI) equation refit without adjustment for race. BUN/Creatinine Ratio 8.2 LAB CHEMISTRY METHOD 06/18/2024 4:[address] [facility] Calcium 9.4 8.5 - 10.5 mg/dL LAB CHEMISTRY METHOD 06/18/2024 4:[address] [facility] AST (SGOT) 25 10 - 42 unit/L LAB CHEMISTRY METHOD 06/18/2024 4:[address] [facility] ALT (SGPT) 38 10 - 60 unit/L LAB CHEMISTRY METHOD 06/18/2024 4:[address] [facility] Alkaline Phosphatase 80 42 - 121 unit/L LAB CHEMISTRY METHOD 06/18/2024 4:[address] [facility] Total Protein 7.3 6.0 - 8.0 g/dL LAB CHEMISTRY METHOD 06/18/2024 4:[address] [facility] Albumin 3.6 3.2 - 5.0 g/dL LAB CHEMISTRY METHOD 06/18/2024 4:[address] [facility] Total Bilirubin 0.2 0.0 - 1.4 mg/dL LAB CHEMISTRY METHOD 06/18/2024 4:[address] [facility] Blood Venous blood specimen / Unknown Venipuncture / Unknown 06/18/2024 3:35 PM EST 06/18/2024 3:50 PM EST us Reagan Ryan Rosas DO LAB BLOOD ORDERABLES Irene l Result [facility] [address] [place] [address], * Pap smear (04/30/2024 12:00 PM EST) Interpretation Negative for intraepithelial lesion or malignancy 05/03/2024 3:[address] [facility] General Categorization Negative 05/03/2024 3:[address] [facility] Specimen Adequacy Satisfactory for evaluation, endocervical/avalos sformation zone component present 05/03/2024 3:[address] [facility] Pap Methodology Liquid Based Pap Test 05/03/2024 3:[address] [facility] Disclaimer The Pap test is a screening test which carries an inherent false negative rate. These test results should be correlated with the patient's clinical findings and history. This Pap test was processed using an automated screening system. Technical cytopathology services provided by [facility], at [address] [place] [address] ([facility] # [id number]/Grace Ospina MD, Brazing Machine Operator Helper.) 05/03/2024 3:15 PM EST [facility] Console Pap Interpretation Reported 05/03/2024 3:15 PM EST [facility] Brushing/Spatula Cervix uteri structure / Unknown 04/30/2024 12:00 PM EST 04/30/2024 2:55 PM EST Jvaier Powell MD LAB CYTOLOGY ORDERABLES Final Result [facility] [address] [place] [address], from Last 3 Months or Most Recently Relevant to Health Maintenance Insurance MEDICAID - [place] AUT[place] GENERIC [employer] GENERIC [place] Care Teams Attendant Child Activity Relationship Specialty Start Date End Date Lyudmila Holbrook MD [address] [place] [phone] PCP - General 09/13/23
--- OUTSIDE RECORDS SUMMARY | 2025-01-16 12:21 | XMS_ITS | Encounter Summary ---
Author Organization [employer] Address [address] [facility] [address] [place] [address] Care Team Providers Care Waiter/Waitress Cafeteria Name Role Phone Monique Zaman MD Primary Care Provider [phone] Encounter Details Date Type Department Care Team ([facility] st Contact Info) Description 08/15/2024 Orders Only [facility] CHC MED & PEDS [address] [place] [address] Arlette Ghosh Social History Tobacco Use Types [...] Description 04/01/2025 2:30 PM EST Office Visit [facility] OPTOMETRY [address] [place], [place] [phone] TarCorry haley, OD [address] [place] [address] documented as of this encounter Procedures Procedure [...] documented as of this encounter Care Teams Waiter/Waitress Cafeteria Relationship Specialty Start Date End Date Monique Zaman MD [address] [place] [address] PCP - General Family Medicine 04/07/20 documented as of this encounter
--- OUTSIDE RECORDS SUMMARY | 2025-01-16 12:21 | XMS_ITS | Encounter Summary ---
Author Organization [employer] Address 75 [facility] 7 [place] [address] Care Team Providers Care Point Of Care Specialist Name Role Phone Monique Zaman MD Primary Care Provider [phone] Reason for Visit * Reason Onset Date Comments Referral 02/06/2024 Encounter Details Date Type Department Care Team ([facility] st Contact Info) Description 02/06/2024 Telephone [facility] [address] [place] [address] Monique Zaman MD [address] [place] [address] Referral Social History Tobacco Use Types Packs/Day [...] : DATE: 02/08/24 TIME: 1:00 PM Address: [address] [place] [address] Facility Name: [facility] Type of Specialist: Invoice Clerk documented in this encounter Plan of Treatment Upcoming Encounters Date Type Department Care Team (Late st Contact Info) Description 04/01/2025 2:30 PM EST Office Visit [facility] [address] [place] [address] Corry Page, OD [address] [place] [address] documented as of this encounter Visit Diagnoses Not on filedocumented in this encounter Additional Health Concerns Assessment Noted Time PHQ-9 Depression Total Score: 0 10/23/19 23 10:29 AM EDT documented as of this encounter Care Teams Point Of Care Specialist Relationship Specialty Start Date End Date Monique Zaman MD [address] [place] [address] PCP - General Family Medicine 04/07/20 documented as of this encounter
--- OUTSIDE RECORDS SUMMARY | 2025-01-16 12:21 | XMS_ITS | Encounter Summary ---
Author Organization [employer] Address 75 [facility] 7 [place] [address] Care Team Providers Care Sawing And Assembly Supervisor Name Role Phone Monique Zaman MD Primary Care Provider [phone] Reason for Visit * Reason Onset Date Comments Appointment Request 12/06/2024 Encounter Details Date Type Department Care Team ([facility] st Contact Info) Description 12/06/2024 Telephone [facility] MED[facility] [address] [place] [address] Monique Zaman MD [address] [place] [address] Appointment Request Social History Tobacco Use Types [...] reschedule appt from 12/06 Contact pt at [phone] documented in this encounter Plan of Treatment Upcoming Encounters Date Type Department Care Team (Late st Contact Info) Description 04/01/2025 2:30 PM EST Office Visit [facility] [address] [place] [address] Corry Page, OD [address] [place] [address] documented as of this encounter Visit Diagnoses Not on filedocumented in this encounter Additional Health Concerns Assessment Noted Time PHQ-9 Depression Total Score: 0 10/23/19 23 10:29 AM EDT documented as of this encounter Care Teams Sawing And Assembly Supervisor Relationship Specialty Start Date End Date Monique Zaman MD [address] [place] [address] PCP - General Family Medicine 04/07/20 documented as of this encounter
--- OUTSIDE RECORDS SUMMARY | 2025-01-16 12:21 | XMS_ITS | Encounter Summary ---
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 I can't say how long she has had this. Please confirm with Sharri or Ashley at [facility]. Depending on [facility] findings, she will need an appointment for [...] Visit [facility] OPTOMETRY [address] [place] [address] Tarka Corry, OD [address] [place] [address] documented as of this encounter Procedures Procedure Name Priority Date/Time Associated Diagnosis Comments CONFIRMATORY SYPHILIS PROFILE Routine 08/23/2023 11:41 AM EDT HPV MRNA E6/E7 REFLEX TO HPV 16, 18/45 Routine 08/23/2023 11:36 AM EDT BI MAMMOGRAM DIAGNOSTIC RIGHT Routine 08/11/2023 4:08 PM EDT documented in this encounter Results * (ABNORMAL) Confirmatory Syphilis Profile (08/23/2023 11:41 AM EDT) Pathologist [facility] Rapid Plasma Reagin, Quant Reactive 1:32(A) Nonreactive [facility] Treponema pallidum Antibody, Particle Agglutination Reactive(A) Nonreactive [facility] Comment:These results must b e reported by the ordering clinician orclinical facility to the [facility] required by state law.Testing performed at: [address] [address] 08/23/2023 11:4 1 AM EDT 08/24/2023 3:39 AM EDT Rashmi Espino [facility] LAB BLOOD ORDERABLES Irene l Result [facility] [address] [place] [phone] * (ABNORMAL) HPV mRNA E6/E7 w/Reflex to HPV Genotypes 16, 18/45 (08/23/2023 11:36 AM EDT) [facility] HPV nRNA E6/E7 Detected(A ) Not Detected [facility] Comment:Methodology: Transcr iption-Mediated AmplificationThis assay detects E6/E7 viral messenger RNA (mRNA) from 14high-risk HPV types (16,18,31,33,35,39,45,51,52,56,58,59,66,68).Cervical sources are required for HPV testing.If a vaginal source from a patient who has had atotal hysterectomy with removal of cervix wassubmitted, please contact the testing laboratoryfor alternative testing options.For additional information, please refer tohttp://education.Qwilt/faq/ZRV479x9(This link if provided for information/educational purposes only.)THIS TEST WAS PERFORMED AT:[employer] [place] [phone] MEADE MD HPV 16 RNA NOT DETECTED NOT DETECTED [facility] HPV 18/45 RNA NOT DETECTED NOT DETECTED [facility] Comment:Methodology: Transcr iption Mediated AmplificationCervical sources are required for HPV testing.If a vaginal source from a patient who has had atotal hysterectomy with removal of cervix wassubmitted, please contact the testing laboratoryfor alternative testing options.THIS TEST WAS PERFORMED AT:[employer] [place] [phone] MEADE MD 08/23/2023 11:3 6 AM EDT 08/24/2023 8:20 AM EDT Rashmi MCCR[facility] LAB CYTOLOGY ORDERABLES F inal Result [facility] [address] [place] [address] [phone] * Mammogram Diagnostic Right (08/11/2023 4:08 PM EDT) Anatomical Region Laterality Modality Breast Right Mammography Historical Provider MD CEDENO BI PROCEDURES Final R esult documented in this encounter Visit Diagnoses Not on filedocumented in this encounter Additional Health Concerns Assessment Noted Time PHQ-9 Depression Total Score: 0 10/23/19 23 10:29 AM EDT documented as of this encounter Care Teams Diamond Sizer And Grader Relationship Specialty Start Date End Date Monique Zaman MD [address] [place] [phone] PCP - General Family Medicine 04/07/20 documented as of this encounter
--- OUTSIDE RECORDS SUMMARY | 2025-01-16 12:21 | XMS_ITS | Clinical Summary ---
Author Organization [employer] Address 75 [facility] 7t [place] [address] Care Team Providers Care Extension Professor Name Role Phone Monique Zaman MD Primary Care Provider [phone] Allergies No known active allergies Medications SUMAtriptan [...] mouth Once per day. 30 tablet 11 09/12/19 25 026 Active ferrous gluconate (Fergon) 324 (38 Fe) MG tablet Take 1 tablet (324 mg) by mouth with breakfast. 30 tablet 11 09/12/19 25 026 Active Tirzepatide-We ight Management (Zepbound) 2.5 MG/0.5ML solution auto-injector Inject 0.5 mL (2.5 mg) under the skin 1 (one) time per week. 2 mL 3 09/12/19 25 Active meloxicam (Mobic) 7.5 MG [...] week. 2 mL 12/25/19 25 025 Active cyclobenzaprin e (Flexeril) 10 MG tablet Take 1 tablet (10 mg) by mouth at bedtime for 10 days. 10 tablet 07/12/19 25 025 Discontinued Active Problems Problem Noted Date Diagnosed Date Cervical cancer screening 08/21/2024 Assessment & Plan (08/21/2024 11:54 AM EDT): 39 y.o. here for cervical cancer screening. Will continue monitoring following ASCCP guidelines. Cervical polyp 08/21/2024 Assessment & Plan (08/21/2024 11:54 AM EDT): Patient aware reports she has followed with [employer] for this but unclear why it has not been bx'ed or removed. Has f/up w/ PCP Future Appointments Date Time Provider Department Center 09/11/2024 9:15 AM Monique Zaman MD [facility] MED [facility] Sleep apnea 09/20/2023 Intractable migraine with [...] Encounters Date Type Department Care Team Description 01/13/2025 Refill [facility] MED & PEDS [address] [facility] NASIR Garcia13 Monique Zaman MD 01/04/2025 Orders Only [facility] MED & PEDS [address] [facility] NAS[place] Garcia13 ProviderBatsheva MD 12/24/2024 10:00 AM EDT Office Visit [facility] MED & PEDS 505 [facility] [place] Garcia13 Monique Zaman MD Primary hypertension (Primary Dx); Sleep apnea, unspecified type; Class 3 severe obesity with serious comorbidity and body mass index (BMI) of 40.0 to 44.9 in adult, unspecified obesity type 12/24/2024 Travel 12/21/2024 Telephone [facility] MED & PEDS 505 [place] [address] Monique Zaman MD chart prep 12/13/2024 Telephone [facility] MEDICINE [address] [place] [phone] Monique Zaman MD Appointment Confirmation 12/10/2024 Refill [facility] MED & PEDS 505 [place] [address] Monique Zaman MD Hypertension, unspecified type 12/06/2024 Telephone [facility] MEDICINE [address] [place] [address] Monique Zaman MD Appointment Request 12/05/2024 Refill [facility] MED & PEDS [address] [place] [address] Elieser Vieira MD 11/29/2024 2:30 PM EDT Clinical Support [facility] DIABETES/NTRN [address] [place] [address] Class 3 severe obesity with serious comorbidity and body mass index (BMI) of 45.0 to 49.9 in adult (Primary Dx) 11/29/2024 Travel 11/27/2024 Telephone [facility] MEDICINE [address] [place] [address] Monique Zaman MD Referral 11/19/2024 Telephone [facility] MED & PEDS [address] [place] [address] Monique Zaman MD Appointment Request 11/13/2024 Refill [facility] MED & PEDS [address] [place] [address] Monique Zaman MD 10/16/2024 Telephone [facility] MEDICINE [address] [place] [phone] Monique Zaman MD No Show from Last 3 Months Immunizations Immunization Administration [...] Description 04/01/2025 2:30 PM EST Office Visit [facility] OPTOMETRY [address] [place], [place] [phone] Corry Page, OD [address] [place] [address] Health Maintenance Due Date Last Done Comments Dental Oral Exam 1985 Dental Prophylaxis 1985 Dental X-Ray: Bitewings 1985 Dental X-Ray: Full Mouth 1985 Family Planning (PISQ) 1999 HPV Vaccines (1 - 3-dose series) 1999 Hepatitis B Vaccines (1 of 3 - 19+ 3-dose series) 2003 COVID-19 Vaccine ( season) 2024 08/20/2020, 07/30/2020 Influenza Vaccine (#1) 2024 2, 02/23/2022, 03/25/2020 SDOH Screening 08/30/2025 08/30/2024 Alcohol/Substance Use Screening 12/24/2025 12/24/2024 Depression Screening 12/24/2025 12/24/2024, 12/25/19 Disability Screening 12/24/2025 12/24/2024 Tobacco Screening 12/24/2025 12/24/2024 Mammogram 01/02/2027 01/02/2025, 08/11/2023 Cervical Cancer Screening 08/22/2027 HPV/Cotest 08/22/2027 08/21/2024, 05/0 10/2023, 08/23/2023, Additional history exists Pap Smear 08/22/2027 08/21/2024, 04/18, 08/23/2023, Additional history exists Lipid Panel 12/24/2029 12/24/2024, 05/0 09/2023, 12/29/2022, Additional history exists DTaP/Tdap/Td Vaccines (2 - [...] HM MAMMOGRAPHY Routine 01/02/2025 1:11 PM EDT HEPATIC FUNCTION PANEL Routine 12/24/2024 10:32 AM EDT Primary hypertension LIPID PANEL, STANDARD Routine 12/24/2024 10:32 AM EDT Primary hypertension BASIC METABOLIC PANEL Routine 12/24/2024 10:32 AM EDT Primary hypertension HPV DNA, LOW/HIGH RISK Routine 08/21/2024 11:55 AM EDT Cervical cancer screening PAP SMEAR Routine 08/21/2024 11:55 AM EDT Cervical cancer screening HIV 1/2 ANTIGEN/ANTIBODY, FOURTH GENERATION W/RFL Routine 08/23/2023 11:41 AM EDT Screening examination for venereal disease HEPATITIS C AB W/REFL TO HCV RNA, QN, PCR Routine 10/22/2022 11:13 AM EDT PE (physical exam), annual from Last 3 Months or Most Recently Relevant to Health Maintenance Results * Hm Mammography (01/02/2025 1:11 PM EDT) Anatomical Region Laterality Modality Other Batsheva Provider HEALTH MAINTENANCE Final Result * Hepatic Function Panel (12/24/2024 10:32 AM EDT) Bilirubin, Total 0.2 0.0 - 1.0 mg/dL [facility] Bilirubin, Direct <0.2 0.0 - 0.5 mg/dL [facility] Aspartate Amino Transferase 31 5 - 31 U/L [facility] Alanine Aminotransferase 28 0 - 31 U/L [facility] Total Protein 7.3 6.5 - 8.0 g/dL [facility] Albumin Level 4.4 3.5 - 5.0 g/dL [facility] Alkaline Phosphatase 73 39 - 117 U/L [facility] Blood Venous blood specimen / Unknown 12/24/2024 10:32 AM EDT 12/24/2024 2:52 PM EDT Monique Zaman MD LAB BLOOD ORDERABLES Final Resul t [facility] [address] [place] [address] [phone] * (ABNORMAL) Lipid Panel, Standard (12/24/2024 10:32 AM EDT) Triglycerides 147 <150 mg/dL [facility] Comment:Desirable Triglyceri de: less than 150 mg/dLBorderline High Triglyceride 150-199 mg/dLHigh Triglyceride: 200-499 mg/dLVery High Triglyceride: greater than or equal to 5OO mg/dL Cholesterol 153 <200 mg/dL [facility] Comment:Desirable Cholestero l: less than 200 mg/dLBorderline High Cholesterol: 200-239 mg/dLHigh Cholesterol: greater than 239 mg/dL LDL Cholesterol Calculated 93 <100 mg/dL [facility] Comment:Desirable LDL: less than 100 mg/dLNear Optimal/Above Optimal LDL: 110- 129 mg/dLBorderline High LDL: 130-159 mg/dLHigh LDL: 160-189 mg/dLVery High LDL: greater than or equal to 190 mg/dL HDL Cholesterol 31(L) >40 mg/dL [facility] Comment:Desirable HDL: great er than 40 mg/dL Note: This HDL assay may give artificially low results in patients with liver disease. Blood Venous blood specimen / Unknown 12/24/2024 10:32 AM EDT 12/24/2024 2:52 PM EDT us Monique Zaman MD LAB BLOOD ORDERABLES Final Resul t [facility] [address] [place] [phone] * (ABNORMAL) Basic Metabolic Panel (12/24/2024 10:32 AM EDT) Sodium 141 135 - 145 mmol/L [facility] Potassium 3.8 3.3 - 5.1 mmol/L [facility] Chloride 107 96 - 108 mmol/L [facility] Carbon Dioxide 28 22 - 29 mmol/L [facility] Anion Gap 10(L) 12 - 20 [facility] Urea Nitrogen (BUN) 11 9 - 16 mg/dL [facility] Creatinine, Serum 1.00 0.5 - 1.4 mg/dL [facility] Estimated Glomerular Filt Rate >60 [facility] Comment:Chronic Kidney Disea se: Estimated GFR < 60 mL/min/1.32k1Mkykmd Kidney Disease: Estimated GFR < 15 mL/min/1.73m2 Glucose 102 60 - 115 mg/dL [facility] Calcium 9.2 8.4 - 10.2 mg/dL [facility] Blood Venous blood specimen / Unknown 12/24/2024 10:32 AM EDT 12/24/2024 2:52 PM EDT us Monique Zaman MD LAB BLOOD ORDERABLES Final Resul t Performing Organization Address [facility] Co de Phone Number [facility] [address] [place] [phone] * HPV High Risk with Reflex to Subtypes (08/21/2024 11:55 AM EDT) HPV High Risk Negative Negative [facility] HPV Genotype 16 Negative Negative [facility] HPV Genotype 18 Negative Negative [facility] Comment:HPV testing performe d at [facility] (CLIA#[id number]), [address] [place] [address].Testing for HPV was performed using the Isabel [...] MD LAB BLOOD ORDERABLES Final Re sult Performing Organization Address [facility]/ZIP Co de Phone Number [facility] [address] [place] [phone] * Pap Smear (08/21/2024 11:55 AM EDT) Swab 08/21/2024 11:5 5 AM EDT 08/22/2024 6:00 AM EDT [facility] - 09/12/2024 6:35 AM EDT ----- ------- Name: CourtneyWale Guzman Age/Sex: 39/F : 1985 Unit#: [id number] Attend Dr: Rossana Mac MD Re08/21/24 Status: DEP REF Location: HO.CHCLNP Disch: ----- ------- SPEC : [id number] RECD: 08/22/24 STATUS: DESMOND LAURA NUM: [id number] AMY: 08/21/24-[address] [facility] [address]: Rossana Mac MD ENTERED: 08/22/24 SP TYPE: Pap Smr OTHR : ORDERED: Pap Smear Addendum Addendum 1 Entered: 09/12/24 HPV High Risk: Negative HPV Genotyping 16: Negative HPV Genotyping 18: Negative Addendum Signed (signature on file) ALE Polanco (ASCP) 09/12/24 0635 ----- ------- Interpretation Satisfactory for evaluation. Negative for intraepithelial lesion or malignancy. Moderate inflammation. Clinical Information LMP:07/31/24 Previous PAP test:Unknown date/findings Material Received ThinPrep-Cervical ----- ------- Signed (signature on file) ALE Polanco (ASCP) 08/24/24 1234 ----- ------- END OF REPORT us Rossana Mac MD LAB CYTOLOGY ORDERABLES Final Result [facility] [address] [place] [phone] [phone] * HIV-1/2 Antigen and Antibodies, Fourth Generation, with Reflexes (08/23/2023 11:41 AM EDT) HIV AB/AG Nonreactive Nonreactive [facility] Comment:HIV-1 p24 Ag and/or HIV-1/HIV-2 Ab not detected.A test result that is nonreactive does not exclude thepossibility of exposure to or infection with HIV-1 and/orHIV-2. Nonreactive results in this assay for individualswith prior exposure to HIV-1 and/or HIV-2 may be due toantigen and antibody levels that are below the limit ofdetection of this assay.The [employer]. HIV Ag/Ab Combo assay result andsupplemental assay results should be interpreted inconjunction with the patient's clinical presentation,history and other laboratory results. If the results areinconsistent with clinical evidence, additional testing issuggested to confirm the result. Blood Venous blood specimen / Unknown 08/23/2023 11:41 AM EDT 08/23/2023 2:19 PM EDT Rashmi Espino CNM LAB BLOOD ORDERABLES Irene vazquez Result Performing Organization Address [facility] Co de Phone Number [facility] [address] [place] [phone] * Hepatitis C Antibody with Reflex to HCV, RNA, Quantitative, Real-Time PCR (10/22/2022 11:13 AM EDT) Hepatitis C Antibody NON-REACT ARACELY NON-REACT ARACELY [employer] Comment: HCV antibody was non-reactive. There is no laboratory evidence of HCV infection. In most cases, no further action is required. However, if recent HCV exposure is suspected, a test for HCV RNA (test code 14908) is suggested. For additional information please refer to http://education.Inaaya/faq/XOX10o5 (This link is being provided for informational/ educational purposes only.) Blood Venous blood specimen / Unknown 10/22/2022 11:13 AM EDT 10/22/2022 11:13 AM EDT Monique Zaman MD LAB BLOOD ORDERABLES Final Resul t Performing Organization Address City/[facility] Co de Phone Number [employer] [address] [place] [address], [place] [address] [employer] [address] [place] [phone] from Last 3 Months or Most Recently Relevant to Health Maintenance Insurance [place] [facility] MEDICAID STAND ADULT [employer] Care Teams Extension Professor Relationship Specialty Start Date End Date Monique Zaman MD [address] [place] [phone] PCP - General Family Medicine 04/07/20
--- OUTSIDE RECORDS SUMMARY | 2025-01-16 12:21 | XMS_ITS | Encounter Summary ---
Author Organization [facility] Address [address] [place] [address] Care Team Providers Care Asphalt Roller Operator Name Role Phone Lyudmila Holbrook MD Primary Care Provider [phone] Encounter Details Date Type Department Care Team (Late st Contact Info) Description 05/01/2024 Lab Requisition [facility] Main Lab [address] [facility] [place] [phone] Javier Powell MD [address] [facility] [address] [place] [phone] Other specified abnormal uterine and vaginal bleeding [...] hyperplasia or neoplasm identified 05/02/2024 11:13 AM [facility] Clinical Information Dysfunctional uterine bleeding 05/02/2024 11:13 AM [facility] Gross Description A. Endometrium, biopsy: Labeled with the patient's name and information. Received in formalin is a 1.2 cm aggregate of irregular manzano-red soft tissue fragments which is submitted in toto in a mesh bag in one cassette, multiple pieces, x 2. MAYCOL 05/02/2024 11:13 AM [facility] Disclaimer Unless otherwise specified, all tissue is 10% NB formalin fixed and paraffin embedded. 05/02/2024 11:13 AM [facility] Tissue Endometrial structure / Unknown 04/30/2024 05/01/2024 8:05 AM EST us Javier Powell MD LAB PATHOLOGY ORDERABLES Final Result [facility] [address] [place] [address], documented in this encounter Visit Diagnoses Diagnosis Other specified abnormal uterine and vaginal bleeding documented in this encounter Care Teams Asphalt Roller Operator Relationship Specialty Start Date End Date Lyudmila Holbrook MD [address] [place] [phone] PCP - General 09/13/23 documented as of this encounter
--- OUTSIDE RECORDS SUMMARY | 2025-01-16 12:21 | XMS_ITS | Encounter Summary ---
Author Organization [employer] Address 75 [facility] 7t [place] [address] Care Team Providers Care Corn Press Operator Name Role Phone Monique Zaman MD Primary Care Provider [phone] Reason for Visit * Reason Comments Med Change Request Encounter Details Date Type Department Care Team ([facility] st Contact Info) Description 09/12/2024 Refill [facility] MED & PEDS [address] [place] [address] Monique Zaman MD [address] [place] [address] Hypertension, unspecified type Social History Tobacco Use [...] [facility] OPT[facility]RY [address] [place] [address] Corry Page, OD [address] [place] [address] documented as of this encounter Visit Diagnoses Diagnosis Hypertension, unspecified type documented in this encounter Additional Health Concerns Assessment Noted Time PHQ-9 Depression Total Score: 0 10/23/19 23 10:29 AM EDT documented as of this encounter Care Teams Corn Press Operator Relationship Specialty Start Date End Date Monique Zaman MD [address] [place] [phone] PCP - General Family Medicine 04/07/20 documented as of this encounter
--- OUTSIDE RECORDS SUMMARY | 2025-01-16 12:21 | XMS_ITS | Encounter Summary ---
Author Organization [employer] Address 75 [facility] 7 [place] [address] Care Team Providers Care Advertising Representative Name Role Phone Monique Zaman MD Primary Care Provider [phone] Reason for Visit * Reason Onset Date Comments Medication Question 01/20/2024 Encounter Details Date Type Department Care Team ([facility] st Contact Info) Description 01/20/2024 Telephone [facility] MED & PEDS [address] [place] [address] Monique Zaman MD [address] [place] [address] Medication Question Social History Tobacco Use Types [...] 1:55 PM EDT TC placed to pt [phone] via [employer] in regards to below message. Pt [...] calling to inform had surgery today at [facility] for Carpal Tunnel on right wrist. Pt stateswas prescribed tylenol and ibuprofen but informs that those medication does not help with the pain and would like a stronger medication. Please call pt to clarify. documented in this encounter Plan of Treatment Upcoming Encounters Date Type Department Care Team (Late st Contact Info) Description 04/01/2025 2:30 PM EST Office Visit [facility] OPTOMETRY [address] [place], [place] [phone] Corry Page, OD [address] [place] [address] documented as of this encounter Visit Diagnoses Not on filedocumented in this encounter Additional Health Concerns Assessment Noted Time PHQ-9 Depression Total Score: 0 10/23/19 23 10:29 AM EDT documented as of this encounter Care Teams Advertising Representative Relationship Specialty Start Date End Date Monique Zaman MD [address] [place], [place] [phone] PCP - General Family Medicine 04/07/20 documented as of this encounter
== END 2025-01-16 11:15 | disposition home or self-care (01) ==
LOC: HO.HOS 10:46
PROVIDERS: PCP Student in an Organized Health Care Education/Training Program; Visit Provider Orthopaedic Surgery
DX: M65.311 Trigger thumb, right thumb (principal); M65.312 Trigger thumb, left thumb; G56.01 Carpal tunnel syndrome, right upper limb; G56.23 Lesion of ulnar nerve, bilateral upper limbs
CPT/HCPCS: 99214

== ENCOUNTER → 2025-01-16 10:46 | Outpatient (BNVA) | payer MEDICAID, SELFPAY | PROVIDERS: PCP Student in an Organized Health Care Education/Training Program; Visit Provider Orthopaedic Surgery | DX: M65.311 Trigger thumb, right thumb (principal); M65.312 Trigger thumb, left thumb; G56.01 Carpal tunnel syndrome, right upper limb; G56.21 Lesion of ulnar nerve, right upper limb; G56.22 Lesion of ulnar nerve, left upper limb | CPT/HCPCS: 99212 ==

== ENCOUNTER 2025-02-18 09:08 | Day surgery (SDC) | payer MEDICAID, SELFPAY ==
--- OUTSIDE RECORDS SUMMARY | 2024-01-20 09:19 | XMS_ITS | Encounter Summary ---
Author Organization [facility] Address [address] [place] [address] Care Team Providers Care Film Sound Coordinator Name Role Phone Lyudmila Holbrook MD Primary Care Provider [phone] Encounter Details Date Type Department Care Team (Late st Contact Info) Description 01/20/2024 9:19 AM EDT Hospital Encounter TH HISTORIC ENCOUNTERS EASTERN CONVERSION ONLY Kinza Schaefer MD [address] [place] [address] Social History Tobacco Use Types Packs/Day Years [...] 06/18/2024 3:27 PM Isabelle Blackwood RN * [place] Suicide Severity Rating Scale (Screener/Recent Self-Report) Question [...] Diagnosis: Right open carpal tunnel release CPT 78322 PRIMARY SURGEON: Kinza Schaefer MD MEDICAL CODING INSTRUCTOR SURGEON: none MEDICAL CODING INSTRUCTOR(S): Don Laws RN circulating, Yuridia Godwin RN [...] risks and wished to proceed. Operative Note Research Quality Assurance Analyst Charly #[id number] used through the case. Operative Details Position: [...] on filedocumented in this encounter Care Teams Film Sound Coordinator Relationship Specialty Start Date End Date Lyudmila Holbrook MD [address] [place] [address] PCP - General 09/13/23 documented as of this encounter
--- OUTSIDE RECORDS SUMMARY | 2025-01-17 15:22 | XMS_ITS | Encounter Summary ---
Author Organization [employer] Address [address] [facility] [address] [place] [address] Care Team Providers Care Manager Poker Name Role Phone Monique Zaman MD Primary Care Provider [phone] Encounter Details Date Type Department Care Team ([facility] st Contact Info) Description 08/15/2024 Orders Only [facility] MED & PEDS [address] [place] [address] Arlette Ghosh Social History Tobacco Use Types [...] Description 04/01/2025 2:30 PM EST Office Visit [facility] OPTOMETRY [address] [place], [place] [phone] TarCorry haley, OD [address] [place] [address] documented as of this encounter Procedures Procedure [...] as of this encounter Care Teams Manager Poker Relationship Specialty Start Date End Date Monique Zaman MD [address] [place] [address] PCP - General Family Medicine 04/07/20 documented as of this encounter
--- OUTSIDE RECORDS SUMMARY | 2025-01-17 15:22 | XMS_ITS | Encounter Summary ---
Author Organization [employer] Address 75 [facility] 7t [place] [address] Care Team Providers Care Varnish Thinner Name Role Phone Monique Zaman MD Primary Care Provider [phone] Reason for Visit * Reason Comments Med Refill Encounter Details Date Type Department Care Team ([facility] st Contact Info) Description 01/13/2025 Refill [facility]C MED & PEDS [address] [place] [address] Monique Zaman MD 505 [place] [address] Social History Tobacco Use Types Packs/Day Years [...] Description 04/01/2025 2:30 PM EST Office Visit [facility] OPTOMETRY [address] [place] [address] Corry Page, OD [address] [place] [address] documented as of this encounter Visit Diagnoses Not on filedocumented in this encounter Additional Health Concerns Assessment Noted Time PHQ-9 Depression Total Score: 2 12/25/19 25 10:08 AM EDT documented as of this encounter Care Teams Varnish Thinner Relationship Specialty Start Date End Date Monique Zaman MD [address] [place] [address] PCP - General Family Medicine 04/07/20 documented as of this encounter
--- OUTSIDE RECORDS SUMMARY | 2025-01-17 15:22 | XMS_ITS | Encounter Summary ---
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 I can't say how long she has had this. Please confirm with Sharri or Ashley at [facility]. Depending on [facility] findings, she will need an appointment for [...] Description 04/01/2025 2:30 PM EST Office Visit [facility] OPTOMETRY [address] [place] [address] Tarka Corry, OD [address] [place] [address] documented as of this encounter Procedures Procedure Name Priority Date/Time Associated Diagnosis Comments CONFIRMATORY SYPHILIS PROFILE Routine 08/23/2023 11:41 AM EDT HPV MRNA E6/E7 REFLEX TO HPV 16, 18/45 Routine 08/23/2023 11:36 AM EDT BI MAMMOGRAM DIAGNOSTIC RIGHT Routine 08/11/2023 4:08 PM EDT documented in this encounter Results * (ABNORMAL) Confirmatory Syphilis Profile (08/23/2023 11:41 AM EDT) Pathologist [facility] Rapid Plasma Reagin, Quant Reactive 1:32(A) Nonreactive [facility] Treponema pallidum Antibody, Particle Agglutination Reactive(A) Nonreactive [facility] Comment:These results must b e reported by the ordering clinician orclinical facility to the [facility] required by state law.Testing performed at: [address] [address] 08/23/2023 11:4 1 AM EDT 08/24/2023 3:39 AM EDT Rashmi Espino [facility] BLOOD ORDERABLES Irene l Result [facility] [address] [place] [phone] * (ABNORMAL) HPV mRNA E6/E7 w/Reflex to HPV Genotypes 16, 18/45 (08/23/2023 11:36 AM EDT) [facility] HPV nRNA E6/E7 Detected(A ) Not Detected [facility] Comment:Methodology: Transcr iption-Mediated AmplificationThis assay detects E6/E7 viral messenger RNA (mRNA) from 14high-risk HPV types (16,18,31,33,35,39,45,51,52,56,58,59,66,68).Cervical sources are required for HPV testing.If a vaginal source from a patient who has had atotal hysterectomy with removal of cervix wassubmitted, please contact the testing laboratoryfor alternative testing options.For additional information, please refer tohttp://education.USMD/faq/OCU961r7(This link if provided for information/educational purposes only.)THIS TEST WAS PERFORMED AT:[facility] [place] [phone] MEADE MD HPV 16 RNA NOT DETECTED NOT DETECTED [facility] HPV 18/45 RNA NOT DETECTED NOT DETECTED [facility] Comment:Methodology: Transcr iption Mediated AmplificationCervical sources are required for HPV testing.If a vaginal source from a patient who has had atotal hysterectomy with removal of cervix wassubmitted, please contact the testing laboratoryfor alternative testing options.THIS TEST WAS PERFORMED AT:[facility] [place] [phone] MEADE MD 08/23/2023 11:3 6 AM EDT 08/24/2023 8:20 AM EDT Rashmi [facility] LAB CYTOLOGY ORDERABLES F inal Result [facility] [address] [place] [phone] [phone] * Mammogram Diagnostic Right (08/11/2023 4:08 PM EDT) Anatomical Region Laterality Modality Breast Right Mammography Historical Provider MD CED[facility] BI PROCEDURES Final R esult documented in this encounter Visit Diagnoses Not on filedocumented in this encounter Additional Health Concerns Assessment Noted Time PHQ-9 Depression Total Score: 0 10/23/19 23 10:29 AM EDT documented as of this encounter Care Teams Male Impersonator Relationship Specialty Start Date End Date Monique Zaman MD [address] [place] [address] PCP - General Family Medicine 04/07/20 documented as of this encounter
--- OUTSIDE RECORDS SUMMARY | 2025-01-17 15:22 | XMS_ITS | Encounter Summary ---
Author Organization [employer] Address 75 [facility] 7 [place] [address] Care Team Providers Care Fork Assembler Name Role Phone Monique Zaman MD Primary Care Provider Encounter Details Date Type Department Care Team (Late st Contact Info) Description 06/19/2024 Orders Only [facility] [address] [place] [address] Provider, MD Batsheva Social History Tobacco Use [...] Description 04/01/2025 2:30 PM EST Office Visit [facility] OPTOMETRY [address] [place], [place] [phone] TarCorry haley, OD [address] [place] [address] documented as of this encounter Procedures Procedure [...] documented as of this encounter Care Teams Fork Assembler Relationship Specialty Start Date End Date Monique Zaman MD [address] [place] [address] PCP - General Family Medicine 04/07/20 documented as of this encounter
--- OUTSIDE RECORDS SUMMARY | 2025-01-17 15:22 | XMS_ITS | Encounter Summary ---
Author Organization [facility] Address [address] [place] [address] Care Team Providers Care Process Safety Management Engineer Name Role Phone Lyudmila Holbrook MD Primary Care Provider [phone] Encounter Details Date Type Department Care Team (Late st Contact Info) Description 04/30/2024 Lab Requisition [facility] - Main Lab 299 [facility] [place] [place] [phone] Javier Powell MD [address] [phone] Unspecified abnormal cytological findings in specimens from [...] intraepithelial lesion or malignancy 05/03/2024 3:15 PM [facility] General Categorization Negative 05/03/2024 3:15 PM [facility] Specimen Adequacy Satisfactory for evaluation, endocervical/avalos sformation zone component present 05/03/2024 3:15 PM [facility] Pap Methodology Liquid Based Pap Test 05/03/2024 3:15 PM [facility] Disclaimer The Pap test is a screening test which carries an inherent false negative rate. These test results should be correlated with the patient's clinical findings and history. This Pap test was processed using an automated screening system. Technical cytopathology services provided by [facility], at [address] [place] [address] (CLIA # [id number]/Grace Ospina MD, Nuclear Operations Specialist.) 05/03/2024 3:15 PM [facility] Console Pap Interpretation Reported 05/03/2024 3:15 PM [facility] Brushing/Spatula Cervix uteri structure / Unknown 04/30/2024 12:00 PM EST 04/30/2024 2:55 PM EST us Javier Powell MD LAB CYTOLOGY ORDERABLES Final Result [facility] [address] [place] [address], documented in this encounter Visit Diagnoses Diagnosis Unspecified abnormal cytological findings in specimens from cervix uteri documented in this encounter Care Teams Process Safety Management Engineer Relationship Specialty Start Date End Date Lyudmila Holbrook MD [address] [place] [phone] PCP - General 09/13/23 documented as of this encounter
--- OUTSIDE RECORDS SUMMARY | 2025-01-17 15:22 | XMS_ITS | Encounter Summary ---
Author Organization [facility] Address [address] [place] [address] Care Team Providers Care Leaf Sorter Name Role Phone Lyudmila Holbrook MD Primary Care Provider [phone] Encounter Details Date Type Department Care Team (Late st Contact Info) Description 05/01/[address] [facility] - Main Lab 299 [facility] [place] [phone] Javier Powell MD 299 [facility] [address] [place] [phone] Other specified abnormal uterine and vaginal bleeding [...] hyperplasia or neoplasm identified 05/02/2024 11:[address] [facility] Clinical Information Dysfunctional uterine bleeding 05/02/2024 11:[address] [facility] Gross Description A. Endometrium, biopsy: Labeled with the patient's name and information. Received in formalin is a 1.2 cm aggregate of irregular manzano-red soft tissue fragments which is submitted in toto in a mesh bag in one cassette, multiple pieces, x 2. [place] 05/02/2024 11:[address] [facility] Disclaimer Unless otherwise specified, all tissue is 10% NB formalin fixed and paraffin embedded. 05/02/2024 11:[address] [facility] Tissue Endometrial structure / Unknown 04/30/2024 05/01/2024 8:05 AM EST us Javier Powell MD LAB PATHOLOGY ORDERABLES Final Result [facility] [address] [place] [address], documented in this encounter Visit Diagnoses Diagnosis Other specified abnormal uterine and vaginal bleeding documented in this encounter Care Teams Leaf Sorter Relationship Specialty Start Date End Date Lyudmila Holbrook MD [address] [place] [phone] PCP - General 09/13/23 documented as of this encounter
--- OUTSIDE RECORDS SUMMARY | 2025-01-17 15:22 | XMS_ITS | Encounter Summary ---
Author Organization [employer] Address 75 [facility] 7 [place] [address] Care Team Providers Care Tread Tuber Machine Operator Name Role Phone Monique Zaman MD Primary Care Provider [phone] Reason for Visit * Reason Onset Date Comments Appointment Request 12/06/2024 Encounter Details Date Type Department Care Team ([facility] st Contact Info) Description 12/06/2024 Telephone [facility] MEDICINE [address] [place] [address] Monique Zaman MD [address] [place] [address] Appointment Request Social History Tobacco Use Types [...] reschedule appt from 12/06 Contact pt at [phone] documented in this encounter Plan of Treatment Upcoming Encounters Date Type Department Care Team (Late st Contact Info) Description 04/01/2025 2:30 PM EST Office Visit [facility] OPTOMETRY [address] [place] [address] Corry Page, OD [address] [place] [address] documented as of this encounter Visit Diagnoses Not on filedocumented in this encounter Additional Health Concerns Assessment Noted Time PHQ-9 Depression Total Score: 0 10/23/19 23 10:29 AM EDT documented as of this encounter Care Teams Tread Tuber Machine Operator Relationship Specialty Start Date End Date Monique Zaman MD [address] [place] [address] PCP - General Family Medicine 04/07/20 documented as of this encounter
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
--- OUTSIDE RECORDS SUMMARY | 2025-01-17 15:22 | XMS_ITS | Encounter Summary ---
Author Organization [employer] Address 75 [facility] 7 [place] [address] Care Team Providers Care Tax Manager Cpa Name Role Phone Monique Zaman MD Primary Care Provider [phone] Reason for Visit * Reason Onset Date Comments Referral 02/06/2024 Encounter Details Date Type Department Care Team ([facility] st Contact Info) Description 02/06/2024 Telephone [facility] [address] [place] [address] Monique Zaman MD [address] [place] [address] Referral Social History Tobacco Use Types Packs/Day [...] : DATE: 02/08/24 TIME: 1:00 PM Address: [address] [place] [address] Facility Name: [facility] Type of Specialist: Care Trainer documented in this encounter Plan of Treatment Upcoming Encounters Date Type Department Care Team (Late st Contact Info) Description 04/01/2025 2:30 PM EST Office Visit [facility] OPTOMETRY [address] [place] [address] Coryr Page, OD [address] [place] [address] documented as of this encounter Visit Diagnoses Not on filedocumented in this encounter Additional Health Concerns Assessment Noted Time PHQ-9 Depression Total Score: 0 10/23/19 23 10:29 AM EDT documented as of this encounter Care Teams Tax Manager Cpa Relationship Specialty Start Date End Date Monique Zaman MD [address] [place] [address] PCP - General Family Medicine 04/07/20 documented as of this encounter
--- OUTSIDE RECORDS SUMMARY | 2025-01-17 15:22 | XMS_ITS | Encounter Summary ---
Author Organization [employer] Address 75 [facility] 7 [place] [address] Care Team Providers Care New Home Sales Consultant Name Role Phone Monique Zaman MD Primary Care Provider [phone] Reason for Visit * Reason Onset Date Comments Medication Question 01/20/2024 Encounter Details Date Type Department Care Team ([facility] st Contact Info) Description 01/20/2024 Telephone [facility] MED & PEDS [address] [place] [address] Monique Zaman MD [address] [place] [address] Medication Question Social History Tobacco Use Types [...] 1:55 PM EDT TC placed to pt [phone] via [employer] interpreters in regards to below message. Pt [...] calling to inform had surgery today at [facility] for Carpal Tunnel on right wrist. Pt stateswas prescribed tylenol and ibuprofen but informs that those medication does not help with the pain and would like a stronger medication. Please call pt to clarify. documented in this encounter Plan of Treatment Upcoming Encounters Date Type Department Care Team (Late st Contact Info) Description 04/01/2025 2:30 PM EST Office Visit [facility] OPTOMETRY [address] [place], [place] [phone] Corry aPge, OD [address] [place] [address] documented as of this encounter Visit Diagnoses Not on filedocumented in this encounter Additional Health Concerns Assessment Noted Time PHQ-9 Depression Total Score: 0 10/23/19 23 10:29 AM EDT documented as of this encounter Care Teams New Home Sales Consultant Relationship Specialty Start Date End Date Monique Zaman MD 230 [place], [place] [phone] PCP - General Family Medicine 04/07/20 documented as of this encounter
--- OUTSIDE RECORDS SUMMARY | 2025-01-17 15:22 | XMS_ITS | Clinical Summary ---
Author Organization 299 [facility] Address [address] [place] [address] Phone Care Team Providers Care Stull Installer Name Role Phone Lyudmila Holbrook MD Primary Care Provider [phone] Allergies No known active allergies Medical History [...] mmol/L LAB CHEMISTRY METHOD 06/18/2024 4:22 PM [facility] Potassium 3.8 3.5 - 5.5 mmol/L LAB CHEMISTRY METHOD 06/18/2024 4:22 PM [facility] Chloride 105 96 - 110 mmol/L LAB CHEMISTRY METHOD 06/18/2024 4:22 PM [facility] CO2 30 21 - 32 mmol/L LAB CHEMISTRY METHOD 06/18/2024 4:22 PM [facility] Anion Gap 5 3 - 11 LAB CHEMISTRY METHOD 06/18/2024 4:22 PM [facility] Glucose 119(H) 70 - 100 mg/dL LAB CHEMISTRY METHOD 06/18/2024 4:22 PM [facility] BUN 7 5 - 25 mg/dL LAB CHEMISTRY METHOD 06/18/2024 4:22 PM [facility] Creatinine 0.85 0.50 - 1.10 mg/dL LAB CHEMISTRY METHOD 06/18/2024 4:22 PM [facility] eGFR 89 >=60 mL/min/1. 73m2 LAB CHEMISTRY METHOD 06/18/2024 4:22 PM [facility] Comment:Calculation based on the Chronic Kidney Disease Epidemiology Collaboration (CKD-EPI) equation refit without adjustment for race. BUN/Creatinine Ratio 8.2 LAB CHEMISTRY METHOD 06/18/2024 4:22 PM [facility] Calcium 9.4 8.5 - 10.5 mg/dL LAB CHEMISTRY METHOD 06/18/2024 4:22 PM [facility] AST (SGOT) 25 10 - 42 unit/L LAB CHEMISTRY METHOD 06/18/2024 4:22 PM [facility] ALT (SGPT) 38 10 - 60 unit/L LAB CHEMISTRY METHOD 06/18/2024 4:22 PM [facility] Alkaline Phosphatase 80 42 - 121 unit/L LAB CHEMISTRY METHOD 06/18/2024 4:22 PM [facility] Total Protein 7.3 6.0 - 8.0 g/dL LAB CHEMISTRY METHOD 06/18/2024 4:22 PM [facility] Albumin 3.6 3.2 - 5.0 g/dL LAB CHEMISTRY METHOD 06/18/2024 4:22 PM [facility] Total Bilirubin 0.2 0.0 - 1.4 mg/dL LAB CHEMISTRY METHOD 06/18/2024 4:22 PM [facility] Blood Venous blood specimen / Unknown Venipuncture / Unknown 06/18/2024 3:35 PM EST 06/18/2024 3:50 PM EST us Reagan Ryan Rosas DO LAB BLOOD ORDERABLES Irene l Result [facility] [address] [place] [address], * Pap smear (04/30/2024 12:00 PM EST) Interpretation Negative for intraepithelial lesion or malignancy 05/03/2024 3:15 PM [facility] General Categorization Negative 05/03/2024 3:15 PM [facility] Specimen Adequacy Satisfactory for evaluation, endocervical/avalos sformation zone component present 05/03/2024 3:15 PM [facility] Pap Methodology Liquid Based Pap Test 05/03/2024 3:15 PM [facility] Disclaimer The Pap test is a screening test which carries an inherent false negative rate. These test results should be correlated with the patient's clinical findings and history. This Pap test was processed using an automated screening system. Technical cytopathology services provided by [facility], at [address] [place] [address] ([facility] # [id number]/Grace Ospina MD, Power Mule Operator.) 05/03/2024 3:15 PM EST [facility] Console Pap Interpretation Reported 05/03/2024 3:15 PM EST [facility] Brushing/Spatula Cervix uteri structure / Unknown 04/30/2024 12:00 PM EST 04/30/2024 2:55 PM EST Javier Powell MD LAB CYTOLOGY ORDERABLES Final Result [facility] [address] [place] [address], from Last 3 Months or Most Recently Relevant to Health Maintenance Insurance MEDICAID - [place] AUT[place] GENERIC [place] GENERIC MEDICA[place] - [place] Care Teams Stull Installer Relationship Specialty Start Date End Date Lyudmila Holbrook MD [address] [place] [phone] PCP - General 09/13/23
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
--- OUTSIDE RECORDS SUMMARY | 2025-01-17 15:22 | XMS_ITS | Encounter Summary ---
Author Organization [employer] Address 75 [facility] 7 [place] [address] Care Team Providers Care Head Of Biology Name Role Phone Monique Zaman MD Primary Care Provider [phone] Reason for Visit * Reason Onset Date Comments Appointment Request 11/19/2024 Encounter Details Date Type Department Care Team ([facility] st Contact Info) Description 11/19/2024 Telephone [facility] PEDS [address] [place] [address] Monique Zaman MD [address] [place] [address] Appointment Request Social History Tobacco Use Types [...] call back to book an apt with civil clerk. Contact pt at [phone] documented in this encounter Plan of Treatment Upcoming Encounters Date Type Department Care Team (Late st Contact Info) Description 04/01/2025 2:30 PM EST Office Visit [facility] OPTOMETRY [address] [place] [address] Corry Page, OD [address] [place] [address] documented as of this encounter Visit Diagnoses Not on filedocumented in this encounter Additional Health Concerns Assessment Noted Time PHQ-9 Depression Total Score: 0 10/23/19 23 10:29 AM EDT documented as of this encounter Care Teams Head Of Biology Relationship Specialty Start Date End Date Monique Zaman MD [address] [place] [phone] PCP - General Family Medicine 04/07/20 documented as of this encounter
--- OUTSIDE RECORDS SUMMARY | 2025-01-17 15:22 | XMS_ITS | Encounter Summary ---
Author Organization [employer] Address [address] [facility] [address] 7[address] [place] [address] Care Team Providers Care Paralegal Legal Secretary Name Role Phone Monique Zaman MD Primary Care Provider [phone] Encounter Details Date Type Department Care Team ([facility] st Contact Info) Description 01/04/2025 Orders Only [facility] MED & PEDS [address] [place] [address] Provider, MD Batsheva Social History Tobacco Use [...] 04/01/2025 2:30 PM EST Office Visit [facility] OPTOMETRY [address] [place] [address] Corry Page, OD [address] [place] [address] documented as of this encounter Procedures Procedure [...] documented as of this encounter Care Teams Paralegal Legal Secretary Relationship Specialty Start Date End Date Monique Zaman MD [address] [place] [phone] PCP - General Family Medicine 04/07/20 documented as of this encounter
--- OUTSIDE RECORDS SUMMARY | 2025-01-17 15:22 | XMS_ITS | Encounter Summary ---
Author Organization [employer] Address 75 [facility] 7t [place] [address] Care Team Providers Care Food Service Helper Name Role Phone Monique Zaman MD Primary Care Provider [phone] Reason for Visit * Reason Comments Med Change Request Encounter Details Date Type Department Care Team ([facility] st Contact Info) Description 09/12/2024 Refill [facility] MED & PEDS [address] [place] [address] Monique Zaman MD 505 [place] [address] Hypertension, unspecified type Social History Tobacco Use [...] 04/01/2025 2:30 PM EST Office Visit [facility] OPTOMETRY [address] [place] [address] Corry Page, OD [address] [place] [address] documented as of this encounter Visit Diagnoses Diagnosis Hypertension, unspecified type documented in this encounter Additional Health Concerns Assessment Noted Time PHQ-9 Depression Total Score: 0 10/23/19 23 10:29 AM EDT documented as of this encounter Care Teams Food Service Helper Relationship Specialty Start Date End Date Monique Zaman MD [address] [place] [phone] PCP - General Family Medicine 04/07/20 documented as of this encounter
[2025-02-18 10:07] VITALS: BMI 44.4
--- NOTE | 2025-02-18 10:39 | MHC.SHP ---
Pre-Procedural Eval Section A - 24 Hr Update-Section A only Date of Service: 02/18/25 The patient is an INPATIENT: No Changes since office visit: No Cold of Flu in the past 2 weeks, No New Medical Problems, No Changes in Medication and No Patient answered all questions The patient has been examined within 24 hours of the surgical procedure. The History & Physical has been completed within 30 days and I have reviewed it.: Yes Section B - Complete if H&P > 30 days Chief Complaint: Trigger thumb, left thumb Allergies: Allergies Allergy/AdvReac Type Severity Reaction Status Date / Time No Known Allergies (No Known Allergy Verified 02/18/25 10:08 Allergies*) Plan Diagnosis/Plan: Unchanged I have reviewed the history and physical and performed a pertinent physical examination on my patient. No changes have occurred unless specified. Time Spent With Patient Time: Total time managing care of this patient today ____ minutes.
--- NOTE | 2025-02-18 10:40 | P.OP_ITS ---
Operative Note Operative Note Date of Service: 02/18/25 Narrative: Operative Note Preop diagnosis: 1. Left thumb Trigger finger Postop diagnosis: Same Procedure: 1. Left thumb A1 hector release Surgeon: Jacquelyn Farah MD Inorganic Chemistry Professor: None Anesthesia: local block using 1% lidocaine with epinephrine Findings: No locking or catching after A1 hector release EBL: Less than 5 mL Tourniquet time: None Specimens: None Complications: None Disposition: Brought to recovery room in stable condition Plan: Follow-up for 10-14 days for wound check and suture removal Indications: The patient is 39 years old, with a left thumb trigger finger that has been unresponsive to nonoperative management. The risks and benefits of operative treatment including but not limited to risk of damage to blood vessels, nerves, tendons, infection, persistent pain, persistent symptoms, recurrence or possible need for additional surgery were discussed with the patient and the patient wishes to proceed with surgery. Procedure: Once consent was obtained a local block was performed in the preop area using a combination of 1% lidocaine with epinephrine. The patient was then brought back to the operating suite and placed on the operative table in supine position. The left upper extremity was prepped and draped in a standard surgical fashion. Once assured that we had a good block, a 1.5 cm oblique incision was made centered over the A1 hector of the left thumb . The incision was made through the skin to the subcutaneous tissues using a #15 blade. Careful dissection was made down to the level of the A1 hector using tenotomy scissors, with care being taken to protect the nearby neurovascular structures. A longitudinal incision was made in the A1 hector 1st using a #15 blade, then using tenotomy scissors under direct visualization. The A1 hector was noted to be thickened. Following our A1 hector release, we no longer saw any locking or catching of the digit with flexion and extension. Once satisfied with our A1 hector release the wound was copiously irrigated with normal saline and hemostasis was obtained with a brief period of local pressure. The skin edges were reapproximated with some 5.0 nylon suture material and a sterile dressing was applied. The patient appears to have tolerated the procedure well and with no complications. All digits were well vascularized at the conclusion of the case.
[2025-02-18 12:01] VITALS: BP 146/83; PULSE 77; RESP 18; O2SAT 98
== END 2025-02-18 12:12 | disposition home or self-care (01) ==
PROVIDERS: PCP Student in an Organized Health Care Education/Training Program; Visit Provider Orthopaedic Surgery
PROC: (CPT 26055; principal; 2025-02-18 12:10)
DX: M65.312 Trigger thumb, left thumb (principal); I10 Essential (primary) hypertension; K59.00 Constipation, unspecified; J45.909 Unspecified asthma, uncomplicated; Z98.890 Other specified postprocedural states; Z56.0 Unemployment, unspecified
CPT/HCPCS: 26055; J0165; J2003

== ENCOUNTER → 2025-02-18 09:08 | Outpatient (BNV) | payer MEDICAID, SELFPAY | PROVIDERS: PCP Student in an Organized Health Care Education/Training Program; Visit Provider Orthopaedic Surgery | DX: M65.312 Trigger thumb, left thumb (principal) | CPT/HCPCS: 26055 ==

== ENCOUNTER 2025-03-03 02:54 | Emergency (ER) | payer MEDICAID, SELFPAY ==
--- NOTE | 2025-03-03 | ECG_ITS ---
Test Reason : CHEST PAIN Blood Pressure : */* mmHG Vent. Rate : 100 BPM Atrial Rate : 100 BPM P-R Int : 174 ms QRS Dur : 88 ms QT Int : 362 ms P-R-T Axes : 41 32 3 degrees QTcB Int : 466 ms Normal sinus rhythm Cannot rule out Anterior infarct , age undetermined Abnormal ECG No previous ECGs available Referred By: Generic ED Physician Electronically Signed By: MYLES NORTON MD
--- NOTE | ~2025-03-03 | XR_ITS ---
CLINICAL HISTORY: sob 1 view chest x-ray Comparison: None provided Findings: No consolidation or effusion. Heart size is normal. No acute fracture. IMPRESSION: 1. No acute findings. This document has been electronically signed by: Marni Hayes MD on 03/03/2025 05:10:25
--- NOTE | ~2025-03-03 | XR_ITS ---
CLINICAL HISTORY: pain, constipation 1 view abdomen Comparison: None provided Findings: No pneumoperitoneum or pneumatosis. No abnormal calcifications. No acute fractures. IMPRESSION: The bowel gas pattern is normal This document has been electronically signed by: Marni Hayes MD on 03/03/2025 05:10:33
[2025-03-03 03:08] VITALS: BP 146/92; PULSE 109; RESP 18; TEMP 37; O2SAT 98; BMI 36.5
--- OUTSIDE RECORDS SUMMARY | 2025-03-03 04:00 | XMS_ITS | Encounter Summary ---
Author Organization [employer] Address 75 [facility] 7 [place] [address] Care Team Providers Care Ruffler Name Role Phone Arnel York CNP Primary Care Provider [phone] Reason for Visit * Reason Onset Date Comments Med Refill 03/01/2025 Encounter Details Date Type Department Care Team (Late st Contact Info) Description 03/01/2025 Telephone [facility] MEDICINE [address] [place] [address] Arnel York CNP [address] [place] [address] Med Refill Social History Tobacco Use Types Packs/Day Years [...] encounter Miscellaneous Notes * Telephone Encounter - Susan Braun LPN - 03/01/2025 9:21 AM EST Medication pended to PCP. * Telephone Encounter - Michelle Shepard - 03/01/2025 9:10 AM EST Tc from pt requesting med refill: Tirzepatide-Weight Management (Zepbound) 2.5 MG/0.5ML solution auto-injector PCP SIDDHARTH York To be sent to [facility] documented in this encounter Plan of Treatment Upcoming Encounters Date Type Department Care Team (Late st Contact Info) Description 04/01/2025 2:30 PM EST Office Visit [facility] OPTOMETRY [address] [place], [place] [phone] Corry Page, OD [address] [place] [address] documented as of this encounter Visit Diagnoses Not on filedocumented in this encounter Additional Health Concerns Assessment Noted Time PHQ-9 Depression Total Score: 2 12/25/19 25 10:08 AM EDT documented as of this encounter Care Teams Ruffler Relationship Specialty Start Date End Date Arnel York CNP 505 [facility] [place] [address] PCP - General Family Medicine 02/12/25 documented as of this encounter
--- OUTSIDE RECORDS SUMMARY | 2025-03-03 04:00 | XMS_ITS | Encounter Summary ---
Author Organization [employer] Address 75 [facility] 7t [place] [address] Care Team Providers Care Roller Mill Tender Name Role Phone Monique Zaman MD Primary Care Provider [phone] Arnel York CNP Primary Care Provider [phone] Reason for Visit * Reason Comments Med Change Request Encounter Details Date Type Department Care Team ([facility] st Contact Info) Description 09/12/[address] [facility] MED & PEDS 505 [place], [place] [phone] Monique Zaman MD 505 [place] [address] Hypertension, unspecified type Social History Tobacco Use [...] PM EST Office Visit [facility] OPTOMETRY [address] [place] [address] Corry Page, OD [address] [place] [address] documented as of this encounter Visit Diagnoses Diagnosis Hypertension, unspecified type documented in this encounter Additional Health Concerns Assessment Noted Time PHQ-9 Depression Total Score: 0 10/23/19 23 10:29 AM EDT documented as of this encounter Care Teams Roller Mill Tender Relationship Specialty Start Date End Date Monique Zaman MD [address] [place] [address] PCP - General Family Medicine 04/07/20 02/11/25 Arnel York CNP [address] [place] [address] PCP - General Family Medicine 02/12/25 documented as of this encounter
--- OUTSIDE RECORDS SUMMARY | 2025-03-03 04:00 | XMS_ITS | Encounter Summary ---
Author Organization [employer] Address 75 [facility] 7t [place] [address] Care Team Providers Care Counseling Services Director Name Role Phone Monique Zaman MD Primary Care Provider [phone] Arnel York CNP Primary Care Provider [phone] Reason for Visit * Reason Onset Date Comments Medication Question 01/20/2024 Encounter Details Date Type Department Care Team ([facility] Contact Info) Description 01/20/2024 Telephone [facility] MED [facility]EDS [address] [place] [address] Monique Zaman MD [address] [place] [address] Medication Question Social History Tobacco Use Types [...] 1:55 PM EDT TC placed to pt [phone] via [id number] interpre[employer] in regards to below message. Pt [...] surgery. Thank you! * Telephone Encounter - Daimond Hernandez - 01/20/2024 12:07 PM EDT Tc from pt calling to inform had surgery today at [facility] for Carpal Tunnel on right wrist. Pt stateswas prescribed tylenol and ibuprofen but informs that those medication does not help with the pain and would like a stronger medication. Please call pt to clarify. documented in this encounter Plan of Treatment Upcoming Encounters Date Type Department Care Team (Late st Contact Info) Description 04/01/2025 2:30 PM EST Office Visit [facility] OPTOMETRY [address] [place] [address] TarCorry haley, OD [address] [place] [address] documented as of this encounter Visit Diagnoses Not on filedocumented in this encounter Additional Health Concerns Assessment Noted Time PHQ-9 Depression Total Score: 0 10/23/19 23 10:29 AM EDT documented as of this encounter Care Teams Counseling Services Director Relationship Specialty Start Date End Date Monique Zaman MD [address] [place] [address] PCP - General Family Medicine 04/07/20 02/11/25 Arnel York CNP [address] [place] [address] PCP - General Family Medicine 02/12/25 documented as of this encounter
--- OUTSIDE RECORDS SUMMARY | 2025-03-03 04:00 | XMS_ITS | Encounter Summary ---
Author Organization [employer] Address [address] 7[address] [place] [address] Care Team Providers Care Or Nurse Manager Name Role Phone Monique Zaman MD Primary Care Provider [phone] Arnel York CNP Primary Care Provider [phone] Encounter Details Date Type Department Care Team ([facility] st Contact Info) Description 01/04/2025 Orders Only [facility] CHC MED & PEDS [address] [place] [address] Provider, MD Batsheva Social History Tobacco Use [...] Description 04/01/2025 2:30 PM EST Office Visit [facility] OPTOMETRY [address] [place] [address] Corry Page, OD [address] [place] [address] documented as of this encounter Procedures Procedure Name Priority Date/Time Associated Diagnosis Comments HM MAMMOGRAPHY Routine 01/02/2025 1:11 PM EDT documented in this encounter Results * Hm Mammography (01/02/2025 1:11 PM EDT) Anatomical Region Laterality Modality Other Historical Provider HEALTH MAINTENANCE Final Result documented in this encounter Visit Diagnoses Not on filedocumented in this encounter Additional Health Concerns Assessment Noted Time PHQ-9 Depression Total Score: 2 12/25/19 25 10:08 AM EDT documented as of this encounter Care Teams Or Nurse Manager Relationship Specialty Start Date End Date Monique Zaman MD [address] [place] [address] PCP - General Family Medicine 04/07/20 02/11/25 Arnel York CNP [address] [place] [address] PCP - General Family Medicine 02/12/25 documented as of this encounter
--- OUTSIDE RECORDS SUMMARY | 2025-03-03 04:00 | XMS_ITS | Encounter Summary ---
Author Organization [employer] Address [address] [facility] 7 [place] [address] Care Team Providers Care Ase Certified Technician Name Role Phone Monique Zaman MD Primary Care Provider [phone] Arnel York CNP Primary Care Provider [phone] Encounter Details Date Type Department Care Team (Late st Contact Info) Description 06/19/2024 Orders Only [facility] [address] [place] [address] Provider, MD Batsheva Social History Tobacco Use [...] Description 04/01/2025 2:30 PM EST Office Visit [facility] OPTOMETRY [address] [place], [place] [phone] TarCorry haley, OD [address] [place] [address] documented as of this encounter Procedures Procedure [...] documented as of this encounter Care Teams Ase Certified Technician Relationship Specialty Start Date End Date Monique Zaman MD [address] [place] [address] PCP - General Family Medicine 04/07/20 02/11/25 Arnel York CNP [address] [place] [address] PCP - General Family Medicine 02/12/25 documented as of this encounter
--- OUTSIDE RECORDS SUMMARY | 2025-03-03 04:00 | XMS_ITS | Encounter Summary ---
Author Organization [employer] Address [address] [facility] 7t [place] [address] Care Team Providers Care Tilt Wall Supervisor Name Role Phone Monique Zaman MD Primary Care Provider [phone] Arnel York CNP Primary Care Provider [phone] Reason for Visit * Reason Comments Med Refill Encounter Details Date Type Department Care Team ([facility] st Contact Info) Description 01/13/2025 Refill [facility] [place] [facility] CHC MED & PEDS [address] [place] [address] Monique Zaman MD [address] [place] [address] Social History Tobacco Use Types Packs/Day Years [...] PM EST Office Visit [facility] [address] [place], [place] [phone] Corry Page, OD [address] [place] [address] documented as of this encounter Visit Diagnoses Not on filedocumented in this encounter Additional Health Concerns Assessment Noted Time PHQ-9 Depression Total Score: 2 12/25/19 25 10:08 AM EDT documented as of this encounter Care Teams Tilt Wall Supervisor Relationship Specialty Start Date End Date Monique Zaman MD [address] [place] [address] PCP - General Family Medicine 04/07/20 02/11/25 Arnel York CNP [address] [place] [address] PCP - General Family Medicine 02/12/25 documented as of this encounter
--- OUTSIDE RECORDS SUMMARY | 2025-03-03 04:00 | XMS_ITS | Clinical Summary ---
Author Organization [employer] Address [address] [facility] 7t [place] [address] Care Team Providers Care Community Life Director Name Role Phone Jaylen Aravindkristidemi PACHECO Primary Care Provider [phone] Allergies No known active allergies Medications SUMAtriptan (Imitrex) 50 MG tablet Take 1 tablet by mouth. 2 Active polyethylene glycol, PEG, 3350 (MiraLax) 17 GM/SCOOP powder take (17G) by oral route every day mixed with 8 oz. water, juice, soda, coffee or tea as needed for constipation 2 Active fluticasone (Flovent HFA) 110 MCG/ACT inhaler Inhale 2 puffs every 12 (twelve) hours. 2 Active diclofenac (Cataflam) 50 MG tablet Take 1 tablet by mouth every 12 (twelve) hours. 2 Active albuterol 108 (90 Base) MCG/ACT inhaler Inhale 2 puffs every 4 (four) hours if needed. 2 Active albuterol (2.5 MG/3ML) 0.083% nebulizer solution Inhale 3 mL every 6 (six) hours. 2 Active hydroCHLOROthia zide (HYDRODiuril) 25 MG tablet TAKE 1 TABLET(25 MG) BY MOUTH IN THE MORNING 90 tablet 1 3 Active fluticasone (Flonase) 50 MCG/ACT nasal spray Administer 1 spray into each nostril Once per day. 16 g 2 5 Active Acetaminophen 500 MG capsule Take 1 capsule orally tid prn pain 90 capsule 5 Active ibuprofen 400 MG tablet Take 1 tablet (400 mg) by mouth every 8 (eight) hours if needed for moderate pain, mild pain, fever or headaches. 60 tablet 5 Active hydrALAZINE (Apresoline) 10 MG tablet Take 1 tablet (10 mg) by mouth Once per day. 30 tablet 11 5 09/12/19 26 Active ferrous gluconate (Fergon) 324 (38 Fe) MG tablet Take 1 tablet (324 mg) by mouth with breakfast. 30 tablet 11 5 09/12/19 26 Active Tirzepatide-Antonio ght Management (Zepbound) 2.5 MG/0.5ML solution auto-injector Inject 0.5 mL (2.5 mg) under the skin 1 (one) time per week. 2 mL 3 5 Active meloxicam (Mobic) 7.5 MG tablet TAKE 1 TABLET BY MOUTH 2 TIMES DAILY. 60 tablet 3 5 Active omeprazole (PriLOSEC) [address] capsule TAKE 1 CAPSULE (20 MG) BY MOUTH BEFORE BREAKFAST 90 capsule 3 5 Active amLODIPine (Norvasc) 5 MG tabletIndicatio ns:Hypertension , unspecified type TAKE 1 TABLET BY MOUTH EVERY DAY 90 tablet 5 Active Active Problems Problem Noted Date Diagnosed Date Cervical cancer screening 08/21/2024 Assessment & Plan (08/21/2024 11:54 AM EDT): 39 y.o. here for cervical cancer screening. Will continue monitoring following ASCCP guidelines. Cervical polyp 08/21/2024 Assessment & Plan (08/21/2024 11:54 AM EDT): Patient aware reports she has followed with [facility] [employer] for this but unclear why it has not been bx'ed or removed. Has f/up w/ PCP Future Appointments Date Time Provider Department Center 09/11/2024 9:15 AM Monique Zaman MD [facility] Sleep apnea 09/20/2023 Intractable migraine with [...] Encounters Date Type Department Care Team Description 03/01/2025 Telephone [facility] MEDICINE [address] [place] [address] Arnel York CNP Med Refill 02/28/2025 Refill [facility] MED & PEDS [address] [place] [address] Monique Zaman MD 01/13/2025 Refill [facility] CHC MED & PEDS [address] [place] [address] Monique Zaman MD 01/04/2025 Orders Only [facility] CHC MED & PEDS [address] [place] [address] ProviderBatsheva MD 12/24/2024 10:00 AM EDT Office Visit [facility] CHC MED & PEDS [address] [place] [address] Monique Zaman MD Primary hypertension (Primary Dx); Sleep apnea, unspecified type; Class 3 severe obesity with serious comorbidity and body mass index (BMI) of 40.0 to 44.9 in adult, unspecified obesity type 12/24/2024 Travel 12/21/2024 Telephone [facility] CHC MED & PEDS [address] [place] [address] Monique Zaman MD chart prep 12/13/2024 Telephone [facility] MEDICINE [address] [place] [address] Monique Zaman MD Appointment Confirmation 12/10/2024 Refill [facility] MED & PEDS [address] [place] [address] Monique Zaman MD Hypertension, unspecified type 12/06/2024 Telephone [facility] MEDICINE [address] [place] [address] Monique Zaman MD Appointment Request 12/05/2024 Refill [facility] CHC MED & PEDS [address] [place] [address] Elieser Vieira MD from Last 3 Months Immunizations Immunization [...] Description 04/01/2025 2:30 PM EST Office Visit [facility] OPTOMETRY [address] [place] [address] Corry Page, OD [address] [place] [address] Health Maintenance Due Date Last Done Comments Dental Oral Exam 1985 Dental Prophylaxis 1985 Dental X-Ray: Bitewings 1985 Dental X-Ray: Full Mouth 1985 Family Planning (PISQ) 1999 HPV Vaccines (1 - 3-dose series) 1999 Hepatitis B Vaccines (1 of 3 - 19+ 3-dose series) 2003 COVID-19 Vaccine ( - season) 2024 08/20/2020, 07/30/2020 Influenza Vaccine (#1) [...] Bilirubin, Total 0.2 0.0 - 1.0 mg/dL [facility] Bilirubin, Direct <0.2 0.0 - 0.5 mg/dL [facility] Aspartate Amino Transferase 31 5 - 31 U/L [facility] Alanine Aminotransferase 28 0 - 31 U/L [facility] Total Protein 7.3 6.5 - 8.0 g/dL [facility] Albumin Level 4.4 3.5 - 5.0 g/dL [facility] Alkaline Phosphatase 73 39 - 117 U/L [facility] Blood Venous blood specimen / Unknown 12/24/2024 10:32 AM EDT 12/24/2024 2:52 PM EDT us Monique Zaman MD LAB BLOOD ORDERABLES Final Resul t [facility] [address] [place] [address] [phone] * (ABNORMAL) Lipid Panel, Standard (12/24/2024 10:32 AM EDT) Triglycerides 147 <150 mg/dL [facility] Comment:Desirable Triglyceri de: less than 150 mg/dLBorderline High Triglyceride 150-199 mg/dLHigh Triglyceride: 200-499 mg/dLVery High Triglyceride: greater than or equal to 5OO mg/dL Cholesterol 153 <200 mg/dL [facility] Comment:Desirable Cholestero l: less than 200 mg/dLBorderline High Cholesterol: 200-239 mg/dLHigh Cholesterol: greater than 239 mg/dL LDL Cholesterol Calculated 93 <100 mg/dL [facility] Comment:Desirable LDL: less than 100 mg/dLNear Optimal/Above Optimal LDL: 110- 129 mg/dLBorderline High LDL: 130-159 mg/dLHigh LDL: 160-189 mg/dLVery High LDL: greater than or equal to 190 mg/dL HDL Cholesterol 31(L) >40 mg/dL [facility] Comment:Desirable HDL: great er than 40 mg/dL Note: This HDL assay may give artificially low results in patients with liver disease. Blood Venous blood specimen / Unknown 12/24/2024 10:32 AM EDT 12/24/2024 2:52 PM EDT Monique Zaman MD LAB BLOOD ORDERABLES Final Resul t Performing Organization Address [facility] de Phone Number [facility] [address] [place] [address] [phone] * (ABNORMAL) Basic Metabolic Panel (12/24/2024 10:32 AM EDT) Sodium 141 135 - 145 mmol/L [facility] Potassium 3.8 3.3 - 5.1 mmol/L [facility] Chloride 107 96 - 108 mmol/L [facility] Carbon Dioxide 28 22 - 29 mmol/L [facility] Anion Gap 10(L) 12 - 20 [facility] Urea Nitrogen (BUN) 11 9 - 16 mg/dL [facility] Creatinine, Serum 1.00 0.5 - 1.4 mg/dL [facility] Estimated Glomerular Filt Rate >60 [facility] Comment:Chronic Kidney Disea se: Estimated GFR < 60 mL/min/1.98k2Tjvpuv Kidney Disease: Estimated GFR < 15 mL/min/1.73m2 Glucose 102 60 - 115 mg/dL [facility] Calcium 9.2 8.4 - 10.2 mg/dL [facility] Blood Venous blood specimen / Unknown 12/24/2024 10:32 AM EDT 12/24/2024 2:52 PM EDT Monique Zaman MD LAB BLOOD ORDERABLES Final Resul t Performing Organization Address [facility] Co de Phone Number [facility] [address] [place] [address] [phone] * HPV High Risk with Reflex to Subtypes (08/21/2024 11:55 AM EDT) HPV High Risk Negative Negative [facility] HPV Genotype 16 Negative Negative [facility] HPV Genotype 18 Negative Negative [facility] Comment:HPV testing performe d at [facility] (CLIA#[id number]), [address] [place] [phone].Testing for HPV was performed using the Isabel [...] MD LAB BLOOD ORDERABLES Final Re sult [facility] [address] [place] [phone] * Pap Smear (08/21/2024 11:55 AM EDT) Swab 08/21/2024 11:5 5 AM EDT 08/22/2024 6:00 AM EDT [facility] - 09/12/2024 6:35 AM EDT ----- ------- Name: Courtney MachWale huston Age/Sex: 39/F : 1985 Unit#: [id number] Attend Dr: Rossana Mac MD Re08/21/24 Status: DEP REF Location: [facility] Disch: ----- ------- SPEC : [id number] RECD: 08/22/24 STATUS: DESMOND LAURA NUM: [id number] AMY: 08/21/24-[address] [facility] [address]: Rossana Mac MD ENTERED: 08/22/24 [...] 08/24/24 1234 ----- ------- END OF REPORT Rossana Mac MD LAB CYTOLOGY ORDERABLES Final Result Performing Organization Address [facility] Co de Phone Number [facility] [address] [place] [phone] * HIV-1/2 Antigen and Antibodies, Fourth Generation, with Reflexes (08/23/2023 11:41 AM EDT) [facility] HIV AB/AG Nonreactive Nonreactive [facility] Comment:HIV-1 p24 Ag and/or HIV-1/HIV-2 Ab not detected.A test result that is nonreactive does not exclude thepossibility of exposure to or infection with HIV-1 and/orHIV-2. Nonreactive results in this assay for individualswith prior exposure to HIV-1 and/or HIV-2 may be due toantigen and antibody levels that are below the limit ofdetection of this assay.The [employer] HIV Ag/Ab Combo assay result andsupplemental assay results should be interpreted inconjunction with the patient's clinical presentation,history and other laboratory results. If the results areinconsistent with clinical evidence, additional testing issuggested to confirm the result. Blood Venous blood specimen / Unknown 08/23/2023 11:41 AM EDT 08/23/2023 2:19 PM EDT Rashmi MCCRARY LAB BLOOD ORDERABLES Irene l Result Performing Organization Address [facility] [place] [facility] Co de Phone Number [facility] [address] [place] [address] [phone] * Hepatitis C Antibody with Reflex to HCV, RNA, Quantitative, Real-Time PCR (10/22/2022 11:13 AM EDT) Hepatitis C Antibody NON-REACT ARACELY NON-REACT ARACELY [facility] [place] [employer] [facility] Comment: HCV antibody was non-reactive. There is no laboratory evidence of HCV infection. In most cases, no further action is required. However, if recent HCV exposure is suspected, a test for HCV RNA (test code 43973) is suggested. For additional information please refer to http://education.BAC ON TRAC/faq/GAY02y3 (This link is being provided for informational/ educational purposes only.) Blood Venous blood specimen / Unknown 10/22/2022 11:13 AM EDT 10/22/2022 11:13 AM EDT Monique Zaman MD LAB BLOOD ORDERABLES Final Resul t [facility] [address] [place] [address] [employer] [place] [employer] [address] [place] [address] from Last 3 Months or Most Recently Relevant to Health Maintenance [place] [address] [place] [address] [employer] [employer] [employer] Care Teams Community Life Director Relationship Specialty Start Date End Date Arnel York CNP [address] [place] [address] PCP - General Family Medicine 02/12/25
--- OUTSIDE RECORDS SUMMARY | 2025-03-03 04:00 | XMS_ITS | Encounter Summary ---
Author Organization [employer] Address [address] [facility] 7 [place] [address] Care Team Providers Care Senior Climate Advisor Name Role Phone Monique Zaman MD Primary Care Provider [phone] Arnel York CNP Primary Care Provider [phone] Reason for Visit * Reason Onset Date Comments Appointment Request 11/19/2024 Encounter Details Date Type Department Care Team ([facility] Contact Info) Description 11/19/2024 Telephone [facility] CHC MED & PEDS [address] [place] [address] Monique Zaman MD [address] [place] [address] Appointment Request Social History Tobacco Use Types [...] call back to book an apt with chain maker. Contact pt at [phone] documented in this encounter Plan of Treatment Upcoming Encounters Date Type Department Care Team (Late st Contact Info) Description 04/01/2025 2:30 PM EST Office Visit [facility] OPTOMETRY [address] [place] [address] Corry Page, OD [address] [place] [address] documented as of this encounter Visit Diagnoses Not on filedocumented in this encounter Additional Health Concerns Assessment Noted Time PHQ-9 Depression Total Score: 0 10/23/19 23 10:29 AM EDT documented as of this encounter Care Teams Senior Climate Advisor Relationship Specialty Start Date End Date Monique Zaman MD [address] [place] [address] PCP - General Family Medicine 04/07/20 02/11/25 Arnel York CNP [address] [place] [address] PCP - General Family Medicine 02/12/25 documented as of this encounter
--- OUTSIDE RECORDS SUMMARY | 2025-03-03 04:00 | XMS_ITS | Encounter Summary ---
Author Organization [employer] Address [address] [facility] 7t [place] [address] Care Team Providers Care Electrical Instrumentation Technician Name Role Phone Jaylen Aravindkrissy BERGMAN Primary Care Provider [phone] Reason for Visit * Reason Comments Med Refill Encounter Details Date Type Department Care Team ([facility] st Contact Info) Description 02/28/2025 Refill [facility] MED & PEDS [address] [place] [address] Monique Zaman MD [address] [place] [address] Social History Tobacco Use Types Packs/Day Years [...] Description 04/01/2025 2:30 PM EST Office Visit [facility] [address] [place] [address] TarCorry haley, OD [address] [place] [address] documented as of this encounter Visit Diagnoses Not on filedocumented in this encounter Additional Health Concerns Assessment Noted Time PHQ-9 Depression Total Score: 2 12/25/19 25 10:08 AM EDT documented as of this encounter Care Teams Electrical Instrumentation Technician Relationship Specialty Start Date End Date Arnel York CNP [address] [place] [address] PCP - General Family Medicine 02/12/25 documented as of this encounter
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
--- OUTSIDE RECORDS SUMMARY | 2025-03-03 04:00 | XMS_ITS | Encounter Summary ---
Author Organization [employer] Address [address] [facility] [address] 7[address] [place] [address] Care Team Providers Care Director Of Procurement Name Role Phone Monique Zaman MD Primary Care Provider [phone] Arnel York CNP Primary Care Provider [phone] Encounter Details Date Type Department Care Team ([facility] st Contact Info) Description 08/15/2024 Orders Only [facility] CHC MED & PEDS [address] [place] [address] Arlette Ghosh Social History Tobacco Use Types [...] 2:30 PM EST Office Visit [facility] OPTOMETRY [address] [place], [place] [phone] Corry Page, OD [address] [place] [address] documented as of this encounter Procedures Procedure Name Priority Date/Time Associated Diagnosis Comments HM PAP/HPV Routine 04/30/2024 12:00 AM EST documented in this encounter Results * HM PAP/HPV (04/30/2024 12:00 AM EST) Historical Provider HEALTH MAINTENANCE Final Result documented in this encounter Visit Diagnoses Not on filedocumented in this encounter Additional Health Concerns Assessment Noted Time PHQ-9 Depression Total Score: 0 10/23/19 23 10:29 AM EDT documented as of this encounter Care Teams Director Of Procurement Relationship Specialty Start Date End Date Monique Zaman MD [address] [place] [address] PCP - General Family Medicine 04/07/20 02/11/25 Arnel York CNP [address] [place] [address] PCP - General Family Medicine 02/12/25 documented as of this encounter
--- OUTSIDE RECORDS SUMMARY | 2025-03-03 04:00 | XMS_ITS | Encounter Summary ---
Author Organization [employer] Address [address] [place] [address] Care Team Providers Care Drafter Electrical Name Role Phone Monique Zaman MD Primary Care Provider [phone] Arnel York CNP Primary Care Provider [phone] Encounter Details Date Type Department Care Team ([facility] st Contact Info) Description 08/23/2023 Orders Only [facility] [address] [place] [address] ProviderBatsheva MD Social History Tobacco Use Types Packs/Day Years Used Date Smoking Tobacco: Never Smokeless Tobacco: Never Alcohol Use Standard Drinks/Week Comments Never 0 (1 standard drink = 0.6 oz pur e alcohol) Depression Answer Date Recorded Patient Health Questionnaire-9 Score 0 10/22/2022 Housing Stability Answer Date Recorded What is your housing situation today? I have chavo tervizo 01/23/[address] you li [...] Please confirm with Sharri or Ashley at [facility]. Depending on DPH findings, she will need an appointment for [...] 2:30 PM EST Office Visit [facility] OPTOMETRY [address] [place] [address] Corry Page, OD [address] [place] [address] documented as of this encounter Procedures Procedure [...] Rapid Plasma Reagin, Quant Reactive 1:32(A) Nonreactive [facility] Treponema pallidum Antibody, Particle Agglutination Reactive(A) Nonreactive [facility] Comment:These results must b e reported by the ordering clinician orclinical facility to the [facility] required by state law.Testing performed at: [address] [address] 08/23/2023 11:4 1 AM EDT 08/24/2023 3:39 AM EDT Rashmi Espino [facility] LAB BLOOD ORDERABLES Irene vazquez Result [facility] [address] [place] [phone] * (ABNORMAL) HPV mRNA E6/E7 w/Reflex to HPV Genotypes 16, 18/45 (08/23/2023 11:36 AM EDT) HPV nRNA E6/E7 Detected(A ) Not Detected [facility] Comment:Methodology: Transcr iption-Mediated AmplificationThis assay detects E6/E7 viral messenger RNA (mRNA) from 14high-risk HPV types (16,18,31,33,35,39,45,51,52,56,58,59,66,68).Cervical sources are required for HPV testing.If a vaginal source from a patient who has had atotal hysterectomy with removal of cervix wassubmitted, please contact the testing laboratoryfor alternative testing options.For additional information, please refer [email or web address](This link if provided for information/educational purposes only.)THIS TEST WAS PERFORMED AT:[facility] [place] [phone] MEADE MD HPV 16 RNA NOT DETECTED NOT DETECTED [facility] HPV 18/45 RNA NOT DETECTED NOT DETECTED [facility] Comment:Methodology: Transcr iption Mediated AmplificationCervical sources are required for HPV testing.If a vaginal source from a patient who has had atotal hysterectomy with removal of cervix wassubmitted, please contact the testing laboratoryfor alternative testing options.THIS TEST WAS PERFORMED AT:[facility] [place] [phone] MEADE MD 08/23/2023 11:3 6 AM EDT 08/24/2023 8:20 AM EDT Rashmi Espino CNM LAB CYTOLOGY ORDERABLES F inal Result [facility] [address] [place] [phone] * Mammogram Diagnostic Right (08/11/2023 4:08 PM EDT) Anatomical Region Laterality Modality Breast Right Mammography Historical Provider IMCruz BI PROCEDURES Final R esult documented in this encounter Visit Diagnoses Not on filedocumented in this encounter Additional Health Concerns Assessment Noted Time PHQ-9 Depression Total Score: 0 10/23/19 23 10:29 AM EDT documented as of this encounter Care Teams Drafter Electrical Relationship Specialty Start Date End Date Monique Zaman MD [address] [place] [id number] PCP - General Family Medicine 04/07/20 02/11/25 Arnel York CNP [address] [place] [id number] PCP - General Family Medicine 02/12/25 documented as of this encounter
--- OUTSIDE RECORDS SUMMARY | 2025-03-03 04:00 | XMS_ITS | Encounter Summary ---
Author Organization [employer] Address [address] [place] [address] Care Team Providers Care Lens Blank Gauger Name Role Phone Monique Zaman MD Primary Care Provider [phone] Arnel York CNP Primary Care Provider [phone] Reason for Visit * Reason Onset Date Comments Referral 02/06/2024 Encounter Details Date Type Department Care Team (Late st Contact Info) Description 02/06/2024 Telephone [facility] MEDICINE [address] [place] [address] Monique Zaman MD [address] [place] [address] Referral Social History Tobacco Use Types Packs/Day [...] : DATE: 02/08/24 TIME: 1:00 PM Address: [address] [place] [address] Facility Name: [facility] Type of Specialist: Welder Gun documented in this encounter Plan of Treatment Upcoming Encounters Date Type Department Care Team (Late st Contact Info) Description 04/01/2025 2:30 PM EST Office Visit [facility] OPTOMETRY [address] [place] [address] Corry Page, OD [address] [place] [address] documented as of this encounter Visit Diagnoses Not on filedocumented in this encounter Additional Health Concerns Assessment Noted Time PHQ-9 Depression Total Score: 0 10/23/19 23 10:29 AM EDT documented as of this encounter Care Teams Lens Blank Gauger Relationship Specialty Start Date End Date Monique Zaman MD [address] [place] [address] PCP - General Family Medicine 04/07/20 02/11/25 Arnel York CNP [address] [place] [id number] PCP - General Family Medicine 02/12/25 documented as of this encounter
[2025-03-03] MEDS: Sucralfate Oral Suspension 1 GM/10 ML ORAL.SUSP PO (04:06)
[2025-03-03 04:33] LABS: Hematocrit 36.5 % (37.0-47.0); Hemoglobin 11.5 g/dl (12.0-16.0); Imm Gran Abs Auto 0.07 X10*3/uL (0.00-0.03); Imm Gran Pct Auto 0.5 % (0.0-0.4); Lymphocytes Absolute Auto 3.8 X10*3/uL (1.2-4.9); MANUAL DIFF FLAG NO; Mean Corpuscular HGB Conc 31.5 g/dl (31.0-35.0); Mean Corpuscular Hemoglobin 23.8 pg (27.0-33.0); Mean Corpuscular Volume 75.4 fL (80.0-98.0); NRBC Abs Auto 0.000 X10*3/uL (0.0-0.012); NRBC Pct Auto 0.0 /100WBC (0.0-0.2); Platelet Count 325 X10*3/uL (160-400); Red Blood Count 4.84 X10*6/uL (4.20-5.50); White Blood Count 14.9 X10*3/uL (4.8-10.8)
[2025-03-03 04:48] LABS: Alanine Aminotransferase 116 U/L (0-31); Albumin Level 4.2 g/dL (3.5-5.0); Alkaline Phosphatase 92 U/L (39-117); Anion Gap 11 (12-20); Aspartate Amino Transferase 165 U/L (5-31); Blood Urea Nitrogen 12 mg/dL (9-16); Calcium 9.1 mg/dL (8.4-10.2); Carbon Dioxide 24 mmol/L (22-29); Chloride 107 mmol/L (96-108); Creatinine Clr Calc Pharmacy 123.9; Estimated Glomerular Filt Rate > 60; Lipase 62 U/L (8-78); Magnesium 1.8 mg/dL (1.6-2.6); Potassium 3.7 mmol/L (3.3-5.1); Sodium 138 mmol/L (135-145); Total Protein 7.2 g/dL (6.5-8.0)
[2025-03-03 05:10] LABS: Resp Syncy Virus RNA Qual PCR NEGATIVE (Negative); SARS COV2 PCR INHOUSE NEGATIVE (Negative)
--- NOTE | 2025-03-03 05:38 | ED.GENADULT ---
HPI - General Adult General Chief complaint: General Medical Stated complaint: CP Time Seen by Provider: 03/03/25 03:23 Source: patient Limitations: language barrier History of Present Illness ED Provider: Elena Hinds PA-C HPI narrative: 39-year-old female with a history of obesity, hypertension, asthma, pre-diabetes presents with upper abdominal pain. Associated abdominal distention, passing small amounts of flatus from below. Denies active vomiting. Associated nausea, excessive eructation and indigestion. Patient states she is currently taking Zepbound, they recently increased her dose, she has had these symptoms for the past 2 weeks. Patient states she feels short of breath secondary to her abdominal pain. Patient states her primary care is monitoring her liver function. Related Data Home Medications ?Medication ?Instructions ?Recorded ?Confirmed albuterol sulfate 90 mcg/actuation 2 puff inhalation Q4-6H PRN 03/30/22 05/31/22 aerosol inhaler (ProAir HFA) Shortness Of Breath amlodipine 10 mg tablet 10 mg PO DAILY 03/30/22 05/31/22 diclofenac potassium 50 mg tablet 50 mg PO BID 03/30/22 05/31/22 fluticasone propionate 110 2 puff inhalation BID 03/30/22 05/31/22 mcg/actuation HFA aerosol inhaler (Flovent HFA) hydrochlorothiazide 25 mg tablet 25 mg PO ONCE 03/30/22 05/31/22 albuterol sulfate 2.5 mg/3 mL 2.5 mg inhalation Q6H PRN 04/22/22 05/31/22 (0.083 %) solution for nebulization shortness of breath ibuprofen 600 mg tablet 600 mg PO TID PRN pain 04/22/22 05/31/22 polyethylene glycol 3350 17 17 g PO DAILY PRN constipation 04/22/22 05/31/22 gram/dose oral powder Previous Rx's ?Medication ?Instructions ?Recorded magnesium oxide 400 mg (241.3 mg 400 mg PO BEDTIME 30 days #30 tabs 04/22/22 magnesium) tablet naproxen 500 mg tablet 500 mg PO BID PRN migraine 04/22/22 headache 30 days #30 tabs riboflavin (vitamin B2) 400 mg 400 mg PO DAILY 30 days #30 tabs 04/22/22 tablet sumatriptan succinate 100 mg tablet 100 mg PO .COMPLEX PRN migraine 04/22/22 headache 30 days #12 tabs topiramate 25 mg tablet 25 - 50 mg (1 - 2 x 25 mg) PO 04/22/22 BEDTIME 30 days #60 tabs hydrocodone 5 mg-acetaminophen 325 1 tab PO Q4-6H PRN pain #5 tabs 02/18/25 mg tablet metoclopramide HCl 10 mg tablet 10 mg PO Q6H PRN nausea and 03/03/25 (Reglan) vomiting #12 tabs sucralfate 100 mg/mL oral 10 ml PO QID PRN indigestion #300 03/03/25 suspension (Carafate) mL Allergies Allergy/AdvReac Type Severity Reaction Status Date / Time No Known Allergies (No Known Allergy Verified 03/03/25 03:15 Allergies*) Review of Systems Review of Systems: Yes all other systems are reviewed and are negative Constitutional: Constitutional: Denies fatigue and Denies fever(s) Cardiovascular: Cardiovascular: Denies chest pain and Reports dyspnea Respiratory: Respiratory: Denies cough and Reports dyspnea Gastrointestinal: Gastrointestinal: Reports abdominal pain, Reports constipation, Reports nausea and Denies vomiting Endocrine: Endocrine: Denies fatigue [facility] Past Medical History Attestation statement: The following information was validated with the patient. 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 Physical Exam ED Vital Signs: Vital Signs - 24 hr 03/03/25 03:08 Temperature 98.6 F Pulse Rate 109 H Respiratory Rate 18 Blood Pressure 146/92 H Pulse Oximetry 98 Oxygen Delivery Method Room Air BMI result Body Mass Index 36.5 Const Other: Alert Orientation/consciousness: patient oriented x3 Resp Effort & Inspection: normal respiratory effort Cardio Other: Normal peripheral perfusion GI Other: Abdomen is distended, obese abdomen, soft, overall generalized tenderness to palpation without any guarding, nonfocal exam Skin Other: Warm dry no rash Neuro General: patient oriented x3, gait normal, no focal motor deficits and CN's II-XI intact bilaterally Psych Other: Cooperative Course Reevaluation(s) Reevaluation #1: Patient's symptoms are much improved after the famotidine, Carafate and Reglan Medications Administered Discontinued Medications Generic Name Dose Route Start Last Admin Trade Name Ladi PRN Reason Stop Dose Admin Famotidine 20 mg 03/03/25 03:47 03/03/25 04:26 Famotidine/Pf 20 Mg/2 Ml Vial IVPUSH 03/03/25 03:48 20 mg ONCE ONE Administration Sodium Chloride 500 mls @ 500 mls/hr 03/03/25 03:47 03/03/25 04:26 Ns IV 03/03/25 04:46 500 mls/hr .Q1H ONE Administration Metoclopramide HCl 10 mg 03/03/25 03:47 03/03/25 04:26 Metoclopramide Hcl 10 Mg/2 Ml Vial IVPUSH 03/03/25 03:48 10 mg ONCE ONE Administration Sucralfate 1 gm 03/03/25 03:47 03/03/25 04:06 Sucralfate Oral Suspension 1 Gm/10 Ml Oral.Susp PO 03/03/25 03:48 1 gm ONCE ONE Administration Medical Decision Making Medical Decision Making MDM Narrative: 39-year-old female with a history of obesity, hypertension, asthma, pre-diabetes presents with upper abdominal pain. Associated abdominal distention, passing small amounts of flatus from below. Denies active vomiting. Associated nausea, excessive eructation and indigestion. Patient states she is currently taking Zepbound, they recently increased her dose, she has had these symptoms for the past 2 weeks. Patient states she feels short of breath secondary to her abdominal pain. Patient states her primary care is monitoring her liver function. Problem: Obesity, prediabetes, on Zepbound History: Per patient I have considered the following differential diagnoses: Side-effects from Zepbound, poorly controlled GERD, gastritis, biliary colic, cholecystitis, pancreatitis, constipation, bowel obstruction , atypical presentation for ACS Plan: Screening labs including LFTs and lipase were obtained from triage, the patient's LFTs are elevated to some degree, they are being tracked and monitored by primary care, I attribute this to the use of the Zepbound. I did discuss this with the patient. Given distribution of discomfort, I have considered underlying biliary versus gastric versus pancreatic etiology as cause for symptoms. The patient is having generalized pain on exam, there was no focal right upper or left upper pain, no guarding. She is having numerous side-effects that are consistent with a uses Zepbound, and they just increased her medication dosage. Obtaining a KUB, she is likely constipated, she has no obstructive symptoms at this time. Giving Reglan, IV fluid, famotidine and Carafate. I do not feel the patient requires advanced imaging at this time. Atypical presentation for ACS was also considered, she does have some risk factors for coronary artery disease, EKG obtained, adding on troponin. I do not feel that her presentation is consistent with a ACS I have independently reviewed the following tests: Labs: Slight leukocytosis, no left shift, not anemic, no electrolyte abnormality, LFTs 165, ALT 116, lipase 62, viral panel negative, troponin less than 2.7 EKG: Sinus rhythm, rate of 100, no active ischemic changes no ectopy QTC 466 Chest x-ray:Findings: No consolidation or effusion. Heart size is normal. No acute fracture. IMPRESSION: 1. No acute findings. KUB:Findings: No pneumoperitoneum or pneumatosis. No abnormal calcifications. No acute fractures. IMPRESSION: The bowel gas pattern is normal Lab Data 03/03/25 04:28 03/03/25 04:28 Labs: Lab Results 03/03/25 Range/Units 04:28 WBC 14.9 H (4.8-10.8) X10*3/uL RBC 4.84 (4.20-5.50) X10*6/uL Hgb 11.5 L (12.0-16.0) g/dl Hct 36.5 L (37.0-47.0) % MCV 75.4 L (80.0-98.0) fL MCH 23.8 L (27.0-33.0) pg MCHC 31.5 (31.0-35.0) g/dl RDW 15.8 (11.0-16.0) % Plt Count 325 (160-400) X10*3/uL MPV 10.1 (9.4-12.3) fL Immature Gran % (Auto) 0.5 H (0.0-0.4) % Neut % (Auto) 66.6 (45-73) % Lymph % (Auto) 25.5 (20-40) % [place] % (Auto) 6.0 (2-11) % Eos % (Auto) 1.1 (0-4) % Baso % (Auto) 0.3 (0-2) % Lymph # (Auto) 3.8 (1.2-4.9) X10*3/uL [place] # (Auto) 0.9 (0.1-1.2) X10*3/uL Eos # (Auto) 0.2 (0.0-0.4) X10*3/uL Baso # (Auto) 0.0 (0.0-0.2) X10*3/uL Abs Immat Gran (auto) 0.07 H (0.00-0.03) X10*3/uL Absolute Neuts (auto) 9.9 H (2.0-8.3) x10*3/uL Absolute Nucleated RBC 0.000 (0.0-0.012) X10*3/uL Nucleated RBC % (auto) 0.0 (0.0-0.2) /100WBC Sodium 138 (135-145) mmol/L Potassium 3.7 (3.3-5.1) mmol/L Chloride 107 (96-108) mmol/L Carbon Dioxide 24 (22-29) mmol/L Anion Gap 11 L (12-20) BUN 12 (9-16) mg/dL Creatinine 0.78 (0.5-1.4) mg/dL Estim Creat Clear Calc 123.9 Estimated GFR > 60 Random Glucose 99 (60-115) mg/dL Calcium 9.1 (8.4-10.2) mg/dL Magnesium 1.8 (1.6-2.6) mg/dL Total Bilirubin 0.2 (0.0-1.0) mg/dL AST 165 H (5-31) U/L ALT 116 H (0-31) U/L Alkaline Phosphatase 92 (39-117) U/L Troponin I High Sens < 2.7 (<3.5-17.0) ng/L Total Protein 7.2 (6.5-8.0) g/dL Albumin 4.2 (3.5-5.0) g/dL Lipase 62 (8-78) U/L Influenza Type A (PCR) NEGATIVE (Negative) Influenza Type B (PCR) NEGATIVE (Negative) RSV RNA Qual (PCR) NEGATIVE (Negative) SARS-CoV-2 RNA (RT-PCR) NEGATIVE (Negative) Discharge Plan Discharge Clinical Impression: Indigestion, Excessive flatus, Acute epigastric pain Patient Disposition: Home, Self-Care Instructions: Indigestion (ED), Gas and Bloating (ED) Additional Instructions: Overall, your screening labs were within normal limits. You do have a slight elevation in your some of your liver function tests, be sure to follow up with your primary care provider, given they are tracking and following your progress related to your liver function. There were no concerning changes on the EKG in the chest x-ray is clear. The abdominal film did not reveal excessive constipation, you were noted to have some gas and stool. I do believe your symptoms are secondary to the increase in the Zepbound that you take. See home care instructions. Use the Carafate as needed for upper abdominal discomfort. You can also purchase [id number]-[id number] Gas-X, this will help with excessive bloating. Use the Reglan as needed for nausea. You should also be sure to maintain regularity with your bowel habits, constipation can contribute to indigestion related symptoms. Use rhqd-ezs-myzlhvs Colace 1 to 2 times a day as needed, this is a stool softener. Use bwho-lhb-bcukmar MiraLax, 1 to 2 times a day, as needed to prevent constipation. Be sure to make an appointment to follow up with your primary care provider. Prescriptions: New sucralfate [Carafate] 100 mg/mL suspension 10 ml PO QID PRN (Reason: indigestion) Qty: 300 0RF Rx Instructions: swish in mouth and swallow; use after food/drink metoclopramide HCl [Reglan] 10 mg tablet 10 mg PO Q6H PRN (Reason: nausea and vomiting) Qty: 12 0RF No Action hydrocodone-acetaminophen 5-325 mg tablet 1 tab PO Q4-6H PRN (Reason: pain) Qty: 5 0RF Rx Instructions: Partial Fill upon patient request. polyethylene glycol 3350 17 gram/dose powder 17 g PO DAILY PRN (Reason: constipation) ibuprofen 600 mg tablet 600 mg PO TID PRN (Reason: pain) albuterol sulfate 2.5 mg /3 mL (0.083 %) solution for nebulization 2.5 mg inhalation Q6H PRN (Reason: shortness of breath) topiramate 25 mg tablet 25 - 50 mg PO BEDTIME 30 Days Qty: 60 3RF riboflavin (vitamin B2) 400 mg tablet 400 mg PO DAILY 30 Days Qty: 30 6RF magnesium oxide 400 mg (241.3 mg magnesium) tablet 400 mg PO BEDTIME 30 Days Qty: 30 6RF Rx Instructions: may hold for loose stools sumatriptan succinate 100 mg tablet 100 mg PO .COMPLEX PRN (Reason: migraine headache) 30 Days Qty: 12 6RF Rx Instructions: 50-100 mg orally at onset of headache, may repeat in 2 hrs PRN; max 2 tabs per day or 4 tabs/week (may take with Ibuprofen or Naproxen) naproxen 500 mg tablet 500 mg PO BID PRN (Reason: migraine headache) 30 Days Qty: 30 3RF Rx Instructions: take w/ food fluticasone propionate [Flovent HFA] 110 mcg/actuation HFA aerosol inhaler 2 puff inhalation BID hydrochlorothiazide 25 mg tablet 25 mg PO ONCE amlodipine 10 mg tablet 10 mg PO DAILY diclofenac potassium 50 mg tablet 50 mg PO BID albuterol sulfate [ProAir HFA] 90 mcg/actuation HFA aerosol inhaler 2 puff inhalation Q4-6H PRN (Reason: Shortness Of Breath) Print Language: Italian
[2025-03-03 06:08] LABS: Troponin-I High Sensitivity < 2.7 ng/L (<3.5-17.0)
[2025-03-03 06:31] VITALS: BP 133/75; PULSE 89; RESP 18; TEMP 37; O2SAT 97
[2025-03-03 06:39] VITALS: BP 133/75; PULSE 89; RESP 18; TEMP 37; O2SAT 97
== END 2025-03-03 06:39 | disposition home or self-care (01) ==
PROVIDERS: Physician Assistant Medical; Emergency Provider Emergency Medicine; PCP Student in an Organized Health Care Education/Training Program
DX: K30 Functional dyspepsia (principal); R14.3 Flatulence; I10 Essential (primary) hypertension; E66.9 Obesity, unspecified; Z79.899 Other long term (current) drug therapy
CPT/HCPCS: 71045; 74018; 80053; 83690; 83735; 84484; 85025; 87637; 93005; 96361; 96374; 96375; 99284; J1308; J2765

== ENCOUNTER → 2025-03-03 02:58 | Outpatient (BNV) | payer MEDICAID, SELFPAY | PROVIDERS: Emergency Provider Emergency Medicine; PCP Student in an Organized Health Care Education/Training Program; Visit Provider Internal Medicine Cardiovascular Disease | DX: R94.31 Abnormal electrocardiogram [ECG] [EKG] (principal); R07.9 Chest pain, unspecified | CPT/HCPCS: 93010 ==

== ENCOUNTER → 2025-03-03 03:23 | Outpatient (BNV) | payer MEDICAID, SELFPAY | PROVIDERS: Emergency Provider Emergency Medicine; PCP Student in an Organized Health Care Education/Training Program; Visit Provider Radiology Diagnostic Radiology | DX: K59.00 Constipation, unspecified (principal); R10.9 Unspecified abdominal pain; R06.02 Shortness of breath | CPT/HCPCS: 71045; 74018 ==

== ENCOUNTER 2025-03-05 08:50 | Outpatient (AMB) | payer MEDICAID, SELFPAY ==
[2025-03-05 09:15] VITALS: BMI 36.5
--- NOTE | 2025-03-05 09:15 | A.OFFVIS_ITS ---
Vital Signs 03/05/25 09:15 Height 5 ft 8 in Weight 240 lb BMI 36.5 Intake Visit Reasons: PO-Lt Thumb Trigger 02/18/25 Intake Note: Wale 39 yr old female presents today for her post op visit for her left thumb trigger release done with Dr Farah on 02/18/25. States she has been keeping her incision clean. Patient reports swelling and limited ROM. Sutures removed in office and steri strips applied. States locking has resolved. Allergies No Known Allergies (No Known Allergies*) Allergy (Verified 03/05/25 09:23) HPI HPI PO-Lt Thumb Trigger 02/18/25: Details: Wale is a 39 year old right hand dominant Portuguese speaking woman who returns S/P left trigger thumb release, DOS: 02/18/25. She states she is doing better, and her thumb is no longer locked in flexion which she is happy about. She states locking has resolved. She is also status post a right trigger thumb release on 01/02/2025 which is doing well. 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 Sutures removed and Steri-Strips applied Good active flexion and extension of the right thumb with no locking or catching She can make a fist and extend all her digits Visible & palpable locking & catching of the Left thumb Tender over the left thumb a1 pulleys Sensation is intact Cap refill is brisk Psych Appearance: grossly normal Affect: normal affect Attitude: cooperative Assessment & Plan Assessment & Plan (1) Trigger thumb, right thumb: Code(s): M65.311 - Trigger thumb, right thumb Category: Medical (2) Trigger thumb, left thumb: Code(s): M65.312 - Trigger thumb, left thumb Category: Medical (3) Cubital tunnel syndrome on right: Code(s): G56.21 - Lesion of ulnar nerve, right upper limb Category: Medical (4) Cubital tunnel syndrome on left: Code(s): G56.22 - Lesion of ulnar nerve, left upper limb Category: Medical Plan 1. Left trigger thumb, S/P release DOS; 02/18/25 The patient appears to be doing well post-operatively I educated her about the post-operative course I explained the signs and symptoms of infection, if the patient develops any new or worsening erythema, drainage, pain, or warmth they should contact the clinic or attend the ED. I discussed activity modifications, she is to lift nothing heavier than a cellphone for the next 2 weeks. She will perform gentle ROM exercises at home She should avoid any underwater activities for the next 5 days She should gently massage about the incision site to reduce the risk of hypersensitivity Follow up PRN 2. Right trigger thumb, S/P release DOS; 01/02/25 The patient appears to be doing well and well healed Scribed for Jacquelyn Farah MD by Mavis Oro medical office assistant, on 03/05/2025 at 9:52 AM, EST. Coding Level of Care Code Global (59517) Diagnoses Trigger thumb, right thumb M65.311 Trigger thumb, left thumb M65.312 Cubital tunnel syndrome on right G56.21 Cubital tunnel syndrome on left G56.22
== END 2025-03-05 09:49 | disposition home or self-care (01) ==
LOC: HO.HOS 08:50
PROVIDERS: PCP Student in an Organized Health Care Education/Training Program; Visit Provider Orthopaedic Surgery
DX: M65.311 Trigger thumb, right thumb (principal); M65.312 Trigger thumb, left thumb; G56.21 Lesion of ulnar nerve, right upper limb; G56.22 Lesion of ulnar nerve, left upper limb
CPT/HCPCS: 99024

== ENCOUNTER → 2025-03-05 08:50 | Outpatient (BNVA) | payer MEDICAID, SELFPAY | PROVIDERS: PCP Student in an Organized Health Care Education/Training Program; Visit Provider Orthopaedic Surgery | DX: M65.311 Trigger thumb, right thumb (principal); M65.312 Trigger thumb, left thumb; G56.21 Lesion of ulnar nerve, right upper limb; G56.22 Lesion of ulnar nerve, left upper limb | CPT/HCPCS: 99212 ==

== ENCOUNTER 2025-04-01 15:15 | Emergency (ER) | payer MEDICAID, SELFPAY ==
--- NOTE | ~2025-04-01 | US_ITS ---
CLINICAL HISTORY: RUQ pain, elevated LFTs --- Additional Notes or Special Instructions: Looking at CBD + liver + GB US abdomen limited Comparison: None provided Findings: The visualized pancreas is normal. The aorta and inferior vena cava are normal caliber. The liver is normal in size and echotexture. There is no intrahepatic bile duct dilatation. The common duct is 2 mm in diameter. The gallbladder demonstrates a meniscus a hyperechoic foci with posterior acoustic shadowing. There is no sonographic Astorga sign. The main portal vein is antegrade. The right kidney is 10.3 cm in length. No ascites. IMPRESSION: Cholelithiasis. This document has been electronically signed by: Bradley Head MD on 04/01/2025 21:51:46
[2025-04-01 15:47] VITALS: BP 162/70; PULSE 77; RESP 18; TEMP 36.6; O2SAT 98; BMI 43.2
--- NOTE | 2025-04-01 15:47 | ED_ITS ---
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 She underwent rapid medical evaluation and triage. Initial laboratory studies showed elevated AST/ALT and total bilirubin, raising concern for hepatobiliary disease; CBC revealed baseline microcytic anemia without leukocytosis or left shift; electrolytes and kidney function were normal. Cardiac markers (troponin) were negative and albumin was normal. , COVID-19, influenza, and RSV tests were negative. Chest X-ray showed no acute findings; KUB demonstrated a normal gas pattern. A bedside right upper quadrant ultrasound demonstrated gallstones without dilation of the common bile duct, consistent with symptomatic cholelithiasis. The general surgery service was consulted and felt the patient was not an operative candidate during this ED visit; they recommended outpatient follow-up for cholecystectomy evaluation. Gastroenterology was also consulted for transaminitis and recommended additional laboratory work-up (hepatitis panel, monospot, PT/INR, Tylenol level, RUBIO, CRP, ESR, anti-mitochondrial antibody, smooth-muscle antibody) to evaluate for autoimmune or viral hepatitis; PT/INR was reported normal. GI advised repeat LFTs and PT/INR in 3 days, coinciding with the patient?s primary-care appointment on 04/05. The patient received discharge counseling to avoid alcohol, NSAIDs, and acetaminophen, and was provided ondansetron (Zofran) as needed for nausea. She verbalized understanding of the plan with assistance of an in-person senior functional analyst and agreed to outpatient follow-up. Patient denies EtOH use. Has PCP appt in 3 days. No diarrhea, fevers, chills, coughing, sxs or back ache. No falls or trauma. Related Data Home Medications ?Medication ?Instructions ?Recorded ?Confirmed albuterol sulfate 90 mcg/actuation 2 puff inhalation Q 4-6H PRN 03/30/22 05/31/22 aerosol inhaler (ProAir HFA) Shortness Of Breath amlodipine 10 mg tablet 10 mg PO DAILY 03/30/2205/19 diclofenac potassium 50 mg tablet 50 mg PO BID 2 05/31/22 fluticasone propionate 110 2 puff inhalation BID 03/3005/31/22 mcg/actuation HFA aerosol inhaler (Flovent HFA) hydrochlorothiazide 25 mg tablet 25 mg PO ONCE 2 05/31/22 albuterol sulfate 2.5 mg/3 mL 2.5 mg inhalation Q6H OK N 04/22/22 05/31/22 (0.083 %) solution for nebulization shortness of breat h ibuprofen 600 mg tablet 600 mg PO TID PRN pain 04/2205/31/22 polyethylene glycol 3350 17 17 g PO DAILY PRN constipa tion 04/22/22 05/31/22 gram/dose oral powder Previous Rx's ?Medication ?Instructions ?Recorded magnesium oxide 400 mg (241.3 mg 400 mg PO BEDTIME 30 days #30 tabs 04/22/22 magnesium) tablet naproxen 500 mg tablet 500 mg PO BID PRN migraine 0 04/22/22 headache 30 days #30 tabs riboflavin (vitamin B2) 400 mg 400 mg PO DAILY 30 days #30 tabs 04/22/22 tablet sumatriptan succinate 100 mg tablet 100 mg PO .COMPLEX PRN migraine 04/22/22 headache 30 days #12 tabs topiramate 25 mg tablet 25 - 50 mg (1 - 2 x 25 mg) P O 04/22/22 BEDTIME 30 days #60 tabs hydrocodone 5 mg-acetaminophen 325 1 tab PO Q4-6H PRN pain #5 tabs 02/18/ mg tablet metoclopramide HCl 10 mg tablet 10 mg PO Q6H PRN nause a and 03/03/25 (Reglan) vomiting #12 tabs sucralfate 100 mg/mL oral 10 ml PO QID PRN indigestion #300 03/03/25 suspension (Carafate) mL ondansetron HCl 4 mg tablet 4 mg PO Q8H PRN nausea and 04/02/25 vomiting #10 tabs Allergies Allergy/AdvReac Type Severity Reaction Status Date / Time No Known Allergies (No Known Allergy Verified 04/01/25 15:49 Allergies*) Review of Systems 2 Review of Systems: Yes all other systems are reviewed and are negative PMFSH Past Medical History Attestation statement: The following information was validated with the patient. 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 No septic or ill-appearing. Vitals reviewed normal, PMH/Social and Surgical hx reviewed including allergies and current medications. Head: Normocephalic, no obvious trauma or skin lesions noted. Eyes: EOMI, no pallor, PERRLA ENMT: moist oral mucosa, uvula is midline no trismus Neck: trachea midline, no lymphadenopathy or JVD Cardiovascular: peripheral perfusion normal, Regular heart rate, regular rhythm Respiratory: no respiratory distress Abdomen: nondistended Extremities: warm and moving without difficulty. Psych: Cooperative Neuro: Alert and oriented. Vital Signs: Vital Signs - 24 hr 04/01/25 15:47 04/01/25 19:50 04/01/25 22:43 Temperature 98 F 98.4 F 98.6 F Pulse Rate 77 84 85 Respiratory Rate 18 18 18 Blood Pressure 162/70 H 138/71 129/71 Pulse Oximetry 98 98 95 Oxygen Delivery Method Room Air Room Air Room Air 04/02/25 00:39 Temperature 98.8 F Pulse Rate 82 Respiratory Rate 20 Blood Pressure 127/71 Pulse Oximetry 97 Oxygen Delivery Method Room Air BMI result Body Mass Index 43.2 Course Course Course Narrative: Rapid medical examination performed in triage by Maritza Garcia PA-C: Patient is a 40 year old female presenting to the emergency department with abdominal pain. Detailed physical exam and review of systems are deferred to the certified hearing instrument dispenser. Labs and swabs ordered. Patient placed back in the waiting room pending room availability and results. Medications Administered Discontinued Medications Generic Name Dose Route Start Last Admin Trade Name Freq PRN Reason Stop Dose Admin Al Hydroxide/Mg Hydroxide 15 ml 04/01/25 22:58 04/01/25 23:03 Magnesium Hydrox/Alum Hydrox 30 Ml Oral.Susp PO 04/01/25 22:59 15 ml ONCE ONE Administration Lidocaine HCl 15 ml 04/01/25 22:58 04/01/25 23:03 Lidocaine Hcl Viscous 2 % 15 Ml Solution MUCOUS MEM 04/01/25 22:59 15 ml ONCE ONE Administration Ondansetron HCl 4 mg 04/01/25 22:58 04/01/25 23:03 Ondansetron Odt 4 Mg Tab.Rapdis TRANSLINGU 04/01/25 22:59 4 mg ONCE ONE Administration Medical Decision Making Medical Decision Making MDM Narrative: 1000: consulting with gen surg based on labs and gb stones, would likely benefit from MRCP. No leukocytosis but labs high suggestive along with imaging of hepatobiliary disease. Dr. Enriquez does not feel this is surgical. GIvne transamnitis, will consult with gastroenterology for dispo recommendations 1034: SPoke to Dr. Womack, he has requested hep panel, mono, and INR, will also check tylenol level. Will update with labs. He would also like RUBIO, CRP, SED rate, antimichondrial ab, and smooth muscle ab done as well with concern for potential autoimmune hepatitis vs viral 1058: patient reports nausea and reflux, will give GI cocktail and zofran - 40-year-old female presenting to the ED with abdominal pain and bilateral leg tension. Past medical history includes hypertension, asthma, and congestive heart failure. Initial evaluation revealed symptomatic cholelithiasis, transaminitis, and chronic microcytic anemia. Differential Diagnosis Considered: * Biliary colic secondary to cholelithiasis * Hepatitis (viral or autoimmune) * Other hepatobiliary disease * Musculoskeletal or vascular causes for leg tension * Anemia-related symptoms Diagnostic Workup: * CBC to assess for infection and anemia * LFTs to evaluate hepatobiliary function * RUQ ultrasound to assess for gallstones and biliary obstruction * Chest X-ray and KUB to rule out other causes of abdominal pain * Expanded hepatitis and autoimmune panel per gastroenterology consult to further evaluate transaminitis Risk Assessment: * Stable vital signs throughout ED stay * No evidence of acute infection or sepsis * No signs of biliary obstruction (no CBD dilation on ultrasound) * No acute CHF exacerbation * Chronic microcytic anemia without acute decompensation * Specialty consults (general surgery and gastroenterology) support outpatient management Disposition and Follow-Up: * Outpatient general surgery evaluation for cholecystectomy * Repeat LFTs and PT/INR in 3 days at scheduled PCP visit * Return precautions provided for worsening symptoms * Plasterer Spot services utilized; patient demonstrated understanding and agreement with plan 40-year-old female with abdominal pain and bilateral leg tension. ED work-up notable for symptomatic cholelithiasis with transaminitis. General surgery and gastroenterology consulted; patient stable for outpatient management. Problem #1: Symptomatic Cholelithiasis Assessment: RUQ ultrasound showed gallstones without CBD dilation; abdominal pain likely biliary in origin. Plan: * Await finalized radiology report. * General surgery consulted?recommend outpatient cholecystectomy evaluation; patient to arrange follow-up. * Avoid alcohol, NSAIDs, and acetaminophen until further evaluation. * Return to ED for worsening abdominal pain, fever, jaundice, or new concerns. Problem #2: Transaminitis Assessment: Elevated AST/ALT and total bilirubin. Expanded laboratory work-up recommended by gastroenterology due to concern for autoimmune hepatitis versus viral hepatitis. Plan: * Gastroenterology consulted?additional labs ordered (hepatitis panel, monospot, Tylenol level, RUBIO, CRP, ESR, AMA, SMA). * Repeat LFTs and PT/INR in 3 days; to be drawn at PCP visit on 04/05. Problem #3: Leg Tension Assessment: Etiology unclear; no acute findings. Plan: * Symptomatic monitoring; reassess once primary abdominal etiology addressed. Problem #4: Baseline Microcytic Anemia Assessment: Stable chronic finding. Plan: * Refer to PCP for ongoing evaluation and management. Problem #5: Chronic Medical Conditions (Hypertension, Asthma, CHF) Assessment: Chronic conditions, stable today. Plan: * Continue routine management with PCP. Medications / Orders * Ondansetron (Zofran) as needed for nausea. Follow-Up * Primary-care appointment on 04/05/25 (in 3 days) for repeat labs and review of today?s results. * Outpatient general surgery consultation for cholecystectomy evaluation. * Return to ED for worsening pain, fever, jaundice, uncontrolled nausea/vomiting, or any new/worrisome symptoms. * PCP is associated with [facility] and will have direct access to today's workup and plan. Communication In-person senior functional analyst utilized throughout the encounter. Patient demonstrated verbal understanding of diagnosis, treatment plan, follow-up, and return precautions, and agreed to discharge home in stable condition. Differential Diagnosis Differential Diagnoses: The differential diagnosis associated with the presentation includes hepatobiliary disease pancreatitis gastritis gastroenteritis Admission/Observation Consideration of admission/observation: Escalation of care including admission/observation considered Consult Healthcare Provider Management of the patient was discussed with: Unit Aide Tech Lab Data MDM Lab Attestation statement: I reviewed the patient's lab results. ? CBC: Baseline microcytic anemia; no leukocytosis; no left shift. ? CMP/Electrolytes: No electrolyte abnormalities; no CARTER. ? LFTs: Elevated AST/ALT and total bilirubin. ? Troponin: Negative. ? Albumin: Normal. ? PT/INR: Within normal limits. ? Additional GI-recommended labs ordered: hepatitis panel, monospot, Tylenol level, RUBIO, CRP, ESR, anti-mitochondrial antibody, smooth-muscle antibody (results pending). ? test: Negative. ? COVID-19, Influenza, RSV PCR: All negative. 04/01/25 16:19 04/01/25 16:19 Labs: Lab Results 04/01/25 04/01/25 04/01/25 Range/Units 16:19 22:40 23:05 WBC 8.7 (4.8-10.8) X10*3/uL RBC 4.77 (4.20-5.50) X10*6/uL Hgb 11.3 L (12.0-16.0) g/dl Hct 36.3 L (37.0-47.0) % MCV 76.1 L (80.0-98.0) fL MCH 23.7 L (27.0-33.0) pg MCHC 31.1 (31.0-35.0) g/dl RDW 17.2 H (11.0-16.0) % Plt Count 346 (160-400) X10*3/uL MPV 10.6 (9.4-12.3) fL Immature Gran % (Auto) 0.5 H (0.0-0.4) % Neut % (Auto) 56.4 (45-73) % Lymph % (Auto) 34.1 (20-40) % [place] % (Auto) 7.5 (2-11) % Eos % (Auto) 1.2 (0-4) % Baso % (Auto) 0.3 (0-2) % Lymph # (Auto) 3.0 (1.2-4.9) X10*3/uL [place] # (Auto) 0.7 (0.1-1.2) X10*3/uL Eos # (Auto) 0.1 (0.0-0.4) X10*3/uL Baso # (Auto) 0.0 (0.0-0.2) X10*3/uL Abs Immat Gran (auto) 0.04 H (0.00-0.03) X10*3/uL Absolute Neuts (auto) 4.9 (2.0-8.3) x10*3/uL Absolute Nucleated RBC 0.000 (0.0-0.012) X10*3/uL Nucleated RBC % (auto) 0.0 (0.0-0.2) /100WBC ESR 71 H (1-20) MM/HR PT 12.8 (11.2-13.5) SEC INR 1.0 (0.9-1.1) Sodium 138 (135-145) mmol/L Potassium 3.7 (3.3-5.1) mmol/L Chloride 104 (96-108) mmol/L Carbon Dioxide 28 (22-29) mmol/L Anion Gap 10 L (12-20) BUN 8 L (9-16) mg/dL Creatinine 0.82 (0.5-1.4) mg/dL Estim Creat Clear Calc 107.9 Estimated GFR > 60 Random Glucose 96 (60-115) mg/dL Calcium 9.5 (8.4-10.2) mg/dL Magnesium 1.9 (1.6-2.6) mg/dL Total Bilirubin 1.2 H (0.0-1.0) mg/dL AST 1051 H (5-31) U/L ALT 815 H (0-31) U/L Alkaline Phosphatase 124 H (39-117) U/L Total Creatine Kinase 75 (26-140) U/L Troponin I High Sens < 2.7 (<3.5-17.0) ng/L C-Reactive Protein 1.98 H (< or = 0.50) mg/dL Total Protein 7.5 (6.5-8.0) g/dL Albumin 4.4 (3.5-5.0) g/dL Lipase 41 (8-78) U/L Mitochondrial AB Titer TNP Beta HCG, Quant < 2 mIU/mL Urine Color Dark Yellow Urine Appearance Cloudy Urine pH 6.5 (5.0-9.0) Ur Specific [place] 1.015 (1.005-1.025) Urine Protein Negative (Neg-Trace) mg/dL Urine Glucose (UA) Negative (Negative) mg/dL Urine Ketones Negative (Negative) mg/dL Urine Blood Trace H (Negative) Urine Nitrite Negative (Negative) Ur Leukocyte Esterase Moderate (2+) H (Negative) Urine RBC 3-5 H (0-2) /HPF Urine WBC 6-10 H (0-5) /HPF Ur Squamous Epith Cells 3-5 (0-2) /HPF Urine Bacteria Trace (None Seen) Hyaline Casts 0-2 (0-2) /LPF Acetaminophen < 3 (<30) mcg/mL RUBIO Screen NEGATIVE (NEGATIVE) RUBIO Titer TNP RUBIO Titer 2 TNP RUBIO Titer 3 TNP RUBIO Pattern TNP RUBIO Pattern 2 TNP RUBIO Pattern 3 TNP Anti-Mitochondrial Ab NEGATIVE (NEGATIVE) Anti-Smooth Muscle Ab <20 (<20) U Hepatitis A IgM Ab Nonreactive (Nonreactive) Hep Bs Antigen Negative (Negative) Hep Bs Antibody REACTIVE (Nonreactive) Hep B Core Total Ab Nonreactive (Nonreactive) Hepatitis C Ab (EIA) Nonreactive (Nonreactive) Monoscreen Negative (Negative) Influenza Type A (PCR) NEGATIVE (Negative) Influenza Type B (PCR) NEGATIVE (Negative) RSV RNA Qual (PCR) NEGATIVE (Negative) SARS-CoV-2 RNA (RT-PCR) NEGATIVE (Negative) Independent Interpretation I performed an independent interpretation of an: Ultrasound Interpretation: gallstones with inflammation Radiology Impression Discussion of test interpretation with radiology: I have reviewed the radiologist's reading. Radiologist Impression: Findings: The visualized pancreas is normal. The aorta and inferior vena cava are normal caliber. The liver is normal in size and echotexture. There is no intrahepatic bile duct dilatation. The common duct is 2 mm in diameter. The gallbladder demonstrates a meniscus a hyperechoic foci with posterior acoustic shadowing. There is no sonographic [place] sign. The main portal vein is antegrade. The right kidney is 10.3 cm in length. No ascites. IMPRESSION: Cholelithiasis. Independent Historian Clinical information obtained from an independent historian. 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 Due to the fact that the patient required a significant amount of one on one physician ? patient contact time, ordering and review of studies, arranging urgent treatment with development of a management plan, evaluation of patient?s response to treatment with frequent reassessments, and discussions with other providers this patient required critical care time in excess of 30 minutes. Critical care time was indicated due to the inherent instability and/or potential for instability in this patient. The critical care time that is allocated to this patient is above and beyond any time spent on any other billable procedures performed on this patient. Discharge Plan Discharge Clinical Impression: Transaminitis, Cholelithiasis, Nausea Patient Disposition: Home, Self-Care Instructions: Gallstones (ED), Transaminitis (ED) Additional Instructions: DIAGN?STICO AL CLAUDIA: 1. Colelitiasis sintom?tawanna 2. Anemia microc?tawanna (de base) 3. Transaminitis [facility]ITAL[facility]: Yonairy es fina apollo de 40 a?os de habla hispana con antecedentes de hipertensi?n que acudi? al servicio de urgencias el 16 iembre 2024, con dolor abdominal gabo s?ntoma principal. Evaluaci?n en el servicio de urgencias: Los signos vitales iniciales fueron: presi?n arterial 162/70 mmHg; frecuencia card?ronnie 77 lpm; frecuencia respiratoria 18 respiraciones/min; temperatura 98.0 ?F; saturaci?n de ox?ludivina 98% con aire ambiente. La paciente fue sometida a fina evaluaci?n m?dica y triaje r?pidos, con estudios de laboratorio e imagenolog?a completos. Hallazgos de laboratorio:. El hemograma completo revel? anemia microc?tawanna basal sin leucocitosis o desplazamiento a la izquierda. El panel metab?joselito completo mostr? electrolitos normales y funci?n renal. Las pruebas de funci?n hep?tawanna mostraron niveles elevados de AST/ALT y bilirrubina total, lo que aument? la preocupaci?n por la enfermedad hepatobiliar.Los marcadores card?acos (troponina) fueron negativos. La alb?jorge estaba dentro de los l?mites normales. PT/INR era normal. La prueba de embarazo fue negativa. COVID-19, influenza y pruebas de RSV fueron todas negativas.. Estudios de imagen:. La radiograf?a de t?rax no mostr? hallazgos agudos. La radiograf?a de ri?ones, ur?teres y vejiga (KUB) demostr? un patr?n de gases normal. El ultrasonido del cuadrante superior derecho de la cabecera mostr? c?lculos biliares sin dilataci?n del conducto com?n, consistente con colelitiasis sintom?tawanna.. Consultas:. Se consult? a cirug?a general y se recomend? el seguimiento ambulatorio para la evaluaci?n de la colecistectom?a, ya que no se consider? al paciente gabo candidato operatorio chris esta visita de ED.. Se consult? a gastroenterolog?a para fina evaluaci?n adicional de la transaminitis. Jose la presentaci?n de c?lculos biliares sintom?ticos con enzimas hep?chantel elevadas meghan sin dilataci?n del conducto biliar com?n, el paciente fue clasificado gabo riesgo intermedio para coledocoliliasis.GI recomendado trabajo de laboratorio adicional incluyendo hepatitis panel, monospot, nivel de paracetamol, RUBIO, CRP, ESR, anticuerpo antimitocondrial y anticuerpo de m?sculo liso para evaluar la hepatitis autoinmune o viral gabo posibles etiolog?as contribuyentes. La gastroenterolog?a tambi?n recomienda repetir las LFT y el PT/INR en 3 d?as. Tratamiento en DE: El paciente recibi? ondansetr?n (Zofran) para el tratamiento de las n?useas y se le aconsej? que evitara el alcohol, los REYNALDO y el acetaminofeno hasta la evaluaci?n hep?tawanna posterior. Todas las instrucciones de claudia se proporcionaron con la asistencia de un int?rprete en espa?ol, y el paciente verbaliz? garcia comprensi?n y acuerdo con el plan de manejo ambulatorio. MEDICAMENTOS DE CLAUDIA: - Ondansetr?n (Zofran) seg?n sea necesario para las n?useas - Continuar los medicamentos para la hipertensi?n, el asma y la insuficiencia card?ronnie congestiva INSTRUCCIONES DE DESCARGA: Dieta y actividad: - Reanudar la dieta normal gabo se tolera; evitar los alimentos grasos si desencadenan s?ntomas - Evitar el alcohol por completo hasta que se elimine por gastroenterolog?a - Sin restricciones de actividad Medicamentos a evitar: - Evite estrictamente los REYNALDO (ibuprofeno, naproxeno, aspirina) hasta que se aclaren por gastroenterolog?a - Evite estrictamente el acetaminofeno (Tylenol) hasta que se elimine por gastroenterolog?a - Evitar estrictamente el alcohol CITAS DE SEGUIMIENTO: M?dico de atenci?n primaria: 19 de diciembre 2024 (3 d?as) - Repetir las pruebas de funci?n hep?tawanna (AST, ALT, bilirrubina total, fosfatasa alcalina) y PT/INR - Revisi?n de los resultados de laboratorio pendientes del trabajo ED-up - Controlar la presi?n arterial Cirug?a general: Se programar? gabo ambulatorio - Evaluaci?n de la colecistectom?a laparosc?pica electiva - El seguimiento quir?rgico oportuno es esencial, ya que los pacientes dados de claudia del ED con c?lculos biliares sintom?ticos que no reciben fina evaluaci?n quir?rgica inmediata tienen un riesgo del 37% de visitas adicionales al ED por complicaciones relacionadas con c?lculos biliares, la mayor?a en 1-3 meses. La falta de seguimiento quir?rgico oportuno se asocia con un mayor riesgo de colecistectom?a de emergencia y complicaciones biliares. Gastroenterolog?a: seg?n lo recomendado por PCP basado en resultados de laboratorio PRECAUCIONES DE RETORNO - BUSCAR ATENCI?N M?DICA INMEDIATA SI: - Dolor abdominal jadyn o que empeora, particularmente en el cuadrante superior derecho o epigastrio - Fiebre (temperatura >100,4 ?F o 38 ?C) o escalofr?os - Ictericia (color amarillento de la piel o los ojos) - N?useas o v?mitos incontrolados que le impiden contener l?quidos - Orina oscura o heces de color arcilla - Empeoramiento del dolor de piernas, hinchaz?n, enrojecimiento o calor - Cualquier otro s?ntoma pertinente Estos signos de advertencia pueden indicar complicaciones gabo colecistitis aguda, colangitis u otras emergencias biliares que requieren fina evaluaci?n inmediata EDUCACI?N DEL PACIENTE: El paciente fue diagnosticado con c?lculos biliares sintom?ticos con enzimas hep?chantel elevadas. Los c?lculos biliares pueden causar dolor abdominal e inflamaci?n del h?gado. Si ricky el paciente est? estable para el manejo ambulatorio en renetta momento, es cr?lynda hacer un seguimiento tanto con la atenci?n primaria gabo con la cirug?a general seg?n lo recomendado. Los pacientes con c?lculos biliares sintom?ticos tienen un mayor riesgo de presentar s?ntomas recurrentes y complicaciones si se retrasa el tratamiento definitivo. El an?lisis de kel adicional ordenado ayudar? a determinar si hay otras causas que contribuyan a las pruebas hep?chantel elevadas. La comunicaci?n a lo rufino de renetta encuentro fue facilitada por un int?rprete en espa?ol. El paciente demostr? fina comprensi?n gustavo del diagn?stico, plan de tratamiento, instrucciones de medicaci?n, requisitos de seguimiento y precauciones de retorno. ESTADO DE DESCARGA: Estable DISPOSICI?N: Claudia domiciliaria con seguimiento ambulatorio cercano RESULTADOS PENDIENTES DE APROBACI?N DE LA GESTI?N: - Panel de hepatitis - RUBIO, anticuerpo antimitocondrial, anticuerpo de m?sculo liso El m?dico de atenci?n primaria del paciente en el [facility] tendr? acceso directo a toda la documentaci?n de ED y los resultados de las pruebas para facilitar fina atenci?n coordinada. DISCHARGE DIAGNOSIS: 1. Symptomatic cholelithiasis 2. Microcytic anemia (baseline) 3. Transaminitis HOSPITAL COURSE: Wale is a 40-year-old Indonesian-speaking female with a history of hypertension who presented to the emergency department on April 02, 2025, with chief complaints of abdominal pain. Emergency Department Evaluation: Initial vital signs were notable for blood pressure 162/70 mmHg; heart rate 77 bpm; respiratory rate 18 breaths/min; temperature 98.0?F; oxygen saturation 98% on room air. The patient underwent rapid medical evaluation and triage with comprehensive laboratory and imaging studies. Laboratory Findings: Complete blood count revealed baseline microcytic anemia without leukocytosis or left shift. Comprehensive metabolic panel showed normal electrolytes and kidney function. Liver function tests demonstrated elevated AST/ALT and total bilirubin , raising concern for hepatobiliary disease.Cardiac markers (troponin) were negative. Albumin was within normal limits. PT/INR was normal. test was negative. COVID-19, influenza, and RSV testing were all negative. Imaging Studies: Chest X-ray showed no acute findings. Kidneys, ureters, and bladder (KUB) radiograph demonstrated a normal gas pattern. Bedside right upper quadrant ultrasound demonstrated gallstones without dilation of the common bile duct, consistent with symptomatic cholelithiasis. Consultations: General surgery was consulted and recommended outpatient follow-up for cholecystectomy evaluation, as the patient was not deemed an operative candidate during this ED visit. Gastroenterology was consulted for further evaluation of transaminitis. Given the presentation of symptomatic gallstones with elevated liver enzymes but no common bile duct dilation, the patient was classified as intermediate risk for choledocholithiasis.GI recommended additional laboratory work-up including hepatitis panel, monospot, acetaminophen level, RUBIO, CRP, ESR, anti- mitochondrial antibody, and smooth-muscle antibody to evaluate for autoimmune or viral hepatitis as potential contributing etiologies. Gastroenterology also recommended repeat LFTs and PT/INR in 3 days. Treatment in ED: The patient received ondansetron (Zofran) for nausea management and was counseled to avoid alcohol, NSAIDs, and acetaminophen pending further hepatic evaluation. All discharge instructions were provided with assistance from an in- person senior functional analyst, and the patient verbalized understanding and agreement with the outpatient management plan. DISCHARGE MEDICATIONS: - Ondansetron (Zofran) as needed for nausea - Continue home medications for hypertension, asthma, and congestive heart failure DISCHARGE INSTRUCTIONS: Diet and Activity: - Resume normal diet as tolerated; avoid fatty foods if they trigger symptoms - Avoid alcohol completely until cleared by gastroenterology - No restrictions on activity Medications to Avoid: - Strictly avoid NSAIDs (ibuprofen, naproxen, aspirin) until cleared by gastroenterology - Strictly avoid acetaminophen (Tylenol) until cleared by gastroenterology - Strictly avoid alcohol FOLLOW-UP APPOINTMENTS: Primary Care Physician: April 05, 2025 (3 days) - Repeat liver function tests (AST, ALT, total bilirubin, alkaline phosphatase) and PT/INR - Review pending laboratory results from ED work-up - Monitor blood pressure General Surgery: To be scheduled as outpatient - Evaluation for elective laparoscopic cholecystectomy - Timely surgical follow-up is essential, as patients discharged from the ED with symptomatic gallstones who do not receive prompt surgical evaluation have a 37% risk of additional ED visits for gallstone-related complications, with most occurring within 1-3 months. Failure to achieve timely surgical follow-up is associated with increased risk of emergency cholecystectomy and biliary complications. Gastroenterology: As recommended by PCP based on lab results RETURN PRECAUTIONS - SEEK IMMEDIATE MEDICAL ATTENTION IF: - Severe or worsening abdominal pain, particularly in the right upper quadrant or epigastrium - Fever (temperature >100.4?F or 38?C) or chills - Jaundice (yellowing of skin or eyes) - Uncontrolled nausea or vomiting that prevents you from keeping down liquids - Dark urine or tomeka-colored stools - Worsening leg pain, swelling, redness, or warmth - Any other concerning symptoms These warning signs may indicate complications such as acute cholecystitis, cholangitis, or other biliary emergencies requiring immediate evaluation PATIENT EDUCATION: The patient was diagnosed with symptomatic gallstones with elevated liver enzymes. Gallstones can cause abdominal pain and liver inflammation. While the patient is stable for outpatient management at this time, it is critical to follow up with both primary care and general surgery as recommended. Patients with symptomatic gallstones have an increased risk of recurrent symptoms and complications if definitive treatment is delayed. The additional blood work ordered will help determine if there are other causes contributing to the elevated liver tests. Communication throughout this encounter was facilitated by an in-person senior functional analyst. The patient demonstrated clear understanding of the diagnosis, treatment plan, medication instructions, follow-up requirements, and return precautions. CONDITION AT DISCHARGE: Stable DISPOSITION: Discharged home with close outpatient follow-up PENDING RESULTS AT DISCHARGE: - Hepatitis panel - RUBIO, anti-mitochondrial antibody, smooth-muscle antibody The patient's primary care physician at [facility] will have direct access to all ED documentation and test results to facilitate coordinated care. Prescriptions: New ondansetron HCl 4 mg tablet 4 mg PO Q8H PRN (Reason: nausea and vomiting) Qty: 10 0RF No Action sucralfate [Carafate] 100 mg/mL suspension 10 ml PO QID PRN (Reason: indigestion) Qty: 300 0RF Rx Instructions: swish in mouth and swallow; use after food/drink metoclopramide HCl [Reglan] 10 mg tablet 10 mg PO Q6H PRN (Reason: nausea and vomiting) Qty: 12 0RF hydrocodone-acetaminophen 5-325 mg tablet 1 tab PO Q4-6H PRN (Reason: pain) Qty: 5 0RF Rx Instructions: Partial Fill upon patient request. polyethylene glycol 3350 17 gram/dose powder 17 g PO DAILY PRN (Reason: constipation) ibuprofen 600 mg tablet 600 mg PO TID PRN (Reason: pain) albuterol sulfate 2.5 mg /3 mL (0.083 %) solution for nebulization 2.5 mg inhalation Q6H PRN (Reason: shortness of breath) topiramate 25 mg tablet 25 - 50 mg PO BEDTIME 30 Days Qty: 60 3RF riboflavin (vitamin B2) 400 mg tablet 400 mg PO DAILY 30 Days Qty: 30 6RF magnesium oxide 400 mg (241.3 mg magnesium) tablet 400 mg PO BEDTIME 30 Days Qty: 30 6RF Rx Instructions: may hold for loose stools sumatriptan succinate 100 mg tablet 100 mg PO .COMPLEX PRN (Reason: migraine headache) 30 Days Qty: 12 6RF Rx Instructions: 50-100 mg orally at onset of headache, may repeat in 2 hrs PRN; max 2 tabs per day or 4 tabs/week (may take with Ibuprofen or Naproxen) naproxen 500 mg tablet 500 mg PO BID PRN (Reason: migraine headache) 30 Days Qty: 30 3RF Rx Instructions: take w/ food fluticasone propionate [Flovent HFA] 110 mcg/actuation HFA aerosol inhaler 2 puff inhalation BID hydrochlorothiazide 25 mg tablet 25 mg PO ONCE amlodipine 10 mg tablet 10 mg PO DAILY diclofenac potassium 50 mg tablet 50 mg PO BID albuterol sulfate [ProAir HFA] 90 mcg/actuation HFA aerosol inhaler 2 puff inhalation Q4-6H PRN (Reason: Shortness Of Breath) Referrals: [facility] Gastroenterology Services [Provider Group, Gastroenterology] Clinical Impression: Transaminitis [facility] General Surgeons [Provider Group, General Surgery] Clinical Impression: Cholelithiasis Monique Zaman MD [Primary Care Provider, Internal Medicine] Referral Note: recheck LFTs and INR on Tuesday Clinical Impression: Transaminitis Interventions: ED Discharge Assessment Last Done: 04/02/25 01:25 Discharge Date/Time: 04/02/25 01:25 Print Language: Indonesian
--- NOTE | 2025-04-01 15:48 | ECG_ITS ---
Test Reason : neaseA Blood Pressure : */* mmHG Vent. Rate : 80 BPM Atrial Rate : 80 BPM P-R Int : 152 ms QRS Dur : 86 ms QT Int : 382 ms P-R-T Axes : 18 28 9 degrees QTcB Int : 440 ms Normal sinus rhythm Cannot rule out Anterior infarct (cited on or before 03-Mar-2025) Abnormal ECG When compared with ECG of 03-Mar-2025 02:58, Nonspecific T wave abnormality no longer evident in Anterior leads Referred By: Maritza Garcia Electronically Signed By: Andrea Castro
[2025-04-01 16:24] LABS: MANUAL DIFF FLAG NO
[2025-04-01 16:25] LABS: Hematocrit 36.3 % (37.0-47.0); Hemoglobin 11.3 g/dl (12.0-16.0); Imm Gran Abs Auto 0.04 X10*3/uL (0.00-0.03); Imm Gran Pct Auto 0.5 % (0.0-0.4); Lymphocytes Absolute Auto 3.0 X10*3/uL (1.2-4.9); Mean Corpuscular HGB Conc 31.1 g/dl (31.0-35.0); Mean Corpuscular Hemoglobin 23.7 pg (27.0-33.0); Mean Corpuscular Volume 76.1 fL (80.0-98.0); NRBC Abs Auto 0.000 X10*3/uL (0.0-0.012); NRBC Pct Auto 0.0 /100WBC (0.0-0.2); Platelet Count 346 X10*3/uL (160-400); Red Blood Count 4.77 X10*6/uL (4.20-5.50); White Blood Count 8.7 X10*3/uL (4.8-10.8)
[2025-04-01 16:50] LABS: Alanine Aminotransferase 815 U/L (0-31); Albumin Level 4.4 g/dL (3.5-5.0); Alkaline Phosphatase 124 U/L (39-117); Anion Gap 10 (12-20); Aspartate Amino Transferase 1051 U/L (5-31); Blood Urea Nitrogen 8 mg/dL (9-16); Calcium 9.5 mg/dL (8.4-10.2); Carbon Dioxide 28 mmol/L (22-29); Chloride 104 mmol/L (96-108); Creatinine Clr Calc Pharmacy 107.9; Estimated Glomerular Filt Rate > 60; Magnesium 1.9 mg/dL (1.6-2.6); Potassium 3.7 mmol/L (3.3-5.1); Sodium 138 mmol/L (135-145); Total Protein 7.5 g/dL (6.5-8.0)
[2025-04-01 16:54] LABS: Troponin-I High Sensitivity < 2.7 ng/L (<3.5-17.0)
[2025-04-01 17:17] LABS: Resp Syncy Virus RNA Qual PCR NEGATIVE (Negative); SARS COV2 PCR INHOUSE NEGATIVE (Negative)
[2025-04-01 19:50] VITALS: BP 138/71; PULSE 84; RESP 18; TEMP 36.9; O2SAT 98
--- NOTE | 2025-04-01 20:03 | PC.NURSE ---
pt reporting frequent RUQ abd pain that comes and goes since 0400. did have a large BM last night after taking laxative and enema d/t feeling constipated and flatulent. still has appendix and gallbladder only thing to relieve pain is to put pressure on abd. 20g IV placed to LAC. U/S at bedside
[2025-04-01 22:23] LABS: Lipase 41 U/L (8-78)
[2025-04-01 22:43] VITALS: BP 129/71; PULSE 85; RESP 18; TEMP 37; O2SAT 95
--- OUTSIDE RECORDS SUMMARY | 2025-04-01 22:50 | XMS_ITS | Encounter Summary ---
Author Organization [employer] Address 75 [facility] 7 [place] [address] Care Team Providers Care Manager Medical Device Name Role Phone Monique Zamna MD Primary Care Provider [phone] Arnel York CNP Primary Care Provider [phone] Encounter Details Date Type Department Care Team (Late st Contact Info) Description 06/19/2024 Orders Only [facility] [address] [place] [address] Provider, MD Batsheva Social History Tobacco Use [...] Care Team (Late st Contact Info) Description 04/05/2025 9:15 AM EST Office Visit [facility] CHC MED & PEDS [address] [place], [place] [address] rAnel York, AVIONICS INTEGRATION ENGINEER [address] [place], [place] [phone] 07/19/2025 9:30 AM EDT Office Visit [facility] OPTOMETRY [address] [place] [address] TarkaCorry, OD [address] [place] [address] documented as of this encounter Procedures Procedure Name Priority Date/Time Associated Diagnosis Comments ECG 12-LEAD Routine 06/18/2024 9:34 AM EST ECG 12-LEAD Routine 06/18/2024 9:[address] ABDOMEN PELVIS W CONTRAST Routine 06/18/2024 9:28 AM EST documented in this encounter Results * ECG 12 lead (06/18/2024 9:34 AM EST) us Historical Provider MD ECG ORDERABLES Final Res ult * ECG 12 lead (06/18/2024 9:32 AM EST) us Historical Provider MD ECG ORDERABLES Final Res ult * CT Abdomen Pelvis w/ Contrast (06/18/2024 9:28 AM EST) Anatomical Region Laterality Modality Body, Pelvis, Abdomen Computed T omography us Historical Provider MD CEDENO CT PROCEDURES Final R esult documented in this encounter Visit Diagnoses Not on filedocumented in this encounter Additional Health Concerns Assessment Noted Time PHQ-9 Depression Total Score: 0 10/23/19 23 10:29 AM EDT documented as of this encounter Care Teams Manager Medical Device Relationship Specialty Start Date End Date Monique Zaman MD [address] [place] [address] PCP - General Family Medicine 04/07/20 02/11/25 Arnel York CNP [address] [place] [address] PCP - General Family Medicine 02/12/25 documented as of this encounter
--- OUTSIDE RECORDS SUMMARY | 2025-04-01 22:50 | XMS_ITS | Encounter Summary ---
Author Organization [employer] Address [address] [facility] [address] 7[address] [place] [address] Care Team Providers Care Dining Room Helper Name Role Phone Monique Zaman MD Primary Care Provider [phone] Arnel York CNP Primary Care Provider [phone] Encounter Details Date Type Department Care Team ([facility] st Contact Info) Description 08/23/2023 Orders Only [facility] CHC MED & PEDS [address] [place] [address] ProviderBatsheva MD Social History Tobacco Use Types [...] on results and no previous testing in [facility], 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 I can't say how long she has had this. Please confirm with Sharri or Ashley at [facility]. Depending on [facility] findings, she will need an appointment for [...] Description 04/05/2025 9:15 AM EST Office Visit [facility] CHC MED & PEDS [address] [place] [address] Arnel York, PACHECO [address] [place] [address] 07/19/2025 9:30 AM EDT Office Visit [facility] OPTOMETRY [address] [place] [address] Corry Page, OD [address] [place] [address] documented as of this encounter Procedures Procedure [...] Rapid Plasma Reagin, Quant Reactive 1:32(A) Nonreactive [facility] Treponema pallidum Antibody, Particle Agglutination Reactive(A) Nonreactive [facility] Comment:These results must b e reported by the ordering clinician orclinical facility to the [facility] required by state law.Testing performed at: [address] [address] 08/23/2023 11:4 1 AM EDT 08/24/2023 3:39 AM EDT Rashmi [facility] LAB BLOOD ORDERABLES Irene vazquez Result [facility] [address] [place] [address] [phone] * (ABNORMAL) HPV mRNA E6/E7 w/Reflex to HPV Genotypes 16, 18/45 (08/23/2023 11:36 AM EDT) HPV nRNA E6/E7 Detected(A ) Not Detected [facility] Comment:Methodology: Transcr iption-Mediated AmplificationThis assay detects E6/E7 viral messenger RNA (mRNA) from 14high-risk HPV types (16,18,31,33,35,39,45,51,52,56,58,59,66,68).Cervical sources are required for HPV testing.If a vaginal source from a patient who has had atotal hysterectomy with removal of cervix wassubmitted, please contact the testing laboratoryfor alternative testing options.For additional information, please refer [email or web address](This link if provided for information/educational purposes only.)THIS TEST WAS PERFORMED AT:[employer] [address] [id number] MEADE MD HPV 16 RNA NOT DETECTED NOT DETECTED [facility] HPV 18/45 RNA NOT DETECTED NOT DETECTED [facility] Comment:Methodology: Transcr iption Mediated AmplificationCervical sources are required for HPV testing.If a vaginal source from a patient who has had atotal hysterectomy with removal of cervix wassubmitted, please contact the testing laboratoryfor alternative testing options.THIS TEST WAS PERFORMED AT:[employer] [facility] [address] [address]HKOGEALIVIA MEADE MD 08/23/2023 11:3 6 AM EDT 08/24/2023 8:20 AM EDT Rashmi Espino [facility] CYTOLOGY ORDERABLES F inal Result [facility] [address] [place] [address] [phone] * Mammogram Diagnostic Right (08/11/2023 4:08 PM EDT) Anatomical Region Laterality Modality Breast Right Mammography Historical Provider MD CEDENO BI PROCEDURES Final R esult documented in this encounter Visit Diagnoses Not on filedocumented in this encounter Additional Health Concerns Assessment Noted Time PHQ-9 Depression Total Score: 0 10/23/19 23 10:29 AM EDT documented as of this encounter Care Teams Dining Room Helper Relationship Specialty Start Date End Date Monique Zaman MD [address] [place] [address] PCP - General Family Medicine 04/07/20 02/11/25 Arnel York CNP [address] [place] [address] PCP - General Family Medicine 02/12/25 documented as of this encounter
--- OUTSIDE RECORDS SUMMARY | 2025-04-01 22:50 | XMS_ITS | Encounter Summary ---
Author Organization [employer] Address 75 [facility] 7t [place] [address] Care Team Providers Care Stonecutter Name Role Phone Monique Zaman MD Primary Care Provider [phone] Arnel York CNP Primary Care Provider [phone] Reason for Visit * Reason Onset Date Comments Medication Question 01/20/2024 Encounter Details Date Type Department Care Team ([facility] Contact Info) Description 01/20/2024 Telephone [facility] CHC MED & PEDS [address] [place] [address] Monique Zaman MD [address] [place] [address] Medication Question Social History Tobacco Use Types [...] 1:55 PM EDT TC placed to pt [phone] via [employer] in regards to below message. Pt [...] had surgery today at [facility] for Carpal Tunnel on right wrist. Pt stateswas prescribed tylenol and ibuprofen but informs that those medication does not help with the pain and would like a stronger medication. Please call pt to clarify. documented in this encounter Plan of Treatment Upcoming Encounters Date Type Department Care Team (Late st Contact Info) Description 04/05/2025 9:15 AM EST Office Visit [facility] CHC MED & PEDS [address] [place], [place] [phone] Arnel York CNP [address] [place], [place] [phone] 07/19/2025 9:30 AM EDT Office Visit [facility] OPTOMETRY [address] [place], [place] [phone] TarCorry haley, OD [address] [place] [address] documented as of this encounter Visit Diagnoses Not on filedocumented in this encounter Additional Health Concerns Assessment Noted Time PHQ-9 Depression Total Score: 0 10/23/19 23 10:29 AM EDT documented as of this encounter Care Teams Stonecutter Relationship Specialty Start Date End Date Monique Zaman MD [address] [place] [address] PCP - General Family Medicine 04/07/20 02/11/25 Arnel York CNP [address] [place] [address] PCP - General Family Medicine 02/12/25 documented as of this encounter
--- OUTSIDE RECORDS SUMMARY | 2025-04-01 22:50 | XMS_ITS | Encounter Summary ---
Author Organization [employer] Address [address] [facility] [address] 7[address] [place] [address] Care Team Providers Care Blood Bank Calendar Control Clerk Name Role Phone Monique Zaman MD Primary Care Provider [phone] Arnel York CNP Primary Care Provider [phone] Reason for Visit * Reason Onset Date Comments Referral 02/06/2024 Encounter Details Date Type Department Care Team ([facility] st Contact Info) Description 02/06/2024 Telephone [facility] MEDICINE [address] [place] [address] Monique Zaman MD [address] [place] [address] Referral Social History Tobacco Use Types Packs/Day [...] : DATE: 02/08/24 TIME: 1:00 PM Address: [address] [place] [address] Facility Name: [facility] Type of Specialist: Piano And Organ Refinisher documented in this encounter Plan of Treatment Upcoming Encounters Date Type Department Care Team (Late st Contact Info) Description 04/05/2025 9:15 AM EST Office Visit [facility] CHC MED & PEDS [address] [place] [address] Arnel York, MIGRATION SPECIALIST [address] [place] [address] 07/19/2025 9:30 AM EDT Office Visit [facility] OPTOMETRY [address] [place], [place] [phone] TarCorry haley, OD [address] [place] [address] documented as of this encounter Visit Diagnoses Not on filedocumented in this encounter Additional Health Concerns Assessment Noted Time PHQ-9 Depression Total Score: 0 10/23/19 23 10:29 AM EDT documented as of this encounter Care Teams Blood Bank Calendar Control Clerk Relationship Specialty Start Date End Date Monique Zaman MD [address] [place] [address] PCP - General Family Medicine 04/07/20 02/11/25 Arnel York CNP [address] [place] [address] PCP - General Family Medicine 02/12/25 documented as of this encounter
--- OUTSIDE RECORDS SUMMARY | 2025-04-01 22:50 | XMS_ITS | Encounter Summary ---
Author Organization [employer] Address 75 [facility] 7 [place] [address] Care Team Providers Care Wiring Technician Name Role Phone Arnel York CNP Primary Care Provider [phone] Reason for Visit * Reason Onset Date Comments Med Refill 03/01/2025 Encounter Details Date Type Department Care Team (Late st Contact Info) Description 03/01/2025 Telephone [facility] MEDICINE [address] [place] [address] Arnel York CNP [address] [place] [address] Med Refill Social History Tobacco Use Types [...] PCP SIDDHARTH York To be sent to [facility] documented in this encounter Plan of Treatment Upcoming Encounters Date Type Department Care Team ([facility] st Contact Info) Description 04/05/2025 9:15 AM EST Office Visit [facility] MED & PEDS [address] [place] [address] Arnel York, PACHECO [address] [place] [address] 07/19/2025 9:30 AM EDT Office Visit [facility] OPTOMETRY [address] [place] [address] Taysudha Corry, OD [address] [place] [address] documented as of this encounter Visit Diagnoses Not on filedocumented in this encounter Additional Health Concerns Assessment Noted Time PHQ-9 Depression Total Score: 2 12/25/19 25 10:08 AM EDT documented as of this encounter Care Teams Wiring Technician Relationship Specialty Start Date End Date Arnel York CNP [address] [place] [address] PCP - General Family Medicine 02/12/25 documented as of this encounter
--- OUTSIDE RECORDS SUMMARY | 2025-04-01 22:50 | XMS_ITS | Encounter Summary ---
Author Organization [employer] Address 75 [facility] 7t [place] [address] Care Team Providers Care Tool Repair Technician Name Role Phone Monique Zaman MD Primary Care Provider [phone] Arnel York CNP Primary Care Provider [phone] Reason for Visit * Reason Comments Med Change Request Encounter Details Date Type Department Care Team ([facility] st Contact Info) Description 09/12/2024 Refill [facility] CHC MED & PEDS [address] [place], [place] [phone] Monique Zaman MD [address] [place] [address] Hypertension, unspecified type Social History Tobacco Use [...] Description 04/05/2025 9:15 AM EST Office Visit [facility] CHC MED & PEDS [address] [place] [address] Arnel York CNP [address] [place] [address] 07/19/2025 9:30 AM EDT Office Visit [facility] OPTOMETRY [address] [place] [address] TarCorry haley, OD [address] [place] [address] documented as of this encounter Visit Diagnoses Diagnosis Hypertension, unspecified type documented in this encounter Additional Health Concerns Assessment Noted Time PHQ-9 Depression Total Score: 0 10/23/19 23 10:29 AM EDT documented as of this encounter Care Teams Tool Repair Technician Relationship Specialty Start Date End Date Monique Zaman MD [address] [place] [address] PCP - General Family Medicine 04/07/20 02/11/25 Arnel York CNP [address] [place] [address] PCP - General Family Medicine 02/12/25 documented as of this encounter
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
--- OUTSIDE RECORDS SUMMARY | 2025-04-01 22:50 | XMS_ITS | Clinical Summary ---
Author Organization [employer] Address [address] [facility] 7[address] [place] [address] Care Team Providers Care Dry Lumber Grader Name Role Phone Jaylen Aravindkrissy BERGMAN Primary Care Provider [phone] Allergies No known active allergies Medications SUMAtriptan [...] MORNING 90 tablet 1 03/16/20 23 Active ibuprofen 400 MG tablet Take 1 tablet (400 mg) by mouth every 8 (eight) hours if needed for moderate pain, mild pain, fever or headaches. 60 tablet 07/24/19 25 Active hydrALAZINE (Apresoline) 10 MG tablet Take 1 tablet (10 mg) by mouth Once per day. 30 tablet 09/12/19 25 2025 Active ferrous gluconate (Fergon) 324 (38 Fe) MG tablet Take 1 tablet (324 mg) by mouth with breakfast. 30 tablet 09/12/19 25 2025 Active Tirzepatide-We ight Management (Zepbound) 2.5 MG/0.5ML solution auto-injector Inject 0.5 mL (2.5 mg) under the skin 1 (one) time per week. 2 mL 09/12/19 Active meloxicam (Mobic) 7.5 MG tablet TAKE 1 TABLET BY MOUTH 2 TIMES DAILY. 60 tablet 3 11/15/19 25 Active omeprazole (PriLOSEC) [address] capsule TAKE 1 CAPSULE (20 MG) BY MOUTH BEFORE BREAKFAST 90 capsule 3 12/08/19 25 Active amLODIPine (Norvasc) 5 MG tabletIndicati ons:Hypertensi on, unspecified type TAKE 1 TABLET BY MOUTH EVERY DAY 90 tablet 03/08/20 25 Active Acetaminophen 500 MG capsule Take 1 capsule orally tid prn pain 90 capsule 03/18/20 25 Active fluticasone (Flonase) 50 MCG/ACT nasal spray INSTILL 1 SRAY INTO BOTH NOSTRILS ONCE DAILY 48 mL 03/19/20 25 Active fluticasone (Flonase) 50 MCG/ACT nasal spray Administer 1 spray into each nostril Once per day. 16 g 2 07/24/19 25 2024 Discontinued(R eorder (will not trigger notification to Pharmacy)) Acetaminophen 500 MG capsule Take 1 capsule orally tid prn pain 90 capsule 07/24/19 25 2024 Discontinued(R eorder (will not trigger notification to Pharmacy)) amLODIPine (Norvasc) 5 MG tabletIndicati ons:Hypertensi on, unspecified type TAKE 1 TABLET BY MOUTH EVERY DAY 90 tablet 12/12/19 25 2024 Discontinued ondansetron (Zofran) 4 MG tablet Take 1 tablet (4 mg) by mouth every 8 (eight) hours if needed for nausea or vomiting for up to 5 days. 20 tablet 03/18/20 25 2024 fluticasone (Flonase) 50 MCG/ACT nasal spray Administer 1 spray into each nostril Once per day. 16 g 03/18/20 25 2024 Discontinued Active Problems Problem Noted Date Diagnosed Date Viral upper respiratory tract infection 03/18/20 Assessment & Plan (03/18/2025 4:14 PM EST): Has Influenza A Influenza A 03/18/2025 Assessment & Plan (03/18/2025 2:09 PM EST): Today's 4th day with s/s and patient is afebrile x 3d, slowly improving. I gave her reassurance and instructed symptomatic prescription, I explained that antiviral will have little impact on sxs. Rest (sleep at least 8 hours a night). Hydrate with plenty of water (avoid caffeine and alcohol). Use saline nose drops to loosen mucus + Flonase Take Acetaminophen (Tylenol )/Ibuprofen as needed to [...] be less than 100 F without medication). Re consult prn worsening of sxs, recurrent fever or chills. Cervical cancer screening 08/21/2024 Assessment & Plan (08/21/2024 11:54 AM EDT): 39 y.o. here for cervical cancer screening. Will continue monitoring following ASCCP guidelines. Cervical polyp 08/21/2024 Assessment & Plan (08/21/2024 11:54 AM EDT): Patient aware reports she has followed with [facility] for this but unclear why it has not been bx'ed or removed. Has f/up w/ PCP Future Appointments Date Time Provider Department Center 09/11/2024 9:15 AM Monique Zaman MD [facility] Sleep apnea 09/20/2023 Intractable migraine with aura [...] Encounters Date Type Department Care Team Description 03/18/2025 3:00 PM EST Office Visit [facility] WALK-IN [address] [address] Maryann Wood MD Influenza A (Primary Dx); Viral upper respiratory tract infection; Cough, unspecified type; Nausea and vomiting, unspecified vomiting type; Sore throat 03/18/2025 Refill [facility] WALK-IN [address] [address] Maryann Wood MD 03/18/2025 Travel 03/08/2025 Refill [facility] CHC MED & PEDS [address] [place], [place] [phone] Monique Zaman MD Hypertension, unspecified type 03/03/2025 Orders Only [facility] External Provider, [facility] 03/01/2025 Telephone [facility] MEDICINE [address] [place] [address] Arnel York CNP Med Refill 02/28/2025 Refill [facility] CHC MED & PEDS [address] [place] [address] Monique Zaman MD 01/13/2025 Refill [facility] CHC MED & PEDS [address] [place] [address] Monique Zaman MD 01/04/2025 Orders Only [facility] MED & PEDS [address] [place] [address] Provider, MD Batsheva from Last 3 Months Immunizations Immunization Administration [...] Sign Reading Time Taken Comments Blood Pressure 160/98 03/18/2025 1:51 PM EST Pulse 80 03/18/2025 1:51 PM EST Temperature 36.4 C (97.6 F) 03/18/2025 1:51 PM EST Respiratory Rate 20 03/18/2025 1:51 PM EST Oxygen Saturation 97% 03/18/2025 1:51 PM EST Inhaled Oxygen Concentration - - Weight 107 kg (236 lb) 12/24/2024 10:07 AM EDT Height 155.6 cm (5' 1.25 ) 12/24/2024 10:07 AM E DT Body Mass Index 44.23 12/24/2024 10:07 AM EDT Plan of Treatment Upcoming Encounters Date Type Department Care Team (Late st Contact Info) Description 04/05/2025 9:15 AM EST Office Visit [facility] CHC MED & PEDS [address] [place] [address] Arnel York, [employer] [address] [place] [address] 07/19/2025 9:30 AM EDT Office Visit [facility] OPTOMETRY [address] [place], [place] [phone] Corry Page, OD [address] [place] [address] Health Maintenance Due Date Last Done Comments Dental Oral Exam 1985 Dental Prophylaxis 1985 Dental X-Ray: Bitewings 1985 Family Planning (PISQ) 1999 HPV Vaccines (1 - 3-dose series) 1999 Hepatitis B Vaccines (1 of 3 - 19+ 3-dose series) 2003 Dental X-Ray: Full Mouth 01/02/2024 12/31/2020 COVID-19 Vaccine (3 - 2024- season) 2024 08/20/2020, 07/30/2020 Influenza Vaccine (#1) 2024 , 02/23/2022, 03/25/2020 SDOH Screening 08/30/2025 08/30/2024 Alcohol/Substance Use Screening 12/24/2025 12/24/2024 Depression Screening 12/24/2025 12/24/2024, 12/25/19 25 Disability Screening 12/24/2025 12/24/2024 Tobacco Screening 03/18/2026 03/18/2025 Mammogram 01/02/2027 01/02/2025, /08/2023, 08/11/2023, Additional history exists Cervical Cancer Screening 08/22/2027 HPV/Cotest 08/22/2027 08/21/2024, [...] Procedure Name Priority Date/Time Associated Diagnosis Comments US ABDOMEN LIMITED Routine 04/01/2025 9: 51 PM EST POCT INFLUENZA B (ID NOW RAPID MOLECULAR) Routine 03/18/2025 2:15 PM EST Cough, unspecified type Nausea and vomiting, unspecified vomiting type POCT RAPID COVID ANTIGEN Routine 03/18/2025 2:15 PM EST Cough, unspecified type Nausea and vomiting, unspecified vomiting type POC DÍAZ ID NOW STREP A Routine 03/18/2025 2:14 PM EST Sore throat POCT INFLUENZA A (ID NOW RAPID MOLECULAR) Routine 03/18/2025 2:08 PM EST Cough, unspecified type Nausea and vomiting, unspecified vomiting type XR KUB AND UPRIGHT 2 VIEWS Routine 03/03/2025 5:10 AM EST XR CHEST 1 VIEW Routine 03/03/2025 5:10 AM EST HM MAMMOGRAPHY Routine 01/02/2025 1:11 PM EDT LIPID PANEL, STANDARD Routine 12/24/2024 10:32 AM [...] Recently Relevant to Health Maintenance Results * US Abdomen Limited (04/01/2025 9:51 PM EST) Anatomical Region Laterality Modality Abdomen Ultrasound 04/01/2025 9:51 PM EST Narrative 04/01/2025 9:53 PM EST [place] [address] Ultrasound Report Signed Patient: Wale Cruz MR#: [id number] : 1985 Acct:[id number] Age/Sex: 40 / F ADM Date: 04/01/25 Loc: HO.ED Attending Dr: Ordering Physician: Maritza Garcia Date of Service: 04/01/25 Procedure(s): US abdomen limited Accession Number(s): [id number] cc: Maritza Garcia; Monique Zaman MD Reason for Exam: RUQ pain, elevated LFTs CLINICAL HISTORY: RUQ pain, elevated LFTs --- Additional Notes or Special Instructions: Looking at CBD + liver + GB US abdomen limited Comparison: None provided Findings: The visualized pancreas is normal. The aorta and inferior vena cava are normal caliber. The liver is normal in size and echotexture. There is no intrahepatic bile duct dilatation. The common duct is 2 mm in diameter. The gallbladder demonstrates a meniscus a hyperechoic foci with posterior acoustic shadowing. There is no sonographic Astorga sign. The main portal vein is antegrade. The right kidney is 10.3 cm in length. No ascites. IMPRESSION: Cholelithiasis. This document has been electronically signed by: Bradley Head MD on 04/01/2025 21:51:46 Dictated By: Bradley Head MD Signed By: <Electronically signed by Bradley Head MD in OV> 04/01/252152 DD/ 50 TD/TT: 04/01/252150 Academic Support Assistant: Procedure Note Donotuseinterpreter, Image - 04/01/[address] [address] Ultrasound Report Signed Patient: Wale Cruz MR#: [id number] : 1985Acct:[id number] Age/Sex: 40 / FADM Date: 04/01/25 Loc: HO.ED Attending Dr: Ordering Physician: Maritza Garcia Date of Service: 04/01/25 Procedure(s): US abdomen limited Accession Number(s): [id number] cc: Maritza Garcia; Monique Zaman MD Reason for Exam: RUQ pain, elevated LFTs CLINICAL HISTORY: RUQ pain, elevated LFTs --- Additional Notes or SpecialInstructions: Looking at CBD + liver + GB US abdomen limited Comparison: None provided Findings: The visualized pancreas is normal. The aorta and inferior vena cava are normal caliber. The liver is normal in size and echotexture. There is no intrahepatic bile duct dilatation. The common duct is 2 mm in diameter. The gallbladder demonstrates a meniscus a hyperechoic foci with posterior acoustic shadowing. There is no sonographic Astorga sign. The main portal vein is antegrade. The right kidney is 10.3 cm in length. No ascites. IMPRESSION: Cholelithiasis. This document has been electronically signed by: Bradley Head MD on 04/01/2025 21:51:46 Dictated By: Bradley Head MD Signed By: <Electronically signed by Bradley Head MD in OV> 04/01/252152 DD/ 50 TD/TT: 04/01/252150 Academic Support Assistant: [facility] External Provider IMG US PROCEDURES Final Result * POCT Rapid Influenza B DÍAZ ID NOW (03/18/2025 2:15 PM EST) Influenza B Negative Negative, Indeterminate [facility] QC Media Lot # [id number] [facility] Lot# Expiration Date [facility] Swab 03/18/2025 2:15 PM EST Maryann Wood MD POINT OF CARE TEST ENTER /EDIT ORDERABLES Final Result [facility] [address] [place] [phone] * POCT Rapid Covid-19 BinaxNOW (03/18/2025 2:15 PM EST) Rapid COVID Ag Negative QC Media Lot # [id number] Lot# Expiration Date Swab 03/18/2025 2:15 PM EST Maryann Wood MD POINT OF CARE TEST ENTER /EDIT ORDERABLES Final Result * POCT Rapid Strep A DÍAZ ID NOW (03/18/2025 2:14 PM EST) Pathologist [facility] Rapid Strep A Screen Negative Negative, None Detected QC Media Lot # [id number] Lot# Expiration Date Swab 03/18/2025 2:14 PM EST Maryann Wood MD POINT OF CARE TEST ENTER /EDIT ORDERABLES Final Result * (ABNORMAL) POCT Rapid Influenza A DÍAZ ID NOW (03/18/2025 2:08 PM EST) Influenza A Positive( A) Negative, Indeterminate [facility] QC Media Lot # [id number] [facility] Lot# Expiration Date [facility] Swab 03/18/2025 2:08 PM EST Maryann Wood MD POINT OF CARE TEST ENTER /EDIT ORDERABLES Final Result [facility] [address] [place] [phone] * XR KUB and Upright 2 Views (03/03/2025 5:10 AM EST) Anatomical Region Laterality Modality Radiographic Mamie ging 03/03/2025 5:10 AM EST Narrative 03/03/2025 5:12 AM EST [address] [address] XRay Report Signed Patient: Wale Cruz MR#: [id number] : 1985 Acct:[id number] Age/Sex: 39 / F ADM Date: 03/03/25 Loc: HO.ED Attending Dr: Ordering Physician: Elena Hinds Date of Service: 03/03/25 Procedure(s): XR KUB Accession Number(s): [id number] cc: Elena Hinds; Monique Zaman MD Reason for Exam: pain, constipation CLINICAL HISTORY: pain, constipation 1 view abdomen Comparison: None provided Findings: No pneumoperitoneum or pneumatosis. No abnormal calcifications. No acute fractures. IMPRESSION: The bowel gas pattern is normal This document has been electronically signed by: Marni Hayes MD on 03/03/2025 05:10:33 Dictated By: Marni Hayes MD Signed By: <Electronically signed by Marni Hayes MD in OV> 03/03/25511 DD/ 9 TD/TT: 03/03/25509 Academic Support Assistant: Procedure Note Donotuseinterpreter, Image - 03/03/[address] [address] XRay Report Signed Patient: Wale Cruz MR#: [id number] : 1985Acct:[id number] Age/Sex: 39 / FADM Date: 03/03/25 Loc: HO.ED Attending Dr: Ordering Physician: Elena Hinds Date of Service: 03/03/25 Procedure(s): XR KUB Accession Number(s): [id number] cc: Elena Hinds; Monique Zaman MD Reason for Exam: pain, constipation CLINICAL HISTORY: pain, constipation 1 view abdomen Comparison: None provided Findings: No pneumoperitoneum or pneumatosis. No abnormal calcifications. No acute fractures. IMPRESSION: The bowel gas pattern is normal This document has been electronically signed by: Marni Hayes MD on 03/03/2025 05:10:33 Dictated By: Marni Hayes MD Signed By: <Electronically signed by Marni Hayes MD in OV> 03/03/25 0512 DD/ 0510 TD/TT: 03/03/25 0510 Academic Support Assistant: [facility] External Provider IMG XR PROCEDURES Final Result * XR Chest 1 View (03/03/2025 5:10 AM EST) Anatomical Region Laterality Modality Chest Radiographic Mamie ging 03/03/2025 5:10 AM EST Narrative 03/03/2025 5:11 AM EST [place] [address] XRay Report Signed Patient: Wale Cruz MR#: [id number] : 1985 Acct:[id number] Age/Sex: 39 / F ADM Date: 03/03/25 Loc: .ED Attending Dr: Ordering Physician: Elena Hinds Date of Service: 03/03/25 Procedure(s): XR chest 1V Accession Number(s): [id number] cc: Elena Hinds; Monique Zaman MD Reason for Exam: sob CLINICAL HISTORY: sob 1 view chest x-ray Comparison: None provided Findings: No consolidation or effusion. Heart size is normal. No acute fracture. IMPRESSION: 1. No acute findings. This document has been electronically signed by: Marni Hayes MD on 03/03/2025 05:10:25 Dictated By: Marni Hayes MD Signed By: <Electronically signed by Marni Hayes MD in OV> 03/03/25 0511 DD/ 0510 TD/TT: 11/16/25 0510 Academic Support Assistant: Procedure Note Donotrayrayinterpreter, Image - 03/03/[address] [address] XRay Report Signed Patient: Wale Cruz MR#: [id number] : 1985Acct:[id number] Age/Sex: 39 / FADM Date: 03/03/25 Loc: HO.ED Attending Dr: Ordering Physician: Elena Hinds Date of Service: 03/03/25 Procedure(s): XR chest 1V Accession Number(s): [id number] cc: Elena Hinds; Monique Zaman MD Reason for Exam: sob CLINICAL HISTORY: sob 1 view chest x-ray Comparison: None provided Findings: No consolidation or effusion. Heart size is normal. No acute fracture. IMPRESSION: 1. No acute findings. This document has been electronically signed by: Marni Hayes MD on 03/03/2025 05:10:25 Dictated By: Marni Hayes MD Signed By: <Electronically signed by Marni Hayes MD in OV> 03/03/25510 DD/ 9 TD/TT: 03/03/25509 Academic Support Assistant: [facility] External Provider IMG XR PROCEDURES Final Result * Hm Mammography (01/02/2025 1:11 PM EDT) Anatomical Region Laterality Modality Other Historical Provider HEALTH MAINTENANCE Final Result * (ABNORMAL) Lipid Panel, Standard (12/24/2024 10:32 AM EDT) Triglycerides 147 <150 mg/dL [facility] Comment:Desirable Triglyceri de: less than 150 mg/dLBorderline High Triglyceride 150-199 mg/dLHigh Triglyceride: 200-499 mg/dLVery High Triglyceride: greater than or equal to 5OO mg/dL Cholesterol 153 <200 mg/dL [facility] Comment:Desirable Cholestero l: less than 200 mg/dLBorderline High Cholesterol: 200-239 mg/dLHigh Cholesterol: greater than 239 mg/dL LDL Cholesterol Calculated 93 <100 mg/dL [facility] Comment:Desirable LDL: less than 100 mg/dLNear Optimal/Above Optimal LDL: 110- 129 mg/dLBorderline High LDL: 130-159 mg/dLHigh LDL: 160-189 mg/dLVery High LDL: greater than or equal to 190 mg/dL HDL Cholesterol 31(L) >40 mg/dL [facility] Comment:Desirable HDL: great er than 40 mg/dL Note: This HDL assay may give artificially low results in patients with liver disease. Blood Venous blood specimen / Unknown 12/24/2024 10:32 AM EDT 12/24/2024 2:52 PM EDT us Monique Zaman MD LAB BLOOD ORDERABLES Final Resul t [facility] [address] [place] [phone] * HPV High Risk with Reflex to Subtypes (08/21/2024 11:55 AM EDT) HPV High Risk Negative Negative [facility] HPV Genotype 16 Negative Negative [facility] HPV Genotype 18 Negative Negative [facility] Comment:HPV testing performe d at [facility] (CLIA#[id number]), [address] [place] [address].Testing for HPV was performed using the Isabel [...] MD LAB BLOOD ORDERABLES Final Re sult [facility] [address] [place] [phone] * Pap Smear (08/21/2024 11:55 AM EDT) Swab 08/21/2024 11:5 5 AM EDT 08/22/2024 6:00 AM EDT Narrative [facility] - 09/12/2024 6:35 AM EDT ----- ------- Name: Wale Montague Age/Sex: 39/F : 1985 Unit#: [id number] Attend Dr: Rossana Mac MD Re08/21/24 Status: DEP REF Location: HO.CHCLNP Disch: ----- ------- SPEC : [id number] RECD: 08/22/24 STATUS: DESMOND LAURA NUM: [id number] AMY: 08/21/24-[address]: Rossana Mac MD ENTERED: 08/22/24 SP TYPE: Pap Smr OTHR DR: ORDERED: Pap Smear Addendum Addendum 1 Entered: 09/12/24 HPV High Risk: Negative HPV Genotyping 16: Negative HPV Genotyping 18: Negative Addendum Signed (signature on file) [facility] Pol[facility] ([facility]) 09/12/24 0635 ----- ------- Interpretation Satisfactory for evaluation. Negative for intraepithelial lesion or malignancy. Moderate inflammation. Clinical Information LMP:07/31/24 Previous PAP test:Unknown date/findings Material Received ThinPrep-Cervical ----- ------- Signed (signature on file) [facility] ([facility]) 08/24/24 1234 ----- ------- END OF REPORT us Rossana Mac MD LAB CYTOLOGY ORDERABLES Final Result [facility] [address] [place] [phone] * HIV-1/2 Antigen and Antibodies, Fourth Generation, with Reflexes (08/23/2023 11:41 AM EDT) HIV AB/AG Nonreactive Nonreactive [facility] Comment:HIV-1 p24 Ag and/or HIV-1/HIV-2 Ab not detected.A test result that is nonreactive does not exclude thepossibility of exposure to or infection with HIV-1 and/orHIV-2. Nonreactive results in this assay for individualswith prior exposure to HIV-1 and/or HIV-2 may be due toantigen and antibody levels that are below the limit ofdetection of this assay.The [employer] HIV Ag/Ab Combo assay result andsupplemental assay results should be interpreted inconjunction with the patient's clinical presentation,history and other laboratory results. If the results areinconsistent with clinical evidence, additional testing issuggested to confirm the result. Blood Venous blood specimen / Unknown 08/23/2023 11:41 AM EDT 08/23/2023 2:19 PM EDT us Rashmi Espino [facility] LAB BLOOD ORDERABLES Irene vazquez Result [facility] [address] [place] [phone] * Hepatitis C Antibody with Reflex to HCV, RNA, Quantitative, Real-Time PCR (10/22/2022 11:13 AM EDT) Pathologist [facility] Hepatitis C Antibody NON-REACT ARCAELY NON-REACT ARACELY [facility] Comment: HCV antibody was non-reactive. There is no laboratory evidence of HCV infection. In most cases, no further action is required. However, if recent HCV exposure is suspected, a test for HCV RNA (test code 34484) is suggested. For additional information please refer to http://education.Comprimato/faq/BZZ22b7 (This link is being provided for informational/ educational purposes only.) Blood Venous blood specimen / Unknown 10/22/2022 11:13 AM EDT 10/22/2022 11:13 AM EDT us Monique Zaman MD LAB BLOOD ORDERABLES Final Resul t [facility] [address], [place] [phone] [facility] [facility] [address] [place] [phone] from Last 3 Months or Most Recently Relevant to Health Maintenance Insurance [facility] C3 DENTAL-[facility] MEDICAID STAND ADULT [employer] INSURANCE Care Teams Dry Lumber Grader Relationship Specialty Start Date End Date Arnel York CNP [address] [place] [address] PCP - General Family Medicine 02/12/25
--- OUTSIDE RECORDS SUMMARY | 2025-04-01 22:50 | XMS_ITS | Encounter Summary ---
Author Organization [employer] Address [address] [place] [address] Care Team Providers Care Detective Supervisor Name Role Phone Monique Zaman MD Primary Care Provider [phone] Arnel York CNP Primary Care Provider [phone] Encounter Details Date Type Department Care Team ([facility] st Contact Info) Description 08/15/2024 Orders Only [facility] CHC MED & PEDS [address] [place] [address] Arlette Ghosh Social History Tobacco Use Types [...] Description 04/05/2025 9:15 AM EST Office Visit [facility] CHC MED & PEDS [address] [place], [place] [phone] Arnel York, PRN OCCUPATIONAL THERAPIST [address] [place] [address] 07/19/2025 9:30 AM EDT Office Visit [facility] OPTOMETRY [address] [place] [address] Corry Page, OD [address] [place] [address] documented as of this encounter Procedures Procedure [...] documented as of this encounter Care Teams Detective Supervisor Relationship Specialty Start Date End Date Monique Zaman MD [address] [place] [address] PCP - General Family Medicine 04/07/20 02/11/25 Arnel York CNP [address] [place] [phone] PCP - General Family Medicine 02/12/25 documented as of this encounter
--- OUTSIDE RECORDS SUMMARY | 2025-04-01 22:50 | XMS_ITS | Encounter Summary ---
Author Organization [employer] Address [address] [facility] 7 [place] [address] Care Team Providers Care Food And Nutrition Teacher Name Role Phone Monique Zaman MD Primary Care Provider [phone] Arnel York CNP Primary Care Provider [phone] Reason for Visit * Reason Onset Date Comments Appointment Request 11/19/2024 Encounter Details Date Type Department Care Team ([facility] Contact Info) Description 11/19/2024 Telephone [facility] CHC MED & PEDS [address] [place] [address] Monique Zaman MD [address] [place] [address] Appointment Request Social History Tobacco Use Types [...] call back to book an apt with compensation/benefits specialist. Contact pt at [phone] documented in this encounter Plan of Treatment Upcoming Encounters Date Type Department Care Team ([facility] st Contact Info) Description 04/05/2025 9:15 AM EST Office Visit [facility] CHC MED & PEDS [address] [place] [address] Arnel York, PROSPECTING DRILLER [address] [place] [address] 07/19/2025 9:30 AM EDT Office Visit [facility] OPTOMETRY [address] [place] [address] Corry Page, OD [address] [place] [address] documented as of this encounter Visit Diagnoses Not on filedocumented in this encounter Additional Health Concerns Assessment Noted Time PHQ-9 Depression Total Score: 0 10/23/19 23 10:29 AM EDT documented as of this encounter Care Teams Food And Nutrition Teacher Relationship Specialty Start Date End Date Monique Zaman MD [address] [place] [address] PCP - General Family Medicine 04/07/20 02/11/25 Arnel York CNP [address] [place] [address] PCP - General Family Medicine 02/12/25 documented as of this encounter
--- OUTSIDE RECORDS SUMMARY | 2025-04-01 22:50 | XMS_ITS | Encounter Summary ---
Author Organization [employer] Address [address] [facility] [address] 7t [place] [address] Care Team Providers Care Manager User Experience Name Role Phone Monique Zaman MD Primary Care Provider [phone] Arnel York CNP Primary Care Provider [phone] Encounter Details Date Type Department Care Team ([facility] st Contact Info) Description 01/04/2025 Orders Only [facility] CHC MED & PEDS [address] [place] [address] Provider, MD Batsheva Social History Tobacco Use [...] Description 04/05/2025 9:15 AM EST Office Visit [facility] CHC MED & PEDS [address] [place] [address] WisconsinAravinddemi, TIMING INSPECTOR 505 [place] [address] 07/19/2025 9:30 AM EDT Office Visit [facility] OPTOMETRY [address] [place] [address] Tarka, Corry, OD [address] [place] [address] documented as of this encounter Procedures Procedure [...] as of this encounter Care Teams Manager User Experience Relationship Specialty Start Date End Date Monique Zaman MD [address] [place] [address] PCP - General Family Medicine 04/07/20 02/11/25 Arnel York CNP [address] [place] [address] PCP - General Family Medicine 02/12/25 documented as of this encounter
--- OUTSIDE RECORDS SUMMARY | 2025-04-01 22:50 | XMS_ITS | Encounter Summary ---
Author Organization [employer] Address 75 [facility] 7t [place] [address] Care Team Providers Care Utilization Management Um Nurse Name Role Phone Monique Zaman MD Primary Care Provider [phone] Arnel York CNP Primary Care Provider [phone] Reason for Visit * Reason Comments Med Refill Encounter Details Date Type Department Care Team ([facility] st Contact Info) Description 01/13/2025 Refill [facility] CHC MED & PEDS [address] [place] [address] Monique Zaman MD 505 [place] [address] Social History Tobacco Use Types Packs/Day Years [...] AM EST Office Visit [facility] CHC MED & PEDS [address] [place] [address] Arnel York, CONTINUOUS CHURN BUTTERMAKER [address] [place] [address] 07/19/2025 9:30 AM EDT Office Visit [facility] OPTOMETRY [address] [place] [address] Corry Page, OD [address] [place] [address] documented as of this encounter Visit Diagnoses Not on filedocumented in this encounter Additional Health Concerns Assessment Noted Time PHQ-9 Depression Total Score: 2 12/25/19 25 10:08 AM EDT documented as of this encounter Care Teams Utilization Management Um Nurse Relationship Specialty Start Date End Date Monique Zaman MD [address] [place] [address] PCP - General Family Medicine 04/07/20 02/11/25 Arnel York CNP [address] [place] [address] PCP - General Family Medicine 02/12/25 documented as of this encounter
--- OUTSIDE RECORDS SUMMARY | 2025-04-01 22:50 | XMS_ITS | Encounter Summary ---
Author Organization [employer] Address 75 [facility] 7t [place] [address] Care Team Providers Care Enterprise Infrastructure Architect Name Role Phone Jaylen Aravindkrissy BERGMAN Primary Care Provider [phone] Reason for Visit * Reason Comments Med Refill Encounter Details Date Type Department Care Team ([facility] st Contact Info) Description 02/28/2025 Refill [facility] MED & PEDS 505 [place] [address] Monique Zaman MD 505 [place] [address] Social History Tobacco Use Types Packs/Day Years [...] encounter Miscellaneous Notes * Telephone Encounter - Jackelin Liang RN - 03/19/2025 2:53 PM EST TC to pt with [facility] gluing crew leader. Advised for pt to be seen and schedule TP appointment. Pt states was in ER recently for elevated liver enzymes and has stopped taking the Zepbound. Appointment scheduled for 04/05/25 with PCP. Pt verbalized understanding and agreement with plan. documented in this encounter Plan of Treatment Upcoming Encounters Date Type Department Care Team (Late st Contact Info) Description 04/05/2025 9:15 AM EST Office Visit [facility] CHC MED & PEDS 505 [place] [address] Arnel York, PACHECO 505 [place] [address] 07/19/2025 9:30 AM EDT Office Visit [facility] OPTOMETRY [address] [place] [address] Corry Page, OD 267 [place] [address] documented as of this encounter Visit Diagnoses Not on filedocumented in this encounter Additional Health Concerns Assessment Noted Time PHQ-9 Depression Total Score: 2 12/25/19 10:08 AM EDT documented as of this encounter Care Teams Enterprise Infrastructure Architect Relationship Specialty Start Date End Date Arnel York CNP [address] [place] [address] PCP - General Family Medicine 02/12/25 documented as of this encounter
[2025-04-01 22:51] LABS: Appearance Urine Cloudy; Glucose Urine UA Negative (Negative); PH 6.5 (5.0-9.0); Specific Gravity - Urine 1.015 (1.005-1.025); UMIC TRIGGER UACC YES
[2025-04-01 22:55] LABS: UACC Culture Trigger YES
[2025-04-01] MEDS: Magnesium Hydrox/Alum Hydrox 30 ML ORAL.SUSP 15 ML PO (23:03)
[2025-04-01] MEDS: Lidocaine HCl Viscous 2 % 15 ML SOLUTION MUCOUS MEM (23:03)
[2025-04-01 23:17] LABS: INTERNATIONAL NORM RATIO 1.0 (0.9-1.1); Prothrombin Time 12.8 SEC (11.2-13.5)
[2025-04-01 23:30] LABS: Acetaminophen LAB < 3 mcg/mL (<30)
[2025-04-02 00:39] VITALS: BP 127/71; PULSE 82; RESP 20; TEMP 37.1; O2SAT 97
[2025-04-02 01:25] VITALS: BP 127/71; PULSE 82; RESP 20; TEMP 37.1; O2SAT 97
[2025-04-02 04:41] LABS: HBS Num1 > 1000.00 mIU/mL (0-7.99); HBc Num1 0.06 S/CO (0.00-0.79); HBsAGNum1 0.40 S/CO (0.00-0.99); Hepatitis A Antibody IgM 0.18 Index (0-0.79); Hepatitis B Surface Antigen Negative (Negative); ~HepC Num1 0.10 S/CO (0.00-0.79); ~Hepatitis A Antibody IgM Nonreactive (Nonreactive); ~Hepatitis B Surface Antibody REACTIVE (Nonreactive); ~Hepatitis C Antibody Nonreactive (Nonreactive)
[2025-04-08 11:14] LABS: Anti Nuclear Antibody Screen NEGATIVE (NEGATIVE)
== END 2025-04-02 01:25 | disposition home or self-care (01) ==
PROVIDERS: Physician Assistant Medical; Emergency Provider Emergency Medicine; PCP Student in an Organized Health Care Education/Training Program
DX: R74.01 Elevation of levels of liver transaminase levels (principal); K80.20 Calculus of gallbladder without cholecystitis without obstruction; R10.11 Right upper quadrant pain; R11.0 Nausea; Z03.818 Encounter for observation for suspected exposure to other biological agents ruled out; I10 Essential (primary) hypertension; J45.909 Unspecified asthma, uncomplicated; Z79.51 Long term (current) use of inhaled steroids; Z79.899 Other long term (current) drug therapy
CPT/HCPCS: 36415; 76705; 80053; 80143; 81001; 82550; 83690; 83735; 84484; 84702; 85025; 85610; 85652; 86015; 86038; 86140; 86308; 86381; 86704; 86706; 86709; 86803; 87086; 87147; 87340; 87637; 93005; 99284

== ENCOUNTER → 2025-04-01 15:48 | Outpatient (BNV) | payer MEDICAID, SELFPAY | PROVIDERS: Emergency Provider Emergency Medicine; PCP Student in an Organized Health Care Education/Training Program; Visit Provider Internal Medicine Cardiovascular Disease | DX: R94.31 Abnormal electrocardiogram [ECG] [EKG] (principal); R11.0 Nausea | CPT/HCPCS: 93010 ==

== ENCOUNTER → 2025-04-01 17:57 | Outpatient (BNV) | payer MEDICAID, SELFPAY | PROVIDERS: Emergency Provider Emergency Medicine; PCP Student in an Organized Health Care Education/Training Program; Visit Provider Radiology Diagnostic Radiology | DX: K80.20 Calculus of gallbladder without cholecystitis without obstruction (principal) | CPT/HCPCS: 76705 ==

== ENCOUNTER 2025-04-05 10:02 | Outpatient (REF) | payer MEDICAID, SELFPAY ==
--- OUTSIDE RECORDS SUMMARY | 2025-04-05 09:15 | XMS_ITS | Encounter Summary ---
Author Organization [employer] Address [address] [place] [address] 7 [place] [address] Care Team Providers Care Interpreter And Translator Name Role Phone Arnel York CNP Primary Care Provider [phone] Reason for Referral * Consultation (Routine) - Pending Review Specialty Diagnoses / Procedures Referred By Randal rasheed Referred To Contact Gastroenterology Diagnoses Encounter for screening for malignant neoplasm of colon Family history of colon cancer Arnel York CNP [address] [place] [address] Phone: tel: fax: Referral ID Status Reason Start Date Expiration Date Visits Requested Visits Authorized [id number] Pending Review Specialty Services Required 04/05/2026 1 1 Encounter Details Date Type Department Care Team (Late st Contact Info) Description 04/05/2025 9:15 AM EST Office Visit [facility] CHC MED & PEDS 505 [place] [address] Arnel York CNP [address] [place] [address] Hypertension, unspecified type (Primary Dx); Class 3 severe obesity with serious comorbidity and body mass index (BMI) of 40.0 to 44.9 in adult, unspecified obesity type (HCC); Encounter for screening for malignant neoplasm of colon; Family history of colon cancer; Transaminitis; Chronic constipation; Iron deficiency anemia, unspecified iron deficiency anemia type; Nausea Social History Tobacco Use Types Packs/Day Years [...] Sign Reading Time Taken Comments Blood Pressure 134/86 04/05/2025 9:26 AM EST Pulse 88 04/05/2025 9:26 AM EST Temperature 37.1 C (98.7 F) 04/05/2025 9:26 AM EST Respiratory Rate 14 04/05/2025 9:26 AM EST Oxygen Saturation - - Inhaled Oxygen Concentration - - Weight 112 kg (247 lb) 04/05/2025 9:26 AM EST Height 155.6 cm (5' 1.25 ) 04/05/2025 9:26 AM ES T Body Mass Index 46.29 04/05/2025 9:26 AM EST documented in this encounter Miscellaneous Notes * Assessment & Plan Note - Arnel York CNP - 04/05/2025 9:15 AM EST Associated Problem(s): Hypertensive disorder Orders: hydroCHLOROthiazide (HYDRODiuril) 25 MG tablet; Take 1 tablet (25 mg) by mouth in the morning. * Assessment & Plan Note - Arnel York CNP - 04/05/2025 9:15 AM EST Associated Problem(s): Transaminitis Orders: Comprehensive Metabolic Panel; Future Iron And Total Iron Binding Capacity; Future Ferritin; Future CBC auto differential; Future Lipase; Future * Assessment & Plan Note - Arnel York CNP - 04/05/2025 9:15 AM EST Associated Problem(s): Nausea Orders: omeprazole OTC (PriLOSEC OTC) 20 MG EC tablet; Take 1 tablet (20 mg) by mouth before breakfast. Do not crush, chew, or split. ondansetron (Zofran) 4 MG tablet; Take 2 tablets (8 mg) by mouth every 8 (eight) hours if needed for nausea or vomiting for up to 7 days. documented in this encounter Plan of Treatment Upcoming Encounters Date Type Department Care Team ([facility] st Contact Info) Description 06/07/2025 9:00 AM EST Office Visit [facility] CHC MED & PEDS [address] [place] [address] Arnel York CNP [address] [place] [address] 07/19/2025 9:30 AM EDT Office Visit [facility] OPTOMETRY [address] [place] [address] Corry Page, OD [address] [place] [address] Scheduled Orders Name Type Priority Associated Diagnoses Orde r Schedule Comprehensive Metabolic Panel Lab Routine Transaminitis Expected: 04/05/2025 (Approximate), Expires: 04/05/2026 Iron And Total Iron Binding Capacity Lab Routine Transaminitis Expected: 04/05/2025, Expires: 04/05/2026 Ferritin Lab Routine Transaminitis Expected: 04/05/2025, Expires: 04/05/2026 CBC auto differential Lab Routine Transaminitis Expected: 04/05/2025 (Approximate), Expires: 04/05/2026 Lipase Lab Routine Transaminitis Expected: 04/05/2025, Expires: 04/05/2026 Scheduled Referrals Name Type Priority Associated Diagnoses Order Schedule Referral to Gastroenterology Outpatient Referral Routine Encounter for screening for malignant neoplasm of colon Family history of colon cancer Expected: 04/05/2025 (Approximate), Expires: 04/05/2026 documented as of this encounter Visit Diagnoses Diagnosis Hypertension, unspecified type- Primary Class 3 severe obesity with serious comorbidity and body mass index (BMI) of 40.0 to 44.9 in adult, unspecified obesity type (HCC) Encounter for screening for malignant neoplasm of colon Family history of colon cancer Family history of malignant neoplasm of gastrointestinal tract Transaminitis Nonspecific elevation of levels of transaminase or lactic acid dehydrogenase (LDH) Chronic constipation Unspecified constipation Iron deficiency anemia, unspecified iron deficiency anemia type Nausea Nausea alone documented in this encounter Additional Health Concerns Assessment Noted Time PHQ-9 Depression Total Score: 2 12/25/19 25 10:08 AM EDT documented as of this encounter Care Teams Interpreter And Translator Relationship Specialty Start Date End Date Arnel York CNP [address] [place] [address] PCP - General Family Medicine 02/12/25 documented as of this encounter
--- OUTSIDE RECORDS SUMMARY | 2025-04-05 11:18 | XMS_ITS | Encounter Summary ---
Author Organization [employer] Address [address] [facility] 7 [place] [address] Care Team Providers Care Sales Representative Groceries Name Role Phone Monique Zaman MD Primary Care Provider [phone] Arnel York CNP Primary Care Provider [phone] Encounter Details Date Type Department Care Team (Late st Contact Info) Description 06/19/2024 Orders Only [facility] [address] [place] [address] Provider, MD Batsheva Social History Tobacco Use [...] Care Team (Late st Contact Info) Description 06/07/2025 9:00 AM EST Office Visit [facility] CHC MED & PEDS 505 [place], [place] [id number] Arnel York, POWER NUT RUNNER OPERATOR [address] [place] [address] 07/19/2025 9:30 AM EDT Office Visit [facility] OPTOMETRY [address] [place] [address] TarkaCorry, OD [address] [place] [address] documented as of this encounter Procedures Procedure [...] documented as of this encounter Care Teams Sales Representative Groceries Relationship Specialty Start Date End Date Monique Zaman MD [address] [place] [address] PCP - General Family Medicine 04/07/20 02/11/25 Arnel York CNP [address] [place] [address] PCP - General Family Medicine 02/12/25 documented as of this encounter
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
--- OUTSIDE RECORDS SUMMARY | 2025-04-05 11:18 | XMS_ITS | Encounter Summary ---
Author Organization [employer] Address [address] [facility] [address] 7t [place] [address] Care Team Providers Care Senior Lead Software Engineer Name Role Phone Monique Zaman MD Primary Care Provider [phone] Arnel York CNP Primary Care Provider [phone] Encounter Details Date Type Department Care Team ([facility] st Contact Info) Description 08/15/2024 Orders Only [facility] CHC MED & PEDS [address] [place] [address] Arlette Ghosh Social History Tobacco Use Types [...] Description 06/07/2025 9:00 AM EST Office Visit [facility] CHC MED & PEDS [address] [place], [place] [phone] Arnel York, WHITE SUGAR PAN TANK OPERATOR 505 [place] [address] 07/19/2025 9:30 AM EDT Office Visit [facility] OPTOMETRY [address] [place] [address] Corry Page, OD 267 [place] [address] documented as of this encounter Procedures Procedure [...] as of this encounter Care Teams Senior Lead Software Engineer Relationship Specialty Start Date End Date Monique Zaman MD [address] [place] [address] PCP - General Family Medicine 04/07/20 02/11/25 Arnel York CNP [address] [place] [address] PCP - General Family Medicine 02/12/25 documented as of this encounter
--- OUTSIDE RECORDS SUMMARY | 2025-04-05 11:18 | XMS_ITS | Encounter Summary ---
Author Organization [employer] Address 75 [facility] 7 [place] [address] Care Team Providers Care Esthetician Name Role Phone Arnel York CNP Primary Care Provider [phone] Reason for Visit * Reason Onset Date Comments Med Refill 03/01/2025 Encounter Details Date Type Department Care Team (Late st Contact Info) Description 03/01/2025 Telephone [facility] MEDICINE [address] [place] [address] Arnel York CNP 505 [place] [address] Med Refill Social History Tobacco Use Types [...] PCP SIDDHARTH York To be sent to [facility] documented in this encounter Plan of Treatment Upcoming Encounters Date Type Department Care Team (Late st Contact Info) Description 06/07/2025 9:00 AM EST Office Visit [facility] MED & PEDS [address] [place] [address] Arnel York, PACHECO [address] [place] [address] 07/19/2025 9:30 AM EDT Office Visit [facility] OPTOMETRY [address] [place] [address] Taysudha Corry, OD [address] [place] [address] documented as of this encounter Visit Diagnoses Not on filedocumented in this encounter Additional Health Concerns Assessment Noted Time PHQ-9 Depression Total Score: 2 12/25/19 25 10:08 AM EDT documented as of this encounter Care Teams Esthetician Relationship Specialty Start Date End Date Arnel York CNP [address] [place] [address] PCP - General Family Medicine 02/12/25 documented as of this encounter
--- OUTSIDE RECORDS SUMMARY | 2025-04-05 11:18 | XMS_ITS | Encounter Summary ---
Author Organization [employer] Address 75 [facility] 7 [place] [address] Care Team Providers Care Swine Genetics Researcher Name Role Phone Monique Zaman MD Primary Care Provider [phone] Arnel York CNP Primary Care Provider [phone] Reason for Visit * Reason Onset Date Comments Appointment Request 11/19/2024 Encounter Details Date Type Department Care Team ([facility] Contact Info) Description 11/19/2024 Telephone [facility] CHC MED & PEDS [address] [place] [address] Monique Zaman MD 505 [place] [address] Appointment Request Social History Tobacco Use Types [...] call back to book an apt with claim agent. Contact pt at [phone] documented in this encounter Plan of Treatment Upcoming Encounters Date Type Department Care Team ([facility] st Contact Info) Description 06/07/2025 9:00 AM EST Office Visit [facility] CHC MED & PEDS [address] [place] [address] Arnel York, EMPLOYEE BENEFITS MANAGER [address] [place] [address] 07/19/2025 9:30 AM EDT Office Visit [facility] OPTOMETRY [address] [place] [address] Corry Page, OD [address] [place] [address] documented as of this encounter Visit Diagnoses Not on filedocumented in this encounter Additional Health Concerns Assessment Noted Time PHQ-9 Depression Total Score: 0 10/23/19 23 10:29 AM EDT documented as of this encounter Care Teams Swine Genetics Researcher Relationship Specialty Start Date End Date Monique Zaman MD [address] [place] [address] PCP - General Family Medicine 04/07/20 02/11/25 Arnel York CNP [address] [place] [address] PCP - General Family Medicine 02/12/25 documented as of this encounter
--- OUTSIDE RECORDS SUMMARY | 2025-04-05 11:18 | XMS_ITS | Encounter Summary ---
Author Organization [employer] Address [address] [facility] [address] 7[address] [place] [address] Care Team Providers Care Gasateria Attendant Name Role Phone Monique Zaman MD Primary Care Provider [phone] Arnel York CNP Primary Care Provider [phone] Reason for Visit * Reason Onset Date Comments Referral 02/06/2024 Encounter Details Date Type Department Care Team ([facility] st Contact Info) Description 02/06/2024 Telephone [facility] MEDICINE [address] [place] [address] Monique Zaman MD 505 [place] [address] Referral Social History Tobacco Use Types Packs/Day [...] : DATE: 02/08/24 TIME: 1:00 PM Address: [address] [place] [address] Facility Name: [facility] Type of Specialist: Sign Shop Supervisor documented in this encounter Plan of Treatment Upcoming Encounters Date Type Department Care Team (Late st Contact Info) Description 06/07/2025 9:00 AM EST Office Visit [facility] CHC MED & PEDS 505 [place] [address] Arnel York, ISO COORDINATOR [address] [place] [address] 07/19/2025 9:30 AM EDT Office Visit [facility] OPTOMETRY [address] [place], [place] [phone] TarCorry haley, OD [address] [place] [address] documented as of this encounter Visit Diagnoses Not on filedocumented in this encounter Additional Health Concerns Assessment Noted Time PHQ-9 Depression Total Score: 0 10/23/19 23 10:29 AM EDT documented as of this encounter Care Teams Gasateria Attendant Relationship Specialty Start Date End Date Monique Zaman MD [address] [place] [address] PCP - General Family Medicine 04/07/20 02/11/25 Arnel York CNP [address] [place] [address] PCP - General Family Medicine 02/12/25 documented as of this encounter
--- OUTSIDE RECORDS SUMMARY | 2025-04-05 11:18 | XMS_ITS | Clinical Summary ---
Author Organization [employer] Address [address] [facility] [address] [place] [address] Care Team Providers Care Technical Support Analyst Name Role Phone YorkAravindkristidemi PACHECO Primary Care Provider [phone] Allergies No known active allergies Medications albuterol 108 (90 Base) MCG/ACT inhaler Inhale 2 puffs every 4 (four) hours if needed. 022 Active albuterol (2.5 MG/3ML) 0.083% nebulizer solution Inhale 3 mL every 6 (six) hours. 022 Active Tirzepatide-Antonio ght Management (Zepbound) 2.5 MG/0.5ML solution auto-injector Inject 0.5 mL (2.5 mg) under the skin 1 (one) time per week. 2 mL 3 025 Active meloxicam (Mobic) 7.5 MG tablet TAKE 1 TABLET BY MOUTH 2 TIMES DAILY. 60 tablet 3 025 Active omeprazole (PriLOSEC) [address] capsule TAKE 1 CAPSULE (20 MG) BY MOUTH BEFORE BREAKFAST 90 capsule 3 025 Active amLODIPine (Norvasc) 5 MG tabletIndicatio ns:Hypertension , unspecified type TAKE 1 TABLET BY MOUTH EVERY DAY 90 tablet 025 Active fluticasone (Flonase) 50 MCG/ACT nasal spray INSTILL 1 SRAY INTO BOTH NOSTRILS ONCE DAILY 48 mL 025 Active Acetaminophen Extra Strength 500 MG tablet Take 1 tablet by mouth every 8 (eight) hours if needed for pain. Active docusate sodium (Colace) 100 MG capsuleIndicati ons:Chronic constipation Take 1 capsule (100 mg) by mouth 2 times daily for 10 days. 20 capsule 025 2024 Active senna (Senokot) 8.6 MG tabletIndicatio ns:Chronic constipation Take 1 tablet (8.6 mg) by mouth at bedtime. 120 tablet Active omeprazole OTC (PriLOSEC OTC) 20 MG EC tabletIndicatio ns:Nausea Take 1 tablet (20 mg) by mouth before breakfast. Do not crush, chew, or split. 90 tablet 3 2025 Active ondansetron (Zofran) 4 MG tabletIndicatio ns:Nausea Take 2 tablets (8 mg) by mouth every 8 (eight) hours if needed for nausea or vomiting for up to 7 days. 20 tablet 2024 Active hydroCHLOROthia zide (HYDRODiuril) 25 MG tabletIndicatio ns:Hypertension , unspecified type Take 1 tablet (25 mg) by mouth in the morning. 90 tablet 3 Active SUMAtriptan (Imitrex) 50 MG tablet Take 1 tablet by mouth. 2024 Discontinued(M ed list cleanup (will not trigger notification to Pharmacy)) polyethylene glycol, PEG, 3350 (MiraLax) 17 GM/SCOOP powder take (17G) by oral route every day mixed with 8 oz. water, juice, soda, coffee or tea as needed for constipation 2024 Discontinued(M ed list cleanup (will not trigger notification to Pharmacy)) fluticasone (Flovent HFA) 110 MCG/ACT inhaler Inhale 2 puffs every 12 (twelve) hours. 2024 Discontinued(M ed list cleanup (will not trigger notification to Pharmacy)) diclofenac (Cataflam) 50 MG tablet Take 1 tablet by mouth every 12 (twelve) hours. 2024 Discontinued(M ed list cleanup (will not trigger notification to Pharmacy)) hydroCHLOROthia zide (HYDRODiuril) 25 MG tablet TAKE 1 TABLET(25 MG) BY MOUTH IN THE MORNING 90 tablet 1 023 2024 Discontinued(R eorder (will not trigger notification to Pharmacy)) fluticasone (Flonase) 50 MCG/ACT nasal spray Administer 1 spray into each nostril Once per day. 16 g 2 2024 Discontinued(R eorder (will not trigger notification to Pharmacy)) Acetaminophen 500 MG capsule Take 1 capsule orally tid prn pain 90 capsule 2024 Discontinued(R eorder (will not trigger notification to Pharmacy)) ibuprofen 400 MG tablet Take 1 tablet (400 mg) by mouth every 8 (eight) hours if needed for moderate pain, mild pain, fever or headaches. 60 tablet 2024 Discontinued(M ed list cleanup (will not trigger notification to Pharmacy)) hydrALAZINE (Apresoline) 10 MG tablet Take 1 tablet (10 mg) by mouth Once per day. 30 tablet 11 2024 Discontinued(M ed list cleanup (will not trigger notification to Pharmacy)) ferrous gluconate (Fergon) 324 (38 Fe) MG tablet Take 1 tablet (324 mg) by mouth with breakfast. 30 tablet 11 2024 Discontinued(M ed list cleanup (will not trigger notification to Pharmacy)) amLODIPine (Norvasc) 5 MG tabletIndicatio ns:Hypertension , unspecified type TAKE 1 TABLET BY MOUTH EVERY DAY 90 tablet 2024 Discontinued ondansetron (Zofran) 4 MG tablet Take 1 tablet (4 mg) by mouth every 8 (eight) hours if needed for nausea or vomiting for up to 5 days. 20 tablet 2024 Acetaminophen 500 MG capsule Take 1 capsule orally tid prn pain 90 capsule 2024 Discontinued(M ed list cleanup (will not trigger notification to Pharmacy)) fluticasone (Flonase) 50 MCG/ACT nasal spray Administer 1 spray into each nostril Once per day. 16 g /02/ 2025 Discontinued Active Problems Problem Noted Date Diagnosed Date Acute epigastric pain 04/03/2025 Carpal tunnel syndrome of left wrist 04/03/2025 Carpal tunnel syndrome of right wrist 04/03/2025 Cervicalgia 04/03/2025 Cholelithiasis 04/03/2025 Cubital tunnel syndrome on left 04/03/2025 Cubital tunnel syndrome on right 04/03/2025 Dysfunctional uterine bleeding 04/03/2025 Excessive flatus 04/03/2025 Indigestion 04/03/2025 Nausea 04/03/2025 Assessment & Plan (04/05/2025 9:53 AM EST): Orders: omeprazole OTC (PriLOSEC OTC) 20 MG EC tablet; Take 1 tablet (20 mg) by mouth before breakfast. Do not crush, chew, or split. ondansetron (Zofran) 4 MG tablet; Take 2 tablets (8 mg) by mouth every 8 (eight) hours if needed for nausea or vomiting for up to 7 days. Occipital neuralgia of right side 04/03/2025 Right facial numbness 04/03/2025 Transaminitis 04/03/2025 Assessment & Plan (04/05/2025 9:53 AM EST): Orders: Comprehensive Metabolic Panel; Future Iron And Total Iron Binding Capacity; Future Ferritin; Future CBC auto differential; Future Lipase; Future Trigger thumb, left thumb 04/03/2025 Trigger thumb, right thumb 04/03/2025 Urinary tract infection 04/03/2025 Vaginal bleeding 04/03/2025 Visit for wound check 04/03/2025 Migraine with aura 04/03/2025 Overview (04/03/2025): right lower facial numbness w/o weakness or speech changes Obstructive sleep apnea 04/03/2025 Overview (04/03/2025): on CPAP. f/b SMS. Viral upper respiratory tract infection 03/18/20 Assessment [...] Patient aware reports she has followed with [facility] for this but unclear why it has not been bx'ed or removed. 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 Resolved Problems Problem Noted Date Diagnosed Date [...] Encounters Date Type Department Care Team Description 04/05/2025 9:15 AM EST Office Visit [facility] [address] [place] [address] Arnel York CNP Hypertension, unspecified type (Primary Dx); Class 3 severe obesity with serious comorbidity and body mass index (BMI) of 40.0 to 44.9 in adult, unspecified obesity type (HCC); Encounter for screening for malignant neoplasm of colon; Family history of colon cancer; Transaminitis; Chronic constipation; Iron deficiency anemia, unspecified iron deficiency anemia type; Nausea 04/05/2025 Travel 04/03/2025 Telephone [facility] [address] [place] [address] Arnel York CNP chart prep 04/02/2025 Telephone [facility] [address] [place] [address] Arnle York CNP 04/02/2025 Telephone [facility] [address] [place] [address] Arnel York CNP Referral 04/01/2025 Orders Only GENERIC EXTERNAL DATA DEPARTMENT Provider, Generic External Data 03/18/2025 3:00 PM EST Office Visit [facility] [address] [address] Maryann Wood MD Influenza A (Primary Dx); Viral upper respiratory tract infection; Cough, unspecified type; Nausea and vomiting, unspecified vomiting type; Sore throat 03/18/2025 Refill [facility] [address] [place] [phone] Maryann Wood MD 03/18/2025 Travel 03/08/2025 Refill [facility] [address] [place] [address] Monique Zaman MD Hypertension, unspecified type 03/03/2025 Orders Only [facility] External Provider, [facility] 03/01/2025 Telephone [facility] [address] [place] [phone] Arnel York CNP Med Refill 02/28/2025 Refill [facility] [address] [place] [address] Monique Zaman MD 01/13/2025 Refill [facility] [address] [place] [address] Monique Zaman MD 01/04/2025 Orders Only [facility] [address] [place] [address] Provider, MD Batsheva from Last 3 Months [...] 14 04/05/2025 9:26 AM EST Oxygen Saturation 97% 03/18/2025 1:51 PM EST Inhaled Oxygen Concentration - - Weight 112 kg (247 lb) 04/05/2025 9:26 AM EST Height 155.6 cm (5' 1.25 ) 04/05/2025 9:26 AM ES T Body Mass Index 46.29 04/05/2025 9:26 AM EST Plan of Treatment Upcoming Encounters Date Type Department Care Team (Late st Contact Info) Description 06/07/2025 9:00 AM EST Office Visit [facility] [address] [place] [address] Arnel York, OFFAL BALER [address] [place], [place] [phone] 07/19/2025 9:30 AM EDT Office Visit [facility] [address] [place] [address] Corry Page, OD [address] [place] [address] Health Maintenance Due Date Last Done Comments Dental Oral Exam 1985 Dental Prophylaxis 1984 Dental X-Ray: Bitewings 1984 Family Planning (PISQ) 1999 HPV Vaccines (1 - 3-dose series) 1999 Hepatitis B Vaccines (1 of 3 - 19+ 3-dose series) 2003 Dental X-Ray: Full Mouth 01/02/2024 12/31/2020 COVID-19 Vaccine ( season) 2024 08/20/2020, 07/30/2020 Influenza Vaccine (#1) 2024 , 02/23/2022, 03/25/2020 SDOH Screening 08/30/2025 08/30/2024 Alcohol/Substance Use Screening 12/24/2025 12/24/2024 Depression Screening 12/24/2025 12/24/2024, 12/25/19 Disability Screening 12/24/2025 12/24/2024 Tobacco Screening 03/18/2026 03/18/2025 Mammogram 01/02/2027 01/02/2025, 04/2 08/2023, 08/11/2023, Additional history exists Cervical Cancer Screening 08/22/2027 HPV/Cotest 08/22/2027 08/21/2024, 10/2023, 08/23/2023, Additional history exists Pap Smear 08/22/2027 08/21/2024, 04/18, 08/23/2023, Additional history exists Lipid Panel 12/24/2029 12/24/2024, 09/2023, 12/29/2022, Additional history exists DTaP/Tdap/Td Vaccines (2 - Td or Tdap) 10/22/2032 10/22/2022 Zoster Vaccines (1 of 2) 2034 RSV Patients and Patients Aged 60 years or older (1 - 1-dose 75+ series) 2059 HIV Screening Completed 08/23/2023, 10/22/2022 Pneumococcal Vaccine: Pediatrics (0 to 5 Years) and At-Risk Patients (6 to 49) Years Completed 08/21/2024 Hepatitis C Screening Completed 04/01/2025, 023 HIB Vaccines Aged Out No longer eligi [...] Procedure Name Priority Date/Time Associated Diagnosis Comments HEPATITIS PANEL, GENERAL Routine 04/01/2025 11:05 PM EST ACETAMINOPHEN LEVEL Routine 04/01/2025 1 1:05 PM EST MONONUCLEOSIS TEST, QUALITATIVE Routine 04/01/2025 11:05 PM EST PROTHROMBIN TIME-INR Routine 04/01/2025 11:05 PM EST URINALYSIS, COMPLETE, WITH REFLEX TO CULTURE Routine 04/01/2025 10:40 PM EST US ABDOMEN LIMITED Routine 04/01/2025 9: 51 PM EST CULTURE, URINE, ROUTINE Routine 04/01/2025 12:00 AM EST POCT INFLUENZA B (ID NOW RAPID [...] AM EDT Screening examination for venereal disease from Last 3 Months or Most Recently Relevant to Health Maintenance Results * Hepatitis Panel, General (04/01/2025 11:05 PM EST) Hepatitis A IgM Nonreactive Nonreactive [facility] Comment:IgM antibodies to MONTALVO V not detected; does not exclude earlyacute or recovered HAV infection. ~Hepatitis B Surface Antibody REACTIVE Nonreactive [facility] Comment:REACTIVE: > 11.99 mI U/mL Hepatitis B Core Antibody Nonreactive Nonreactive [facility] Hepatitis C Antibody Nonreactive Nonreactive [facility] Comment:Antibodies to HCV no t detected; does not exclude early acuteHCV infection. Hepatitis B Surface Ag Negative Negative [facility] 04/01/2025 11:0 5 PM EST 04/01/2025 11:09 PM EST Generic External Data Provider LAB BLOOD ORDERAB LES Final Result Performing Organization Address [facility] Co de Phone Number [facility] [address] [place] [phone] * Mononucleosis Test, Qualitative (04/01/2025 11:05 PM EST) Monotest Negative Negative [facility] 04/01/2025 11:0 5 PM EST 04/01/2025 11:09 PM EST Crittercism External Data Provider LAB BLOOD ORDERAB LES Final Result Performing Organization Address [facility] Phone Number [facility] [address] [place] [phone] * Prothrombin Time-INR (04/01/2025 11:05 PM EST) Prothrombin Time 12.8 11.2 - 13.5 SEC [facility] INTERNATIONAL NORM RATIO 1.0 0.9 - 1.1 [facility] Comment:INTERNATIONAL NORMAL IZED RATIO (INR) REFERENCE RANGES Reference RangeFor patients not on anticoagulant therapy: 0.9 - 1.1INR ranges for oral anticoagulanttherapy:For prevention and treatment of venous thrombosis and pulmonary embolism: 2.0 - 3.0For acute myocardial infarction with aspirin therapy: 2.0 - 3.0For acute myocardial infarction without aspirin therapy: 3.0 - 4.0For patients with mechanical prosthetic heart valves: 2.5 - 3.5 04/01/2025 11:0 5 PM EST 04/01/2025 11:09 PM EST us Generic External Data Provider LAB BLOOD ORDERAB LES Final Result Performing Organization Address City/[facility]/ZIP Co de Phone Number [facility] [address] [place] [phone] * Acetaminophen level (04/01/2025 11:05 PM EST) Acetaminophen LAB <3 <30 mcg/mL [facility] 04/01/2025 11:0 5 PM EST 04/01/2025 11:09 PM EST Generic External Data Provider LAB BLOOD ORDERAB LES Final Result Performing Organization Address [facility] Co de Phone Number [facility] [address] [place] [phone] * (ABNORMAL) Urinalysis, Complete, with Reflex to Culture (04/01/2025 10:40 PM EST) Color Urine Dark Yellow [facility] Appearance Urine Cloudy [facility] PH 6.5 5.0 - 9.0 [facility] Glucose Urine UA Negative Negative mg/dL [facility] Urine Blood Trace(A) Negative [facility] Specific [place] - Urine 1.015 1.005 - 1.025 [facility] Urine Protein Negative Neg-Trace mg/dL [facility] Urine Ketones Negative Negative mg/dL [facility] Nitrite Urine Negative Negative [facility] Leukocyte Esterase Urine Moderate (2+)(A) Negative [facility] RBC Urine 3-5(A) 0 - 2 /HPF [facility] Urine WBC 6-10(A) 0 - 5 /HPF [facility] Urine Squamous Epithelial Cell 3-5 0 - 2 /HPF [facility] Urine Bacteria Trace None Seen [facility] Hyaline Casts, Urine 0-2 0 - 2 /LPF [facility] 04/01/2025 10:4 0 PM EST 04/01/2025 10:47 PM EST Narrative [facility] - 04/01/2025 10:57 PM EST Urine, Clean Catch us Generic External Data Provider LAB URINE ORDERAB LES Final Result Performing Organization Address City/State/[facility] Co de Phone Number [facility] [address] [place] [phone] * US Abdomen Limited (04/01/2025 9:51 PM EST) Anatomical Region Laterality Modality Abdomen Ultrasound 04/01/2025 9:51 PM EST Narrative 04/01/2025 9:53 PM EST [address] [address] Ultrasound Report Signed Patient: Wale Cruz MR#: [id number] : 1985 Acct:[id number] Age/Sex: 40 / F ADM Date: 04/01/25 Loc: HO.ED Attending Dr: Ordering Physician: Maritza Garcia Date of Service: 04/01/25 Procedure(s): US abdomen limited Accession Number(s): [id number] cc: Maritza Garcia; Monique Zaman MD Reason [...] in OV> 04/01/252152 DD/ 50 TD/TT: 04/01/252150 Still Operator Gin: Procedure Note Tasneem, Image - 04/01/2025 [place] [address] Ultrasound Report Signed Patient: Wale Cruz MR#: [id number] : 1985Acct:[id number] Age/Sex: 40 / FADM Date: 04/01/25 Loc: .ED Attending Dr: Ordering Physician: Maritza Garcia Date of Service: 04/01/25 Procedure(s): US abdomen limited Accession Number(s): [id number] cc: Maritza Garcia; Monique Zaman MD Reason [...] in OV> 04/01/252152 DD/ 50 TD/TT: 04/01/252150 Still Operator Gin: us [facility] External Provider IMG US PROCEDURES Final Result * Culture, Urine, Routine (04/01/2025 12:00 AM EST) Urine Urine specimen obtained by clean catch procedure / Unknown 04/01/2025 04/01/2025 Comment:UACC Narrative [facility] - 04/03/2025 1:32 PM EST Strep agalactiae (Grp B) Quant > 100,000 cfu/mL Susc N/A Susceptibility not routinely performed on this isolate. Specimen Source: Urine clean catch Generic External Data Provider LAB MICROBIOLOGY - GENERAL ORDERABLES Final Result Performing Organization Address [facility] Co de Phone Number [facility] [address] [place] [phone] * POCT Rapid Influenza B DÍAZ ID NOW (03/18/2025 2:15 PM EST) Pathologist [facility] Influenza B Negative Negative, Indeterminate [facility] QC Media Lot # [id number] [facility] Lot# Expiration Date [facility] Swab 03/18/2025 2:15 PM EST Maryann Wood MD POINT OF CARE TEST ENTER /EDIT ORDERABLES Final Result Performing Organization Address [facility] Co de Phone Number [facility] [address] [place] [phone] * POCT Rapid Covid-19 BinaxNOW (03/18/2025 2:15 PM EST) Rapid COVID Ag Negative QC Media Lot # [id number] Lot# Expiration Date , Swab 03/18/2025 2:15 PM EST Maryann Wood MD POINT OF CARE TEST ENTER /EDIT ORDERABLES Final Result * POCT Rapid Strep A DÍAZ ID NOW (03/18/2025 2:14 PM EST) Rapid Strep A Screen Negative Negative, None Detected QC Media Lot # [id number] Lot# Expiration Date 111 Swab 03/18/2025 2:14 PM EST Maryann Wood MD POINT OF CARE TEST ENTER /EDIT ORDERABLES Final Result * (ABNORMAL) POCT Rapid Influenza A DÍAZ ID NOW (03/18/2025 2:08 PM EST) Influenza A Positive( A) Negative, Indeterminate [facility] QC Media Lot # [id number] [facility] Lot# Expiration Date [facility] Swab 03/18/2025 2:08 PM EST Maryann Wood MD POINT OF CARE TEST ENTER /EDIT ORDERABLES Final Result Performing Organization Address City/State/[facility] Co de Phone Number [facility] [address] [place] [phone] * XR KUB and Upright 2 Views (03/03/2025 5:10 AM EST) Anatomical Region Laterality Modality Radiographic Mamie ging 03/03/2025 5:10 AM EST Narrative 03/03/2025 5:12 AM EST [address] [address] XRay Report Signed Patient: Wale Cruz MR#: [id number] : 1985 Acct:[id number] Age/Sex: 39 / F ADM Date: 03/03/25 Loc: .ED Attending Dr: Ordering Physician: Elena Hinds Date of Service: 03/03/25 Procedure(s): XR KUB Accession Number(s): [id number] cc: Elena Hinds; Monique Zaman MD Reason [...] Marni Hayes MD in OV> 03/03/25511 DD/ TD/TT: 03/03/25509 Still Operator Gin: Procedure Note Donotrayrayinterpreter, Image - 03/03/[address] [address] XRay Report Signed Patient: Wale Cruz MR#: [id number] : 1985Acct:[id number] Age/Sex: 39 / FADM Date: 03/03/25 Loc: HO.ED Attending Dr: Ordering Physician: Elena Hinds Date of Service: 03/03/25 Procedure(s): XR KUB Accession Number(s): [id number] cc: Elena Hinds; Monique Zaman MD Reason [...] in OV> 03/03/25511 DD/ 9 TD/TT: 03/03/25509 Still Operator Gin: us [facility] External Provider IMG XR PROCEDURES Final Result * XR Chest 1 View (03/03/2025 5:10 AM EST) Anatomical Region Laterality Modality Chest Radiographic Mamie ging 03/03/2025 5:10 AM EST Narrative 03/03/2025 5:11 AM EST [address] [address] XRay Report Signed Patient: Wale Cruz MR#: [id number] : 1985 Acct:[id number] Age/Sex: 39 / F ADM Date: 03/03/25 Loc: HO.ED Attending Dr: Ordering Physician: Elena Hinds Date of Service: 03/03/25 Procedure(s): XR chest 1V Accession Number(s): [id number] cc: Elena Hinds; Monique Zaman MD Reason [...] in OV> 03/03/25 0511 DD/ 0510 TD/TT: 03/03/25 0510 Still Operator Gin: Procedure Note Donotuseinterpreter, Image - 03/03/2025 [place] [address] XRay Report Signed Patient: Wale Cruz MR#: [id number] : 1985Acct:[id number] Age/Sex: 39 / FADM Date: 03/03/25 Loc: .ED Attending Dr: Ordering Physician: Elena Hinds Date of Service: 03/03/25 Procedure(s): XR chest 1V Accession Number(s): [id number] cc: Elena Hinds; Monique Zaman MD Reason [...] in OV> 03/03/25 0511 DD/ 0510 TD/TT: 03/03/25509 Still Operator Gin: [facility] External Provider IMG XR PROCEDURES Final Result * Hm Mammography (01/02/2025 1:11 PM EDT) Anatomical Region Laterality Modality Other Historical Provider HEALTH MAINTENANCE Final Result * (ABNORMAL) Lipid Panel, Standard (12/24/2024 10:32 AM EDT) Triglycerides 147 <150 mg/dL [facility] Comment:Desirable Triglyceri de: less than 150 mg/dLBorderline High Triglyceride 150-199 mg/dLHigh Triglyceride: 200-499 mg/dLVery High Triglyceride: greater than or equal to 5OO mg/dL Cholesterol 153 <200 mg/dL [facility] Comment:Desirable Cholestero l: less than 200 mg/dLBorderline High Cholesterol: 200-239 mg/dLHigh Cholesterol: greater than 239 mg/dL LDL Cholesterol Calculated 93 <100 mg/dL [facility] Comment:Desirable LDL: less than 100 mg/dLNear Optimal/Above Optimal LDL: 110- 129 mg/dLBorderline High LDL: 130-159 mg/dLHigh LDL: 160-189 mg/dLVery High LDL: greater than or equal to 190 mg/dL HDL Cholesterol 31(L) >40 mg/dL [facility] Comment:Desirable HDL: great er than 40 mg/dL Note: This HDL assay may give artificially low results in patients with liver disease. Blood Venous blood specimen / Unknown 12/24/2024 10:32 AM EDT 12/24/2024 2:52 PM EDT Monique Zaman MD LAB BLOOD ORDERABLES Final Resul t [facility] [address] [place] [phone] * HPV High Risk with Reflex to Subtypes (08/21/2024 11:55 AM EDT) HPV High Risk Negative Negative [facility] HPV Genotype 16 Negative Negative [facility] HPV Genotype 18 Negative Negative [facility] Comment:HPV testing performe d at [facility] (CLIA#[id number]), [address] [place] [phone].Testing for HPV was performed using the Isabel [...] MD LAB BLOOD ORDERABLES Final Re sult [facility] [address] [place] [phone] * Pap Smear (08/21/2024 11:55 AM EDT) Swab 08/21/2024 11:5 5 AM EDT 08/22/2024 6:00 AM EDT [facility] - 09/12/2024 6:35 AM EDT ----- ------- Name: Wale Montague Age/Sex: 39/F : 1985 Unit#: [id number] Attend Dr: Rossana Mac MD Re08/21/24 Status: DEP REF Location: HO.CHCLNP Disch: ----- ------- SPEC : [id number] RECD: 08/22/24 STATUS: DESMOND LAURA NUM: [id number] AMY: 08/21/24 [facility] DR: Rossana Mac MD ENTERED: 08/22/24 SP [...] ----- ------- Signed (signature on file) Bo ALE Philippe ([facility]) 08/24/24 1234 ----- ------- END OF REPORT us Rossana Mac MD LAB CYTOLOGY ORDERABLES Final Result Performing Organization Address [facility] Co de Phone Number [facility] [address] [place] [phone] * HIV-1/2 Antigen and Antibodies, Fourth Generation, with Reflexes (08/23/2023 11:41 AM EDT) [facility] HIV AB/AG Nonreactive Nonreactive [facility] Comment:HIV-1 p24 Ag and/or HIV-1/HIV-2 Ab not detected.A test result that is nonreactive does not exclude thepossibility of exposure to or infection with HIV-1 and/orHIV-2. Nonreactive results in this assay for individualswith prior exposure to HIV-1 and/or HIV-2 may be due toantigen and antibody levels that are below the limit ofdetection of this assay.The [employer] HIV Ag/Ab Combo assay result andsupplemental assay results should be interpreted inconjunction with the patient's clinical presentation,history and other laboratory results. If the results areinconsistent with clinical evidence, additional testing issuggested to confirm the result. Blood Venous blood specimen / Unknown 08/23/2023 11:41 AM EDT 08/23/2023 2:19 PM EDT us Rashmi MCCRARY LAB BLOOD ORDERABLES Irene l Result Performing Organization Address [facility] Co de Phone Number [facility] [address] [place] [phone] from Last 3 Months or Most Recently Relevant to Health Maintenance Insurance [place] [facility] MEDICAID STAND ADULT PRO[employer]IVE [employer]URANCE Care Teams Technical Support Analyst Relationship Specialty Start Date End Date Arnel York CNP [address] [place] [address] PCP - General Family Medicine 02/12/25
--- OUTSIDE RECORDS SUMMARY | 2025-04-05 11:18 | XMS_ITS | Encounter Summary ---
Author Organization [employer] Address [address] 7t [place] [address] Care Team Providers Care Blast Furnace Helper Name Role Phone Arnel York PACHECO Primary Care Provider [phone] Encounter Details Date Type Department Care Team (Latest Contact Info) Description 04/05/2025 Travel Social History Tobacco Use Types Packs/Day [...] Description 06/07/2025 9:00 AM EST Office Visit [facility] [address] [place], [place] [phone] Arnel York CNP 505 [place] [address] 07/19/2025 9:30 AM EDT Office Visit [facility] [address] [place], [place] [phone] TarkaCorry, OD [address] [place] [address] documented as of this encounter Visit Diagnoses Not on filedocumented in this encounter Additional Health Concerns Assessment Noted Time PHQ-9 Depression Total Score: 2 12/25/19 25 10:08 AM EDT documented as of this encounter Care Teams Blast Furnace Helper Relationship Specialty Start Date End Date Arnel York CNP [address] [place] [address] PCP - General Family Medicine 02/12/25 documented as of this encounter
--- OUTSIDE RECORDS SUMMARY | 2025-04-05 11:18 | XMS_ITS | Encounter Summary ---
Author Organization [employer] Address [address] [facility] 7t [place] [address] Care Team Providers Care Gold Charmer Name Role Phone Jaylen Aravindkrissy BERGMAN Primary Care Provider [phone] Reason for Visit * Reason Comments Med Refill Encounter Details Date Type Department Care Team ([facility] st Contact Info) Description 02/28/2025 Refill [facility] MED & PEDS [address] [place] [address] Monique Zaman MD 505 [place] [address] Social History Tobacco Use Types Packs/Day Years [...] 2:53 PM EST TC to pt with [facility] wood caulker. Advised for pt to be seen and [...] Description 06/07/2025 9:00 AM EST Office Visit [facility] [address] [place] [address] Arnel York, PACHECO 505 [place] [address] 07/19/2025 9:30 AM EDT Office Visit [facility] [address] [place] [address] Corry Page, OD [address] [place] [address] documented as of this encounter Visit Diagnoses Not on filedocumented in this encounter Additional Health Concerns Assessment Noted Time PHQ-9 Depression Total Score: 2 12/25/19 10:08 AM EDT documented as of this encounter Care Teams Gold Charmer Relationship Specialty Start Date End Date Arnel York CNP [address] [place] [address] PCP - General Family Medicine 02/12/25 documented as of this encounter
--- OUTSIDE RECORDS SUMMARY | 2025-04-05 11:18 | XMS_ITS | Encounter Summary ---
Author Organization [employer] Address [address] 7[address] [place] [address] Care Team Providers Care Battery Filler Name Role Phone Monique Zaman MD Primary Care Provider [phone] Arnel York CNP Primary Care Provider [phone] Encounter Details Date Type Department Care Team ([facility] st Contact Info) Description 08/23/2023 Orders Only [facility]EDS [address] [place] [address] ProviderBatsheva MD Social History Tobacco Use Types [...] on results and no previous testing in [facility], 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 I can't say how long she has had this. Please confirm with Sharri or Ashley at [facility]. Depending on [facility] findings, she will need an appointment for [...] Description 06/07/2025 9:00 AM EST Office Visit [facility] [address] [place] [address] Arnel York, PACHECO 505 [place] [address] 07/19/2025 9:30 AM EDT Office Visit [facility] [address] [place] [address] Corry Page, OD [address] [place] [address] documented as of this encounter Procedures Procedure [...] Rapid Plasma Reagin, Quant Reactive 1:32(A) Nonreactive [facility] Treponema pallidum Antibody, Particle Agglutination Reactive(A) Nonreactive [facility] Comment:These results must b e reported by the ordering clinician orclinical facility to the [facility] required by state law.Testing performed at: [address] [address] 08/23/2023 11:4 1 AM EDT 08/24/2023 3:39 AM EDT Rashmi MCCRARY LAB BLOOD ORDERABLES Irene vazquez Result [facility] [address] [place] [address] [phone] * (ABNORMAL) HPV mRNA E6/E7 w/Reflex to HPV Genotypes 16, 18/45 (08/23/2023 11:36 AM EDT) HPV nRNA E6/E7 Detected(A ) Not Detected [facility] Comment:Methodology: Transcr iption-Mediated AmplificationThis assay detects E6/E7 viral messenger RNA (mRNA) from 14high-risk HPV types (16,18,31,33,35,39,45,51,52,56,58,59,66,68).Cervical sources are required for HPV testing.If a vaginal source from a patient who has had atotal hysterectomy with removal of cervix wassubmitted, please contact the testing laboratoryfor alternative testing options.For additional information, please refer [email or web address]/faq/[email or web address](This link if provided for information/educational purposes only.)THIS TEST WAS PERFORMED AT:[facility] [address] [id number] MEADE MD HPV 16 RNA NOT DETECTED NOT DETECTED [facility] HPV 18/45 RNA NOT DETECTED NOT DETECTED [facility] Comment:Methodology: Transcr iption Mediated AmplificationCervical sources are required for HPV testing.If a vaginal source from a patient who has had atotal hysterectomy with removal of cervix wassubmitted, please contact the testing laboratoryfor alternative testing options.THIS TEST WAS PERFORMED AT:[facility] [address] [id number] MEADE MD 08/23/2023 11:3 6 AM EDT 08/24/2023 8:20 AM EDT Rashmi Espino [facility] CYTOLOGY ORDERABLES F inal Result [facility] [address] [place] [address] [phone] * Mammogram Diagnostic Right (08/11/2023 4:08 PM EDT) Anatomical Region Laterality Modality Breast Right Mammography Historical Provider MD CEDENO BI PROCEDURES Final R esult documented in this encounter Visit Diagnoses Not on filedocumented in this encounter Additional Health Concerns Assessment Noted Time PHQ-9 Depression Total Score: 0 10/23/19 23 10:29 AM EDT documented as of this encounter Care Teams Battery Filler Relationship Specialty Start Date End Date Monique Zaman MD [address] [place] [address] PCP - General Family Medicine 04/07/20 02/11/25 Arnel York CNP [address] [place] [address] PCP - General Family Medicine 02/12/25 documented as of this encounter
--- OUTSIDE RECORDS SUMMARY | 2025-04-05 11:18 | XMS_ITS | Encounter Summary ---
Author Organization [employer] Address [address] [facility] 7t [place] [address] Care Team Providers Care Mold Repair Technician Name Role Phone Monique Zaman MD Primary Care Provider [phone] Arnel York CNP Primary Care Provider [phone] Reason for Visit * Reason Onset Date Comments Medication Question 01/20/2024 Encounter Details Date Type Department Care Team ([facility] Contact Info) Description 01/20/2024 Telephone [facility]ED[facility] [address] [place] [address] Monique Zaman MD [address] [place] [address] Medication Question Social History Tobacco Use Types [...] 1:55 PM EDT TC placed to pt [phone] via [employer] in regards to below message. Pt [...] calling to inform had surgery today at [facility] for Carpal Tunnel on right wrist. Pt stateswas prescribed tylenol and ibuprofen but informs that those medication does not help with the pain and would like a stronger medication. Please call pt to clarify. documented in this encounter Plan of Treatment Upcoming Encounters Date Type Department Care Team (Late st Contact Info) Description 06/07/2025 9:00 AM EST Office Visit [facility] [address] [place], [place] [phone] Arnel York CNP [address] [place], [place] [phone] 07/19/2025 9:30 AM EDT Office Visit [facility] [address] [place], [place] [phone] TarkaCorry, OD [address] [place] [address] documented as of this encounter Visit Diagnoses Not on filedocumented in this encounter Additional Health Concerns Assessment Noted Time PHQ-9 Depression Total Score: 0 10/23/19 23 10:29 AM EDT documented as of this encounter Care Teams Mold Repair Technician Relationship Specialty Start Date End Date Monique Zaman MD [address] [place] [address] PCP - General Family Medicine 04/07/20 02/11/25 Arnel York CNP [address] [place] [address] PCP - General Family Medicine 02/12/25 documented as of this encounter
--- OUTSIDE RECORDS SUMMARY | 2025-04-05 11:18 | XMS_ITS | Encounter Summary ---
Author Organization [employer] Address [address] [facility] 7 [place] [address] Care Team Providers Care Professor Of Vegetable Science Name Role Phone Arnel York CNP Primary Care Provider [phone] Encounter Details Date Type Department Care Team ([facility] st Contact Info) Description 04/02/2025 Telephone [facility] & [facility]EDS [address] [place], [place] [phone] Arnel York CNP [address] [place] [address] Social History Tobacco Use Types Packs/Day Years [...] Description 06/07/2025 9:00 AM EST Office Visit [facility]EDS [address] [place] [address] Arnel York CNP [address] [place] [address] 07/19/2025 9:30 AM EDT Office Visit [facility] [address] [place] [address] TarkaCorry, OD [address] [place] [address] documented as of this encounter Visit Diagnoses Not on filedocumented in this encounter Additional Health Concerns Assessment Noted Time PHQ-9 Depression Total Score: 2 12/25/19 10:08 AM EDT documented as of this encounter Care Teams Professor Of Vegetable Science Relationship Specialty Start Date End Date Arnel York CNP [address] [place] [address] PCP - General Family Medicine 02/12/25 documented as of this encounter
--- OUTSIDE RECORDS SUMMARY | 2025-04-05 11:18 | XMS_ITS | Encounter Summary ---
Author Organization [employer] Address [address] 7[address] [place] [address] Care Team Providers Care Study Director Name Role Phone Monique Zaman MD Primary Care Provider [phone] Arnel York CNP Primary Care Provider [phone] Encounter Details Date Type Department Care Team ([facility] st Contact Info) Description 01/04/2025 Orders Only [facility] [address] [place] [address] Provider, MD Batsheva Social History Tobacco Use [...] Description 06/07/2025 9:00 AM EST Office Visit [facility] [address] [place] [address] IndianaAravinddemi, SURFACE GRINDER TENDER [address] [place] [address] 07/19/2025 9:30 AM EDT Office Visit [facility] [address] [place] [address] Tarka, Corry, OD [address] [place] [address] documented as of this encounter Procedures Procedure [...] documented as of this encounter Care Teams Study Director Relationship Specialty Start Date End Date Monique Zaman MD [address] [place] [address] PCP - General Family Medicine 04/07/20 02/11/25 Arnel York CNP [address] [place] [address] PCP - General Family Medicine 02/12/25 documented as of this encounter
--- OUTSIDE RECORDS SUMMARY | 2025-04-05 11:18 | XMS_ITS | Encounter Summary ---
Author Organization [employer] Address [address] [facility] 7t [place] [address] Care Team Providers Care Front Desk Officer Name Role Phone Monique Zaman MD Primary Care Provider [phone] Arnel York CNP Primary Care Provider [phone] Reason for Visit * Reason Comments Med Change Request Encounter Details Date Type Department Care Team ([facility] st Contact Info) Description 09/12/2024 Refill [facility] & PEDS [address] [place], [place] [phone] Monique Zaman MD [address] [place] [address] Hypertension, unspecified type Social History Tobacco Use [...] 9:00 AM EST Office Visit [facility] MED [facility] PEDS [address] [place] [address] Arnel York CNP [address] [place] [address] 07/19/2025 9:30 AM EDT Office Visit [facility] [address] [place] [address] TarCorry haley, OD [address] [place] [address] documented as of this encounter Visit Diagnoses Diagnosis Hypertension, unspecified type documented in this encounter Additional Health Concerns Assessment Noted Time PHQ-9 Depression Total Score: 0 10/23/19 23 10:29 AM EDT documented as of this encounter Care Teams Front Desk Officer Relationship Specialty Start Date End Date Monique Zaman MD [address] [place] [address] PCP - General Family Medicine 04/07/20 02/11/25 Arnel York CNP [address] [place] [address] PCP - General Family Medicine 02/12/25 documented as of this encounter
--- OUTSIDE RECORDS SUMMARY | 2025-04-05 11:18 | XMS_ITS | Encounter Summary ---
Author Organization [employer] Address [address] [facility] 7t [place] [address] Care Team Providers Care Elderly Sitter Name Role Phone Monique Zaman MD Primary Care Provider [phone] Arnel York CNP Primary Care Provider [phone] Reason for Visit * Reason Comments Med Refill Encounter Details Date Type Department Care Team ([facility] st Contact Info) Description 01/13/2025 Refill [facility] MED & PEDS [address] [place] [address] Monique Zaman MD [address] [place] [address] Social History Tobacco Use Types Packs/Day Years [...] Description 06/07/2025 9:00 AM EST Office Visit [facility] MED & PEDS [address] [place] [address] Arnel York, SNACK BAR ATTENDANT [address] [place] [address] 07/19/2025 9:30 AM EDT Office Visit [facility] [address] [place] [address] Corry Page, OD [address] [place] [address] documented as of this encounter Visit Diagnoses Not on filedocumented in this encounter Additional Health Concerns Assessment Noted Time PHQ-9 Depression Total Score: 2 12/25/19 25 10:08 AM EDT documented as of this encounter Care Teams Elderly Sitter Relationship Specialty Start Date End Date Monique Zaman MD [address] [place] [address] PCP - General Family Medicine 04/07/20 02/11/25 Arnel York CNP [address] [place] [address] PCP - General Family Medicine 02/12/25 documented as of this encounter
--- OUTSIDE RECORDS SUMMARY | 2025-04-05 11:19 | XMS_ITS | Encounter Summary ---
Author Organization [employer] Address [address] [facility] 7 [place] [address] Care Team Providers Care Alarm Field Technician Name Role Phone Arnel York CNP Primary Care Provider [phone] Reason for Visit * Reason Onset Date Comments Referral 04/02/2025 Encounter Details Date Type Department Care Team ([facility] st Contact Info) Description 04/02/2025 Telephone [facility] MED & PEDS 505 [place], [place] [phone] Arnel York CNP [address] [place] [address] Referral Social History Tobacco Use Types Packs/Day [...] encounter Miscellaneous Notes * Telephone Encounter - Kaylie De Dios RN - 04/02/2025 3:15 PM EST Called pt regarding request for referrals, spoke to pt through [facility] [employer]. Advised to pt that she has scheduled appointment with PCP on 04/05 and should speak to her at that time about the referrals. Pt understands and agrees with plan. * Telephone Encounter - Jordan Villalta - 04/02/2025 2:30 PM EST Tc from pt sister requesting a referral for a bath design sales consultant. Sister is also requesting anotherreferral for general surgery. Any questions contact pt at [phone] documented in this encounter Plan of Treatment Upcoming Encounters Date Type Department Care Team (Late st Contact Info) Description 06/07/2025 9:00 AM EST Office Visit [facility] MED & PEDS [address] [place] [address] Arnel York CNP [address] [place] [address] 07/19/2025 9:30 AM EDT Office Visit [facility] [address] [place], [place] [phone] Corry Page, OD [address] [place] [address] documented as of this encounter Visit Diagnoses Not on filedocumented in this encounter Additional Health Concerns Assessment Noted Time PHQ-9 Depression Total Score: 2 12/25/19 10:08 AM EDT documented as of this encounter Care Teams Alarm Field Technician Relationship Specialty Start Date End Date Arnel York CNP 505 [facility] [place] [address] PCP - General Family Medicine 02/12/25 documented as of this encounter
--- OUTSIDE RECORDS SUMMARY | 2025-04-05 11:19 | XMS_ITS | Encounter Summary ---
Author Organization [employer] Address [address] [place] [address] Care Team Providers Care Aerospace Manager Name Role Phone Arnel York PACHECO Primary Care Provider [phone] Encounter Details Date Type Department Care Team (Late st Contact Info) Description 04/01/2025 Orders Only GENERIC EXTERNAL DATA DEPARTMENT Provider, Generic External Data Social History Tobacco Use Types Packs/Day Years [...] [facility] [address] [place], [place] [id number] Arnel York, TYPE COPYIST [address] [place] [address] 07/19/2025 9:30 AM EDT Office Visit [facility] [address] [place] [address] Corry Page, OD [address] [place] [address] documented as of this encounter Procedures Procedure Name Priority Date/Time Associated Diagnosis Comments HEPATITIS PANEL, GENERAL Routine 04/01/2025 11:05 PM EST MONONUCLEOSIS TEST, QUALITATIVE Routine 04/01/2025 11:05 PM EST PROTHROMBIN TIME-INR Routine 04/01/2025 11:05 PM EST ACETAMINOPHEN LEVEL Routine 04/01/2025 1 1:05 PM EST URINALYSIS, COMPLETE, WITH REFLEX TO CULTURE Routine 04/01/2025 10:40 PM EST CULTURE, URINE, ROUTINE Routine 04/01/2025 12:00 AM EST documented in this encounter Results * Hepatitis Panel, General (04/01/2025 11:05 PM EST) Pathologist [facility] Hepatitis A IgM Nonreactive Nonreactive [facility] Comment:IgM antibodies to [place] V not detected; does not exclude earlyacute or recovered HAV infection. ~Hepatitis B Surface Antibody REACTIVE Nonreactive [facility] Comment:REACTIVE: > 11.99 mI U/mL Hepatitis B Core Antibody Nonreactive Nonreactive [facility] Hepatitis C Antibody Nonreactive Nonreactive [facility] Comment:Antibodies to HCV no t detected; does not exclude early acuteHCV infection. Hepatitis B Surface Ag Negative Negative [facility] 04/01/2025 11:0 5 PM EST 04/01/2025 11:09 PM EST Generic External Data Provider LAB BLOOD ORDERAB LES Final Result Performing Organization Address [facility] de Phone Number [facility] [address] [place] [phone] * Acetaminophen level (04/01/2025 11:05 PM EST) [facility] Acetaminophen LAB <3 <30 mcg/mL [facility] 04/01/2025 11:0 5 PM EST 04/01/2025 11:09 PM EST Generic External Data Provider LAB BLOOD ORDERAB LES Final Result Performing Organization Address [facility] de Phone Number [facility] [address] [place] [address] [phone] * Mononucleosis Test, Qualitative (04/01/2025 11:05 PM EST) [facility] Monotest Negative Negative [facility] 04/01/2025 11:0 5 PM EST 04/01/2025 11:09 PM EST us Generic External Data Provider LAB BLOOD ORDERAB LES Final Result Performing Organization Address [facility] Co de Phone Number [facility] [address] [place] [phone] * Prothrombin Time-INR (04/01/2025 11:05 PM EST) Prothrombin Time 12.8 11.2 - 13.5 SEC [facility] INTERNATIONAL NORM RATIO 1.0 0.9 - 1.1 [facility] Comment:INTERNATIONAL NORMAL IZED RATIO (INR) [...] ORDERAB LES Final Result Performing Organization Address [facility] Co de Phone Number [facility] [address] [place] [phone] * (ABNORMAL) Urinalysis, Complete, with Reflex to Culture (04/01/2025 10:40 PM EST) Color Urine Dark Yellow [facility] Appearance Urine Cloudy [facility] PH 6.5 5.0 - 9.0 [facility] Glucose Urine UA Negative Negative mg/dL [facility] Urine Blood Trace(A) Negative [facility] Specific [place] - Urine 1.015 1.005 - 1.025 [facility] Urine Protein Negative Neg-Trace mg/dL [facility] Urine Ketones Negative Negative mg/dL [facility] Nitrite Urine Negative Negative [facility] Leukocyte Esterase Urine Moderate (2+)(A) Negative [facility] RBC Urine 3-5(A) 0 - 2 /HPF [facility] Urine WBC 6-10(A) 0 - 5 /HPF [facility] Urine Squamous Epithelial Cell 3-5 0 - 2 /HPF [facility] Urine Bacteria Trace None Seen [facility] Hyaline Casts, Urine 0-2 0 - 2 /LPF [facility] 04/01/2025 10:4 0 PM EST 04/01/2025 10:47 PM EST Narrative [facility] - 04/01/2025 10:57 PM EST Urine, Clean Catch Generic External Data Provider LAB URINE ORDERAB LES Final Result Performing Organization Address [facility]/ZIP Co de Phone Number [facility] [address] [place] [phone] * Culture, Urine, Routine (04/01/2025 12:00 AM EST) Urine Urine specimen obtained by clean catch procedure / Unknown 04/01/2025 04/01/2025 Comment:[facility] Narrative [facility] - 04/03/2025 1:32 PM EST Strep agalactiae (Grp B) Quant > 100,000 cfu/mL Susc N/A Susceptibility not routinely performed on this isolate. Specimen Source: Urine clean catch Generic External Data Provider LAB MICROBIOLOGY - GENERAL ORDERABLES Final Result Performing Organization Address [facility] Co de Phone Number [facility] [address] [place] [phone] documented in this encounter Visit Diagnoses Not on filedocumented in this encounter Additional Health Concerns Assessment Noted Time PHQ-9 Depression Total Score: 2 12/25/19 25 10:08 AM EDT documented as of this encounter Care Teams Aerospace Manager Relationship Specialty Start Date End Date Arnel York CNP [address] [place] [phone] PCP - General Family Medicine 02/12/25 documented as of this encounter
--- OUTSIDE RECORDS SUMMARY | 2025-04-05 11:19 | XMS_ITS | Encounter Summary ---
Author Organization [employer] Address [address] [facility] 7 [place] [address] Care Team Providers Care Senior Materials Planner Name Role Phone Arnel York CNP Primary Care Provider [phone] Reason for Visit * Reason Onset Date Comments chart prep 04/03/2025 Encounter Details Date Type Department Care Team ([facility] st Contact Info) Description 04/03/2025 Telephone [facility] [address] [place] [address] Arnel York CNP [address] [place] [address] chart prep Social History Tobacco Use Types [...] encounter Miscellaneous Notes * Telephone Encounter - Renita Ríos [place] - 04/03/2025 2:58 PM EST Chart Prep Labs: not applicable Images: not applicable Referrals: not applicable Vaccines due: Covid, Flu, Hep B, and HPV Screenings: not applicable Overdue care gaps: Not applicable documented in this encounter Plan of Treatment Upcoming Encounters Date Type Department Care Team (Late st Contact Info) Description 06/07/2025 9:00 AM EST Office Visit [facility] [address] [place] [address] Arnel York, DETAIL SERGEANT [address] [place] [address] 07/19/2025 9:30 AM EDT Office Visit [facility] [address] [place] [address] Corry Page, OD [address] [place] [address] documented as of this encounter Visit Diagnoses Not on filedocumented in this encounter Additional Health Concerns Assessment Noted Time PHQ-9 Depression Total Score: 2 12/25/19 10:08 AM EDT documented as of this encounter Care Teams Senior Materials Planner Relationship Specialty Start Date End Date Arnel York CNP [address] [place] [address] PCP - General Family Medicine 02/12/25 documented as of this encounter
[2025-04-05 15:08] LABS: MANUAL DIFF FLAG NO
[2025-04-05 15:12] LABS: Hematocrit 35.7 % (37.0-47.0); Hemoglobin 11.2 g/dl (12.0-16.0); Imm Gran Abs Auto 0.07 X10*3/uL (0.00-0.03); Imm Gran Pct Auto 0.4 % (0.0-0.4); Lymphocytes Absolute Auto 4.5 X10*3/uL (1.2-4.9); Mean Corpuscular HGB Conc 31.4 g/dl (31.0-35.0); Mean Corpuscular Hemoglobin 24.0 pg (27.0-33.0); Mean Corpuscular Volume 76.6 fL (80.0-98.0); NRBC Abs Auto 0.000 X10*3/uL (0.0-0.012); NRBC Pct Auto 0.0 /100WBC (0.0-0.2); Platelet Count 332 X10*3/uL (160-400); Red Blood Count 4.66 X10*6/uL (4.20-5.50); White Blood Count 15.6 X10*3/uL (4.8-10.8)
[2025-04-05 15:44] LABS: Alanine Aminotransferase 365 U/L (0-31); Albumin Level 4.3 g/dL (3.5-5.0); Alkaline Phosphatase 117 U/L (39-117); Anion Gap 11 (12-20); Aspartate Amino Transferase 130 U/L (5-31); Blood Urea Nitrogen 12 mg/dL (9-16); Calcium 9.2 mg/dL (8.4-10.2); Carbon Dioxide 25 mmol/L (22-29); Chloride 107 mmol/L (96-108); Estimated Glomerular Filt Rate > 60; Iron 34 mcg/dL (30-160); Lipase 36 U/L (8-78); Percent Iron Saturation 10 % (15-50); Potassium 3.7 mmol/L (3.3-5.1); Sodium 139 mmol/L (135-145); Total Iron Binding Capacity 335 mcg/dL (228-428); Total Protein 7.3 g/dL (6.5-8.0); Unsaturated Iron Binding 301 ug/dL
[2025-04-05 16:04] LABS: Ferritin 19 ng/mL (10-250)
== END 2025-04-05 10:03 | disposition home or self-care (01) ==
LOC: HO.CHCLDS 10:02
DX: R74.01 Elevation of levels of liver transaminase levels (principal)
CPT/HCPCS: 36415; 80053; 82728; 83540; 83690; 85025